=== PATIENT | female | born 1935 | race Caucasian/White ===

== ENCOUNTER 2016-10-05 02:36 | Inpatient (IN) | payer OTHER ==
--- NOTE | 2016-10-05 03:06 | ED EKG INTERP ---
EKG Interpretation - EKG Time of EKG reading by physician:: 02:51 EKG Read and Signed by:: Charli Bah EKG Interpretation (*Must complete 3 of following elements*): Abnormal (Low voltage QRS; Nonspecific ST and T wave abnormality) Rate: 100 Rhythm: A-fib with PVC or aberrantly conducted complexes Attestation - Scribe Verification/Attestation Scribe:: Emiliano Matthew Acting as Scribe for:: Charli Bah Scribe documention review:: This chart was documented by a scribe and accurately reflects the service the provider performed and the decisions made by the provider.
[2016-10-05] MEDS ORDERED: ASPIRIN PO STA (03:18)
[2016-10-05 03:25] LABS: MANUAL DIFF NEEDED? NO
[2016-10-05 03:32] LABS: BASO% 1.2 % (0.0-0.8); EOS# 0.34 X1000 (0.0-0.7); HEMOGLOBIN 14.7 g/dL (12.0-16.0); LYMPH# 1.18 X1000 (1.2-3.4); LYMPH% 27.7 % (20.5-51.1); MCHC 33.4 g/dL (33-37); MCV 98.7 FL (81-99); MONO# 0.64 X1000 (0.11-0.59); MPV 8.1 FL (7.4-10.4); NEUT% 48.1 % (42.2-75.2); PLT 158 X1000 (130-400); RBC 4.46 XMIL (4.2-5.4)
--- NOTE | 2016-10-05 03:35 | PROVIDER DOCUMENTATION ---
HPI-Chest Pain - General Source: patient - History of Present Illness-CP Location: reports: other (midsternal) Chest Pain Radiation: reports: no radiation Quality of Pain: reports: burning Severity in ED: moderate Onset/Duration: 4-6 hours ago Timing: still present Context/Activities at Onset: reports: light activity Associated Symptoms: reports: fatigue, shortness of breath. denies: abdominal pain, back pain, headache, nausea, rash, swelling/lump in chest, syncope, vomiting <Emiliano Matthew - Last Filed: 10/05/16 03:29> <Charli Bah - Last Filed: 10/05/16 05:50> <Yordan Dumont - Last Filed: 10/05/16 08:38> - General Chief Complaint: Chest Pain Stated Complaint: CP Time Seen by Provider: 10/05/16 03:11 Allergies/Adverse Reactions: Patient Allergies Allergy/AdvReac Type Severity Reaction Status Date / Time No Known Allergies Allergy Verified 10/05/16 02:59 Home Medications: Home Medication List Medication Instructions Recorded Confirmed Last Taken Type Albuterol Sulfate [Ventolin] 5 mg IH PRN PRN 06/09/12 10/05/16 06/09/12 03:00 History Alprazolam [Xanax] 0.05 mg PO BID 06/09/12 10/05/16 10/04/16 History Budesonide/Formoterol Inhaler 60 puff INH BID 06/09/12 10/05/16 10/04/16 History [Symbicort 160/4.5 Microgm Inhaler] Aliskiren [Tekturna] 150 mg PO DAILY #0 tablet 06/14/12 10/05/16 10/04/16 Rx Montelukast [Singulair] 10 mg PO DAILY #0 tablet 06/14/12 10/05/16 10/04/16 Rx 2 Unk "Heart Pills" 1 tab PO DAILY 10/05/16 10/04/16 History Furosemide [Lasix] 20 mg PO DAILY 10/05/16 10/05/16 10/04/16 History Guaifenesin E.r. [Mucinex] 600 mg PO BID 10/05/16 10/05/16 10/04/16 History Hydrochlorothiazide 25 mg PO DAILY 0210/05/16 10/04/16 History Ipratropium/Albuterol Sulfate 3 ml IH TID 10/05/16 10/05/16 10/04/16 History [Iprat-Albut 0.5-3(2.5) mg/3 ml] Potassium Chloride 20 meq PO DAILY 10/05/16 10/05/16 10/04/16 History - History of Present Illness-CP Nature of Presenting Problem: Pt is a 81 yof who presents to ER with CC of C/P that started at approximately 2300. Pt reports having a constant, midsternal, burning C/P and rates her pain 8 /10. Pt also complains of RUQ and RLQ tenderness, dyspnea on exertion. On exam, pt's O2 sat did not go above 90, and pt was on approximately 2L of O2. ( Emiliano Matthew) Review of Systems - Adult - REVIEW OF SYSTEMS - ADULT Constitutional: denies: chills, fever, fatique, night sweats Eyes: reports: no symptoms reported Ears, Nose, Mouth & Throat: reports: no symptoms reported Cardiovascular: reports: chest pain, irregular heart rate (hx of A-fib). denies : edema, heart murmur, orthopnea, palpitations, poor circulation, PND, syncope Respiratory: reports: chronic cough, cough, dyspnea on exertion, excessive sputum production, shortness of breath, wheezing. denies: hemoptysis, pleurisy Gastrointestinal: reports: abdominal pain (RUQ and RLQ tenderness). denies: hematemesis, constipation, diarrhea, difficulty swallowing, frequent heartburn, nausea, poor appetite, rectal bleeding, vomiting Genitourinary: reports: no symptoms reported Musculoskeletal: reports: no symptoms reported Integumentary: reports: no symptoms reported Neurological: reports: no symptoms reported Psychiatric: reports: no symptoms reported Endocrine: reports: no symptoms reported Hematologic/Lymphatic: reports: no symptoms reported Allergic/Immunologic: reports: no symptoms reported All Other Systems: Reviewed and Negative <Emiliano Matthew - Last Filed: 10/05/16 03:29> Past History - Adult - PAST MEDICAL HISTORY-ADULT Review of Records: reports: Nursing Assessment Review, Medications Reviewed Cardiovascular: reports: A-Fib, HTN Respiratory: reports: COPD - IMMUNIZATION STATUS Childhood Immunizations: See Nurse Assessment Flu Vaccine: See Nurse Assessment <Emiliano Matthew - Last Filed: 10/05/16 03:29> Physical Exam-General - PHYSICAL EXAM-ADULT Initial Vital Signs Reviewed: Yes - CONSTITUTIONAL General Appearance: appears well, alert, moderate distress - NECK Neck: non-tender, full range of motion, supple - RESPIRATORY Respiratory: chest non-tender, wheezing (moderate bilaterally). negative: respiratory distress, accessory muscle use - CARDIOVASCULAR Cardiovascular: tachycardia, irregularly irregular - CHEST (BREASTS) Chest/Breast: no masses/lumps, no tenderness. negative: tenderness, mass/lump noted - GASTROINTESTINAL (ABDOMEN) Abdominal Exam: normal bowel sounds, soft, tenderness (RU and RLQ). negative: distended, guarding, rigid, rebound, mass - NEUROLOGIC Neurologic: grossly normal, no motor/sensory deficits. negative: facial droop, focal weakness, motor weakness, sensory deficit - PSYCHIATRIC Psych/Mental Status: normal mood/affect, normal thought content, normal thought process, oriented x 3. negative: disoriented x 3, depressed affect, paranoid, tearful <Emiliano Matthew - Last Filed: 10/05/16 03:29> - CONSTITUTIONAL General Appearance: alert, mild distress (with gasping breaths, unable to speak full sentences) - RESPIRATORY Respiratory: respiratory distress (mild), decreased breath sounds, accessory muscle use, wheezing (faint end expiratory), increased rate. negative: rales, rhonchi - CARDIOVASCULAR Cardiovascular: regular rate, rhythm, no gallop, JVD. negative: gallop/S3 - GASTROINTESTINAL (ABDOMEN) Abdominal Exam: soft, tenderness (mild RUQ). negative: distended, guarding, rigid, mass, McBurney's point tenderness, Bee's sign - MUSCULOSKELETAL Extremity: no calf tenderness (neg Clifton's), pedal edema (2+ BLE's) - SKIN Integumentary: warm/dry, cyanosis (both hands). negative: diaphoresis - PSYCHIATRIC Psych/Mental Status: normal mood/affect <Yordan Dumont - Last Filed: 10/05/16 08:38> Progress <Emiliano Matthew - Last Filed: 10/05/16 03:29> - XRAY 1 XRAY Study: Chest Impression: Abnormal (severe COPD, small rt pleural effusion. No sig change from prior exms) - CHANGE OF SHIFT REPORT (ED Provider) Report Given and Care Transferred to:: Dr dumont Items Pending: Ultrasound Results <Charli Bah - Last Filed: 10/05/16 05:50> - CONSULTS/PCP/HOSPITALIST Notification #1 *Consult/PCP/Hospitalist*: Joan Time Discussed: 08:06 Consult Disposition: Will see in ED, Admit <Yordan Dumont - Last Filed: 10/05/16 08:38> - PLAN OF CARE/RESULTS Progress/Plan/Lab Results: Vital Signs Temp Pulse Resp BP Pulse Ox 10/05/16 07:54 96 H 20 80 L 10/05/16 07:38 109 H 29 H 153/86 90 L 10/05/16 06:53 87 15 124/88 96 10/05/16 04:41 89 14 144/79 95 10/05/16 04:19 98 H 17 10/05/16 03:58 90 16 156/81 85 L 10/05/16 02:38 97.9 F 62 22 139/75 No Known Allergies Allergy (Verified 10/05/16 02:59) Albuterol Sulfate [Ventolin] 5 mg IH PRN PRN 06/09/12 Alprazolam [Xanax] 0.05 mg PO BID 06/09/12 Budesonide/Formoterol Inhaler [Symbicort 160/4.5 Microgm Inhaler] 60 puff INH BID 06/09/12 Aliskiren [Tekturna] 150 mg PO DAILY #0 tablet 06/14/12 Montelukast [Singulair] 10 mg PO DAILY #0 tablet 06/14/12 2 Unk "Heart Pills" 1 tab PO DAILY 10/05/16 Furosemide [Lasix] 20 mg PO DAILY 10/05/16 Guaifenesin E.r. [Mucinex] 600 mg PO BID 10/05/16 Hydrochlorothiazide 25 mg PO DAILY 10/05/16 Ipratropium/Albuterol Sulfate [Iprat-Albut 0.5-3(2.5) mg/3 ml] 3 ml IH TID 10/05 Potassium Chloride 20 meq PO DAILY 10/05/16 Laboratory 10/05/16 10/05/16 10/05/16 07:46 03:15 03:15 WBC 4.26 L RBC 4.46 Hgb 14.7 Hct 44.0 MCV 98.7 MCH 33.0 H MCHC 33.4 RDW Std Deviation 14.6 H Plt Count 158 MPV 8.1 Immature Gran % (Auto) 0.0 Neut % (Auto) 48.1 Lymph % (Auto) 27.7 Tarrant % (Auto) 15.0 H Eos % (Auto) 8.0 Baso % (Auto) 1.2 H Immature Gran # (Auto) 0.00 Neut # (Auto) 2.05 Lymph # (Auto) 1.18 L T[place] # (Auto) 0.64 H Eos # (Auto) 0.34 Baso # (Auto) 0.05 PT 10.7 INR 1.01 PTT (Actin FS) 26.4 D-Dimer Specimen Type ARTERIAL Sample Site R RADIAL pH 7.43 pCO2 59 H* pO2 46 L* HCO3 33.8 H Base Excess 12.1 H Oxyhemoglobin 77.3 L* ABG O2 Sat (Calculated) 16.0 ABG O2 Saturation 80.7 L ABG Carboxyhemoglobin 2.80 H ABG Methemoglobin 1.3 Gareth Test YES A-a O2 Difference 137.0 Total Hemoglobin 14.8 Lactate 0.90 Liter Flow 4.0 Blood Gas Modality CANNULA FiO2 % 36.0 Sodium Potassium Chloride Carbon Dioxide Anion Gap BUN Creatinine Estimated GFR/1.73 m2 BUN/Creatinine Ratio Glucose Calculated Osmolality Calcium Magnesium Total Bilirubin AST ALT Alkaline Phosphatase Creatine Kinase Troponin T [id number]-Fmwuwwniwtu Pept Total Protein Albumin Globulin Albumin/Globulin Ratio 10/05/16 10/05/16 10/05/16 03:15 03:15 03:15 WBC RBC Hgb Hct MCV MCH MCHC RDW Std Deviation Plt Count MPV Immature Gran % (Auto) Neut % (Auto) Lymph % (Auto) Tarrant % (Auto) Eos % (Auto) Baso % (Auto) Immature Gran # (Auto) Neut # (Auto) Lymph # (Auto) Tarrant # (Auto) Eos # (Auto) Baso # (Auto) PT INR PTT (Actin FS) D-Dimer 0.53 H Specimen Type Sample Site pH pCO2 pO2 HCO3 Base Excess Oxyhemoglobin ABG O2 Sat (Calculated) ABG O2 Saturation ABG Carboxyhemoglobin ABG Methemoglobin Gareth Test A-a O2 Difference Total Hemoglobin Lactate Liter Flow Blood Gas Modality FiO2 % Sodium Potassium Chloride Carbon Dioxide Anion Gap BUN Creatinine Estimated GFR/1.73 m2 BUN/Creatinine Ratio Glucose Calculated Osmolality Calcium Magnesium Total Bilirubin AST ALT Alkaline Phosphatase Creatine Kinase Troponin T < 0.010 Oxh-A-Txuitxwlbfr Pept 2219 H Total Protein Albumin Globulin Albumin/Globulin Ratio 10/05/16 03:15 WBC RBC Hgb Hct MCV MCH MCHC RDW Std Deviation Plt Count MPV Immature Gran % (Auto) Neut % (Auto) Lymph % (Auto) Tarrant % (Auto) Eos % (Auto) Baso % (Auto) Immature Gran # (Auto) Neut # (Auto) Lymph # (Auto) Tarrant # (Auto) Eos # (Auto) Baso # (Auto) PT INR PTT (Actin FS) D-Dimer Specimen Type Sample Site pH pCO2 pO2 HCO3 Base Excess Oxyhemoglobin ABG O2 Sat (Calculated) ABG O2 Saturation ABG Carboxyhemoglobin ABG Methemoglobin Gareth Test A-a O2 Difference Total Hemoglobin Lactate Liter Flow Blood Gas Modality FiO2 % Sodium 136 Potassium 3.5 Chloride 87 L Carbon Dioxide 36 H Anion Gap 13 BUN 15 Creatinine 0.9 Estimated GFR/1.73 m2 60 BUN/Creatinine Ratio 17 Glucose 114 H Calculated Osmolality 274 Calcium 10.0 Magnesium 2.1 Total Bilirubin 0.57 AST 19 ALT 18 Alkaline Phosphatase 60 Creatine Kinase 46 Troponin T Uwg-E-Nvsthnebojw Pept Total Protein 7.2 Albumin 4.1 Globulin 3.1 Albumin/Globulin Ratio 1.3 (Yordan Dumont) Departure <Emiliano Matthew - Last Filed: 10/05/16 03:29> <Charli Bah - Last Filed: 10/05/16 05:50> - Departure Time of Disposition Order: 08:30 Certified Medical Emergency: Emergent - Critical Care Note Total Time (mins): 30 Critical Care Statement: This patient required my direct personal management to treat or rule out processes, the absence of which, could potentiallly result in sudden, clinically significant life or limb threatening deterioration. <Yordan Dumont - Last Filed: 10/05/16 08:38> - Departure DIAGNOSIS: Acute respiratory failure with hypoxemia RUQ abdominal tenderness Qualifiers: Presence of rebound: absent Qualified Code(s): R10.811 - Right upper quadrant abdominal tenderness Disposition: ADMITTED INPATIENT 09 Condition: Stable Referrals: Gareth Franco MD [Primary Care Provider] - Attestation - Scribe Verification/Attestation Scribe:: Emiliano Matthew Acting as Scribe for:: Charli Bah Scribe documention review:: This chart was documented by a scribe and accurately reflects the service the provider performed and the decisions made by the provider. <Emiliano Matthew - Last Filed: 10/05/16 03:29> Physician Attestation
[2016-10-05 03:39] LABS: INR 1.01; PROTIME 10.7 Seconds (9.2-11.7); PTT 26.4 Seconds (22.0-36.0)
[2016-10-05 03:55] LABS: ALBUMIN 4.1 g/dL (3.5-5.0); MAGNESIUM 2.1 mg/dL (1.5-2.7); POTASSIUM 3.5 mmol/L (3.5-5.1); TOTAL BILIRUBIN 0.57 mg/dL (0.20-1.00); TOTAL PROTEIN 7.2 g/dL (6.3-8.3)
[2016-10-05] MEDS ORDERED: DUONEB (A & A) INH ONE (04:05)
[2016-10-05] MEDS ORDERED: ALBUTEROL NEB INH ONE (07:39)
[2016-10-05] MEDS ORDERED: LASIX IV ONE (07:44)
[2016-10-05 07:55] LABS: ALLEN TEST YES; BE 12.1 mmoll (-3.0-3.0); BLOOD TYPE ARTERIAL; DRAW SITE R RADIAL; METHB 1.3 % (0.0-1.5); SAMPLE BLOOD; SAO2 80.7 % (95.0-100.0); THB 14.8 g/dL (11.5-17.4); pH(98.6) 7.43 (7.35-7.45)
[2016-10-05 07:57] LABS: MODALITY CANNULA; PCO2(98.6) 59 mmHg (35-45); PO2(98.6) 46 mmHg (60-100)
--- NOTE | 2016-10-05 09:32 | HISTORY AND PHYSICAL ---
HISTORY OF PRESENT ILLNESS: This is a 81-year-old who woke up about 12 o'clock last night with right subcostal pain and it was about 8/10 severity. Cannot think of any previous type of pain like this. No precipitating or alleviating factors. No fever or chills. Presented with the pain. She has severe COPD. She has a history of hypertension, hypercholesterolemia, polycythemia that has resolved probably secondary to chronic hypoxia. SOCIAL HISTORY: She quit tobacco in 2005. By report, drinks wine a couple of times a day. , 3 children. is . FAMILY HISTORY: Sister with pancreatic cancer. Father had congestive heart failure. REVIEW OF SYSTEMS: General: She has not noticed any weight gain or loss. Actually, her breathing seems to be getting a little better. I had seen her in the clinic for increased dyspnea on exertion. HEENT: Unremarkable. Cardiovascular: No chest pain or tachy palpation. GI and : No change in bowels. no gross hematuria or dysuria. Musculoskeletal/Neurologic: No focal complaints. PHYSICAL EXAMINATION: VITAL SIGNS: Temp 97.9, pulse 96, respirations 20, blood pressure 153/86. Weight 163 pounds, height 5 feet 9 inches. HEENT: Pupils are equal, round. LUNGS: Clear in all lung reyes. CARDIOVASCULAR: Regular rhythm and rate without murmur or S3. ABDOMEN: Soft. SKIN: Warm and dry. MUSCULOSKELETAL: She has no point tenderness but hurts underneath the right subcostal margin. LAB: White count 4260, hematocrit 44, platelet count 158,000. Sodium 136, potassium 3.5, chloride 87, bicarbonate 36, BUN 15, creatinine 0.9, blood sugar 114, calcium 10.0. Liver functions unremarkable. Albumin 4.1. PT was 10.7, PTT was 26. Blood gases on arrival: pH was 7.43, pCO2 was 59, pO2 was 46. O2 sat 77% on 4 L on 36%. IMAGING: Had an ultrasound done. Do not have the results back at this point. EKGS: Atrial fibrillation with PVCs, aberrant conduction complex. ECHOCARDIOGRAM: She had an echocardiogram done 06/11/2012, excellent hemodynamic left ventricular systolic function, no wall motion abnormality. Right ventricle is mildly to moderately enlarged. A mild degree of mitral and tricuspid regurgitation. A mild degree of pulmonary hypertension. No significant left ventricular diastolic dysfunction. Clinical correlation is recommended. ASSESSMENT AND PLAN: 1. Concerned about her degree of hypoxia and she may have to have some BiPAP, and we will see if we can tune up her breathing a little bit. She has a chest x-ray that is pending at this time, and it sounds like with have a little pleural effusion down in the right lower lobe and will give her some Lasix and plan on putting her in and working on her breathing. See if we can also explore her right upper quadrant pain. Probably need to repeat an echocardiogram. 2. Hypertension. Aware. 3. Hypercholesterolemia. 4. History of polycythemia in the past. Note her last x-ray to compare was in 08/02. Stable COPD, bibasilar fibrosis.
--- NOTE | 2016-10-05 09:48 | Diag Imaging Result Document ---
PROCEDURE NAME: US GB < RUQ (LIMITED) - 10/05/2016 RIGHT UPPER QUADRANT ABDOMINAL ULTRASOUND: COMPARISON: None available. FINDINGS: There is dense shadowing emanating from the fundus and neck of the gallbladder, consistent with large gallstones or multiple smaller compacted stones. No obvious gallbladder wall thickening is identified. There is no pericholecystic fluid identified. The common bile duct is normal in diameter. The sonographic Bee sign was reported to be positive by the technologist, however. The liver, visualized pancreas, aorta, IVC, and right kidney are grossly unremarkable. IMPRESSION: Cholelithiasis, with no obvious wall thickening. However, the technologist did report a positive sonographic Bee sign. Correlated clinically to exclude cholecystitis. MTDD
--- NOTE | 2016-10-05 11:39 | Diag Imaging Result Document ---
PROCEDURE NAME: CHEST-2 VIEWS - 10/05/2016 PA AND LATERAL RADIOGRAPH OF THE CHEST: COMPARISON: 07/31/2016. FINDINGS: There is suggestion of small bilateral pleural effusions, largest on the right. There is adjacent bibasilar atelectasis and/or infiltrate. There is also a background of chronic interstitial thickening. Cardiac silhouette is prominent, but stable. IMPRESSION: Suggestion of small bilateral effusions, largest on the right, with adjacent atelectasis and/or infiltrate.
[2016-10-05] MEDS: XANAX PO SCH ×2 (13:05→20:06)
[2016-10-05] MEDS: LEVAQUIN 750 MG/D5W 150 ML IV SCH (13:05)
[2016-10-05] MEDS ORDERED: TEKTURNA PO SCH (13:05)
[2016-10-05] MEDS ORDERED: DUONEB (A & A) INH SCH (13:05)
[2016-10-05] MEDS ORDERED: ALBUTEROL NEB INH PRN (13:05)
[2016-10-05] MEDS: SOLU-MEDROL IV SCH ×2 (14:13→20:06)
[2016-10-05] MEDS: MUCINEX PO SCH ×2 (14:14→20:06)
[2016-10-05] MEDS: LASIX IV SCH (14:14)
[2016-10-05] MEDS: HYDROCHLOROTHIAZIDE PO SCH (14:14)
[2016-10-05] MEDS: SINGULAIR PO SCH (14:14)
[2016-10-05] MEDS: DUONEB (A & A) INH SCH ×2 (15:21→20:40)
[2016-10-05] MEDS: SYMBICORT 160/4.5 MICROGM INHALER INH SCH ×2 (15:25→20:40)
[2016-10-05] MEDS: KLOR-CON POWDER PACKET PO SCH (16:17)
[2016-10-05 22:51] LABS: URINE CULTURE NEEDED? NO; URINE MICRO REVIEW NEEDED? NO; URINE SOURCE CLEAN CATCH
[2016-10-05 22:53] LABS: BILIRUBIN URINE NEGATIVE (NEGATIVE); BLOOD URINE NEGATIVE (NEGATIVE); COLOR STRAW; GLUCOSE URINE NEGATIVE (NEGATIVE); LEUKOCYTES URINE NEGATIVE (NEGATIVE); NITRITE URINE NEGATIVE (NEGATIVE); PROTEIN URINE NEGATIVE (NEGATIVE); SP GRAVITY URINE 1.006; TURBIDITY URINE CLEAR (CLEAR); UROBILINOGEN URINE NORMAL (NORMAL)
[2016-10-05 22:54] LABS: UR EPITHELIAL CELLS <10 /HPF (<10); URINE BACTERIA NEGATIVE /HPF; URINE RBC <10 /HPF (<10); URINE WBC <10 /HPF (<10)
[2016-10-06] MEDS: LASIX IV SCH ×2 (02:59→13:09)
[2016-10-06 05:38] LABS: HEMATOCRIT 45.3 % (37.0-47.0); HEMOGLOBIN 15.1 g/dL (12.0-16.0); LYMPH# 0.37 X1000 (1.2-3.4); MANUAL DIFF NEEDED? YES; MCH 32.4 PG (27-31); MCHC 33.3 g/dL (33-37); MCV 97.2 FL (81-99); MONO# 0.15 X1000 (0.11-0.59); MONO% 3.6 % (1.7-9.3); MPV 8.2 FL (7.4-10.4); NEUT% 87.4 % (42.2-75.2); PLT 148 X1000 (130-400); RBC 4.66 XMIL (4.2-5.4)
[2016-10-06] MEDS: SOLU-MEDROL IV SCH ×3 (05:45→20:20)
[2016-10-06 05:58] LABS: LYMPHS 14 % (21-51); MONO 2 % (1-9)
[2016-10-06 06:09] LABS: AGAP 13; ALBUMIN 3.8 g/dL (3.5-5.0); ALKALINE PHOSPHATASE 56 U/L (32-104); BUN 17 mg/dL (8-22); CHLORIDE 79 mmol/L (98-107); COSMO 273; GOT 14 U/L (10-30); GPT 15 U/L (10-36); MAGNESIUM 1.8 mg/dL (1.5-2.7); POTASSIUM 2.7 mmol/L (3.5-5.1); SODIUM 133 mmol/L (136-145); TCO2 41 mmol/L (25-35); TOTAL BILIRUBIN 0.92 mg/dL (0.20-1.00); TOTAL PROTEIN 7.1 g/dL (6.3-8.3)
[2016-10-06] MEDS ORDERED: POTASSIUM CHLORIDE 20% LIQUID PO ONE (07:21)
[2016-10-06] MEDS: DUONEB (A & A) INH SCH ×3 (08:05→19:39)
[2016-10-06] MEDS: SYMBICORT 160/4.5 MICROGM INHALER INH SCH ×2 (08:05→19:39)
--- NOTE | 2016-10-06 08:05 | PROGRESS NOTE ---
DATE: 10/06/2016 SUBJECTIVE: She is breathing much better. States her right upper quadrant subcostal pain is resolved. She can tell she has lost some fluid and breathing better. OBJECTIVE: Vital signs: Temp 97.7 degrees, pulse 80, respirations 20, blood pressure 104/46. HEENT: Pupils are equal and round. Neck: CVP less than 6 cm. Lungs: Clear anterolateral. Decreased breath sounds both bases. Cardiovascular: Regular rhythm and rate without murmur or S3. Abdomen: Soft. Weight 159 pounds. She came in at 163. Intake and output: Urine output was close to 1800 mL. LAB: From today, white count 4,110, hematocrit 45, platelet count 148,000. Chemistry: Sodium 133, potassium 2.7, chloride 79, BUN 17, creatinine 0.8. Blood sugars 164, 225, 182, 185. ASSESSMENT AND PLAN: 1. Right upper quadrant subcostal pain. She does have cholelithiasis but no obvious thickening of the gallbladder. Did show positive sonographic Bee's sign. I suspect most of her discomfort though was from hepatic congestion and that is better. 2. Chronic obstructive pulmonary disease exacerbation with right-sided dysfunction. She has fluid retention; responding to diuresis. 3. Hypokalemia secondary diuresis. Will supplement some additional potassium. 4. Blood sugars, watching. Diabetes. Continue to follow. Note that magnesium was 1.8.
[2016-10-06] MEDS: XANAX PO SCH ×2 (08:26→20:20)
[2016-10-06] MEDS: MUCINEX PO SCH ×2 (08:26→20:20)
[2016-10-06] MEDS: SINGULAIR PO SCH (08:26)
[2016-10-06] MEDS: HYDROCHLOROTHIAZIDE PO SCH (08:26)
[2016-10-06] MEDS: KLOR-CON POWDER PACKET PO SCH (08:26)
--- NOTE | 2016-10-06 11:29 | ECHO REPORT ---
ORDER DATE: 10/05/2016 ECHOCARDIOGRAPHIC MEASUREMENTS: 1. Interventricular septum 1, left ventricular posterior wall 1, diastolic diameter 3.5, left atrium 4.8, aorta 2.7. Normal left ventricular cavity size. Estimated ejection fraction of 70%. Hyperdynamic left ventricular systolic function. 2. There is mild left atrial enlargement. 3. Aortic valve leaflets are trileaflet. 4. Mitral valve was normal. 5. Tricuspid valve was normal. 6. Peak velocity across the aortic valve less than 2 m/sec. There is no aortic stenosis or regurgitation. There is mild mitral regurgitation. Mild tricuspid regurgitation. Peak velocity across the tricuspid valve was 3.1 m/sec. 7. There is no pericardial effusion or obvious intracardiac mass or thrombus seen. 8. There was mild left atrial enlargement.
[2016-10-06] MEDS: LEVAQUIN 750 MG/D5W 150 ML IV SCH (13:09)
[2016-10-06] MEDS ORDERED: POTASSIUM CHLORIDE 20% LIQUID PO SCH (14:00)
[2016-10-07] MEDS: LASIX IV SCH (03:09)
[2016-10-07] MEDS: SOLU-MEDROL IV SCH (05:02)
[2016-10-07 05:50] LABS: CALCIUM 8.7 mg/dL (8.8-10.2); MAGNESIUM 1.8 mg/dL (1.5-2.7); POTASSIUM 2.9 mmol/L (3.5-5.1)
--- NOTE | 2016-10-07 06:36 | EKG Report ---
Test Performed on : 10/05/2016 02:51:43 AM Test Reason : CP Blood Pressure : / mmHG Vent. Rate : 100 BPM Atrial Rate : 091 BPM P-R Int : 000 ms QRS Dur : 074 ms QT Int : 346 ms P-R-T Axes : 000 089 080 degrees QTc Int : 446 ms Atrial fibrillation. with premature ventricular or aberrantly conducted complexes. Low voltage QRS Nonspecific ST and T wave abnormality Abnormal ECG When compared with ECG of 09-JUN-2012 07:51, Atrial fibrillation. has replaced Sinus rhythm. ST now depressed in Anterior leads Nonspecific T wave abnormality now evident in Lateral leads Unconfirmed Result
[2016-10-07] MEDS ORDERED: POTASSIUM CHLORIDE 20% LIQUID PO ONE (07:49)
[2016-10-07 07:55] VITALS: BP 122/76
--- NOTE | 2016-10-07 08:11 | Diag Imaging Result Document ---
PROCEDURE NAME: CHEST-2 VIEWS - 10/07/2016 PA AND LATERAL RADIOGRAPH OF THE CHEST: COMPARISON: 10/05/2016. FINDINGS: There is again suggestion of small effusions, largest on the right that is essentially stable. There is better aeration of the left lung base indicating improved atelectasis. Atelectasis and/or infiltrate at the right lung base is unchanged. No new consolidations identified. Cardiac silhouette is stable. IMPRESSION: Better aeration of the left lung base. Essentially stable, otherwise.
[2016-10-07] MEDS: MUCINEX PO SCH (08:24)
[2016-10-07] MEDS: XANAX PO SCH (08:24)
[2016-10-07] MEDS: HYDROCHLOROTHIAZIDE PO SCH (08:25)
[2016-10-07] MEDS: SINGULAIR PO SCH (08:25)
[2016-10-07] MEDS: KLOR-CON POWDER PACKET PO SCH (08:25)
[2016-10-07] MEDS: DUONEB (A & A) INH SCH (09:38)
[2016-10-07] MEDS: SYMBICORT 160/4.5 MICROGM INHALER INH SCH (09:39)
--- NOTE | 2016-10-08 10:43 | DISCHARGE SUMMARY ---
ADMISSION DATE: 10/05/2016 DISCHARGE DATE: 10/07/2016 HOSPITAL COURSE: She presented to the emergency room with right upper quadrant pain. She was very short of breath with hypoxia and some CO2 retention, so had both CO2 retention and her usual hypoxia. She had evidence of pulmonary venous hypertension on her x-ray, and there is suggested bilateral effusions as well. So, we diuresed her and did an ultrasound of her abdomen with the right upper quadrant subcostal pain, and did see some cholelithiasis but no obvious wall thickening. Seemed to respond to diuretic. We did have her on a little bit of BiPAP for awhile and showed persistent clinical improvement. [place] she could go home on 10/07/2016. DISCHARGE MEDICATIONS: Her discharge medications will be as follows: 1. Albuterol ipratropium or DuoNeb as needed. 2. Symbicort 160/4.5 b.i.d. 3. Mucinex 600 mg b.i.d. 4. Hydrochlorothiazide 25 mg a day. 5. We had her on a little bit of Levaquin for potential bronchitis; we will stop that. 6. Had her on some Solu-Medrol and will put her on a Medrol Dosepak. 7. Singulair 10 mg a day. 8. Klor-Con 20 mEq daily; actually went up to 40 mEq daily on the Klor-Co. HOME MEDICINES: 1. She is not able to get the Tekturna, so we will we will stop that. 2. We will keep her on Lasix 40 mg q.a.m. Blood pressures have done fairly well. I am going to have her continue these medications and see her back in about a week and a half.
--- NOTE | 2016-10-24 17:56 | DISCHARGE SUMMARY ---
ADMISSION DATE: 10/05/2016 DISCHARGE DATE: 10/07/2016 DISCHARGE SUMMARY ADDENDUM: It was documented in the ED that she had acute hypoxic respiratory failure. ABGs revealed pH of 7.43, pCO2 of 59, pO2 of 46. Saturation was noted at 77% on 4 L. Subsequently required Venturi mask to maintain saturations in the 90s. She had hypoxic respiratory failure. She had COPD with exacerbation and congestive heart failure with pulmonary venous hypertension.
--- NOTE | 2016-10-24 17:57 | DISCHARGE SUMMARY ---
ADMISSION DATE: 10/05/2016 DISCHARGE DATE: 10/07/2016 DISCHARGE SUMMARY ADDENDUM: This patient was admitted with shortness of breath, chronic obstructive pulmonary disease, documented as stable. Then subsequent notes included chronic obstructive pulmonary disease with exacerbation. Patient received IV steroids, DuoNebs, and antibiotics. wanted to clarify patient was treated for. Patient was treated for chronic obstructive pulmonary disease exacerbation, but she also had congestive heart failure and pulmonary venous hypertension, so she really had two things going on. So, she had chronic obstructive pulmonary disease with exacerbation and she also had pulmonary venous hypertension or congestive heart failure, which was probably what exacerbated her chronic obstructive pulmonary disease.
== END 2016-10-07 10:30 | disposition home or self-care (01) | DRG 189 ==
LOC: ED 02:36 → EDIPHOLD 09:30 → 3S 13:09
PROVIDERS: ADMIT Emergency Medicine; ATTEND Emergency Medicine
DX: J96.01 Acute respiratory failure with hypoxia (principal); E87.2 Acidosis; I27.2 Other secondary pulmonary hypertension; D75.1 Secondary polycythemia; I11.0 Hypertensive heart disease with heart failure; I50.9 Heart failure, unspecified; J44.1 Chronic obstructive pulmonary disease with (acute) exacerbation; K76.1 Chronic passive congestion of liver; E87.6 Hypokalemia; E78.00 Pure hypercholesterolemia, unspecified; K80.20 Calculus of gallbladder without cholecystitis without obstruction; Z79.899 Other long term (current) drug therapy; Z87.891 Personal history of nicotine dependence; Z80.8 Family history of malignant neoplasm of other organs or systems; T50.2X5A Adverse effect of carbonic-anhydrase inhibitors, benzothiadiazides and other diuretics, initial encounter
CPT/HCPCS: 71020; 76705; 80048; 80053; 81001; 82550; 82805; 82948; 83735; 83880; 84484; 85025; 85379; 85610; 85730; 87070; 87205; 93005; 93306; 94640; 94761; 94799; 96374; J1940; J2920; J2930

== ENCOUNTER 2017-02-10 15:14 | Inpatient (IN) ==
[2017-02-10] MEDS ORDERED: DUONEB (A & A) INH SCH (17:32)
[2017-02-10] MEDS ORDERED: ALBUTEROL 0.5% INH CONC FOR HYPERKALEMIA INH PRN (17:32)
[2017-02-10] MEDS ORDERED: TYLENOL PO PRN ×2 (17:32)
[2017-02-10] MEDS ORDERED: VANCOMYCIN 1 GM/NS 1 GM/250 ML IVPB IV ONE (17:32)
[2017-02-10] MEDS ORDERED: VANCOMYCIN IV PER PHARMACY MISC SCH (18:30)
[2017-02-10 18:49] LABS: MANUAL DIFF NEEDED? NO
[2017-02-10 19:02] LABS: BASO% 0.5 % (0.0-0.8); EOS# 0.25 X1000 (0.0-0.7); EOS% 3.3 % (0.0-10.0); HEMATOCRIT 43.7 % (37.0-47.0); HEMOGLOBIN 14.4 g/dL (12.0-16.0); LYMPH# 1.39 X1000 (1.2-3.4); LYMPH% 18.5 % (20.5-51.1); MCH 31.9 PG (27-31); MCV 96.9 FL (81-99); MONO# 0.93 X1000 (0.11-0.59); MONO% 12.4 % (1.7-9.3); MPV 8.4 FL (7.4-10.4); NEUT% 65.3 % (42.2-75.2); PLT 214 X1000 (130-400); RBC 4.51 XMIL (4.2-5.4)
[2017-02-10] MEDS ORDERED: PATIENT'S OWN MED INH PRN (19:02)
[2017-02-10 19:12] LABS: ALBUMIN 4.4 g/dL (3.5-5.0); CALCIUM 9.6 mg/dL (8.8-10.2); MAGNESIUM 2.3 mg/dL (1.5-2.7); POTASSIUM 3.6 mmol/L (3.5-5.1); TOTAL BILIRUBIN 0.3 mg/dL (0.20-1.00); TOTAL PROTEIN 8.1 g/dL (6.3-8.3)
[2017-02-10 19:16] LABS: PROTIME 10.5 Seconds (9.2-11.7); PTT 31.9 Seconds (22.0-36.0)
[2017-02-10] MEDS ORDERED: VANCOMYCIN 1,400 MG in NS 250 ML IV ONE (21:00)
[2017-02-10] MEDS ORDERED: SYMBICORT 160/4.5 MICROGM INHALER INH SCH (21:00)
[2017-02-10] MEDS ORDERED: XANAX PO SCH (21:00)
[2017-02-10] MEDS: SYMBICORT 160/4.5 MICROGM INHALER INH SCH (21:31)
[2017-02-10] MEDS: DUONEB (A & A) INH SCH (21:32)
[2017-02-10] MEDS: NS 1,000 ML IV SCH (23:25)
[2017-02-10] MEDS: KLOR-CON POWDER PACKET PO SCH (23:25)
[2017-02-10] MEDS: MUCINEX PO SCH (23:25)
[2017-02-10] MEDS: XANAX PO SCH (23:26)
[2017-02-11 08:42] LABS: ALLEN TEST YES; BE 14.9 mmoll (-3.0-3.0); BLOOD TYPE ARTERIAL; DRAW SITE R RADIAL; METHB 1.1 % (0.0-1.5); O2(CT) 17.5 mL/dL (15.0-23.0); PO2(98.6) 57 mmHg (60-100); SAMPLE BLOOD; SAO2 91.6 % (95.0-100.0); pH(98.6) 7.42 (7.35-7.45)
[2017-02-11 08:48] LABS: MODALITY CANNULA; PCO2(98.6) 66 mmHg (35-45)
[2017-02-11] MEDS ORDERED: LASIX IV SCH (09:00)
[2017-02-11] MEDS: MUCINEX PO SCH ×2 (09:25→21:07)
[2017-02-11] MEDS: CARDIZEM CD PO SCH (09:25)
[2017-02-11] MEDS: XANAX PO SCH ×2 (09:30→21:07)
[2017-02-11] MEDS: SYMBICORT 160/4.5 MICROGM INHALER INH SCH ×2 (09:51→19:00)
[2017-02-11] MEDS: DUONEB (A & A) INH SCH ×2 (09:51→15:29)
[2017-02-11] MEDS: KLOR-CON POWDER PACKET PO SCH ×2 (10:41→21:07)
--- NOTE | 2017-02-11 13:14 | PROGRESS NOTE ---
DATE: 02/11/2017 SUBJECTIVE: Her leg does feel better. Still has marked erythema in the right anterior beasley, a large eschar scab on the upper right lateral. She is breathing comfortably. She can tell the swelling has diminished. OBJECTIVE: Vital signs: Temp 97.9 degrees, pulse 102, respirations 24, blood pressure 117/72. Neck: CVP less than 6 cm. Lungs: Clear in all lung reyes. She is on a nasal cannula. Cardiovascular: Regular rhythm and rate without murmur or S3. Abdomen: Soft. Skin: Warm and dry. Good urine output. LAB: White count 7,500, hematocrit 43, platelet count 214,000. Chemistry: Sodium 142, potassium 3.6, chloride 94, BUN 20, creatinine 0.9. ASSESSMENT AND PLAN: 1. Cellulitis of the right leg, better. Continue IV vancomycin. I think she would benefit from another 24 hours of treatment. Elevate the leg and apply some topical Bactroban on there as well three times a day. 2. Chronic obstructive pulmonary disease, O2 dependent. I have reviewed her blood gases. She has a pH 7.42, pCO2 66, PO2 57, O2 saturation was 89% and that was on 36% FiO2. 3. Previous echocardiogram showed mild mitral regurgitation and mild tricuspid regurgitation. No aortic stenosis. Normal left ventricular function. Does have diastolic dysfunction and chronic venous insufficiency. I will give her an additional dose of Lasix now and another 1 in the morning. Start her on some Bactroban. cc: Gareth Franco MD
[2017-02-11] MEDS: SINGULAIR PO SCH (15:49)
[2017-02-11] MEDS: BACTROBAN CREAM TOP SCH ×2 (15:50→21:08)
[2017-02-11] MEDS: LASIX IV SCH (15:51)
--- NOTE | 2017-02-11 16:04 | HISTORY AND PHYSICAL ---
HISTORY OF PRESENT ILLNESS: This is an 82-year-old, patient of mine, who presents to my office. She had bumped and has an abrasion on her right lower leg which had been healing well but in the last 2 days had become more red and inflamed, very tender from the upper beasley about 6 cm below-the- knee to the lower part of the tuberosity down almost to her foot and on top of her foot as well with some swelling. It appeared consistent with cellulitis, and I felt that she probably needed IV antibiotics because of the extent and the severity. PAST MEDICAL HISTORY: 1. Atrial fibrillation, paroxysmal. 2. Anticoagulation. 3. Coronary artery disease due to coronary lesions. 4. History of chest pain in the past. 5. Respiratory failure. Combination of congestive heart failure and COPD. 6. COPD and chronic CO2 followed by Dr. Hernandez. 7. Polycythemia due to cyanotic respiratory disease. 8. Hypertension. 9. Hyperlipidemia. 10. Ex-smoker. 11. Chronic venous insufficiency. 12. Hypokalemia. 13. Left ventricular systolic dysfunction. CURRENT MEDICATIONS: 1. Diltiazem ER 180 mg daily. 2. Lasix 40 mg a day. 3. Eliquis 5 mg tablet twice a day. 4. Mucinex 600 mg XR 1 tablet once a day. 5. Symbicort 160/4.5, 1 puff twice a day. 6. Ventolin HFA inhaler 2 puffs by mouth twice a day. 7. Ipratropium albuterol 0.5/2.5 nebulized treatment q 4 hours p.r.n. 8. Potassium chloride 20 mEq daily. 9. Montelukast which is Singulair 10 mg a day. 10. Alprazolam 0.5 mg a day. 11. She wears her O2. FAMILY HISTORY: Noncontributory. SOCIAL HISTORY: She has quit smoking. Occasional alcohol. REVIEW OF SYSTEMS: She has been breathing well. Her weight has remained steady. She is getting a little stronger. Denies any fever or chills. HEENT: Unremarkable. Respiratory: No increased work of breathing or dyspnea. She wears her home O2. She sees Dr. Hernandez. He wants her to get some blood gases to see if she is eligible for BiPAP. GI/: No complaints. Endocrinologic/Hematologic: No significant history. PHYSICAL EXAMINATION: VITAL SIGNS: Blood pressure 110/64, pulse 80, respirations 18, temperature 97.7 degrees. HEENT: Pupils are equal and round. LUNGS: Clear in all lung reyes. CARDIOVASCULAR: Regular rhythm and rate without murmur or S3. ABDOMEN: Soft. SKIN: Warm and dry. EXTREMITIES: Her left foot with trace edema. Right foot with 1+ pitting edema from the upper 2/3 of her beasley down to her midfoot with erythema, a large 5 x 6 cm area of abrasion on the right lateral leg that is closed and no weeping. ASSESSMENT AND PLAN: 1. Cellulitis. Admit for IV antibiotics. 2. Congestive heart failure, diastolic. 3. Chronic obstructive pulmonary disease; O2 dependent. 4. Paroxysmal atrial fibrillation; appears to be in sinus rhythm and controlled. 5. Polycythemia secondary to cyanotic respiratory disease. 6. Hypertension. cc: Gareth Franco MD
[2017-02-11] MEDS: NS 1,000 ML IV SCH (18:11)
[2017-02-12] MEDS: LASIX IV SCH (06:40)
[2017-02-12] MEDS: XANAX PO SCH (08:24)
[2017-02-12] MEDS: KLOR-CON POWDER PACKET PO SCH (08:24)
[2017-02-12] MEDS: SINGULAIR PO SCH (08:24)
[2017-02-12] MEDS: BACTROBAN CREAM TOP SCH (08:24)
[2017-02-12] MEDS: CARDIZEM CD PO SCH (08:24)
[2017-02-12] MEDS: MUCINEX PO SCH (08:24)
[2017-02-12] MEDS ORDERED: VANCOMYCIN 1,100 MG in NS 250 ML IV SCH (09:00)
[2017-02-12] MEDS: DUONEB (A & A) INH SCH (10:07)
[2017-02-12] MEDS: SYMBICORT 160/4.5 MICROGM INHALER INH SCH (10:07)
--- NOTE | 2017-02-12 10:14 | DISCHARGE SUMMARY ---
ADMISSION DATE: 02/10/2017 DISCHARGE DATE: 02/12/2017 HISTORY OF PRESENT ILLNESS: This is an 82-year-old patient of mine, well known. She had bumped and scraped her right upper leg, and developed cellulitis that extended through most of the anterior beasley and down into the dorsal foot. She has denied any fever or chills but a lot of pain and discomfort there. She has a 6 x 7 cm eschar on the right that does not appear to be draining or have any subcutaneous infection. PAST MEDICAL HISTORY: 1. Atrial fibrillation, paroxysmal. 2. Anticoagulation. 3. Coronary artery disease and coronary lesions. 4. History of chest pain. 5. Respiratory failure. 6. COPD, chronic CO2 retention, followed by Dr. Hernandez. 7. Polycythemia due to cyanotic respiratory disease. 8. Hypertension. 9. Hyperlipidemia. 10. Ex-smoker. 11. Chronic venous insufficiency. 12. Hypokalemia. 13. Left ventricular systolic dysfunction. CURRENT MEDICATIONS: 1. Diltiazem ER 180 mg a day. 2. Lasix 40 mg a day. 3. Eliquis 5 mg tablet twice a day. 4. Mucinex 600 mg XR once a day. 5. Symbicort 160/4.5 one puff twice a day. 6. Ventolin inhaler 2 puffs by mouth twice a day. 7. Ipratropium/albuterol 0.5/2.5 q.4 hours. 8. Potassium chloride 20 mEq a day. 9. Singulair 10 mg a day. 10. Alprazolam 0.5 mg a day. 11. O2. HOSPITAL COURSE: Patient received vancomycin. I diuresed her a little bit extra with some IV Lasix and she showed steady improvement. Breathing remained comfortable. Her lab on presentation, white count 7500, hematocrit 43, platelet count 214,000. Electrolytes on the unremarkable. ASSESSMENT AND PLAN: Cellulitis which is improved. I will let her go home. I will put her on Bactrim Double Strength 1 twice a day for another 7 days and some Bactroban ointment to put on it. Otherwise, continue her present medication including her O2. Follow up with me in a couple of weeks. We did do some blood gases just to see what her gas exchange was and whether she would be eligible for possible BiPAP at home as needed. PH was 7.42, pCO2 66, PO2 57, O2 saturation 89%, and that is on 36%. cc: MD Manolo Mac
[2017-02-12] MEDS ORDERED: LASIX PO ONE (14:25)
[2017-02-12 14:31] VITALS: BP 107/66
== END 2017-02-12 14:59 | disposition home health service (06) ==
LOC: DIRADM 15:14 → 4N 17:16
PROVIDERS: ADMIT Emergency Medicine; ATTEND Emergency Medicine

== ENCOUNTER 2018-12-06 05:07 | Inpatient (IN) ==
[2018-12-06] MEDS ORDERED: DUONEB (A & A) INH ONE (05:35)
[2018-12-06] MEDS ORDERED: SOLU-MEDROL IV ONE (05:35)
--- NOTE | 2018-12-06 05:43 | PROVIDER DOCUMENTATION ---
HPI-General Adult - General Chief Complaint: Shortness of Breath Stated Complaint: weakness Time Seen by Provider: 12/06/18 05:18 Source: patient Allergies/Adverse Reactions: Patient Allergies Allergy/AdvReac Type Severity Reaction Status Date / Time codeine AdvReac Unknown Verified 12/06/18 07:20 Home Medications: Home Medication List Medication Instructions Recorded Confirmed Last Taken Type Albuterol Sulfate [Ventolin] 5 mg IH PRN PRN 06/09/12 04/03/18 1 Day Ago History ~08/22/17 Alprazolam [Xanax] 0.25 mg PO BID 06/09/12 04/03/18 04/02/18 07:30 History Budesonide/Formoterol Inhaler 60 puff INH BID 06/09/12 04/03/18 04/02/18 23:00 History [Symbicort 160/4.5 Microgm Inhaler] Montelukast [Singulair] 10 mg PO DAILY #0 tablet 06/14/12 04/03/18 04/02/18 07:30 Rx Albuterol 2.5MG/Ipratrop 0.5MG 3 ml INH RTTID #0 neb 11/12/16 04/03/18 1 Day Ago Rx [Duoneb (A & A)] ~08/22/17 Diltiazem C.d. [Cardizem Cd] 180 mg PO DAILY #0 capsule 11/12/16 04/03/18 04/02/18 07:30 Rx Furosemide [Lasix] 40 mg PO BID@0800,1400 #0 tablet 11/12/16 04/03/18 04/03/18 08:00 Rx Guaifenesin E.r. [Mucinex] 600 mg PO BID #0 tablet 11/12/16 04/03/18 04/02/18 Rx Apixaban [Eliquis] 5 mg PO BID 08/23/17 04/03/18 04/02/18 17:00 History Potassium Chloride E.r. [Klor-Con] 40 meq PO BID #60 tab 08/28/17 Unknown Rx Potassium Chloride 40 meq PO BID 04/03/18 04/03/18 04/02/18 History Levofloxacin [Levaquin] 500 mg PO DAILY #5 tab 04/06/18 Unknown Rx - History of Present Illness -Gen Adult Nature of Presenting Problems: Pt presents with sob, x a couple of days, pt reports LE edema, called pcp and was told to increase lasix at home, pt is on home O2, worsening sob with exertion, pt denies f/c, victor, cp, ap, n/v/d. Pt reports cough, pt is lying in bed in no acute distress. Location of Pain/Injury: reports: none Pain Radiation: reports: no radiation Quality of Pain: reports: none Severity: reports: moderate Onset/Duration: reports: 2 days ago Timing: reports: still present Context/Activities at Onset: reports: light activity Modifying Factors: improves with: nothing Associated Symptoms: reports: shortness of breath Similar Symptoms Previously?: Yes Recently seen or treated by another doctor?: Yes Review of Systems - Adult - REVIEW OF SYSTEMS - ADULT Constitutional: reports: no symptoms reported Eyes: reports: no symptoms reported Ears, Nose, Mouth & Throat: reports: no symptoms reported Cardiovascular: reports: no symptoms reported Respiratory: reports: see HPI Gastrointestinal: reports: no symptoms reported Genitourinary: reports: no symptoms reported Musculoskeletal: reports: no symptoms reported Integumentary: reports: no symptoms reported Neurological: reports: no symptoms reported Psychiatric: reports: no symptoms reported Endocrine: reports: no symptoms reported Hematologic/Lymphatic: reports: no symptoms reported Allergic/Immunologic: reports: no symptoms reported All Other Systems: Reviewed and Negative Past History - Adult - PAST MEDICAL HISTORY-ADULT Review of Records: reports: Old Records Reviewed, Nursing Assessment Review, Medications Reviewed, Social history reviewed & non-contributory. Cardiovascular: reports: A-Fib, HTN Respiratory: reports: COPD - IMMUNIZATION STATUS Childhood Immunizations: See Nurse Assessment Flu Vaccine: See Nurse Assessment Physical Exam-General - PHYSICAL EXAM-ADULT Initial Vital Signs Reviewed: Yes - CONSTITUTIONAL General Appearance: appears well - EYES Eyes: PERRL/EOMI - HEAD, EARS, NOSE, MOUTH & THROAT HENMT: normal ENT inspection - NECK Neck: normal inspection - RESPIRATORY Respiratory: no respiratory distress, no accessory muscle use, wheezing - CARDIOVASCULAR Cardiovascular: regular rate, rhythm - GASTROINTESTINAL (ABDOMEN) Abdominal Exam: normal bowel sounds, non tender, soft - LYMPHATIC Lymphatic: no adenopathy - MUSCULOSKELETAL Back Exam: normal inspection Extremity: normal range of motion - SKIN Integumentary: normal color - NEUROLOGIC 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 - PSYCHIATRIC Psych/Mental Status: normal mood/affect Progress - PLAN OF CARE/RESULTS Progress/Plan/Lab Results: Orders Category Date Time Status cxr [CHEST-1 VIEW] [RAD] Stat Exams 12/06/18 05:34 Ordered CBC WITH ELECTRONIC DIFF [HEME] Stat Lab 12/06/18 05:34 Uncollected COMPREHENSIVE METABOLIC PANEL [CHEM] Stat Lab 12/06/18 05:34 Uncollected INFLUENZA SCREEN A/B Stat Lab 12/06/18 05:34 Uncollected PRO B-NATRIURETIC PEPTIDE Stat Lab 12/06/18 05:34 Uncollected TROPONIN T Stat Lab 12/06/18 05:34 Uncollected Albuterol 2.5MG/Ipratrop 0.5MG [Duoneb (A & A)] Med 12/06/18 05:35 Once 3 ml INH NOW ONE Methylprednisolone Sod Succ [Solu-Medrol] Med 12/06/18 05:35 Once 125 mg IV NOW ONE Aerosol Treatments Routine Oth 12/06/18 05:35 Ordered Aerosol Treatments Stat Oth 12/06/18 05:35 Ordered EKG [EKG] Stat Ther 12/06/18 05:08 Ordered Result Diagrams: 12/06/18 05:48 12/06/18 05:48 - REASSESSMENT Reassessment #1 Time Reassessed: 07:26 Status: unchanged - CONSULTS/PCP/HOSPITALIST Notification #1 *Consult/PCP/Hospitalist*: Dr. Dunn Time Discussed: 07:26 Consult Disposition: Will see in ED Departure - Departure Date of Disposition Decision: 12/06/18 Time of Disposition Decision: 07:28 DIAGNOSIS: COPD (chronic obstructive pulmonary disease), CHF exacerbation Disposition: ADMITTED INPATIENT 09 Certified Medical Emergency: Emergent Condition: Fair Referrals and Follow-Ups: Gareth Franco MD [Primary Care Provider] - - Critical Care Note This patient required my direct & personal management of CC.: No Attestation - Physician/ JEREMIAH Attestation Patient care was provided by Advanced Practice Provider:: No The physician spent face to face time with patient:: Yes Advanced Practice Provider documentation review:: Supervising physician onsite and consulted in the evaluation and care of this patient. The physician did have a face to face encounter with the patient.
[2018-12-06 06:12] LABS: BASO# 0.03 X1000 (0.0-0.2); BASO% 0.6 % (0.0-0.8); EOS# 0.32 X1000 (0.0-0.7); EOS% 6.4 % (0.0-10.0); HEMATOCRIT 41.4 % (37.0-47.0); HEMOGLOBIN 13.2 g/dL (12.0-16.0); LYMPH# 1.06 X1000 (1.2-3.4); LYMPH% 21.1 % (20.5-51.1); MCH 31.5 PG (27-31); MCHC 31.9 g/dL (33-37); MCV 98.8 FL (81-99); MONO% 13.9 % (1.7-9.3); MPV 8.8 FL (7.4-10.4); NEUT# 2.92 X1000 (1.4-6.5); PLT 163 X1000 (130-400); RBC 4.19 XMIL (4.2-5.4); RDW 14.3 % (11.5-14.5); WBC 5.03 X1000 (4.8-10.8)
[2018-12-06 06:38] LABS: AGAP 10; ALB/GLOB RATIO 1.7; ALBUMIN 4.3 g/dL (3.5-5.0); ALKALINE PHOSPHATASE 72 U/L (32-104); BUN 14 mg/dL (8-22); CALCIUM 8.9 mg/dL (8.8-10.2); CHLORIDE 92 mmol/L (98-107); COSMO 278; CREATININE 0.6 mg/dL (0.5-0.9); ESTIMATED GFR > 60; GLUCOSE 133 mg/dL (70-104); GOT 14 U/L (10-30); GPT 12 U/L (10-36); POTASSIUM 4.5 mmol/L (3.5-5.1); SODIUM 138 mmol/L (136-145); TCO2 36 mmol/L (25-35); TOTAL BILIRUBIN 0.32 mg/dL (0.20-1.00); TOTAL PROTEIN 6.8 g/dL (6.3-8.3)
--- NOTE | 2018-12-06 06:58 | Diag Imaging Result Doc PS360 ---
CHEST-1 VIEW - 12/06/2018 INDICATION: cough, sob COMPARISON: 04/04/2018 FINDINGS: There is significant cardiomegaly and pulmonary vascular congestion. Stable sized small right pleural effusion. Apparently this is chronic. There is some ill-defined interstitial pulmonary edema. IMPRESSION: Cardiomegaly, pulmonary edema, small right pleural effusion. Electronically signed by Keegan Elizabeth 12/06/2018 6:56 AM
[2018-12-06] MEDS ORDERED: MORPHINE IV PRN (07:53)
[2018-12-06] MEDS ORDERED: TYLENOL PO PRN (07:53)
[2018-12-06] MEDS ORDERED: ZOFRAN IV PRN (07:53)
[2018-12-06] MEDS ORDERED: LASIX IV ONE ×2 (08:01→21:32)
[2018-12-06] MEDS ORDERED: RESTORIL PO PRN (08:47)
[2018-12-06] MEDS: DUONEB (A & A) INH SCH ×3 (08:50→21:30)
--- NOTE | 2018-12-06 09:17 | HISTORY AND PHYSICAL ---
CHIEF COMPLAINT: Shortness of breath and weakness. HISTORY OF PRESENT ILLNESS: This is an 83-year-old white female with a known history of chronic atrial fibrillation, COPD which is oxygen dependent, and congestive heart failure, who presented to the emergency room in the early hours of Friday complaining of profound weakness with worsening shortness of breath and edema. She stated that the swelling in her legs had begun to increase during the weekend, and she had contacted Dr. Franco's office, who advised increasing the Lasix. Unfortunately, this had little or no effect, and she continued to have worsening shortness of breath. When she was brought to the emergency room, she was found to be in mild respiratory distress, and was admitted for exacerbation of COPD with congestive heart failure. She is followed on an outpatient basis by Dr. Hernandez, as well as Dr. Chuck Quevedo. The patient denies any fever, chills, cough, or worsening wheezing, although she has difficulty with air movement. She has had no chest pain or palpitations. No nausea or vomiting. No genitourinary complaints. PAST MEDICAL HISTORY: 1. Chronic atrial fibrillation. 2. Chronic use of anticoagulants. 3. Coronary artery disease without active ischemia. 4. Chronic respiratory failure with hypoxemia. 5. Right heart failure. 6. Hypertension. 7. COPD. 8. Secondary polycythemia. 9. Hyperlipidemia. 10. Former smoker. 11. Chronic venous insufficiency. 12. Chronic hypokalemia. 13. Left ventricular systolic dysfunction. FAMILY HISTORY: COPD. SOCIAL HISTORY: The patient quit smoking "a long time ago." She does drink occasional alcohol. I believe that her is . ALLERGIES: Codeine. REVIEW OF SYSTEMS: Please see history of present illness. The patient states that her baseline is no edema in the lower extremities, even though she has chronic venous insufficiency. Over the past few days, she has had notable increase in the size of her legs. This condition did not responded to p.o. Lasix on an outpatient basis, even at an accelerated rate as suggested by Dr. Franco. ENT: She does not report any sinus drainage of rhinitis. Cardiovascular: The patient knows that her heart rhythm is irregular, but has not noted any tachycardia or palpitations that are any worse than usual. She has had no problems with urination. She has no significant history of endocrine issues. PHYSICAL EXAMINATION: VITAL SIGNS: Temperature 98.1, pulse 107, respirations 24, blood pressure 140/78. GENERAL: She is a well-developed, well-nourished, white female, who is alert, oriented, conversive, and appropriate. She speaks in short sentences. HEENT: It is noted that the patient's lips are slightly blue, but she is in no distress. This appears to be chronic. Conjunctivae appear to be of normal coloration. Hydration status is adequate. NECK: There are no carotid bruits. No JVD noted in the semi-recumbent position. RESPIRATORY: The patient's lungs do not have any crackles or wheezes at the time of my examination. She does have poor air movement, especially during the expiratory phase of her cycle. CARDIOVASCULAR: Irregularly irregular at more than 100 beats per minute. ABDOMEN: Benign. Bowel sounds are present. EXTREMITIES: The patient's lower legs have discoloration consistent with chronic venous insufficiency. She has 1+ to 2+ edema in the lower extremities to the mid pretibial area. NEUROLOGIC: Cranial nerves are intact. The patient is able to move. There are no focal deficits. PSYCHOLOGIC: Mood and demeanor are stable. LABORATORY DATA: White cell count of 5.0, hematocrit 41.4, potassium is 4.5, CO2 of 36, BUN 14, creatinine 0.6, blood glucose 133. Troponin is negative. ProBNP is 1142. ASSESSMENT AND PLAN: The patient's respiratory and overall physical decline, I am sure is multifactorial given her history. Plan to admit her to CICU with frequent breathing treatments. We will add steroids as well as intravenous Lasix to get her back to her baseline as far as her swelling and shortness of breath. The patient has required large doses of potassium in the past, which we will continue. We will monitor potassium and magnesium levels, as well as BUN and creatinine as we diurese. We will also provide 4 times a day breathing treatments, and monitor heart rate in association with the stimulant affects of beta-[address] Franco will assume care tomorrow. I will leave it to him if he wants to consult Dr. Quevedo and Dr. Hrenandez. cc: MD Gareth Ortiz MD
[2018-12-06] MEDS: XANAX PO SCH ×2 (09:28→21:37)
[2018-12-06] MEDS: LASIX IV SCH (09:28)
[2018-12-06] MEDS: CARDIZEM CD PO SCH (09:28)
[2018-12-06] MEDS: ELIQUIS PO SCH ×2 (09:28→21:37)
[2018-12-06] MEDS: KLOR-CON PO SCH ×2 (09:28→21:37)
[2018-12-06] MEDS: SINGULAIR PO SCH (09:29)
[2018-12-06] MEDS: MUCINEX PO SCH ×2 (09:29→21:37)
[2018-12-06] MEDS: SOLU-MEDROL IV SCH ×2 (09:32→17:00)
[2018-12-06 10:48] LABS: BASO# 0.01 X1000 (0.0-0.2); BASO% 0.2 % (0.0-0.8); EOS# 0.02 X1000 (0.0-0.7); EOS% 0.4 % (0.0-10.0); HEMATOCRIT 44.8 % (37.0-47.0); HEMOGLOBIN 14.2 g/dL (12.0-16.0); LYMPH# 0.68 X1000 (1.2-3.4); LYMPH% 13.7 % (20.5-51.1); MCH 30.9 PG (27-31); MCHC 31.7 g/dL (33-37); MCV 97.4 FL (81-99); MONO# 0.09 X1000 (0.11-0.59); MONO% 1.8 % (1.7-9.3); MPV 8.2 FL (7.4-10.4); NEUT# 4.15 X1000 (1.4-6.5); NEUT% 83.9 % (42.2-75.2); PLT 158 X1000 (130-400); RDW 14.3 % (11.5-14.5); WBC 4.95 X1000 (4.8-10.8)
[2018-12-06 10:57] LABS: URINE SOURCE CLEAN CATCH
[2018-12-06 11:04] LABS: BILIRUBIN URINE NEGATIVE (NEGATIVE); BLOOD URINE NEGATIVE (NEGATIVE); COLOR STRAW; GLUCOSE URINE NEGATIVE (NEGATIVE); KETONE URINE NEGATIVE (NEGATIVE); LEUKOCYTES URINE NEGATIVE (NEGATIVE); NITRITE URINE NEGATIVE (NEGATIVE); PROTEIN URINE NEGATIVE (NEGATIVE); TURBIDITY URINE CLEAR (CLEAR); UROBILINOGEN URINE NORMAL (NORMAL)
[2018-12-06 11:05] LABS: UR EPITHELIAL CELLS <10 /HPF (<10); URINE BACTERIA NEGATIVE /HPF; URINE RBC <10 /HPF (<10); URINE WBC <10 /HPF (<10)
[2018-12-06 11:31] LABS: AGAP 13; BUN 12 mg/dL (8-22); CALCIUM 9.3 mg/dL (8.8-10.2); CHLORIDE 94 mmol/L (98-107); COSMO 285; CREATININE 0.6 mg/dL (0.5-0.9); ESTIMATED GFR > 60; GLUCOSE 170 mg/dL (70-104); MAGNESIUM 2.1 mg/dL (1.5-2.7); SODIUM 141 mmol/L (136-145); TCO2 34 mmol/L (25-35)
[2018-12-06] MEDS: PULMICORT INH SCH (21:30)
[2018-12-07] MEDS: SOLU-MEDROL IV SCH ×3 (03:07→17:01)
[2018-12-07] MEDS: DUONEB (A & A) INH SCH ×4 (03:19→20:25)
[2018-12-07] MEDS: PULMICORT INH SCH ×2 (07:30→20:25)
--- NOTE | 2018-12-07 08:13 | EKG Report ---
Test Performed on : 12/06/2018 05:10:48 AM Test Reason : weakness Blood Pressure : / mmHG Vent. Rate : 099 BPM Atrial Rate : 111 BPM P-R Int : 000 ms QRS Dur : 090 ms QT Int : 294 ms P-R-T Axes : 000 080 049 degrees QTc Int : 377 ms Atrial fibrillation. Abnormal ECG When compared with ECG of 03-APR-2018 08:05, No significant change was found Unconfirmed Result
[2018-12-07] MEDS: SINGULAIR PO SCH (08:54)
[2018-12-07] MEDS: CARDIZEM CD PO SCH (08:54)
[2018-12-07] MEDS: MUCINEX PO SCH ×2 (08:54→21:16)
[2018-12-07] MEDS: ELIQUIS PO SCH ×2 (08:54→21:16)
[2018-12-07] MEDS: XANAX PO SCH ×2 (08:54→21:16)
[2018-12-07] MEDS: KLOR-CON PO SCH ×2 (08:55→21:16)
[2018-12-07] MEDS: LASIX IV SCH ×2 (08:55→21:16)
--- NOTE | 2018-12-07 10:28 | PROGRESS NOTE ---
DATE: 12/07/2018 SUBJECTIVE: Ms. Gómez is breathing better this morning. She presented yesterday early in the morning. Shortness of breath had been progressing for the last couple of days. An 83-year-old patient of mine, chronic atrial fibrillation, COPD, oxygen dependent, and I believe mainly diastolic congestive heart failure who presented to the emergency room early [place] complaining of profound weakness, worsening shortness of breath and edema. She has had more swelling in her legs. She had called last week and we had increased her Lasix, but no real effect. In the emergency room she was found to have mild respiratory distress. Admitted for exacerbation of COPD, congestive heart failure per Dr. Dunn. PAST MEDICAL HISTORY: 1. Chronic atrial fibrillation. 2. Chronic use of anticoagulants. 3. Coronary artery disease without active ischemia. 4. Chronic respiratory failure with hypoxemia. 5. Right heart failure. 6. Hypertension. 7. COPD. 8. Secondary polycythemia. 9. Hyperlipidemia. 10. Former smoker. 11. Chronic venous insufficiency. 12. Chronic hypokalemia, probably secondary to diuretics. 13. Left ventricular systolic dysfunction. OBJECTIVE: Vital Signs: Today, temperature 98.1 degrees, pulse 89, respirations 25, blood pressure 114/58. Eyes: Pupils are equal and round. Lungs: Clear in all lung reyes. Cardiovascular: Regular rhythm and rate without murmur or S3. Abdomen: Soft. Skin: Warm and dry. URINE OUTPUT: 3000 mL. IMAGING: Her x-ray on presentation, cardiomegaly, pulmonary edema, small right- sided pleural effusion. ASSESSMENT AND PLAN: 1. Respiratory, COPD exacerbation. She has chronic hypoxemia, severe COPD and appears pulmonary venous hypertension. So she is responding to diuresis. Seems to be breathing better, and her pedal edema has diminished, so we will continue to diurese her. She is followed by Dr. Hernandez. We will ask Dr. Hernandez to follow along. She did mention she was recently changed over to I do not think the had any impact on her pulmonary venous hypertension. I think it is mainly an increase in her pulmonary venous pressure and pleural effusion, so continue to diurese. 2. Review of her orders, she is on Eliquis 5 mg b.i.d., Xanax 0.5 mg b.i.d., Cardizem CD 180 mg daily, Lasix 40 mg IV had been given twice yesterday. I think I will give her 40 mg IV of Lasix twice a day. We will follow her potassium and magnesium. 3. Chronic atrial fibrillation. Rate appears controlled. 4. Blood pressure looks good. She is on methylprednisone, albuterol, ipratropium, breathing treatments and we have her on the Pulmicort 0.5 mg q.12h. cc: Gareth Franco MD MTDD
[2018-12-07 11:16] LABS: BE 16.2 mmoll (-3.0-3.0); BLOOD TYPE ARTERIAL; HCO3-(ACT) 37.3 mmoll (20.0-26.0); METHB 0.8 % (0.0-1.5); O2(CT) 18.2 mL/dL (15.0-23.0); PO2(98.6) 60 mmHg (60-100); SAMPLE BLOOD; SAO2 92.3 % (95.0-100.0); THB 14.4 g/dL (11.5-17.4); pH(98.6) 7.46 (7.35-7.45)
[2018-12-07 11:21] LABS: MODALITY CANNULA; PCO2(98.6) 61 mmHg (35-45)
[2018-12-07 11:22] LABS: ALLEN TEST NO
--- NOTE | 2018-12-07 20:41 | PULMONOLOGY CONSULTATION ---
DATE: 12/07/2018 REQUESTING PHYSICIAN: Dr. Franco. HISTORY OF PRESENT ILLNESS: Ms. óGmez is an 83-year-old white female with severe COPD, chronic hypoxemic and chronic hypercapnic respiratory failure, with prior episodes of cor pulmonale, who presented to the emergency room with increased shortness of breath, increased cough with increased lower extremity edema. She denies significant cough or significant sputum production. She has received Lasix and greater than 2 L negative during this hospitalization. She has significantly improved. PAST MEDICAL HISTORY - PROBLEM LIST: 1. Severe COPD with hypoxemic and hypercapnic respiratory failure. 2. History of polycythemia. 3. History of anxiety disorder. 4. Atrial fibrillation. 5. Status post cataract surgery. 6. Dyslipidemia. 7. History of cor pulmonale. The patient was evaluated and managed with a Trilogy device. She subsequently decided not to wear this device and had it removed from her home. SOCIAL HISTORY: Occasional alcohol use. She has not smoked for several years. Her several years ago. She recently had a dog which was 17 years old that she had to have put to sleep. This was very stressful on Ms. Gómez. REVIEW OF SYSTEMS: As noted in the HPI. PHYSICAL EXAMINATION: General: Reveals a chronically ill-appearing white female who has shortness of breath with any exertion or movement. Blood pressure 129/61, heart rate 102, respiratory rate 20, oxygen saturation 94% on 4 L per nasal cannula. HEENT: Pupils are equal and reactive. Oropharynx is clear. Neck: Supple. Chest: Reveals prolonged expiratory phase with crackles in both lung bases. Cardiac: S1, S2. Abdomen: Soft. Extremities: Reveal bruising in the lower extremities with trace edema. LABORATORIES: Chest x-ray reveals cardiomegaly with pulmonary vascular congestion and small right- sided pleural effusion. White blood count 4.95, hemoglobin 14.2, platelet count 158,000. Arterial blood gas: pH 7.46, pCO2 of 61, PO2 of 60 on 4 L per nasal cannula. IMPRESSION: An 83-year-old with end-stage COPD, chronic hypoxemic and hypercapnic respiratory failure, who presented with acute cor pulmonale, pulmonary edema, and right-sided pleural effusion. She has improved with diuresis. RECOMMENDATIONS: 1. Additional diuresis as tolerated. 2. Continue oxygen for hypoxemic respiratory failure. 3. Followup chest x-ray tomorrow. cc: MD Graeth Junior MD
[2018-12-08] MEDS: DUONEB (A & A) INH SCH ×4 (03:22→15:15)
[2018-12-08] MEDS: SOLU-MEDROL IV SCH ×3 (03:28→16:14)
[2018-12-08 06:36] LABS: HEMATOCRIT 41.8 % (37.0-47.0); HEMOGLOBIN 12.9 g/dL (12.0-16.0); LYMPH# 0.45 X1000 (1.2-3.4); LYMPH% 6.1 % (20.5-51.1); MCH 30.5 PG (27-31); MCHC 30.9 g/dL (33-37); MCV 98.8 FL (81-99); MONO# 0.47 X1000 (0.11-0.59); MONO% 6.4 % (1.7-9.3); MPV 8.6 FL (7.4-10.4); NEUT# 6.44 X1000 (1.4-6.5); NEUT% 87.5 % (42.2-75.2); PLT 186 X1000 (130-400); RBC 4.23 XMIL (4.2-5.4); RDW 14.7 % (11.5-14.5); WBC 7.36 X1000 (4.8-10.8)
[2018-12-08 07:21] LABS: AGAP 3; BUN 26 mg/dL (8-22); CHLORIDE 94 mmol/L (98-107); COSMO 291; CREATININE 0.7 mg/dL (0.5-0.9); ESTIMATED GFR > 60; GLUCOSE 187 mg/dL (70-104); POTASSIUM 4.4 mmol/L (3.5-5.1); SODIUM 141 mmol/L (136-145); TCO2 44 mmol/L (25-35)
[2018-12-08] MEDS: PULMICORT INH SCH (07:25)
--- NOTE | 2018-12-08 08:09 | Diag Imaging Result Doc PS360 ---
EXAM: CHEST-2 VIEWS 12/08/2018 HISTORY: abnormal exam TECHNIQUE: PA and lateral chest COMMENT: There is a right pleural effusion which appears slightly larger than on 12/06/2018. There is generalized interstitial opacity particularly in the lower lung reyes and COPD. Compared to the previous study of the lungs are slightly better expanded and the opacity over the left base has improved. IMPRESSION: Slightly improved pulmonary edema. Worsened right pleural effusion. Electronically signed by Aquilino Flores 12/08/2018 8:07 AM
--- NOTE | 2018-12-08 08:53 | PROGRESS NOTE ---
DATE: 12/08/2018 SUBJECTIVE: Ms. Gómez had a pretty good night other than was woken up several times, but breathing much better. She feels much better. Requesting to go home this afternoon. OBJECTIVE: Vitals: Temperature 97.8 degrees, pulse 88, respirations 18, blood pressure 115/65. Eyes: Pupils are equal, round. Lungs: Clear in all lung reyes, anterior, lateral, and posterior. Decreased breath sounds both bases. O2 in nasal cannula. Abdomen: Soft. Extremities: No pedal edema. She feels like her feet have gone down in swelling. LABORATORY/IMAGING: Reviewed laboratory from yesterday. White count 7360, hematocrit 41, platelet count 186,000. Electrolytes look good. Sodium 141, potassium 4.4, chloride 94, BUN 26, creatinine 0.7, blood gas from yesterday, pH 7.46, pCO2 61, PO2 60, O2 saturation was 90%. Chest x-ray from this morning, significantly improved pulmonary edema. Worsened right pleural effusion. ASSESSMENT AND PLAN: End-stage chronic obstructive pulmonary disease. Chronic hypoxemic hypercapnic respiratory failure. Presented with acute cor pulmonale, pulmonary edema, right-sided pleural effusion and has improved with diuresis. She is requesting to go home. We will probably let her go home this afternoon. Continue additional diuresis today. Oxygen supplementation. We will discuss with Dr. Hernandez if he is okay with letting her go home today, and she has underlying atrial fibrillation. Rate is controlled. History of systolic congestive heart failure. She is on albuterol/ipratropium treatments 3 mL 4 times a day, Xanax 0.5 mg b.i.d., Eliquis 5 mg b.i.d., Pulmicort 0.5 mg q.12 hours, Cardizem CD 180 mg a day, Lasix 40 mg IV twice a day, guaifenesin ER 600 mg b.i.d., methylprednisone 40 mg IV q.8 hours, Singulair 10 mg a day, potassium chloride 40 mEq b.i.d., Restoril 7.5 mg at bedtime. cc: Gareth Franco MD
[2018-12-08] MEDS: MUCINEX PO SCH (08:54)
[2018-12-08] MEDS: CARDIZEM CD PO SCH (08:54)
[2018-12-08] MEDS: XANAX PO SCH (08:54)
[2018-12-08] MEDS: LASIX IV SCH (08:55)
[2018-12-08] MEDS: ELIQUIS PO SCH (08:55)
[2018-12-08] MEDS: KLOR-CON PO SCH (08:55)
[2018-12-08] MEDS: SINGULAIR PO SCH (08:55)
[2018-12-08 16:25] VITALS: BP 114/75
[2018-12-08] MEDS ORDERED: LASIX IV SCH (17:00)
--- NOTE | 2018-12-08 17:12 | DISCHARGE SUMMARY ---
ADMISSION DATE: 12/06/2018 DISCHARGE DATE: 12/08/2018 PRIMARY CARE PHYSICIAN: Dr. Martin Franco. HISTORY AND HOSPITAL COURSE: This is an 83-year-old female with known history of end-stage COPD, history of chronic atrial fibrillation. She is oxygen dependent. She has a history of congestive heart failure, both systolic and diastolic. Presented to the emergency room Friday complaining of profound weakness, worsening shortness of breath, and edema. Had swelling in her legs and began to increase during the weekend and contacted my office. I went up on her Lasix. Unfortunately, she continued to get a little more short of breath, so came to the emergency room. In the emergency room it appeared she had increased pulmonary venous hypertension and increased acute cor pulmonale. She was diuresed. Had a little pleural effusion. Clinically she improved. Her x-ray improved as well. Chest x-ray from 12/08, slight improvement in pulmonary edema, but breathing much better. She has home O2 already. No sign of new active cardiac ischemia. She is eating well and able to ambulate, so felt she could go home. DISCHARGE MEDICATIONS: She will go back on her DuoNeb which she takes 3 times a day, 3 mL, Ventolin inhaler 5 mg inhalation as needed, Xanax 0.5 mg b.i.d., Eliquis 5 mg b.i.d., Symbicort 160/4.5, I think it is 1 puff b.i.d., Cardizem CD 180 mg a day, Lasix, I am going to put her on I think 80 mg p.o. b.i.d. and keep her there, Mucinex 600 mg b.i.d., Singulair 10 mg a day. We will continue the 40 mEq of potassium twice a day. Did not see any sign of infection. Does not need any antibiotic. Follow up with me in a couple weeks. Continue to follow with Dr. Hernandez. cc: Gareth Franco MD
== END 2018-12-08 17:25 | disposition home or self-care (01) | DRG 292 ==
LOC: SUPCPDRO → ED 05:07 → 3S 08:18
PROVIDERS: ADMIT Emergency Medicine; ATTEND Emergency Medicine
CPT/HCPCS: 71010; 71020; 71045; 71046; 80048; 80053; 81001; 82805; 83735; 83880; 84484; 85025; 87275; 87276; 87804; 93005; 94640; 94761; 96374; 99285; A9270; J1940; J2920; J2930

== ENCOUNTER 2019-01-30 11:56 | Inpatient (IN) ==
[2019-01-30 13:16] LABS: BASO# 0.04 X1000 (0.0-0.2); BASO% 0.5 % (0.0-0.8); EOS# 0.06 X1000 (0.0-0.7); EOS% 0.7 % (0.0-10.0); HEMATOCRIT 37.4 % (37.0-47.0); HEMOGLOBIN 12.1 g/dL (12.0-16.0); LYMPH# 0.84 X1000 (1.2-3.4); LYMPH% 10.5 % (20.5-51.1); MCH 31.3 PG (27-31); MCHC 32.4 g/dL (33-37); MCV 96.9 FL (81-99); MONO# 1.25 X1000 (0.11-0.59); MONO% 15.6 % (1.7-9.3); MPV 8.5 FL (7.4-10.4); NEUT# 5.84 X1000 (1.4-6.5); NEUT% 72.7 % (42.2-75.2); PLT 206 X1000 (130-400); RBC 3.86 XMIL (4.2-5.4); RDW 13.8 % (11.5-14.5); WBC 8.03 X1000 (4.8-10.8)
--- NOTE | 2019-01-30 13:22 | Diag Imaging Result Doc PS360 ---
EXAM: CHEST-2 VIEWS HISTORY: SOB TECHNIQUE: Chest two views COMPARISON: 12/08/2018 FINDINGS: The lungs are hyperexpanded. Increased AP diameter to the chest. There is a small right pleural effusion. There is atelectasis in the right lung base. Decreased infiltrates. No cardiomegaly. Minimal vascular distention. This has improved as well. IMPRESSION: Interval improvement. Electronically signed by Guillermo Perez 01/30/2019 1:20 PM
[2019-01-30 13:49] LABS: AGAP 13; ALB/GLOB RATIO 1.4; ALBUMIN 4.1 g/dL (3.5-5.0); ALKALINE PHOSPHATASE 76 U/L (32-104); BUN 16 mg/dL (8-22); CHLORIDE 91 mmol/L (98-107); COSMO 281; CREATININE 0.6 mg/dL (0.5-0.9); ESTIMATED GFR > 60; GLUCOSE 133 mg/dL (70-104); GOT 12 U/L (10-30); GPT 11 U/L (10-36); POTASSIUM 3.9 mmol/L (3.5-5.1); SODIUM 139 mmol/L (136-145); TCO2 35 mmol/L (25-35); TOTAL BILIRUBIN 0.85 mg/dL (0.20-1.00); TOTAL PROTEIN 7.1 g/dL (6.3-8.3)
--- NOTE | 2019-01-30 16:15 | Diag Imaging Result Doc PS360 ---
EXAM: LOWER LEG-LEFT HISTORY: left lower extremity injury TECHNIQUE: Left tibia and fibula two views COMPARISON: None. FINDINGS: No fracture. No dislocation. IMPRESSION: No acute bony injury. Electronically signed by Guillermo Perez 01/30/2019 4:13 PM
[2019-01-30] MEDS ORDERED: ZOFRAN IV PRN (16:32)
[2019-01-30] MEDS ORDERED: ALBUTEROL 0.5% INH CONC FOR HYPERKALEMIA INH PRN (16:32)
[2019-01-30] MEDS: CARDIZEM CD PO SCH ×3 (16:53→19:12)
[2019-01-30 17:28] LABS: URINE SOURCE CLEAN CATCH
[2019-01-30 17:31] LABS: BILIRUBIN URINE NEGATIVE (NEGATIVE); BLOOD URINE NEGATIVE (NEGATIVE); COLOR YELLOW; GLUCOSE URINE NEGATIVE (NEGATIVE); KETONE URINE 20 mg/dL (NEGATIVE); LEUKOCYTES URINE NEGATIVE (NEGATIVE); NITRITE URINE NEGATIVE (NEGATIVE); PH URINE 6.5; PROTEIN URINE TRACE mg/dL (NEGATIVE); SP GRAVITY URINE 1.013; TURBIDITY URINE CLEAR (CLEAR); UROBILINOGEN URINE 2 mg/dL (NORMAL)
[2019-01-30 17:33] LABS: UR EPITHELIAL CELLS <10 /HPF (<10); URINE BACTERIA NEGATIVE /HPF; URINE RBC <10 /HPF (<10); URINE WBC <10 /HPF (<10)
--- NOTE | 2019-01-30 17:50 | HISTORY AND PHYSICAL ---
PRIMARY CARE PHYSICIAN: Dr. Gareth Franco. CHIEF COMPLAINT: Intractable left lower extremity pain. HISTORY OF PRESENT ILLNESS: An 84-year-old white female with a complicated past medical history presents for evaluation of above-mentioned symptoms. Current history of present illness began 1 week ago. At that time, patient states she was entering her bathtub and struck her left lower extremity. The patient immediately developed pain as well as bruising with associated bleeding. The patient called for assistance and achieved hemostasis. The patient states she slept well on Friday. On Friday she noted some pain, but overall states she felt well. Since that time, unfortunately, her condition has slowly progressed. Yesterday, however, she noted a significant decline in her overall condition. The patient noted increasing lower extremity edema. She notes discoloration from the knee down. She has an associated hemorrhagic bulla present to the upper aspect of her lower leg. This morning, patient contacted me secondary to intractable pain. Patient was instructed to come to the emergency department for further evaluation and management. Upon arrival, full evaluation was pursued. Patient was noted to be hypoxic despite oxygen supplementation. Heart rate was noted to be elevated with a rhythm of atrial fibrillation. Ultrasound Doppler was performed revealing no evidence of DVT. No evidence of significant intramuscular fluid collections were identified. The patient denies current fevers, chills, nausea, vomiting, shortness of breath above baseline, chest pains, or palpitations. Patient will be admitted to the hospital for full evaluation and management of these conditions. PAST MEDICAL HISTORY: 1. Chronic atrial fibrillation. 2. Chronic anticoagulation secondary to atrial fibrillation. 3. Chronic obstructive pulmonary disease with chronic respiratory failure and associated hypoxemia. 4. Right heart failure. 5. Secondary polycythemia. 6. History of prolonged tobacco use 7. Chronic venous insufficiency of bilateral lower extremities. 8. Congestive heart failure secondary to left ventricular systolic dysfunction. CURRENT MEDICATIONS: 1. DuoNeb 3 times daily. 2. Albuterol inhaler as needed. 3. Xanax 0.5 mg twice daily. 4. Eliquis 5 mg twice daily. 5. Symbicort 160/4.5 twice daily. 6. Diltiazem CD 180 mg daily. 7. Lasix 80 mg twice daily at 8 in the morning and 2 in the afternoon. 8. Singulair 10 mg daily. 9. Potassium chloride 40 mEq twice daily. ALLERGIES: Patient states she is allergic to codeine which causes alteration of mental status and headaches. 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 She smoked approximately 2 packs per day for 40 years. She stopped greater than 10 years ago. She has approximately 1 to 2 glasses of wine per day. She denies illicit drug use. FAMILY HISTORY: Patient's father passed at age 73 secondary to complications associated with congestive heart failure. Patient's mother passed at age 79 secondary to an accidental house fire. REVIEW OF SYSTEMS: A 12 point review of systems was performed. Pertinent positives and negatives noted in history present illness. PHYSICAL EXAMINATION: VITAL SIGNS: Temperature 98.9 degrees, heart rate 128, respirations 24, blood pressure is 131/64, oxygen saturation upon arrival was 73% on 5 L and has improved to a saturation in the 90s with treatment. GENERAL: Chronically ill appearing, no acute distress. HEENT: Normocephalic, atraumatic. Pupils equal, round, react to light. Extraocular muscles intact. Sclerae anicteric. Caro conjunctivae. Oral and nasopharynx clear without exudate. NECK: Supple. No lymphadenopathy. No thyromegaly. No bruits auscultated. CARDIOVASCULAR: Irregularly irregular. Slightly tachycardic. No significant murmurs, rubs, or gallops. PULMONARY: Distant breath sounds bilaterally. Compromised air movement, but no adventitious sounds present. ABDOMEN: Soft nontender, nondistended. Positive bowel sounds. EXTREMITIES: Left lower extremity with 2+ edema. Changes associated with ecchymoses present from the knee down. Large superficial purple bulla is present in the left anterior beasley. Right lower extremity demonstrates only venous stasis changes. The patient has good pulses bilaterally. No evidence of compartment syndrome as the patient's neurological examination is intact. No clubbing or cyanosis is identified. NEUROLOGIC: Cranial nerves 2-12 grossly intact. Motor and sensory grossly intact. Psychologic examination is appropriate. LABORATORY DATA: White blood cell count 8.03, hemoglobin 12.1, hematocrit 37.4, platelet count 206,000. Sodium 139, potassium 3.9, chloride 91, bicarb 35, BUN 16, creatinine 0.6, glucose 133, calcium 9.0, total bilirubin 0.85, total protein 7.1, albumin 4.1, alkaline phosphatase 76, AST 12, ALT 11. Chest x-ray revealed hyperexpanded lungs, small right pleural effusion, atelectasis in the right lung base. ASSESSMENT AND PLAN: An 84-year-old white female with a complicated past medical history presents for evaluation of significant lower extremity edema with a large superficial hemorrhagic bulla and intractable pain. Additionally, patient was found to have atrial fibrillation with rapid ventricular response. Patient will be admitted to the hospital for full evaluation and management of this condition. 1. Admit to CICU. 2. Left lower extremity hematoma-as above, patient's examination is quite impressive. The patient does have evidence of subcutaneous hemorrhage with color changes associated with a large ecchymosis and 2+ lower extremity edema on the left. A large bulla which is oozing blood is present in the anterior aspect. At this point, I do not appreciate a true infection, however we will cover patient with doxycycline. We will hold patient's Eliquis tonight as the benefits of holding this outweighs the potential risk. We will consult Surgery as patient may require a wound closure as I am concerned the skin superficial to the bulla may not be viable. The patient also may require evacuation of this bulla. We will treat patient's pain with as-needed Eden. 3. Intractable pain-this is secondary to her previous injury and changes as described above. We will start patient on as-needed Eden. We will follow her clinical course closely. 4. Atrial fibrillation with rapid ventricular response-the patient will be continued on diltiazem ER. We will give an extra dose this afternoon. We will follow patient on telemetry. We will determine if further intervention is warranted. 5. Chronic obstructive pulmonary disease-patient has end-stage disease. We will continue patient's home dose of DuoNeb. We will start patient on oxygen per protocol. We will encourage incentive spirometry and aspiration precautions. 6. Anticoagulation-as above, the risk of continuing Eliquis outweighs the benefits at this point, especially if a surgical evacuation is necessary. We will hold Eliquis tonight. We will determine if resuming this in the morning is appropriate. 7. Left periscapular superficial ulceration-if the patient requires a surgical intervention to the left lower extremity, I would recommend that we also remove this as this likely represents a basal cell carcinoma. We will follow this as well. 8. Systolic congestive heart failure-this is per report. She has no evidence of volume excess at this time. We will continue patient on her current dose of Lasix therapy. 9. Fluid, electrolytes, nutrition. We will monitor electrolytes. Saline lock IV. Cardiac prudent diet. 10. Prophylaxis. We will hold patient's Eliquis as described above. She is not a candidate for lower extremity sequential compression devices. We will consider resuming Eliquis in the near future. cc: Tate Dobbs MD
[2019-01-30] MEDS: NORCO-5 PO PRN ×2 (18:08→23:16)
[2019-01-30] MEDS: DOXYCYCLINE 100 MG in NS 250 ML IV SCH (20:56)
[2019-01-30] MEDS: XANAX PO SCH (20:57)
[2019-01-30] MEDS: KLOR-CON PO SCH (20:57)
[2019-01-30] MEDS: DUONEB (A & A) INH SCH (21:04)
[2019-01-30] MEDS: SYMBICORT 160/4.5 MICROGM INHALER INH SCH (21:05)
[2019-01-30] MEDS: LASIX PO SCH ×2 (21:11→21:13)
[2019-01-31] MEDS: TYLENOL PO PRN (05:31)
[2019-01-31 05:47] LABS: BASO# 0.02 X1000 (0.0-0.2); BASO% 0.3 % (0.0-0.8); EOS# 0.13 X1000 (0.0-0.7); EOS% 2.2 % (0.0-10.0); HEMATOCRIT 35.3 % (37.0-47.0); LYMPH# 1.21 X1000 (1.2-3.4); LYMPH% 20.4 % (20.5-51.1); MCH 30.8 PG (27-31); MCHC 31.2 g/dL (33-37); MCV 98.9 FL (81-99); MONO# 0.91 X1000 (0.11-0.59); MONO% 15.4 % (1.7-9.3); MPV 8.6 FL (7.4-10.4); NEUT# 3.65 X1000 (1.4-6.5); NEUT% 61.7 % (42.2-75.2); PLT 206 X1000 (130-400); RBC 3.57 XMIL (4.2-5.4); RDW 14.2 % (11.5-14.5); WBC 5.92 X1000 (4.8-10.8)
[2019-01-31 06:17] LABS: AGAP 10; ALB/GLOB RATIO 1.4; ALBUMIN 3.5 g/dL (3.5-5.0); ALKALINE PHOSPHATASE 84 U/L (32-104); BUN 17 mg/dL (8-22); CALCIUM 8.3 mg/dL (8.8-10.2); CHLORIDE 96 mmol/L (98-107); COSMO 286; CREATININE 0.6 mg/dL (0.5-0.9); ESTIMATED GFR > 60; GLUCOSE 118 mg/dL (70-104); GOT 25 U/L (10-30); GPT 16 U/L (10-36); POTASSIUM 3.6 mmol/L (3.5-5.1); SODIUM 142 mmol/L (136-145); TCO2 36 mmol/L (25-35); TOTAL BILIRUBIN 0.74 mg/dL (0.20-1.00)
[2019-01-31] MEDS: DUONEB (A & A) INH SCH ×4 (07:12→21:20)
[2019-01-31] MEDS: SYMBICORT 160/4.5 MICROGM INHALER INH SCH ×2 (07:12→19:20)
--- NOTE | 2019-01-31 07:28 | GENERAL SURGERY CONSULTATION ---
DATE: 01/31/2019 REQUESTING PHYSICIAN: Dr. Dobbs. REASON FOR CONSULTATION: Left lower extremity pain. HISTORY OF PRESENT ILLNESS: An 84-year-old female with complicated past medical history, who presented with injury to her left leg. She apparently hit it in the bathtub. She was on Eliquis, and had a significant hematoma develop, and is still having persistent pain. She has had imaging done that did not show a fracture or DVT. She also has what looks like a basal cell cancer to her left scapular area. She is currently complaining of some pain, but no other issues at this point. PAST MEDICAL HISTORY: Includes: 1. Chronic atrial fibrillation. 2. Chronic anticoagulation. 3. COPD. 4. Right heart failure. 5. Polycythemia. 6. Prolonged tobacco use. 7. Chronic venous insufficiency. 8. Congestive heart failure. CURRENT MEDICATIONS: Reviewed. Of note, she was on Eliquis. ALLERGIES: Codeine. SOCIAL HISTORY: Retired. FAMILY HISTORY: Positive for congestive heart failure. REVIEW OF SYSTEMS: A full 10-point review of systems was obtained and negative, except as specified in the HPI. PHYSICAL EXAMINATION: Vital Signs: The patient is currently afebrile. Her vital signs are stable. General: No acute distress. Resting comfortably. female. Looks stated age. HEENT: Normocephalic, atraumatic. Pupils equal, round, reactive to light. Mucous membranes moist. Oropharynx benign. Neck: Supple. Trachea midline. Cardiovascular: Irregularly irregular. Lungs: Grossly clear. Abdomen: Soft, nontender, nondistended. Extremities: Left leg with chronic changes noted. There is ecchymosis noted, with a large bulla noted on the anterior pretibial area on the left. No signs of infection. She has perfusion noted to bilateral lower extremities. Neurologic: Grossly intact. Skin: Wound as noted above. Also about a 1 cm lesion to her left scapular area. LABORATORY DATA: This morning, white blood cell count is 5, hematocrit 35. Remainder of labs were reviewed. ASSESSMENT AND PLAN: An 84-year-old female with trauma to the left leg. 1. Trauma to the left leg. At this time, she does have a hematoma. I would like to try to manage with wound care. Right now, will try to keep the blister in place and let it kind of drain on its own. I am okay with placing warm compresses to the area. I do not think we need to do anything surgically at this point. Will keep her leg elevated. 2. Skin lesion to the back. At this time, will plan on potentially removing this in the office as an outpatient. cc: MD Tate Campos MD
[2019-01-31] MEDS: KLOR-CON PO SCH ×2 (09:00→20:31)
[2019-01-31] MEDS: CARDIZEM CD PO SCH (09:02)
[2019-01-31] MEDS: LASIX PO SCH ×2 (09:03→14:42)
[2019-01-31] MEDS: PREDNISONE PO SCH (09:03)
[2019-01-31] MEDS: SINGULAIR PO SCH (09:04)
[2019-01-31] MEDS: DOXYCYCLINE 100 MG in NS 250 ML IV SCH ×2 (09:04→20:32)
[2019-01-31] MEDS: XANAX PO SCH ×2 (09:04→20:32)
--- NOTE | 2019-01-31 11:56 | Extremity Venous Study ---
PROCEDURE NAME: Venous U/S Left Leg - 01/30/2019 REQUESTING PHYSICIAN: Dr. Briggs. WASHERETTE MACHINE OPERATOR: Vipul. INDICATIONS: Hematoma and soft tissue trauma to the left leg. EQUIPMENT: [employer] Vivid E9 ultrasound system with a 9 L-D transducer. FINDINGS: Images of the left lower extremity venous system with a comparison shot to the right common femoral vein were obtained in both sagittal and transverse planes. Doppler was used to evaluate veins for spontaneity, phasicity, respiratory excursion, and digital augmentation. RESULTS: Normal venous compression. Normal venous flow. No obvious superficial or deep venous thrombosis noted. cc: MD Socrates Campos MD Scott A. Matthews, MD
--- NOTE | 2019-01-31 13:26 | PROGRESS NOTE ---
DATE: 01/31/2019 She presented yesterday. She had a large hematoma on her left leg from bumping her leg pretty hard. The x-ray of the leg showed no acute morning bony injury or abnormality. Dr. Tate Dobbs put her in. She had extremity venous study done and there was normal venous compression, normal venous flow. No obvious superficial or deep venous thrombosis. Dr. Sorensen from surgery had looked at her and he did not see anything to do surgical at this point. She is on Eliquis. ASSESSMENT AND PLAN: 1. A significant hematoma developed and with pain. It seems to be the bullae and the hematoma seemed to be softening. We will continue to elevate the leg and we will try to manage it with just topical wound care and elevation. Try to keep the blister in place and let it try to drain on its own. We will use warm compresses. 2. Severe chronic obstructive pulmonary disease, chronic hypoxemia, chronic CO2 retention. She is on oxygen at home. Her breathing is doing well. No change there. 3. Her nutrition looks good. 4. Chronic atrial fibrillation for which she is on anticoagulation. REVIEW OF ORDERS: At this time, looking at her orders, she is on Xanax 0.5 mg b.i.d., budesonide formoterol 2 puffs b.i.d., Cardizem CD 180 mg daily. She is on doxycycline 100 mg q.12, Lasix 80 mg p.o. b.i.d., Singulair 10 mg a day, potassium 40 mEq b.i.d., prednisone 5 mg days. We are holding the Eliquis. cc: MD Tate Mac MD [facility]
[2019-01-31] MEDS: NORCO-5 PO PRN (20:40)
[2019-02-01] MEDS: TYLENOL PO PRN (03:23)
--- NOTE | 2019-02-01 07:33 | GENERAL SURGERY PROGRESS NOTE ---
DATE: 02/01/2019 SUBJECTIVE: The patient seems to be doing okay. She does have some leg pain, but it seems to be overall better. OBJECTIVE: Vital Signs: The patient is currently afebrile. Her vital signs are stable. General: No acute distress. HEENT: Normocephalic, atraumatic. Pupils equal, round, reactive to light. Mucous membranes moist. Oropharynx benign. Neck: Supple. Trachea midline. Cardiovascular: Regular rate and rhythm. Lungs: Grossly clear. Abdomen: Soft, nontender, nondistended. Extremities: Left leg essentially looks the same. No worse. Vascular: All extremities are perfused. Neurologic: Grossly intact. Skin: Has wound as noted above, left shoulder wound/growth. ASSESSMENT AND PLAN: An 84-year-old female with trauma to the left leg. Trauma to the left leg. At this time, will continue current treatment. Keep the leg elevated. Will monitor it. No new recommendations. cc: MD Tate Campos MD
[2019-02-01] MEDS: SINGULAIR PO SCH (08:31)
[2019-02-01] MEDS: CARDIZEM CD PO SCH (08:31)
[2019-02-01] MEDS: KLOR-CON PO SCH ×2 (08:31→20:25)
[2019-02-01] MEDS: XANAX PO SCH ×2 (08:31→20:25)
[2019-02-01] MEDS: LASIX PO SCH ×3 (08:31→14:46)
[2019-02-01] MEDS: DOXYCYCLINE 100 MG in NS 250 ML IV SCH (08:31)
[2019-02-01] MEDS: SYMBICORT 160/4.5 MICROGM INHALER INH SCH ×2 (09:05→21:12)
[2019-02-01] MEDS: DUONEB (A & A) INH SCH ×3 (09:05→21:13)
--- NOTE | 2019-02-01 09:42 | PROGRESS NOTE ---
DATE: 02/01/2019 SUBJECTIVE: Ms. Gómez is sitting up in a chair. She feels a little better still. The left lower leg hematoma seems to be softening. It has not drained. She is off the Eliquis but she feels better. She said the pain medicine done last very long. OBJECTIVE: She remains afebrile, temperature 98.1 degrees, pulse 87, respirations 20, blood pressure 119/72. Pupils are equal and round. Lungs are clear in all lung reyes. Cardiovascular regular rate without murmur or S3. Abdomen is soft. Skin is warm and dry. Urine output is 1500 mL. ASSESSMENT AND PLAN: 1. Trauma to the left leg, left leg hematoma. Continue elevate. Wound care. I talked to Mamie and she seems to be progressing well. 2. Severe chronic obstructive pulmonary disease with chronic hypoxemia. Continue her oxygen. 3. Nutrition good. 4. Claims her bowels have been moving. 5. Chronic atrial fibrillation, rate is controlled where she is off of her Eliquis. cc: MD Tate Mac MD
[2019-02-01] MEDS: NORCO-5 PO PRN ×2 (12:20→20:25)
[2019-02-02] MEDS: XANAX PO SCH ×2 (09:57→20:55)
[2019-02-02] MEDS: PREDNISONE PO SCH (09:57)
[2019-02-02] MEDS: SINGULAIR PO SCH (09:57)
[2019-02-02] MEDS: KLOR-CON PO SCH ×2 (09:57→20:55)
[2019-02-02] MEDS: CARDIZEM CD PO SCH (09:57)
[2019-02-02] MEDS: LASIX PO SCH ×2 (10:00→15:14)
[2019-02-02] MEDS: DUONEB (A & A) INH SCH ×3 (10:21→21:14)
[2019-02-02] MEDS: SYMBICORT 160/4.5 MICROGM INHALER INH SCH ×2 (10:21→21:14)
--- NOTE | 2019-02-02 11:05 | PROGRESS NOTE ---
DATE: 02/02/2019 SUBJECTIVE: She is feeling a little better. Whenever she stands, her left leg feels like little pin pricks and pain, but overall she is feeling better. Her breathing is comfortable. OBJECTIVE: Temperature 98.7; pulse 99; respirations 15; blood pressure 115/65. Pupils are equal and round. Lungs are clear in all lung reyes. Cardiovascular regular rhythm and rate without murmur or S3. Abdomen is soft. Skin is warm and dry. ASSESSMENT AND PLAN: 1. Trauma to the left leg with hematoma. It looks like it is dry and it has large bullae filled with blood. She would like to go home tomorrow, and I think we can probably arrange that. We are going to leave it alone and not do any break in the skin. It may rupture spontaneously and expect it will. Appreciate Dr. Sorensen's help and Mamie's help. 2. Severe COPD with hypoxemia. She is stable, good air and gas exchange with her oxygen. 3. Nutrition is good. 4. Her bowels have been moving. 5. Chronic atrial fibrillation. She is off Eliquis at this time and probably will hold Eliquis for several weeks until this bullae resolves. cc: MD Tate Mac MD
[2019-02-02] MEDS: TYLENOL PO PRN ×2 (11:53→22:37)
[2019-02-03] MEDS: TYLENOL PO PRN (04:32)
[2019-02-03 07:42] VITALS: BP 105/56
[2019-02-03] MEDS: SYMBICORT 160/4.5 MICROGM INHALER INH SCH (07:54)
[2019-02-03] MEDS: DUONEB (A & A) INH SCH ×2 (07:54→08:26)
[2019-02-03] MEDS: LASIX PO SCH (08:41)
[2019-02-03] MEDS: SINGULAIR PO SCH (08:42)
[2019-02-03] MEDS: CARDIZEM CD PO SCH (08:42)
[2019-02-03] MEDS: XANAX PO SCH (08:42)
[2019-02-03] MEDS: KLOR-CON PO SCH (08:42)
--- NOTE | 2019-02-04 15:44 | PROVIDER DOCUMENTATION ---
This chart was entered by Maryan Olvera Scribe, acting as scribe for Socrates Briggs MD. HPI-General Adult - General Chief Complaint: SEPSIS ALERT - D Stated Complaint: HEMATOMA ON LEG Time Seen by Provider: 01/30/19 12:13 Source: patient Allergies/Adverse Reactions: Patient Allergies Allergy/AdvReac Type Severity Reaction Status Date / Time codeine AdvReac Unknown Verified 12/06/18 07:20 Home Medications: Home Medication List Medication Instructions Recorded Confirmed Last Taken Type Albuterol Sulfate [Ventolin] 5 mg IH PRN PRN 06/09/12 01/30/19 1 Day Ago History ~12/05/18 Alprazolam [Xanax] 0.5 mg PO BID 06/09/12 01/30/19 1 Day Ago History ~12/05/18 Budesonide/Formoterol Inhaler 60 puff INH BID 06/09/12 01/30/19 1 Day Ago History [Symbicort 160/4.5 Microgm Inhaler] ~12/05/18 Montelukast [Singulair] 10 mg PO DAILY #0 tablet 06/14/12 01/30/19 1 Day Ago Rx ~12/05/18 Albuterol 2.5MG/Ipratrop 0.5MG 3 ml INH RTTID #0 neb 11/12/16 01/30/19 1 Day Ago Rx [Duoneb (A & A)] ~12/05/18 Diltiazem C.d. [Cardizem Cd] 180 mg PO DAILY #0 capsule 11/12/16 01/30/19 1 Day Ago Rx ~12/05/18 Potassium Chloride 40 meq PO BID 04/03/18 01/30/19 1 Day Ago History ~12/05/18 Furosemide [Lasix] 80 mg PO BID@0800,1400 30 Days #60 12/08/18 01/30/19 Unknown Rx tab Prednisone 5 mg PO EVERY OTHER DAY 01/30/19 01/30/19 01/29/19 History Hydrocodone/APAP 5 mg/325 mg 0.5 - 1 ea PO Q4-6H PRN PRN 20 02/03/19 Unknown Rx [[place]-5] Days #40 tab - History of Present Illness -Gen Adult Nature of Presenting Problems: 84yof presents to ED cc pain, swelling, large hematoma on left lower leg after hitting it on tub a week ago. Pt reports it was getting better but has now gotten worse due to walking on it and she is on Eliquis. Pt has hx of Afib, COPD and HTN. PT is non-toxic in appearance. Location of Pain/Injury: reports: lower extremity (left lower leg) Pain Radiation: reports: no radiation Quality of Pain: reports: sharp, throbbing, tightness Onset/Duration: reports: 1 week ago Timing: reports: still present, constant, getting worse Context/Activities at Onset: reports: recent trauma history (hit left leg on side of tub 1 week ago) Modifying Factors: worse with: movement Associated Symptoms: reports: trouble walking Similar Symptoms Previously?: No Recently seen or treated by another doctor?: No Review of Systems - Adult - REVIEW OF SYSTEMS - ADULT Constitutional: reports: see HPI. denies: chills, fever, fatique Eyes: reports: no symptoms reported Ears, Nose, Mouth & Throat: reports: no symptoms reported Cardiovascular: reports: no symptoms reported Respiratory: reports: no symptoms reported Gastrointestinal: reports: no symptoms reported Genitourinary: reports: no symptoms reported Musculoskeletal: reports: no symptoms reported Integumentary: reports: see HPI, other (large hematoma left lower leg) Neurological: reports: no symptoms reported Psychiatric: reports: no symptoms reported Endocrine: reports: no symptoms reported Hematologic/Lymphatic: reports: no symptoms reported Allergic/Immunologic: reports: no symptoms reported All Other Systems: Reviewed and Negative Past History - Adult - PAST MEDICAL HISTORY-ADULT Review of Records: reports: Nursing Assessment Review, Medications Reviewed, Social history reviewed & non-contributory. Major Childhood Illnesses: reports: denies history Cardiovascular: reports: A-Fib, HTN Respiratory: reports: COPD Gastrointestinal: reports: denies history Obstetrical/Gynecological: reports: denies history Genitourinary: reports: denies history Musculoskeletal: reports: denies history Neurological: reports: denies history Endocrine/Immune: reports: denies history Other Conditions: reports: denies history - IMMUNIZATION STATUS Childhood Immunizations: See Nurse Assessment Flu Vaccine: See Nurse Assessment - FAMILY HISTORY Family History: reviewed, not pertinent - SOCIAL HISTORY Smoking: denies Physical Exam-General - PHYSICAL EXAM-ADULT Initial Vital Signs Reviewed: Yes - CONSTITUTIONAL General Appearance: appears well, alert, moderate distress. negative: anxious, combative - EYES Eyes: PERRL/EOMI, pink conjunctivae. negative: meningismus, photophobia - HEAD, EARS, NOSE, MOUTH & THROAT HENMT: moist mucous membranes, normal ENT inspection, TMs normal, pharynx normal . negative: angioedema, hearing deficit - NECK Neck: non-tender, full range of motion, supple, normal inspection. negative: Brudzinski's sign, carotid bruit, C-spine tenderness - RESPIRATORY Respiratory: chest non-tender, lungs clear, normal breath sounds, no pleuratic chest pain, no respiratory distress. negative: crackles, rales, rhonchi, wheezing - CARDIOVASCULAR Cardiovascular: normal peripheral pulses, no edema, no gallop, no JVD, no murmur , tachycardia. negative: regular rate, rhythm, bradycardia - GASTROINTESTINAL (ABDOMEN) Abdominal Exam: normal bowel sounds, non tender, soft. negative: rigid, rebound - LYMPHATIC Lymphatic: no adenopathy. negative: enlargement, striations - MUSCULOSKELETAL Back Exam: normal inspection. negative: swelling Extremity: no pedal edema, swelling, tenderness, other (large hematoma on left lower leg). negative: normal inspection - SKIN Integumentary: other (1cm skin tear posterior lower left leg). 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 negative: facial droop, focal weakness - PSYCHIATRIC Psych/Mental Status: normal mood/affect, normal thought content, normal thought process, oriented x 3. negative: disoriented x 3, anxious, disheveled, depressed affect Progress - PLAN OF CARE/RESULTS Progress/Plan/Lab Results: Vital Signs - 8 hr 01/30/19 11:59 Temperature 98.9 F Pulse Rate 128 H Respiratory Rate 24 Blood Pressure 131/64 O2 Sat by Pulse Oximetry 73 L Orders Category Date Time Status CHEST-2 VIEWS [RAD] Stat Exams 01/30/19 12:08 Ordered EKG [EKG] Stat Ther 01/30/19 12:08 Ordered Result Diagrams: 01/31/19 05:15 01/31/19 05:15 - XRAY 1 XRAY: Bilateral XRAY Study: Chest Impression: See EMR Report (IMPRESSION: Interval improvement. Electronically signed by Guillermo Perez 01/30/2019 1:20 PM) - CONSULTS/PCP/HOSPITALIST Notification #1 *Consult/PCP/Hospitalist*: Dr. Dobbs Time Discussed: 14:13 Consult Disposition: Will see in ED Departure - Departure Date of Disposition Decision: 01/30/19 Time of Disposition Decision: 15:00 DIAGNOSIS: Contusion of leg, left, Coagulopathy, Hematoma Disposition: ADMITTED INPATIENT 09 Certified Medical Emergency: Emergent Condition: Stable - Critical Care Note This patient required my direct & personal management of CC.: No Attestation - Physician/ JEREMIAH Attestation Patient care was provided by Advanced Practice Provider:: No The physician spent face to face time with patient:: Yes Advanced Practice Provider documentation review:: Supervising physician onsite and consulted in the evaluation and care of this patient. The physician did have a face to face encounter with the patient. This chart was documented by the indicated scribe, (Maryan Olvera Scribe) and accurately reflects the services I performed and decisions made by me, Socrates Briggs MD, as attested by the provider's signature.
--- NOTE | 2019-02-04 15:47 | GENERAL SURGERY PROGRESS NOTE ---
DATE: 02/02/2019 SUBJECTIVE: Patient seems to be doing OK. OBJECTIVE: Vital signs: Patient is currently afebrile. Her vital signs are stable. General: No acute distress. Cardiovascular: Regular rate and rhythm. Lungs: Clear. Abdomen: Soft, nontender, nondistended. Extremities: Wounds in the left leg looks about the same. ASSESSMENT/PLAN: 84 -year-old female with trauma to the left leg. 1. Trauma to the left leg. At this time continue current treatment. 2. Disposition per her primary physician. 3. No new recommendations. cc: MD Tate Campos MD
--- NOTE | 2019-02-05 13:09 | GENERAL SURGERY PROGRESS NOTE ---
DATE: 02/03/2019 SUBJECTIVE: The patient seems to be doing okay. No major issues. OBJECTIVE: Vital signs: The patient is currently afebrile. Her vital signs are stable. General exam: No acute distress. HEENT: Normocephalic, atraumatic. Pupils equal, round, reactive to light. Mucous membranes moist. Oropharynx benign. Neck supple. Trachea is midline. Cardiovascular: Regular rate and rhythm. Lungs were grossly clear. Abdomen soft, nontender, nondistended. Extremities: Wound to left leg stable. Vascular: All extremities perfused. Neurologic: Grossly intact. Skin: Wound as noted above. ASSESSMENT AND PLAN: An 84-year-old female with leg wound. Leg wound. At this time continue current treatment. Nothing new to add. I think from a surgical point of view she could be discharged. cc: MD Tate Campos MD
--- NOTE | 2019-02-05 15:23 | DISCHARGE SUMMARY ---
ADMISSION DATE: 01/30/2019 DISCHARGE DATE: 02/03/2019 The patient had bumped her left lower leg and had a large bullous hematoma and she was on Eliquis blood thinner for her atrial fibrillation. She is an 84-year-old white female, complicated past medical history. She was entering the bathtub and struck her left lower extremity. Patient immediately developed pain as well as bruising associated with bleeding. The patient called for assistance to achieve hemostasis. The patient states that she slept well on Friday. I think this happened on Friday. On Friday, she noticed some pain but overall status, she felt well. Since that time, unfortunately, her condition has progressed. A larger hematoma is noted. Significant decline overall condition, noted increasing lower extremity pain, noted discoloration from the knee down and presented to the hospital. PAST MEDICAL HISTORY: 1. Chronic atrial fibrillation. 2. Chronic anticoagulation secondary to atrial fibrillation. 3. Chronic obstructive pulmonary disease with chronic respiratory failure, hypoxemia, and hypercapnia. She is on home O2 at 3 L. 4. Right heart failure. 5. Secondary polycythemia. 6. History of prolonged tobacco use. 7. Chronic venous insufficiency, bilateral lower extremities. 8. Congestive heart failure secondary to left ventricular systolic dysfunction. CURRENT MEDICATIONS: She was on: 1. DuoNeb. 2. Albuterol. 3. Xanax 0.5 mg twice a day. 4. Eliquis 5 mg twice a day. 5. Symbicort 160-4.5 twice a day inhalation treatment, I think, take 2 puffs twice a day. 6. Diltiazem CD 180 mg a day. 7. Lasix 80 mg twice a day. 8. Singulair 10 mg a day. 9. Potassium chloride 40 mEq twice a day. ADMISSION DIAGNOSIS: 1. Left lower extremity hematoma. Surgery looked at it and felt we would not break the bullae but treat it topically, treating topical Betadine and it did dry a little bit and reduced to about half the size. We put her on doxycycline for a couple days, although really showed very little sign of cellulitis or peripheral irritation. 2. Pain, I think, from the hematoma, just irritating the skin and sharp pinprick type pain which improved. 3. Atrial fibrillation with rapid ventricular rate. Her rate stayed controlled. We held the Eliquis, probably will hold the Eliquis for a couple more weeks. 4. COPD, end-stage. She is on DuoNeb. She is on home oxygen at 3 L. 5. Anticoagulation as above for atrial fibrillation. We will hold the Eliquis and continue to hold for a couple weeks. 6. Left periscapular superficial ulceration which will require surgical resection as an outpatient. It appears to be a skin lesion. 7. Congestive heart failure appears to be well compensated. 8. Polycythemia secondary to COPD, aware and mild. 9. Her strength is good. She wanted to go home on 02/03/2019. Mamie was managing her wound care and we will set her up to go home with some continued warm compresses. Continue to elevate the leg. I will see her back in my office in about 4 weeks and we will hold the Eliquis until then. DISCHARGE MEDICATIONS: She will be on her Xanax 0.5 mg b.i.d., Symbicort 160/4.5 two puffs twice a day, Cardizem CD 180 mg a day, Lasix 80 mg twice a day p.o. She has [place] 5 q. 4 hours p.r.n. pain, Singulair 10 mg daily, K[place]-Con 40 mEq twice a day and she takes her prednisone 5 mg every 48 hours. We will have home health come and check on her and the wound. cc: MD Tate Mac MD
== END 2019-02-03 11:23 | disposition home health service (06) | DRG 605 ==
LOC: ED 11:56 → 3S 15:34
PROVIDERS: ADMIT Internal Medicine; ATTEND Emergency Medicine
CPT/HCPCS: 71020; 71046; 73590; 80053; 81001; 85025; 93005; 93971; 94640; 94761; 94799; 99285; A9270; J7050; J7506; J7512

== ENCOUNTER 2019-02-22 12:41 | Inpatient (IN) ==
--- NOTE | 2019-02-22 12:12 | PROVIDER DOCUMENTATION ---
HPI-Respiratory General - General Stated Complaint: SOB Time Seen by Provider: 02/22/19 11:59 Source: patient, EMS Allergies/Adverse Reactions: Patient Allergies Allergy/AdvReac Type Severity Reaction Status Date / Time codeine AdvReac Unknown Verified 12/06/18 07:20 Home Medications: Home Medication List Medication Instructions Recorded Confirmed Last Taken Type Albuterol Sulfate [Ventolin] 5 mg IH PRN PRN 06/09/12 01/30/19 1 Day Ago History ~12/05/18 Alprazolam [Xanax] 0.5 mg PO BID 06/09/12 01/30/19 1 Day Ago History ~12/05/18 Budesonide/Formoterol Inhaler 60 puff INH BID 06/09/12 01/30/19 1 Day Ago History [Symbicort 160/4.5 Microgm Inhaler] ~12/05/18 Montelukast [Singulair] 10 mg PO DAILY #0 tablet 06/14/12 01/30/19 1 Day Ago Rx ~12/05/18 Albuterol 2.5MG/Ipratrop 0.5MG 3 ml INH RTTID #0 neb 11/12/16 01/30/19 1 Day Ago Rx [Duoneb (A & A)] ~12/05/18 Diltiazem C.d. [Cardizem Cd] 180 mg PO DAILY #0 capsule 11/12/16 01/30/19 1 Day Ago Rx ~12/05/18 Potassium Chloride 40 meq PO BID 04/03/18 01/30/19 1 Day Ago History ~12/05/18 Furosemide [Lasix] 80 mg PO BID@0800,1400 30 Days #60 12/08/18 01/30/19 Unknown Rx tab Prednisone 5 mg PO EVERY OTHER DAY 01/30/19 01/30/19 01/29/19 History Hydrocodone/APAP 5 mg/325 mg 0.5 - 1 ea PO Q4-6H PRN PRN 02/03/19 Unknown Rx [[place]-5] Days #40 tab - History of Present Illness-Resp Nature of Presenting Problem: Patient notes increased shortness of breath and low sats at home gradual onset since waking this morning. On 5L by PA at home, recently admitted for cellulitis of legs and shoulder, notes dry cough this am. EMS administered O2 and albuterol en route. Denies fever, chills, or pain. 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 worse with: exertion Associated Symptoms: reports: heart racing, shortness of breath Similar Symptoms Previously?: Yes Recently seen or treated by another doctor?: Yes (figh and PCP) Review of Systems - Adult - REVIEW OF SYSTEMS - ADULT Constitutional: reports: no symptoms reported Eyes: reports: no symptoms reported Ears, Nose, Mouth & Throat: reports: no symptoms reported Cardiovascular: reports: no symptoms reported Respiratory: reports: see HPI, chronic cough, cough, dyspnea on exertion, shortness of breath, wheezing. denies: excessive sputum production, hemoptysis, pleurisy Gastrointestinal: reports: no symptoms reported Genitourinary: reports: no symptoms reported Musculoskeletal: reports: no symptoms reported Integumentary: reports: see HPI, skin sores/ulcer, skin thickening Neurological: reports: no symptoms reported Psychiatric: reports: no symptoms reported Endocrine: reports: no symptoms reported Hematologic/Lymphatic: reports: no symptoms reported Allergic/Immunologic: reports: no symptoms reported All Other Systems: Reviewed and Negative Past History - Adult - PAST MEDICAL HISTORY-ADULT Review of Records: reports: Old Records Reviewed, Nursing Assessment Review, Medications Reviewed, Social history reviewed & non-contributory. Major Childhood Illnesses: reports: denies history Cardiovascular: reports: A-Fib, CAD, CHF, HTN Respiratory: reports: COPD Gastrointestinal: reports: denies history Obstetrical/Gynecological: reports: denies history Genitourinary: reports: denies history Musculoskeletal: reports: denies history Neurological: reports: denies history Endocrine/Immune: reports: denies history Other Conditions: reports: denies history - PRIOR SURGERIES/PROCEDURES Surgical/Procedure History: reports: reviewed, not pertinent - IMMUNIZATION STATUS Childhood Immunizations: See Nurse Assessment Flu Vaccine: See Nurse Assessment - FAMILY HISTORY Family History: reviewed, not pertinent - SOCIAL HISTORY Smoking: quit greater than 1 year, cigarettes Substance Use: none/never Alcohol Use Frequency: rarely Living Situation: alone Physical Exam-General - PHYSICAL EXAM-ADULT Initial Vital Signs Reviewed: Yes (Tachycardic, tachypneic, mild respiratory distress) - CONSTITUTIONAL General Appearance: appears well, alert, mild distress, thin - EYES Eyes: PERRL/EOMI, pink conjunctivae - HEAD, EARS, NOSE, MOUTH & THROAT HENMT: normocephalic/atraumatic, moist mucous membranes, normal ENT inspection, pharynx normal - NECK Neck: non-tender, full range of motion, supple, normal inspection - RESPIRATORY Respiratory: chest non-tender, no pleuratic chest pain, respiratory distress (mild), decreased breath sounds, accessory muscle use, rhonchi, wheezing, prolonged expiration, increased rate - CARDIOVASCULAR Cardiovascular: normal peripheral pulses, no edema, no JVD, no murmur, tachycardia, gallop/S3, irregularly irregular. negative: regular rate, rhythm - GASTROINTESTINAL (ABDOMEN) Abdominal Exam: normal bowel sounds, non tender, soft, no organomegaly, no pulsatile mass - LYMPHATIC Lymphatic: no adenopathy, axilla node tender - MUSCULOSKELETAL Back Exam: normal inspection, no CVA tenderness, no vertebral tenderness Extremity: normal range of motion, normal gait, no pedal edema, no calf tenderness, normal capillary refill, erythema, inflammation, other (active bleeding left anterior beasley, there is also a silver dollar size lesion on left shoulder that appears to be a pyogenic granuloma with mild active bleeding and discharged) - SKIN Integumentary: normal color, normal turgor, warm/dry - 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, grossly normal, no motor/sensory deficits - PSYCHIATRIC Psych/Mental Status: normal mood/affect, normal thought content, normal thought process, oriented x 3 - HEART Score HEART Score: History: Slightly Suspicious HEART Score: ECG: Non-Specific Repolarization Disturbance/LBBB/PM HEART Score: Age: > or = 65 Years HEART Score: Risk Factors for Atherosclerotic Disease: > or = 3 Risk Factors or History of Atherosclerotic Disease Progress - PLAN OF CARE/RESULTS Progress/Plan/Lab Results: Vital Signs - 8 hr 02/22/19 12:35 02/22/19 12:36 Temperature 99.1 F Pulse Rate 136 H 133 H Respiratory Rate 33 H 16 Blood Pressure 131/82 O2 Sat by Pulse Oximetry 92 L 91 L Laboratory Results - last 24 hr 02/22/19 12:26 Specimen Type ARTERIAL Sample Site R BRACHIAL pH 7.53 H pCO2 53 H* pO2 45 L* HCO3 39.1 H Base Excess 18.8 H Oxyhemoglobin 78.2 L* ABG O2 Sat (Calculated) 14.1 L ABG O2 Saturation 81.4 L ABG Carboxyhemoglobin 2.60 H ABG Methemoglobin 1.3 Gareth Test NO A-a O2 Difference 245.0 Total Hemoglobin 12.8 Lactate 1.40 Blood Gas Modality CANNULA FiO2 % 50.0 Orders Category Date Time Status Nursing- Obtain EKG once Care 02/22/19 12:01 Active Saline Loc NOW Care 02/22/19 12:01 Active CHEST-PORTABLE [RAD] Stat Exams 02/22/19 12:02 Completed ABG [RESP] Routine Lab 02/22/19 12:26 Completed BLOOD CULTURE [BLDCUL] Stat Lab 02/22/19 12:02 Uncollected CBC WITH ELECTRONIC DIFF [HEME] Stat Lab 02/22/19 12:02 Uncollected CK PROFILE [SP CHEM] Stat Lab 02/22/19 12:02 Uncollected COMPREHENSIVE METABOLIC PANEL [CHEM] Stat Lab 02/22/19 12:02 Uncollected CORTISOL Stat Lab 02/22/19 12:04 Uncollected LACTATE, PLASMA [CHEM] Stat Lab 02/22/19 12:02 Uncollected MAGNESIUM [CHEM] Stat Lab 02/22/19 12:02 Uncollected PRO B-NATRIURETIC PEPTIDE Stat Lab 02/22/19 12:02 Uncollected PROTIME WITH INR [COAG] Stat Lab 02/22/19 12:02 Uncollected PTT [COAG] Stat Lab 02/22/19 12:02 Uncollected SPUTUM CULTURE WITH GRAM STAIN [RM] Stat Lab 02/22/19 12:02 Uncollected TROPONIN T Stat Lab 02/22/19 12:02 Uncollected URINALYSIS W/POSS RFLX CULT [URINALYSIS] Stat Lab 02/22/19 12:02 Uncollected 0.9% Sodium Chloride Inj [Ns] 1,000 ml Med 02/22/19 12:04 Discontinued IV 999 mls/hr Albuterol 2.5MG/Ipratrop 0.5MG [Duoneb (A & A)] Med 02/22/19 12:05 Discontinued 9 ml INH NOW ONE Diltiazem [Cardizem] Med 02/22/19 12:05 Discontinued 25 mg IV NOW ONE Hydrocortisone Sod Succinate [Solu-Cortef] Med 02/22/19 12:05 Discontinued 100 mg IV NOW ONE Methylprednisolone Sod Succ [Solu-Medrol] Med 02/22/19 12:05 Discontinued 125 mg IV NOW ONE Piperacillin/Tazobactam [Zosyn] 3.375 gm Med 02/22/19 12:05 Discontinued 0.9% Sodium Chloride Inj [Ns] 50 ml IV NOW Vancomycin 1 gm/Ns Med 02/22/19 12:05 Discontinued 1 gm in 250 ml IV NOW Aerosol Treatments Routine Oth 02/22/19 12:06 Completed Aerosol Treatments Stat Oth 02/22/19 12:06 Completed EKG [EKG] Stat Ther 02/22/19 12:01 Ordered - REASSESSMENT Reassessment #1 Time Reassessed: 13:14 Status: improving (Patient meets criteria for sepsis, givenIVF bolus, iv solumedrol and hydrocortisone, IV Vanc/zosyn. ALso givne 3 duonebs. Given also cardizem for afib with rvr) Reassessment Comment: labs pending at this time. - XRAY 1 XRAY Study: Chest Impression: Abnormal, See EMR Report ( EXAM: CHEST-PORTABLE HISTORY: dyspnea TECHNIQUE: Chest single view COMPARISON: 01/30/2019 FINDINGS: The lungs are hyperexpanded except for atelectasis in the right base. Small to moderate- sized right-sided pleural effusion. This is slightly larger than on the prior study. Mild vascular distention. IMPRESSION: Emphysema with mild pulmonary edema and a right-sided pleural effusion. Electronically signed by Guillermo Perez 02/22/2019 12:43 PM 02/22/19 1243 Interpreting Physician: Guillermo Perez MD Dictated Date/Time: 02/22/19 1242 cc: Arnol Baltazar MD;) - CONSULTS/PCP/HOSPITALIST Notification #1 *Consult/PCP/Hospitalist*: Franco Time Discussed: 12:30 Consult Disposition: Will see in ED Departure - Departure Date of Disposition Decision: 02/22/19 Time of Disposition Decision: 13:15 DIAGNOSIS: COPD with exacerbation, Acute respiratory failure with hypoxemia, Atrial fibrillation with RVR Sepsis Qualifiers: Sepsis type: sepsis due to unspecified organism Qualified Code(s): A41.9 - Sepsis, unspecified organism Disposition: ADMITTED INPATIENT 09 Certified Medical Emergency: Emergent Condition: Fair - Critical Care Note This patient required my direct & personal management of CC.: Yes Total Time (mins): 40 ([facility] and [facility] in [place] without emergent interventions) Critical Care Statement: This patient required my direct personal management to treat or rule out processes, the absence of which, could potentiallly result in sudden, clinically significant life or limb threatening deterioration. Attestation - Physician/ JEREMIAH Attestation Patient care was provided by Advanced Practice Provider:: No The physician spent face to face time with patient:: Yes Advanced Practice Provider documentation review:: Supervising physician onsite and consulted in the evaluation and care of this patient. The physician did have a face to face encounter with the patient.
[2019-02-22 12:36] LABS: ALLEN TEST NO; BE 18.8 mmoll (-3.0-3.0); BLOOD TYPE ARTERIAL; HCO3-(ACT) 39.1 mmoll (20.0-26.0); METHB 1.3 % (0.0-1.5); O2(CT) 14.1 mL/dL (15.0-23.0); SAMPLE BLOOD; SAO2 81.4 % (95.0-100.0); THB 12.8 g/dL (11.5-17.4); pH(98.6) 7.53 (7.35-7.45)
[2019-02-22 12:37] LABS: PCO2(98.6) 53 mmHg (35-45); PO2(98.6) 45 mmHg (60-100)
[2019-02-22 12:38] LABS: MODALITY CANNULA; O2HB 78.2 % (95.0-99.0)
[~2019-02-22 12:41] MED LIST: CARDIZEM IV ONE; DUONEB (A & A) INH ONE; NS 1,000 ML IV ONE; SOLU-CORTEF IV ONE; SOLU-MEDROL IV ONE; VANCOMYCIN 1 GM/NS 1 GM/250 ML IVPB IV ONE; ZOSYN 3.375 GM in NS 50 ML IV ONE
--- NOTE | 2019-02-22 12:45 | Diag Imaging Result Doc PS360 ---
EXAM: CHEST-PORTABLE HISTORY: dyspnea TECHNIQUE: Chest single view COMPARISON: 01/30/2019 FINDINGS: The lungs are hyperexpanded except for atelectasis in the right base. Small to moderate-sized right-sided pleural effusion. This is slightly larger than on the prior study. Mild vascular distention. IMPRESSION: Emphysema with mild pulmonary edema and a right-sided pleural effusion. Electronically signed by Guillermo Perez 02/22/2019 12:43 PM
[2019-02-22] MEDS ORDERED: TYLENOL PO PRN (13:19)
[2019-02-22] MEDS ORDERED: SOLU-MEDROL IV SCH (13:30)
[2019-02-22] MEDS ORDERED: NS 1,000 ML IV SCH (13:30)
[2019-02-22] MEDS ORDERED: ROCEPHIN 1 GM in NS 50 ML IV SCH (13:30)
--- NOTE | 2019-02-22 13:54 | HISTORY AND PHYSICAL ---
HISTORY: She was last here on 01/30/2019. She had a large bullae and hematoma from traumatic bullae on her leg. This time she presents with shortness of breath. She has underlying severe COPD, oxygen dependent. This is an 84-year-old with severe COPD oxygen dependent. She was relatively stable until a couple of days ago and started noticing more trouble with shortness of breath and wheezing. Denied any swelling in her feet. No chest pain. No tachy palpitations, just more short of breath and noted her O2 saturations were following down in the mid 80s. Denies fever or chills. No increased cough or sputum production. No pleuritic pain. PAST MEDICAL HISTORY: 1. Chronic atrial fibrillation. 2. Chronic anticoagulation secondary to atrial fibrillation. 3. COPD disease with chronic respiratory failure, hypoxemia and hypercapnia. She is on O2 at home I believe 3 L. 4. Right heart elevated hypertension. 5. Secondary polycythemia. 6. History of prolonged tobacco use. 7. Chronic venous insufficiency, bilateral lower extremities. 8. Congestive heart failure secondary to left ventricular systolic dysfunction and underlying atrial fibrillation. CURRENT MEDICATIONS: Reviewed. ALLERGIES: She is allergic to codeine which causes alteration of mental status and headache. 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 She smoked approximately 2 packs per day for 40 years having stopped greater than 10 years ago. She has 1 to 2 glasses of wine every night. No illicit drugs. FAMILY HISTORY: The patient's father passed at 73 secondary to complications associated with congestive heart failure. The patient's mother passed at 79 secondary to incidental house fire. REVIEW OF SYSTEMS: General: No weight gain or loss. No fever or chills. HEENT: Unremarkable. No change in visual or hearing acuity. No neck pain. No adenopathy appreciated. No upper respiratory congestion, drainage or lesions in her oral nasal mucosa. Respiratory: Long history of COPD on chronic O2 at home. She complained of shortness of breath, and increased dyspnea at rest. She does not complain of paroxysmal nocturnal dyspnea or orthopnea. No pedal edema. GI: No change in bowels or bowel habits. Genitourinary: No gross hematuria dysuria. Neurologic: No focal complaints. PHYSICAL EXAMINATION: VITAL SIGNS: In the emergency room, temperature 99.1 degrees, pulse 133,respirations 16, and blood pressure 131/82. HEENT: Pupils are equal and round. LUNGS: Diminished breath sounds in both bases, and she has diffuse expiratory end expiratory wheezing throughout. CVP less than 6 cm. No cervical or supraclavicular adenopathy. NECK: Supple. No thyromegaly. CARDIOVASCULAR: Irregular rhythm, irregular rate. PMI nondisplaced. Carotid, radial, and femoral pulses 2+ and symmetrical. ABDOMEN: Soft, nondistended. EXTREMITIES: Without edema. Left leg wrapped. Her left beasley looks like the hemorrhagic bullae has almost completely dried up. SKIN: Dry but no pedal edema. No sign of rashes. LABORATORY: Pending at this time. Blood gases show pH of 7.53, pCO2 53, and PO2 is 45. Chest x- ray shows emphysema with mild pulmonary edema and right-sided pleural effusion. ASSESSMENT AND PLAN: 1. Severe COPD with chronic hypoxemia and mild CO2 retention. She intravascularly does not appear to be overloaded. She still has a little pleural effusion. I do not see any sign of infection. I will treat her for bronchial organisms and acute bronchitis. We will give her a little Solu-Medrol for wheezing, and keep her on a steroid inhaler and bronchodilators to see if we can improve her breathing. Make sure she is on guaifenesin, which I think she takes at home but high dose 1200 mg twice a day. 2. Chronic atrial fibrillation, rate is controlled. 3. History of hypertension, aware. 4. Chronic atrial fibrillation, chronically anticoagulated. Rate is controlled. 5. Atraumatic leg injury with hemorrhagic bullae, which appears to be resolving well. We will ask Mamie to look at it, and Dr. Sorensen has been following as an outpatient. cc: Gareth Franco MD
--- NOTE | 2019-02-22 14:06 | ED EKG INTERP ---
EKG Interpretation - EKG Time of EKG reading by physician:: 14:05 EKG Read and Signed by:: Arnol Baltazar EKG Interpretation (*Must complete 3 of following elements*): Abnormal Rate: 129 Rhythm: afib with RVR [place]: normal QRS: other ST Wave: non-specific ST changes Prior EKG Comparison: unchanged from prior Attestation - Physician/ JEREMIAH Attestation Patient care was provided by Advanced Practice Provider:: No The physician spent face to face time with patient:: Yes Advanced Practice Provider documentation review:: Supervising physician onsite and consulted in the evaluation and care of this patient. The physician did have a face to face encounter with the patient.
--- NOTE | 2019-02-22 14:14 | EKG Report ---
Test Performed on : 02/22/2019 2:02:17 PM Test Reason : sob Blood Pressure : / mmHG Vent. Rate : 129 BPM Atrial Rate : 056 BPM P-R Int : 000 ms QRS Dur : 080 ms QT Int : 282 ms P-R-T Axes : 000 066 061 degrees QTc Int : 413 ms Atrial fibrillation. with rapid ventricular response. Nonspecific ST and T wave abnormality Abnormal ECG When compared with ECG of 06-DEC-2018 05:10, No significant change was found Unconfirmed Result
[2019-02-22 14:25] LABS: BASO# 0.01 X1000 (0.0-0.2); BASO% 0.1 % (0.0-0.8); EOS# 0.03 X1000 (0.0-0.7); EOS% 0.4 % (0.0-10.0); HEMATOCRIT 38.3 % (37.0-47.0); HEMOGLOBIN 11.8 g/dL (12.0-16.0); IMM GRAN# 0.02 X1000 (0.0-0.04); IMM GRAN% 0.3 % (0.0-0.5); LYMPH# 0.96 X1000 (1.2-3.4); LYMPH% 12.8 % (20.5-51.1); MCH 29.9 PG (27-31); MCHC 30.8 g/dL (33-37); MCV 97.2 FL (81-99); MONO# 1.11 X1000 (0.11-0.59); MONO% 14.8 % (1.7-9.3); MPV 8.4 FL (7.4-10.4); NEUT# 5.39 X1000 (1.4-6.5); NEUT% 71.6 % (42.2-75.2); PLT 199 X1000 (130-400); RBC 3.94 XMIL (4.2-5.4); WBC 7.52 X1000 (4.8-10.8)
[2019-02-22 14:31] LABS: INR 1.23; PROTIME 16.4 Seconds (11.0-16.0)
[2019-02-22 14:32] LABS: PTT 35.6 Seconds (22.3-41.8)
[2019-02-22 14:50] LABS: AGAP 13; ALB/GLOB RATIO 1.1; ALBUMIN 3.9 g/dL (3.5-5.0); ALKALINE PHOSPHATASE 74 U/L (32-104); BUN 16 mg/dL (8-22); CALCIUM 8.9 mg/dL (8.8-10.2); CHLORIDE 90 mmol/L (98-107); CK PROFILE 19 U/L (24-173); COSMO 284; CREATININE 0.7 mg/dL (0.5-0.9); ESTIMATED GFR > 60; GLUCOSE 130 mg/dL (70-104); GOT 11 U/L (10-30); GPT 9 U/L (10-36); POTASSIUM 3.7 mmol/L (3.5-5.1); SODIUM 141 mmol/L (136-145); TCO2 38 mmol/L (25-35); TOTAL BILIRUBIN 0.55 mg/dL (0.20-1.00); TOTAL PROTEIN 7.3 g/dL (6.3-8.3)
[2019-02-22] MEDS: DUONEB (A & A) INH SCH ×2 (15:51→21:40)
[2019-02-22 16:58] LABS: BASO# 0.03 X1000 (0.0-0.2); BASO% 0.4 % (0.0-0.8); HEMATOCRIT 39.6 % (37.0-47.0); HEMOGLOBIN 12.2 g/dL (12.0-16.0); LYMPH# 1.11 X1000 (1.2-3.4); LYMPH% 14.1 % (20.5-51.1); MCHC 30.8 g/dL (33-37); MCV 97.3 FL (81-99); MONO% 12.7 % (1.7-9.3); MPV 8.5 FL (7.4-10.4); NEUT# 5.71 X1000 (1.4-6.5); NEUT% 72.8 % (42.2-75.2); PLT 219 X1000 (130-400); RBC 4.07 XMIL (4.2-5.4); RDW 14.1 % (11.5-14.5); WBC 7.85 X1000 (4.8-10.8)
[2019-02-22 17:15] LABS: AGAP 11; ALB/GLOB RATIO 1.1; ALBUMIN 3.8 g/dL (3.5-5.0); ALKALINE PHOSPHATASE 74 U/L (32-104); BUN 14 mg/dL (8-22); CALCIUM 8.9 mg/dL (8.8-10.2); CHLORIDE 91 mmol/L (98-107); COSMO 281; CREATININE 0.7 mg/dL (0.5-0.9); ESTIMATED GFR > 60; GLUCOSE 161 mg/dL (70-104); GOT 11 U/L (10-30); GPT 8 U/L (10-36); POTASSIUM 4.1 mmol/L (3.5-5.1); SODIUM 139 mmol/L (136-145); TCO2 37 mmol/L (25-35); TOTAL BILIRUBIN 0.48 mg/dL (0.20-1.00); TOTAL PROTEIN 7.3 g/dL (6.3-8.3)
[2019-02-22] MEDS ORDERED: SOLU-MEDROL ONE (17:19)
[2019-02-22] MEDS ORDERED: SOLU-CORTEF ONE (17:19)
[2019-02-22] MEDS ORDERED: VANCOMYCIN 1 GM/NS 1 GM/250 ML IVPB ONE (17:19)
[2019-02-22] MEDS ORDERED: NS 1,000 ML ONE (17:19)
[2019-02-22 17:20] LABS: URINE SOURCE CATH
[2019-02-22] MEDS ORDERED: CARDIZEM ONE (17:20)
[2019-02-22 17:31] LABS: BILIRUBIN URINE NEGATIVE (NEGATIVE); BLOOD URINE NEGATIVE (NEGATIVE); COLOR YELLOW; GLUCOSE URINE NEGATIVE (NEGATIVE); KETONE URINE 10 mg/dL (NEGATIVE); LEUKOCYTES URINE NEGATIVE (NEGATIVE); NITRITE URINE NEGATIVE (NEGATIVE); PH URINE 7.5; PROTEIN URINE NEGATIVE (NEGATIVE); SP GRAVITY URINE 1.013; TURBIDITY URINE CLEAR (CLEAR); UROBILINOGEN URINE 2 mg/dL (NORMAL)
[2019-02-22 17:33] LABS: UR EPITHELIAL CELLS <10 /HPF (<10); URINE BACTERIA NEGATIVE /HPF; URINE RBC <10 /HPF (<10); URINE WBC <10 /HPF (<10)
[2019-02-22] MEDS: XANAX PO SCH (21:46)
[2019-02-22] MEDS ORDERED: ZOSYN 3.375 GM in NS 50 ML IV ONE ×2 (22:00→23:00)
[2019-02-22] MEDS: SYMBICORT 160/4.5 MICROGM INHALER INH SCH (22:29)
[2019-02-23] MEDS ORDERED: NS 1,000 ML IV SCH (05:15)
[2019-02-23] MEDS ORDERED: VANCOMYCIN IV PER PHARMACY MISC SCH (05:15)
[2019-02-23] MEDS: PROTONIX PO SCH (06:01)
--- NOTE | 2019-02-23 06:52 | Diag Imaging Result Doc PS360 ---
EXAM: CHEST-PORTABLE 02/23/2019 HISTORY: short of breath TECHNIQUE: AP portable at 0603 COMMENT: There is a right pleural effusion. There is volume loss and shift of the mediastinum to the right which has worsened considerably since 02/22/2019. There continues to be interstitial pulmonary edema. IMPRESSION: Worsened right middle and lower lobe atelectasis. Pulmonary edema. Right pleural effusion. Electronically signed by Aquilino Flores 02/23/2019 6:50 AM
[2019-02-23] MEDS ORDERED: PROTONIX PO SCH (07:00)
[2019-02-23] MEDS ORDERED: VANCOMYCIN 650 MG in NS 250 ML IV ONE (08:00)
[2019-02-23] MEDS ORDERED: SOLU-MEDROL IV SCH (08:00)
[2019-02-23] MEDS: SYMBICORT 160/4.5 MICROGM INHALER INH SCH ×2 (08:04→21:04)
[2019-02-23] MEDS: DUONEB (A & A) INH SCH ×3 (08:04→21:03)
[2019-02-23] MEDS: CARDIZEM CD PO SCH (08:13)
[2019-02-23] MEDS: SINGULAIR PO SCH (08:13)
[2019-02-23] MEDS: XANAX PO SCH ×2 (08:13→21:18)
--- NOTE | 2019-02-23 09:17 | PROGRESS NOTE ---
DATE: 02/23/2019 SUBJECTIVE: Ms. Gómez is breathing a little better. She does feel better. Wheezing is diminished. She does not know how she does when she stirs around but she did have a fairly good night. OBJECTIVE: Remains afebrile, temperature 97.8 degrees, pulse 88, respirations 16. Pupils are equal. Lungs are clear anterolaterally. She is on high-flow nasal cannula right now. Abdomen is soft. Skin is warm and dry. Urine output was about 700 mL. Chest x-ray, worsened right middle and lower lobe atelectasis, some pulmonary edema, right pleural effusion. Her EKG on arrival showed atrial fibrillation with rapid ventricular response, nonspecific ST and T-wave abnormalities but no suspicious ischemic changes. Ventricular rate was around 130. ASSESSMENT AND PLAN: 1. Chronic obstructive pulmonary disease with chronic hypoxemia. She had bronchospasm and wheezing, a little bit of atelectasis and pleural effusion. I put her on some Solu-Medrol. She is on guaifenesin. She has underlying atrial fibrillation. Looking back at her left ventricular pressures and her last echocardiogram, echocardiogram done in September of 2016, there was mild left atrial enlargement. No significant valvular dysfunction. There was no aortic stenosis or regurgitation. Left ventricular estimated ejection fraction of 70%. I do not see an estimation of right-sided pressures. Myocardial perfusion scan done back in October of this year did not show any sign of ischemia but I suspect she has elevated right-sided pressures and I suspect she got a little bit dry so giving her back a little bit of fluid. I will cut down on her Solu-Medrol. 2. Atrial fibrillation. She is on Eliquis. Will make sure she is back on her Eliquis. 3. She had a traumatic left lower leg bulla that seems to be healing. Wound care will follow. Mamie will follow that but it looks like that is healing well. 4. History of hypertension. REVIEW OF ORDERS: Right now, she is on DuoNebs t.i.d., Xanax 0.5 mg b.i.d., budesonide formoterol 1 puff b.i.d. and I think I will go to 2 puffs b.i.d., Cardizem CD 180 mg daily, methylprednisone 60 mg q.8 which I will cut that down to 40 q.8, Protonix 40 mg p.o. daily, normal saline at 65 mL an hour. We are giving her ceftriaxone just for bronchitic organisms at 1 g IV q.12. She got vancomycin at 1 g q.24 hours and I will stop that. cc: Gareth Franco MD
[2019-02-23] MEDS: SOLU-MEDROL IV SCH ×2 (10:05→17:30)
[2019-02-23] MEDS: MUCINEX PO SCH ×2 (10:18→21:18)
[2019-02-23] MEDS: ELIQUIS PO SCH ×2 (10:18→21:18)
[2019-02-23] MEDS: ROCEPHIN 1 GM in NS 50 ML IV SCH (14:30)
[2019-02-23] MEDS: NS 1,000 ML IV SCH (21:24)
[2019-02-24] MEDS: SOLU-MEDROL IV SCH ×3 (02:20→17:50)
[2019-02-24] MEDS: TYLENOL PO PRN (04:52)
[2019-02-24] MEDS: PROTONIX PO SCH (06:15)
[2019-02-24] MEDS: SYMBICORT 160/4.5 MICROGM INHALER INH SCH ×2 (07:59→21:45)
[2019-02-24] MEDS ORDERED: VANCOMYCIN 1 GM/NS 1 GM/250 ML IVPB IV SCH (08:00)
[2019-02-24] MEDS: DUONEB (A & A) INH SCH ×3 (08:01→21:45)
--- NOTE | 2019-02-24 09:30 | PROGRESS NOTE ---
DATE: 02/24/2019 SUBJECTIVE: She had a terrible night, a lot of muscle cramping. She says her breathing was better when she came in, but not where she feels like it needs to be. On her left leg, hemorrhagic bullae is drying up and is healing. OBJECTIVE: Vital Signs: She remains afebrile, temperature 97.5 degrees, pulse 77, respirations 17, blood pressure 122/74. HEENT: Pupils are equal and round. Lungs: Clear in all lung reyes. Cardiovascular: Regular rhythm and rate without murmur or S3. Abdomen: Soft. Skin: Warm and dry. IMAGING AND LABORATORY DATA: Reviewed lab from yesterday: Sodium 139, potassium 4.1, chloride 91, BUN 14, creatinine 0.7. Hematocrit 39, hemoglobin 12. Chest x-ray from yesterday: Worsened right middle and lower lobe atelectasis, pulmonary edema, right pleural effusion. ASSESSMENT AND PLAN: 1. Chronic obstructive pulmonary disease with chronic hypoxemia. Suspect some cor pulmonale involved with decompensation. I gave her back a little fluid. It seemed to help as far as her dyspnea. She did have significant wheezing when she came in and some bronchospasm, and that has improved. I am concerned that we are progressing as far as her severe chronic obstructive pulmonary disease. She is requiring high-flow nasal oxygen, which is uncomfortable to her. She requests that we get Dr. Hernandez involved, and I agree. I will consult Dr. Hernandez to help. 2. Atrial fibrillation. Rate appears controlled. She is back on her Eliquis. 3. Traumatic left lower leg injury with hemorrhagic bullae, which is drying up and seems to be doing better. Will continue to change the dressing and apply Betadine. 4. Hypertension. cc: Gareth Franco MD
[2019-02-24] MEDS: ELIQUIS PO SCH ×2 (09:36→20:50)
[2019-02-24] MEDS: SINGULAIR PO SCH (09:36)
[2019-02-24] MEDS: CARDIZEM CD PO SCH (09:36)
[2019-02-24] MEDS: XANAX PO SCH ×2 (09:36→20:50)
[2019-02-24] MEDS: MUCINEX PO SCH ×2 (09:48→20:50)
--- NOTE | 2019-02-24 09:59 | Diag Imaging Result Doc PS360 ---
EXAM: CHEST-PORTABLE HISTORY: copd TECHNIQUE: Chest single view COMPARISON: 02/23/2019 FINDINGS: Small to moderate-sized right-sided pleural effusion with tiny left pleural effusion remain. There is pulmonary edema and cardiomegaly. Atelectasis is present in the right lung base. IMPRESSION: No interval improvement. Electronically signed by Guillermo Perez 02/24/2019 9:57 AM
[2019-02-24 10:07] LABS: ALLEN TEST YES; BE 10.8 mmoll (-3.0-3.0); BLOOD TYPE ARTERIAL; HCO3-(ACT) 33.2 mmoll (20.0-26.0); METHB 1.2 % (0.0-1.5); O2(CT) 16.1 mL/dL (15.0-23.0); O2HB 92.6 % (95.0-99.0); PO2(98.6) 70 mmHg (60-100); SAMPLE BLOOD; SAO2 95.4 % (95.0-100.0); THB 12.3 g/dL (11.5-17.4)
[2019-02-24 10:08] LABS: MODALITY HIGH FLOW NASAL CAN; PCO2(98.6) 61 mmHg (35-45)
[2019-02-24] MEDS ORDERED: LASIX IV ONE (10:26)
[2019-02-24] MEDS: ROCEPHIN 1 GM in NS 50 ML IV SCH (14:09)
[2019-02-24] MEDS: NS 1,000 ML IV SCH (20:49)
[2019-02-25] MEDS: TYLENOL PO PRN ×2 (00:58→22:33)
[2019-02-25] MEDS: SOLU-MEDROL IV SCH ×4 (00:58→16:24)
[2019-02-25 05:56] LABS: AGAP 7; BUN 27 mg/dL (8-22); CALCIUM 8.8 mg/dL (8.8-10.2); CHLORIDE 97 mmol/L (98-107); COSMO 295; CREATININE 0.7 mg/dL (0.5-0.9); ESTIMATED GFR > 60; GLUCOSE 223 mg/dL (70-104); POTASSIUM 2.9 mmol/L (3.5-5.1); SODIUM 142 mmol/L (136-145); TCO2 38 mmol/L (25-35)
[2019-02-25] MEDS ORDERED: LASIX IV ONE (06:00)
[2019-02-25] MEDS: PROTONIX PO SCH (06:02)
--- NOTE | 2019-02-25 08:16 | PULMONOLOGY CONSULTATION ---
DATE: 02/24/2019 REQUESTING PHYSICIAN: Dr. Gareth Franco. REASON FOR CONSULTATION: Evaluation and treatment. HISTORY OF PRESENT ILLNESS: Ms. Gómez is an 84-year-old white female with end-stage COPD, chronic hypoxemic and hypercapnic respiratory failure with prior episodes of cor pulmonale, who was admitted to the hospital from 01/30/2019 until 02/03/2019 after she developed a large bullous hematoma on her left leg, which developed while on Eliquis for atrial fibrillation. She was evaluated by Surgery, and observation was recommended. She presented to the emergency room on 02/22/2019, feeling weak, fatigued, and increased short of breath with lower oxygen saturations. She denied fevers or chills. She had no significant leukocytosis. Chest x-ray revealed a small right-sided pleural effusion that was slightly larger than on 01/30/2019. She continues to remain short of breath, and has been managed on high-flow nasal cannula, which she does not like. PAST MEDICAL HISTORY/PROBLEM LIST: 1. Severe COPD with hypoxemic and hypercapnic respiratory failure. 2. Prior admission to the hospital with cor pulmonale. The patient was discharged on a Trilogy device, which she refused to wear, and eventually had it removed from her home. 3. Polycythemia. 4. Chronic atrial fibrillation. 5. Anxiety disorder. 6. Status post cataract surgery. 7. Dyslipidemia. 8. Giant bullous hematoma on the left lower extremity. SOCIAL HISTORY: The patient has not smoked for several years. Her several years ago. She has occasional alcohol use. She remains socially active. REVIEW OF SYSTEMS: As noted in the HPI. PHYSICAL EXAMINATION: General: A chronically ill-appearing white female who reports being unhappy about several different things in this hospital stay, including the food and the high-flow oxygen device. Vital Signs: BP 116/65, heart rate 81, respiratory rate 23, oxygen saturation 94% on high-flow nasal cannula. HEENT: Pupils are equal and reactive. Oropharynx appears clear. Neck: Supple. Chest: Decreased breath sounds throughout all lung reyes. Cardiac: S1, S2. Abdomen: Soft and without hepatosplenomegaly. Extremities: Mild peripheral cyanosis. She has a bandage on the left lower extremity. IMAGING AND LABORATORY DATA: Chest x-ray reveals cardiomegaly with pleural effusion. Sodium 139, potassium 4.1, chloride 91, bicarbonate 37, BUN 14, creatinine 0.7. Arterial blood gas this morning shows pH 7.40, pCO2 of 61, PO2 of 70. Microbiology reveals two blood cultures which are growing gram-positive cocci. IMPRESSION: 1. Chronic obstructive pulmonary disease with chronic hypoxemic and chronic hypercapnic respiratory failure. 2. Gram-positive bacteremia. The patient may be bacteremic from her leg if these clipper and turner to be similar pathogens. 3. Pleural effusion with chronic changes at the right base. RECOMMENDATIONS: 1. Continue bronchodilators. 2. Attempt to keep the patient slightly dry as long as her BUN and creatinine do not begin to climb. 3. Await blood culture report. cc: MD Gareth Junior MD
[2019-02-25] MEDS: CARDIZEM CD PO SCH (08:29)
[2019-02-25] MEDS: MUCINEX PO SCH ×2 (08:29→20:50)
[2019-02-25] MEDS: ELIQUIS PO SCH ×2 (08:29→20:50)
[2019-02-25] MEDS: SINGULAIR PO SCH (08:29)
[2019-02-25] MEDS: XANAX PO SCH ×2 (08:29→20:50)
[2019-02-25] MEDS: DUONEB (A & A) INH SCH ×4 (09:30→21:09)
[2019-02-25] MEDS: SYMBICORT 160/4.5 MICROGM INHALER INH SCH ×2 (09:33→19:52)
--- NOTE | 2019-02-25 10:01 | PROGRESS NOTE ---
DATE: 02/25/2019 SUBJECTIVE: Ms. Gómez feels like she is breathing better than yesterday. They were able to turn down her nasal flow a little bit, and that is encouraging for her. She has not had any fever, remains afebrile. OBJECTIVE: Vital Signs: Temperature 97.6 degrees, pulse 87, respirations 22, blood pressure 138/66. HEENT: Pupils are equal and round. Lungs: Clear in all lung reyes. Cardiovascular: Regular rhythm and rate without murmur or S3. Abdomen: Soft. Skin: Warm and dry. Urine output is 4300 mL. ASSESSMENT AND PLAN: 1. Severe chronic obstructive pulmonary disease with chronic hypoxemic and hypercapnic respiratory failure, and is more short of breath. She has had prior admissions with cor pulmonale, was discharged on Trilogy device, which she has refused to wear at home. She is on high-flow nasal flow at this time, and seems to be doing a little better. We are going to try and keep her a little on the dry side because she does have some pleural effusions. 2. Secondary polycythemia. Aware. Mild. 3. Chronic atrial fibrillation. 4. Anxiety disorder. 5. Status post a giant bullous hematoma on the left extremity, which is drying up. Note, she did have positive blood culture, I think both of them positive, and it looks like it is Staphylococcus, and it is resistant to oxacillin, so I guess it is Staphylococcus pseudintermedius. It looks like she had some bacteremia, and this may be from her bullae on her left leg. Continue present orders. She is on guaifenesin ER 1200 mg twice a day. She is on DuoNebs, I think 3 times a day, Xanax 0.5 mg b.i.d., Eliquis 5 mg b.i.d., budesonide formoterol 2 puffs b.i.d., diltiazem CD 180 mg daily, methylprednisone 40 mg IV every 8 hours, Singulair 10 mg daily. Her IV is at keep vein open. Ceftriaxone 1 gram IV every 24 hours. I am going to go ahead and treat her with some Zyvox, and I will stop the ceftriaxone. Will give her Zyvox 600 mg IV every 12 hours. cc: Gareth Franco MD
[2019-02-25] MEDS: ZYVOX 600 MG/D5W 600 MG/300 ML IVPB IV SCH ×2 (10:27→20:50)
[2019-02-25] MEDS ORDERED: KLOR-CON PO ONE (14:06)
[2019-02-25] MEDS: NS 1,000 ML IV SCH (20:51)
[2019-02-26] MEDS: SOLU-MEDROL IV SCH ×2 (00:59→08:28)
[2019-02-26 06:07] LABS: HEMOGLOBIN 11.7 g/dL (12.0-16.0); LYMPH# 0.32 X1000 (1.2-3.4); LYMPH% 6.1 % (20.5-51.1); MCH 30.5 PG (27-31); MCHC 30.8 g/dL (33-37); MCV 99.2 FL (81-99); MONO# 0.35 X1000 (0.11-0.59); MONO% 6.6 % (1.7-9.3); MPV 8.4 FL (7.4-10.4); NEUT# 4.61 X1000 (1.4-6.5); NEUT% 87.3 % (42.2-75.2); PLT 220 X1000 (130-400); RBC 3.83 XMIL (4.2-5.4); RDW 13.5 % (11.5-14.5); WBC 5.28 X1000 (4.8-10.8)
[2019-02-26] MEDS: PROTONIX PO SCH (06:13)
[2019-02-26 06:38] LABS: AGAP 8; ALB/GLOB RATIO 1.3; ALBUMIN 3.6 g/dL (3.5-5.0); ALKALINE PHOSPHATASE 57 U/L (32-104); BUN 24 mg/dL (8-22); CALCIUM 8.9 mg/dL (8.8-10.2); CHLORIDE 94 mmol/L (98-107); COSMO 298; CREATININE 0.7 mg/dL (0.5-0.9); ESTIMATED GFR > 60; GLUCOSE 288 mg/dL (70-104); GOT 25 U/L (10-30); GPT 51 U/L (10-36); MAGNESIUM 2.4 mg/dL (1.5-2.7); PHOSPHORUS 3.6 mg/dL (2.7-4.5); POTASSIUM 3.6 mmol/L (3.5-5.1); SODIUM 142 mmol/L (136-145); TCO2 40 mmol/L (25-35); TOTAL BILIRUBIN 0.17 mg/dL (0.20-1.00); TOTAL PROTEIN 6.3 g/dL (6.3-8.3)
--- NOTE | 2019-02-26 07:13 | Diag Imaging Result Doc PS360 ---
EXAM: CHEST-PORTABLE 02/26/2019 HISTORY: abnormal exam TECHNIQUE: AP portable at 0611 COMMENT: Compared to the previous study of 02/24/2019, the volume of pleural fluid on the left has diminished and there has been some improvement in the pulmonary edema. There continues to be volume loss in the right lower chest and a large right pleural effusion. IMPRESSION: Slightly improved pulmonary edema and left pleural effusion. Electronically signed by Aquilino Flores 02/26/2019 7:11 AM
--- NOTE | 2019-02-26 07:38 | PULMONOLOGY PROGRESS NOTE ---
DATE: 02/25/2019 SUBJECTIVE: The patient is awake, alert, and conversant. She had excellent urine output earlier today. OBJECTIVE: Vital Signs: The patient has been afebrile for the last 24 hours. Blood pressure 131/70. Oxygen saturation 95% on 5 L per nasal cannula. HEENT: Pupils are equal and reactive. Oropharynx is clear. Neck: Supple. Chest: Diminished breath sounds, right greater than left base, with prolonged expiratory phase. Cardiac exam: S1-S2. Abdomen: Soft. Extremities: Exam reveals dressings on the left leg. LABORATORY DATA: Two blood cultures grew Staph pseudo intermedius. This is an oxacillin- resistant organism. Sodium 142. Potassium 2.9. Chloride 97. Bicarbonate 38. BUN 27. Creatinine 0.7. IMPRESSION: This is an 84 year old with: 1. Gram-positive bacteremia, likely from her leg wound. This pathogen is common in dogs. Although she had a dog for many years, it several months ago. 2. Chronic obstructive pulmonary disease with chronic hypoxemic and chronic hypercapnic respiratory failure. 3. Hyperkalemia. RECOMMENDATIONS: 1. Continue oxygen and cycle high-flow O2 as needed. 2. Attempt to balance intake and output. 3. Replace potassium chloride. 4. Continue antibiotics for bacteremia, would repeat blood cultures. If repeat blood cultures are positive, she will require an echocardiogram. cc: MD Gareth Junior MD [facility]
[2019-02-26] MEDS ORDERED: KLOR-CON PO ONE (08:07)
[2019-02-26] MEDS ORDERED: LASIX IV ONE (08:08)
[2019-02-26] MEDS: DUONEB (A & A) INH SCH ×4 (08:09→23:56)
[2019-02-26] MEDS: SYMBICORT 160/4.5 MICROGM INHALER INH SCH ×2 (08:10→19:22)
[2019-02-26] MEDS: CARDIZEM CD PO SCH (08:26)
[2019-02-26] MEDS: MUCINEX PO SCH ×2 (08:30→20:41)
[2019-02-26] MEDS: ELIQUIS PO SCH ×2 (08:30→20:40)
[2019-02-26] MEDS: SINGULAIR PO SCH (08:30)
[2019-02-26] MEDS: XANAX PO SCH ×2 (08:30→20:40)
[2019-02-26] MEDS: ZYVOX 600 MG/D5W 600 MG/300 ML IVPB IV SCH ×3 (08:36→20:41)
--- NOTE | 2019-02-26 09:01 | PROGRESS NOTE ---
DATE: 02/26/2019 SUBJECTIVE: Ms. Gómez is breathing. Saturations are better. She is back on nasal cannula 5 L. Her saturations were above 90. Her x-ray is improved. Chest x-ray from this morning, slightly improved pulmonary edema, left pleural effusion. PHYSICAL EXAMINATION: General: Well-developed, well-nourished. She is sitting on side of the bed, breathing comfortably with nasal cannula. Lungs: Clear anterior and posterior. Diminished breath sounds in both bases. No wheezing. She has slightly prolonged expiratory phase. Abdomen: Soft, nondistended. Cardiovascular: Regular rhythm and rate without murmur or S3. No pedal edema. Extremities: Left leg wrapped. Hematoma on the left leg is resolving. Urine output 2500 mL. She has had good urine output. She received Lasix 80 mg yesterday. ASSESSMENT AND PLAN: 1. Severe chronic obstructive pulmonary disease with chronic hypoxemia, presented with some hypercapnic respiratory failure and bronchospasm. Wheezing is improved. She was on the Trilogy device high-flow nasal oxygen and did not really like that much. She is back on nasal cannula. Air exchange seems to have improved and she is asking when she can go home. 2. Bacteremia. She grew out in one of her blood cultures Staphylococcus pseudintermedius and it was resistant to oxacillin. I put her on Zyvox I will talk to Dr. Hernandez and see how long she will need antibiotic. If there is an alternative, put her on p.o. 3. Chronic atrial fibrillation, rate is controlled. 4. Anxiety. 5. She had a large bullous hematoma in the left extremity from trauma and this is resolving. She is on Eliquis chronically for atrial fibrillation. I am going to give her another dose of Lasix IV 80 mg and supplement her potassium. Discussed with Dr. Hernandez when appropriate for her to be discharged and what antibiotics we think we ought to use. cc: Gareth Franco MD [facility]
[2019-02-26] MEDS: PREDNISONE PO SCH (16:54)
[2019-02-26] MEDS: NS 1,000 ML IV SCH (20:41)
[2019-02-27] MEDS: ZYVOX 600 MG/D5W 600 MG/300 ML IVPB IV SCH ×3 (02:26→20:07)
[2019-02-27] MEDS: PROTONIX PO SCH ×2 (05:10→06:00)
[2019-02-27] MEDS: SYMBICORT 160/4.5 MICROGM INHALER INH SCH ×2 (09:00→19:23)
[2019-02-27] MEDS: DUONEB (A & A) INH SCH ×4 (09:00→22:57)
[2019-02-27] MEDS ORDERED: MILK OF MAGNESIA PO PRN (09:40)
[2019-02-27] MEDS ORDERED: POTASSIUM CHLORIDE 20% LIQUID PO ONE (09:43)
[2019-02-27] MEDS ORDERED: LASIX IV ONE (09:43)
[2019-02-27] MEDS: PREDNISONE PO SCH (09:54)
[2019-02-27] MEDS: ELIQUIS PO SCH ×2 (09:54→20:07)
[2019-02-27] MEDS: MUCINEX PO SCH ×2 (09:54→20:06)
[2019-02-27] MEDS: XANAX PO SCH ×2 (09:55→20:07)
[2019-02-27] MEDS: CARDIZEM CD PO SCH (09:55)
[2019-02-27] MEDS: SINGULAIR PO SCH (09:55)
--- NOTE | 2019-02-27 09:56 | PULMONOLOGY PROGRESS NOTE ---
DATE: 02/26/2019 SUBJECTIVE: The patient is awake, alert, and conversant. She is doing well on nasal cannula. She reports she is approaching her baseline. OBJECTIVE: Vital Signs: Blood pressure 130/64, heart rate 97, respiratory rate 17, oxygen saturation 94% on nasal cannula. HEENT: Pupils are equal and reactive. Oropharynx appears clear. Neck: Supple. Chest: Reveals diminished breath sounds right base. Cardiac: S1, S2. Abdomen: Soft without hepatosplenomegaly. Extremities: Reveal a bandage on the left leg which has not been evaluated by this practitioner. LABORATORIES: Repeat blood cultures are negative today. White blood count 5.28, hemoglobin 11.7, platelet count 220,000. Chest x-ray reveals decreased pulmonary edema and effusion on the left with continued large effusions/consolidation at the right base. White blood count 5.28, hemoglobin 11.7, platelet count 220,000. Sodium 142, potassium 3.6, chloride 94, bicarbonate 40, BUN 24 creatinine 0.7. IMPRESSION: 1. An 84-year-old with 2 positive blood cultures for Staph pseudointermedius with a wound on her left leg. 2. Chronic obstructive pulmonary disease with chronic hypoxemic and hypercapnic respiratory failure. 3. Pleural effusion/volume loss on the right. DISCUSSION: An 84-year-old with problems outlined above. Two blood cultures for Staphylococcus pseudointermedius should be considered a bacteremia. I reviewed articles on this pathogen and it is not clear whether she needs a longer or shorter course of treatment. I would recommend that she stay in the hospital through the weekend, which she has agreed. I will ask Dr. Botello to evaluate her on Friday morning to see if she needs a longer course of IV antibiotics or whether she can be transitioned to an oral agent. PLAN: 1. CT scan of the thorax tomorrow to re-evaluate the pleural effusion and the right base. 2. Attempt to balance intake and output. 3. Continue Zyvox. 4. Continue to follow blood cultures. cc: MD Gareth Junior MD [facility]TD[facility]
--- NOTE | 2019-02-27 10:04 | PROGRESS NOTE ---
DATE: 02/27/2019 SUBJECTIVE: She is feeling better. Breathing is better. She is encouraged that her saturations actually got above the mid 90s. She has no fever. She may need something to help her bowel, so I will give her some milk of magnesia as needed. She would like to go home, but she understands we are still kind of waiting on the plan for antibiotics. OBJECTIVE: Vital Signs: Temperature 98.4 degrees, pulse 84, respirations 16, blood pressure 122/65. Eyes: Pupils are equal and round. Lungs: Diminished breath sounds at both bases. End expiratory wheezing and prolonged expiratory phase. Abdomen: Soft. Cardiovascular: Regular rhythm and rate without murmur or S3. No pedal edema. LABORATORY DATA: Did not get lab today. Labs from yesterday were reviewed again. White count 5280, hematocrit 38, platelet count 220,000. Sodium 142, potassium 3.6, chloride 94, BUN 24, creatinine 0.7. IMAGING: Chest x-ray: Slight improvement in the pulmonary edema and left pleural effusion. ASSESSMENT AND PLAN: 1. Severe chronic obstructive pulmonary disease, with chronic hypoxemia and hypercapnia. Presented with worsening hypercapnia and bronchospasm. Wheezing is improved. There is a pleural effusion and some pulmonary venous hypertension appreciated on x-ray. It seems to be improving. Originally, I was concerned she might be dry, gave her a little bit of fluid back. It seemed to help. At this point, we are back to diuresing her. 2. Bacteremia. Grew out a staphylococcus organism that is methicillin-resistant. I have her presently on Zyvox. She will probably need 2 weeks of antibiotic. I am hoping we can come up with an oral antibiotic that she can take home. Her last blood cultures yesterday were no growth in 48 hours. She had 2 blood cultures positive from 02/22/2019. Both of them appeared to be gram-positive cocci. One of them identified as Staphylococcus pseudintermedius. 3. She has chronic atrial fibrillation and she is on Eliquis. 4. She had a traumatic hemorrhagic bulla on the left leg that is healing and drying up and doing well, and I suspect this is where she got her bacteremia. 5. Anxiety. 6. On review of her orders, I do not see any change: 7. She is on guaifenesin 1200 mg twice a day. 8. She needs to take Xanax 0.5 mg b.i.d. 9. Eliquis 5 mg b.i.d. 10. Budesonide formoterol 2 puffs twice a day. 11. Cardizem CD 180 mg daily. 12. Singulair 10 mg a day. 13. Protonix 40 mg a day. 14. Prednisone 10 mg a day. 15. Linezolid 600 mg IV q.12. 16. Lasix, we have been giving 80 q.a.m. I am going to give another dose of Lasix and some more potassium. 17. I will check her electrolytes tomorrow and another chest x-ray in the morning. 18. I am going to ask Dr. Botello to evaluate and see what kind of antibiotics he wants to use. cc: Gareth Franco MD
--- NOTE | 2019-02-27 12:03 | Diag Imaging Result Doc PS360 ---
EXAM: CT THORAX W/O CONTRAST INDICATION: persistent effusion TECHNIQUE: This exam was performed using automated exposure control, adjustment of mA or kV according to patient size, and/or use of iterative reconstruction technique. COMPARISON: CTA chest dated 11/06/2016 FINDINGS: There is stable advanced pulmonary emphysema. There is a moderate-sized right pleural effusion with adjacent basilar atelectasis. This effusion is also seen on the previous study. It is somewhat larger on the current study. There is only trace pleural fluid at the left lung base. It is significantly smaller than previous study. No new lung nodules are appreciated. There is stable cardiomegaly. There are coronary artery calcifications. There is no evidence of significant mediastinal lymphadenopathy. No endobronchial lesions are appreciated. Limited views of the upper abdomen are essentially unremarkable. IMPRESSION: 1.Advanced pulmonary emphysema. 2.Moderate-sized right pleural effusion with adjacent atelectasis that is larger than the previous study. 3.Trace left effusion that is smaller than the previous study. 4.Stable cardiomegaly. Electronically signed by Jass Rashid 02/27/2019 12:01 PM
[2019-02-27] MEDS: NS 1,000 ML IV SCH (20:07)
[2019-02-28] MEDS: ZYVOX 600 MG/D5W 600 MG/300 ML IVPB IV SCH ×2 (00:13→09:25)
[2019-02-28] MEDS: PROTONIX PO SCH ×2 (04:57→06:01)
[2019-02-28 05:42] LABS: EOS# 0.12 X1000 (0.0-0.7); HEMATOCRIT 38.7 % (37.0-47.0); HEMOGLOBIN 11.4 g/dL (12.0-16.0); LYMPH# 0.73 X1000 (1.2-3.4); LYMPH% 12.1 % (20.5-51.1); MCH 29.8 PG (27-31); MCHC 29.5 g/dL (33-37); MCV 101.3 FL (81-99); MPV 8.4 FL (7.4-10.4); NEUT# 4.27 X1000 (1.4-6.5); NEUT% 70.9 % (42.2-75.2); PLT 225 X1000 (130-400); RBC 3.82 XMIL (4.2-5.4); RDW 13.6 % (11.5-14.5); WBC 6.02 X1000 (4.8-10.8)
[2019-02-28 05:56] LABS: ESTIMATED GFR > 60
[2019-02-28 05:59] LABS: AGAP 4; BUN 23 mg/dL (8-22); CALCIUM 8.5 mg/dL (8.8-10.2); CHLORIDE 93 mmol/L (98-107); COSMO 297; CREATININE 0.8 mg/dL (0.5-0.9); GLUCOSE 152 mg/dL (70-104); POTASSIUM 3.7 mmol/L (3.5-5.1); SODIUM 146 mmol/L (136-145); TCO2 49 mmol/L (25-35)
[2019-02-28 07:56] VITALS: BP 121/64
[2019-02-28] MEDS ORDERED: LEVAQUIN PO ONE (08:23)
[2019-02-28] MEDS ORDERED: KLOR-CON PO ONE (08:23)
[2019-02-28] MEDS: MUCINEX PO SCH (08:39)
[2019-02-28] MEDS: SINGULAIR PO SCH (08:39)
[2019-02-28] MEDS: PREDNISONE PO SCH (08:39)
[2019-02-28] MEDS: CARDIZEM CD PO SCH (08:39)
[2019-02-28] MEDS: ELIQUIS PO SCH (08:40)
[2019-02-28] MEDS: XANAX PO SCH (08:40)
[2019-02-28] MEDS: SYMBICORT 160/4.5 MICROGM INHALER INH SCH (08:44)
[2019-02-28] MEDS: DUONEB (A & A) INH SCH (08:44)
--- NOTE | 2019-02-28 10:12 | PULMONOLOGY PROGRESS NOTE ---
DATE: 02/27/2019 SUBJECTIVE: The patient is awake, alert, and conversant. She is without specific complaints. She is anxious to go home by Friday. OBJECTIVE: Vital Signs: The patient has been afebrile for the last 24 hours. Blood pressure 128/78, heart rate 102, respiratory rate 18, oxygen saturation 97% on nasal cannula. HEENT: Pupils are equal and reactive. Oropharynx is clear. Neck: Supple. Chest: Prolonged expiratory phase. Cardiac: S1, S2. Abdomen: Soft. Extremities: Without edema. There is a dressing on the left leg. LABORATORY DATA: CT scan of the thorax reveals advanced COPD. There is moderate right-sided pleural effusion, without definite mass. Left-sided effusion is smaller than prior effusion. MICROBIOLOGY: Repeat blood cultures are negative. Initial blood cultures were both positive for Staphylococcus pseudintermedius. IMPRESSION: An 84-year-old with: 1. Two positive blood cultures for staphylococcus pseudintermedius, likely related from a wound on her leg. 2. Chronic hypoxemic respiratory failure with chronic hypercapnic respiratory failure. 3. Chronic obstructive pulmonary disease. 4. Chronic right-sided pleural effusion. PLAN: 1. Continue Zyvox. 2. Balance intake and output. 3. Anticipate discharge soon. 4. Will asked Infectious Disease for input on how long she should be treated for a staphylococcus pseudintermedius bacteremia. cc: MD Gareth Junior MD
--- NOTE | 2019-02-28 10:25 | DISCHARGE SUMMARY ---
ADMISSION DATE: 02/22/2019 DISCHARGE DATE: ADDENDUM TO DISCHARGE SUMMARY: I am going to put her on Levaquin 500 mg instead of 750 mg once a day for 14 days. We will give her first dose here in the hospital before she leaves. I am also going to give her 60 mEq of potassium. Potassium looks good today but would like to give her a little extra. It was at 3.7. We will follow back in my office in a couple of weeks. cc: Gareth Franco MD
--- NOTE | 2019-02-28 11:02 | DISCHARGE SUMMARY ---
ADMISSION DATE: 02/22/2019 DISCHARGE DATE: HISTORY OF PRESENT ILLNESS: This is an 84-year-old white female patient well known to me. She was last here on 01/30/2019, had a large bulla, hematoma on the left leg from traumatic injury. This has slowly resolved. Been cleaning it with Betadine, but she presented with shortness of breath and just could not get her to catch her breath. Underlying severe COPD with chronic hypoxemia, hypercapnia, and she is oxygen dependent on 5 L. She was relatively stable until 2 days ago, was noticing more dyspnea at rest and more wheezing and bronchospasm. She denied any chest pain or tachy palpitations. No fever. No hemoptysis or hematemesis. No abdominal pain. No dysuria, gross hematuria. PAST MEDICAL HISTORY: 1. Chronic atrial fibrillation. 2. Chronic anticoagulation secondary to atrial fibrillation on Eliquis. 3. Chronic obstructive pulmonary disease with chronic respiratory failure, hypoxemia, hypercapnia. She is on O2 at home and she is at 5 L I believe. 4. Right heart elevated hypertension. 5. 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 6. Prolonged tobacco use. 7. Chronic venous insufficiency, bilateral lower extremities. 8. Congestive heart failure, diastolic in the face of chronic atrial fibrillation. ALLERGIES: Allergic to codeine, causes alteration of mental status and headache. HOSPITAL COURSE: She was admitted with diagnosis of severe COPD, bronchospasm, chronic hypoxemia, and CO2 retention. I was concerned maybe she was a little bit dry in the face of elevated right heart pressures, cor pulmonale so I gave her a little bit of fluid initially and she seemed to improve. Her chest x-ray though did show small pleural effusions. Chest x-ray on 02/22/2019 revealed emphysema with mild pulmonary edema and right sided pleural effusion. Her breathing status seemed to improve. She did not appear septic, but 2 of 2 blood cultures were positive from 02/22/2019 with Staphylococcus pseudintermedius and this was sensitive to Levaquin. I had treated her initially with Rocephin, and then switched her to Zyvox IV. Because she did have bacteremia, we are going to give her 2 weeks of Levaquin, this organism was sensitive to Levaquin, and I will give her 750 mg a day for 2 weeks. She will go back on her home medications including her Lasix. She has DuoNebs at home which she takes as needed. She is on Ventolin 5 mg inhalation p.r.n. and I will have her take that every day, Xanax 0.5 mg b.i.d., Eliquis 5 mg b.i.d., Symbicort 160/4.5 inhaler 2 puffs b.i.d., Cardizem CD 180 mg p.o. daily, Lasix she will take 80 mg p.o. b.i.d. guaifenesin ER 1200 mg p.o. b.i.d., Singulair 10 mg daily, potassium chloride 40 mEq p.o. b.i.d., prednisone which she takes 5 mg every other day, and then her Levaquin 750 mg daily for over 2 weeks. Follow up with me in my office in a couple weeks. Continue to dress her left leg, washing with Betadine. It is dried up and healing well. cc: Gareth Franco MD
--- NOTE | 2019-02-28 15:16 | INFECTIOUS DISEASE CONSULT REP ---
DATE: 02/28/2019 PRESENT ILLNESS: The patient has two blood cultures which are growing Staph pseudo intermedius. Since both blood cultures are positive, I think this represents a true bacteremia. I think most likely the origin of the bacteremia was the patient's left leg. RECOMMENDATIONS: I would suggest changing the patient to Levaquin 500 mg p.o. daily and treat her for two weeks. DISCUSSION: The patient was admitted the hospital because of increasing dyspnea of one week's duration. She says that she is feeling much better. She chronically coughs and then was not coughing anymore. She was not complaining of any chest pain. The patient's CBC shows a white count of 6020, hemoglobin 11.4 and platelet count 225,000. Creatinine is 0.8. GFR is greater than 60. Both of the patient's blood cultures are growing Staph pseudo intermedius. Repeat blood cultures obtained on on February 25 are showing no growth after [address] scan of the chest shows emphysema and a right pleural effusion with atelectasis. The CT scan of the chest shows emphysematous changes with a right pleural effusion. PAST MEDICAL HISTORY/REVIEW OF SYSTEMS: Eyes and Ears: The patient tells me she can hear and see okay. Neck: No stiffness. Lungs: See present illness. Cardiovascular: No chest pain or palpitations. Gastrointestinal: No nausea, vomiting or diarrhea. Genitourinary: No dysuria or flank pain. Neurologic: No seizures. No loss of motor or sensory function. Endocrine: Patient does not have diabetes or thyroid disease. Bones/Joints/Muscles: No swollen joints. No muscle aches. Extremities: Patient had trauma to her left leg approximately 5 weeks ago and it has a large wound with large black eschar. ASSISTANT CREDIT MANAGER HISTORY: She is a 3, para 3, AB 0. PREVIOUS HOSPITALIZATIONS AND OPERATIONS: She has had labor and deliveries and multiple admissions for chronic obstructive pulmonary disease. MEDICAL DISEASES: Positive for chronic obstructive pulmonary disease. Negative for diabetes mellitus and heart attack. INFECTIOUS DISEASE HISTORY: Positive for pneumonia. Negative for UTI. FAMILY HISTORY: Positive for diabetes mellitus, hypertension, myocardial infarction and cancer. SOCIAL HISTORY: [place] She is a . She lives alone. She does not have any pets at home. She stopped smoking cigarettes 15 years ago. She occasionally has wine. She does not use illicit drugs. ALLERGIES: The patient has an allergy to codeine. HOME MEDICATIONS: Include the following: Albuterol inhaler, Xanax, Eliquis, Symbicort, diltiazem, furosemide, Levaquin, Singulair, potassium chloride and prednisone. PHYSICAL EXAMINATION: Vital Signs: Temperature is 98.5, pulse 103, respirations 20, blood pressure 121/64. The patient is 5 feet 6 inches tall, weighs 147 pounds. General: This is an ill-appearing elderly female. She is in no acute distress. Head, Eyes, Ears, Nose and Throat: She can hear my spoken words and see near objects. She does not have any white patches in her mouth. Neck: No meningismus. Lungs: Clear to auscultation. Cardiovascular: Heart rate is regular. Abdomen: Soft and nontender. Extremities: The patient has a large left leg wound. The wound is erythematous. There is a large black eschar covering a good deal of the wound. Neurologic: The patient is awake. She can move her extremities. There is no tremor. Her sensation is intact to touch. Her memory as regarding her medical history seemed to be intact. Thank you for the consult. cc: MD Gareth Zavaleta MD
== END 2019-02-28 11:14 | disposition home or self-care (01) | DRG 190 ==
LOC: ED 12:41 → SUATTDRO 14:48 → EDIPHOLD 14:48 → 3S 20:06
PROVIDERS: ADMIT Emergency Medicine; ATTEND Emergency Medicine
CPT/HCPCS: 71010; 71045; 71250; 80048; 80053; 81001; 82533; 82550; 82805; 83605; 83735; 83880; 84100; 84484; 85025; 85610; 85730; 87040; 87070; 87077; 87186; 87205; 93005; 94640; 94761; 94799; 96365; 96366; 96368; 96375; 99285; 99291; A9270; J0696; J1720; J1940; J2020; J2930; J3370; J7030; J7050; J7506; J7512

== ENCOUNTER 2019-04-22 16:29 | Inpatient (IN) ==
[2019-04-22] MEDS ORDERED: NS 1,000 ML IV ONE (17:02)
[2019-04-22] MEDS ORDERED: SOLU-MEDROL IV ONE (17:02)
[2019-04-22] MEDS ORDERED: DUONEB (A & A) INH ONE (17:02)
[2019-04-22] MEDS ORDERED: NS 500 ML IV ONE (17:02)
--- NOTE | 2019-04-22 18:03 | Diag Imaging Result Doc PS360 ---
EXAM: CHEST-PORTABLE - 04/22/2019 HISTORY: sob TECHNIQUE: Portable chest COMPARISON: 02/26/2019 FINDINGS: Heart size appears mildly enlarged. There are COPD changes. There is apparent basilar interstitial edema. There is a small to medium right pleural effusion. There is no dense consolidation or pneumothorax identified. IMPRESSION: COPD. Possible mild congestive heart failure with basilar interstitial edema and small to medium right pleural effusion. Electronically signed by Michael Ruby 04/22/2019 6:00 PM
[2019-04-22 18:09] LABS: ALLEN TEST YES; BE 13.6 mmoll (-3.0-3.0); BLOOD TYPE ARTERIAL; HCO3-(ACT) 35.5 mmoll (20.0-26.0); METHB 0.9 % (0.0-1.5); O2(CT) 16.7 mL/dL (15.0-23.0); O2HB 96.2 % (95.0-99.0); PO2(98.6) 124 mmHg (60-100); SAMPLE BLOOD; SAO2 99.7 % (95.0-100.0); THB 12.2 g/dL (11.5-17.4); pH(98.6) 7.35 (7.35-7.45)
[2019-04-22] MEDS ORDERED: ZOFRAN IV PRN (18:15)
[2019-04-22] MEDS ORDERED: ROCEPHIN 1 GM in NS 50 ML IV SCH (18:15)
[2019-04-22] MEDS ORDERED: TYLENOL PO PRN (18:15)
[2019-04-22 18:16] LABS: MODALITY NRB; PCO2(98.6) 77 mmHg (35-45)
[2019-04-22 18:17] LABS: BASO# 0.02 X1000 (0.0-0.2); BASO% 0.2 % (0.0-0.8); EOS# 0.01 X1000 (0.0-0.7); EOS% 0.1 % (0.0-10.0); HEMATOCRIT 38.3 % (37.0-47.0); HEMOGLOBIN 11.9 g/dL (12.0-16.0); IMM GRAN# 0.02 X1000 (0.0-0.04); IMM GRAN% 0.2 % (0.0-0.5); LYMPH# 1.03 X1000 (1.2-3.4); LYMPH% 12.1 % (20.5-51.1); MCH 28.8 PG (27-31); MCHC 31.1 g/dL (33-37); MCV 92.7 FL (81-99); MONO# 1.15 X1000 (0.11-0.59); MONO% 13.6 % (1.7-9.3); MPV 9.1 FL (7.4-10.4); NEUT# 6.25 X1000 (1.4-6.5); NEUT% 73.8 % (42.2-75.2); PLT 193 X1000 (130-400); RBC 4.13 XMIL (4.2-5.4); RDW 14.5 % (11.5-14.5); WBC 8.48 X1000 (4.8-10.8)
--- NOTE | 2019-04-22 18:28 | PROVIDER DOCUMENTATION ---
This chart was entered by Nadine Aldana Scribe, acting as scribe for Arnol Baltazar MD. HPI-Respiratory General - General Stated Complaint: SOB Time Seen by Provider: 04/22/19 16:44 Source: patient Allergies/Adverse Reactions: Patient Allergies Allergy/AdvReac Type Severity Reaction Status Date / Time codeine AdvReac Unknown Verified 04/20/19 10:53 Home Medications: Home Medication List Medication Instructions Recorded Confirmed Last Taken Type Albuterol Sulfate [Ventolin] 5 mg IH PRN PRN 06/09/12 04/20/19 04/20/19 09:30 History Alprazolam [Xanax] 0.5 mg PO BID 06/09/12 04/20/19 04/20/19 06:30 History Budesonide/Formoterol Inhaler 60 puff INH BID 06/09/12 04/20/19 04/20/19 06:00 History [Symbicort 160/4.5 Microgm Inhaler] Montelukast [Singulair] 10 mg PO DAILY #0 tablet 06/14/12 04/20/19 04/20/19 06:30 Rx Albuterol 2.5MG/Ipratrop 0.5MG 3 ml INH RTTID #0 neb 11/12/16 04/20/19 04/20/19 06:30 Rx [Duoneb (A & A)] Diltiazem C.d. [Cardizem Cd] 180 mg PO DAILY #0 capsule 11/12/16 04/20/19 04/20/19 06:30 Rx Potassium Chloride 40 meq PO BID 04/03/18 04/20/19 04/20/19 06:30 History Furosemide [Lasix] 80 mg PO BID@0800,1400 30 Days #60 12/08/18 04/20/19 04/19/19 Rx tab Prednisone 5 mg PO EVERY OTHER DAY 01/30/19 04/20/19 04/19/19 History Apixaban [Eliquis] 5 mg PO BID 02/23/19 04/20/19 04/13/19 History Acetaminophen [Tylenol] 650 mg PO Q4H PRN PRN tab 02/28/19 04/20/19 Unknown Rx Tramadol [Ultram] 50 mg PO Q6H PRN PRN #30 tab 04/20/19 Unknown Rx - History of Present Illness-Resp Nature of Presenting Problem: Patient is a 84 year old female who presents to the ED via EMS with shortness of breath. Patient states shortness of breath started this morning. Report she is on 5 L of O2. EMS reports patient's O2 sat was around 70% on their arrival. EMS placed patient on a non rebreather mask at 12 L and O2 sat increased to around 90%. Denies cough, fever and sore throat. Quality of Pain: reports: tightness Severity in ED: reports: mild Onset/Duration: reports: this morning Timing: reports: still present, getting worse Cough Quality/Degree: reports: no cough Associated Symptoms: reports: shortness of breath Similar Symptoms Previously?: Yes Recently seen or treated by another doctor?: Yes Review of Systems - Adult - REVIEW OF SYSTEMS - ADULT ROS:: limited per condition Constitutional: reports: no symptoms reported. denies: chills, fever, fatique Eyes: reports: no symptoms reported Ears, Nose, Mouth & Throat: reports: no symptoms reported. denies: ear pain, nose pain, throat pain Cardiovascular: reports: no symptoms reported Respiratory: reports: see HPI, shortness of breath. denies: cough, wheezing Gastrointestinal: reports: no symptoms reported Genitourinary: reports: no symptoms reported Musculoskeletal: reports: no symptoms reported Integumentary: reports: no symptoms reported Neurological: reports: no symptoms reported Psychiatric: reports: no symptoms reported Endocrine: reports: no symptoms reported Hematologic/Lymphatic: reports: no symptoms reported Allergic/Immunologic: reports: no symptoms reported All Other Systems: Reviewed and Negative Past History - Adult - PAST MEDICAL HISTORY-ADULT Review of Records: reports: Old Records Reviewed, Social history reviewed & non- contributory. Major Childhood Illnesses: reports: denies history Cardiovascular: reports: A-Fib, HTN Respiratory: reports: COPD Gastrointestinal: reports: denies history Obstetrical/Gynecological: reports: denies history Genitourinary: reports: denies history Musculoskeletal: reports: denies history Neurological: reports: denies history Psychiatric: reports: anxiety Endocrine/Immune: reports: denies history Other Conditions: reports: denies history - PRIOR SURGERIES/PROCEDURES Surgical/Procedure History: reports: reviewed, not pertinent - IMMUNIZATION STATUS Childhood Immunizations: See Nurse Assessment Flu Vaccine: See Nurse Assessment - FAMILY HISTORY Family History: reviewed, not pertinent - SOCIAL HISTORY Smoking: cigarettes (former) Physical Exam-General - PHYSICAL EXAM-ADULT Initial Vital Signs Reviewed: Yes - CONSTITUTIONAL General Appearance: alert, mild distress. negative: lethargic - RESPIRATORY Respiratory: chest non-tender, respiratory distress, accessory muscle use, increased rate, other (tight breath sounds bilaterally. patient is only able to speak 6 to 8 words.). negative: crackles - CARDIOVASCULAR Cardiovascular: normal peripheral pulses, regular rate, rhythm. negative: tachycardia - GASTROINTESTINAL (ABDOMEN) Abdominal Exam: normal bowel sounds, non tender, soft. negative: guarding, rebound - MUSCULOSKELETAL Extremity: non-tender, other (spooning to call nail beds.). negative: deformity, erythema - SKIN Integumentary: normal turgor, warm/dry, cyanosis. negative: ecchymosis, jaundice, rash - NEUROLOGIC Neurologic: grossly normal. negative: aphasia, facial droop - PSYCHIATRIC Psych/Mental Status: normal mood/affect, oriented x 3. negative: anxious - HEART Score HEART Score: History: Slightly Suspicious HEART Score: ECG: Non-Specific Repolarization Disturbance/LBBB/PM HEART Score: Age: > or = 65 Years HEART Score: Risk Factors for Atherosclerotic Disease: > or = 3 Risk Factors or History of Atherosclerotic Disease HEART Score: Troponin: < or = Normal Limit Total HEART Score:: 5 Progress - PLAN OF CARE/RESULTS Progress/Plan/Lab Results: Vital Signs - 8 hr 04/22/19 17:34 04/22/19 18:17 Temperature 98.9 F Pulse Rate 113 H 104 H Respiratory Rate 17 17 Blood Pressure 125/72 O2 Sat by Pulse Oximetry 97 100 Laboratory Results - last 24 hr 04/22/19 04/22/19 17:54 17:59 WBC 8.48 RBC 4.13 L Hgb 11.9 L Hct 38.3 MCV 92.7 MCH 28.8 MCHC 31.1 L RDW Std Deviation 14.5 Plt Count 193 MPV 9.1 Immature Gran % (Auto) 0.2 Neut % (Auto) 73.8 Lymph % (Auto) 12.1 L [place] % (Auto) 13.6 H Eos % (Auto) 0.1 Baso % (Auto) 0.2 Immature Gran # (Auto) 0.02 Neut # (Auto) 6.25 Lymph # (Auto) 1.03 L [place] # (Auto) 1.15 H Eos # (Auto) 0.01 Baso # (Auto) 0.02 Specimen Type ARTERIAL Sample Site R RADIAL pH 7.35 pCO2 77 H* pO2 124 H HCO3 35.5 H Base Excess 13.6 H Oxyhemoglobin 96.2 ABG O2 Sat (Calculated) 16.7 ABG O2 Saturation 99.7 ABG Carboxyhemoglobin 2.50 ABG Methemoglobin 0.9 Gareth Test YES A-a O2 Difference 493.0 Total Hemoglobin 12.2 Lactate 0.80 Liter Flow 10.0 Blood Gas Modality NRB FiO2 % 100.0 Orders Category Date Time Status Admit - [facility] Routine AdmDCTranf 04/22/19 18:15 Active Activity - Up with Assistance ORDERED Care 04/22/19 18:15 Active Apply Mechanical Device [QM] ORDERED Care 04/22/19 18:15 Active DVT/PE Risk Assess/Protocol [QM] ORDERED Care 04/22/19 18:15 Active Intake and Output-Strict ORDERED Care 04/22/19 18:15 Active Nursing- Assist w/ IS as order ORDERED Care 04/22/19 18:15 Active Nursing- Obtain EKG ONCE Care 04/22/19 16:59 Active Nursing- Obtain EKG once Care 04/22/19 17:01 Active Resuscitation Status Routine Care 04/22/19 18:15 Ordered Saline Loc DIRECTED Care 04/22/19 18:15 Active Saline Loc NOW Care 04/22/19 17:01 Active Turn, Cough and Deep Breathe Q4HR.AWAKE Care 04/22/19 18:15 Active Vital Signs Order Q 4-HR ASSESS Care 04/22/19 18:15 Active Z-Document. for Tele Applied ORDERED Care 04/22/19 18:16 Active Regular Diet Diet 04/22/19 18:17 Active CHEST-PORTABLE [RAD] Stat Exams 04/22/19 17:02 Completed ABG [RESP] Routine Lab 04/22/19 17:59 Completed BLOOD CULTURE [BLDCUL] Stat Lab 04/22/19 17:24 Received C REACTIVE PROT QUANT [CHEM] Stat Lab 04/22/19 17:54 Received CBC WITH DIFF [HEME] Routine Lab 04/23/19 06:00 Uncollected CBC WITH ELECTRONIC DIFF [HEME] Stat Lab 04/22/19 17:54 Completed CK PROFILE [SP CHEM] Stat Lab 04/22/19 17:54 Received COMPREHENSIVE METABOLIC PANEL [CHEM] Routine Lab 04/23/19 06:00 Uncollected COMPREHENSIVE METABOLIC PANEL [CHEM] Stat Lab 04/22/19 17:54 Received LACTATE, PLASMA [CHEM] Stat Lab 04/22/19 17:54 Received MAGNESIUM [CHEM] Stat Lab 04/22/19 17:54 Received PRO B-NATRIURETIC PEPTIDE Stat Lab 04/22/19 17:54 Received PROTIME WITH INR [COAG] Stat Lab 04/22/19 17:54 Received PTT [COAG] Stat Lab 04/22/19 17:54 Received SPUTUM CULTURE WITH GRAM STAIN [RM] Routine Lab 04/22/19 18:17 Uncollected TROPONIN T Stat Lab 04/22/19 17:54 Received URINALYSIS W/POSS RFLX CULT [URINALYSIS] Stat Lab 04/22/19 17:02 Uncollected 0.9% Sodium Chloride Inj [Ns] 1,000 ml Med 04/22/19 17:02 Active IV 75 mls/hr 0.9% Sodium Chloride Inj [Ns] 500 ml Med 04/22/19 17:02 Discontinued IV 999 mls/hr Acetaminophen [Tylenol] Med 04/22/19 18:15 Ordered 650 mg PO Q4-6H PRN PRN Albuterol 2.5MG/Ipratrop 0.5MG [Duoneb (A & A)] Med 04/22/19 17:02 Discontinu ed 3 ml INH NOW ONE CefTRIAXONE [Rocephin] 1 gm Med 04/22/19 18:15 Ordered 0.9% Sodium Chloride Inj [Ns] 50 ml IV Q24H Methylprednisolone Sod Succ [Solu-Medrol] Med 04/22/19 17:02 Discontinued 125 mg IV NOW ONE Methylprednisolone Sod Succ [Solu-Medrol] Med 04/22/19 18:15 Ordered 60 mg IV Q8H Ondansetron [Zofran] Med 04/22/19 18:15 Ordered 4 mg IV Q4H PRN PRN Aerosol Treatments Routine Oth 04/22/19 17:03 Active Aerosol Treatments Stat Oth 04/22/19 17:03 Active Incentive Spirometer Q4HR.AWAKE Oth 04/22/19 21:00 Ordered Incentive Spirometer Q4HR.AWAKE Oth 04/23/19 01:00 Ordered Incentive Spirometer Q4HR.AWAKE Oth 04/23/19 05:00 Ordered Incentive Spirometer Q4HR.AWAKE Oth 04/23/19 09:00 Ordered Incentive Spirometer Q4HR.AWAKE Oth 04/23/19 13:00 Ordered Incentive Spirometer Q4HR.AWAKE Ot 04/23/19 17:00 Ordered Oxygen Device Routine Ot 04/22/19 18:15 Active Peak Flow BID Oth 04/22/19 21:00 Ordered Peak Flow BID Oth 04/23/19 09:00 Ordered Telemetry [OM.EQ] Routine Oth 04/22/19 18:15 Active EKG [EKG] Stat Ther 04/22/19 17:01 Ordered Transfer/Admit Order [TRANSFER] Routine Transfer 04/22/19 18:11 Ordered Result Diagrams: 04/22/19 17:54 - REASSESSMENT Reassessment #1 Time Reassessed: 18:10 Status: improving (with duonebs, IVF, and solumedrol. Labs are currently pending. Dr. Franco was rounding on patients in the ER and wanted to admit patient before labs/EKG resulted.) Reassessment #2 Time Reassessed: 18:27 Status: improving (Due to hypercarbia on ABG, 100% NRB switched to 40% by ventimask) - EKG 1 Time of EKG reading by physician:: 18:25 EKG Read and Signed by:: Arnol Baltazar EKG Interpretation (*Must complete 3 of following elements*): Abnormal Rate: 98 Rhythm: afib, controlled ventricular response [place]: normal QRS: Q Waves present (anterior), poor R wave progression ST Wave: non-specific ST changes Prior EKG Comparison: unchanged from prior Comments: artifact present - XRAY 1 XRAY Study: Chest Impression: Abnormal, See EMR Report ( EXAM: CHEST-PORTABLE - 04/22/2019 HISTORY: sob TECHNIQUE: Portable chest COMPARISON: 02/26/2019 FINDINGS: Heart size appears mildly enlarged. There are COPD changes. There is apparent basilar interstitial edema. There is a small to medium right pleural effusion. There is no dense consolidation or pneumothorax identified. IMPRESSION: COPD. Possible mild congestive heart failure with basilar interstitial edema and small to medium right pleural effusion. Electronically signed by Michael Ruby 04/22/2019 6:00 PM 04/22/19 1800 Interpreting Physician: Michael Ruby MD Dictated Date/Time: 04/22/19 1759 cc: Arnol Baltazar MD; Gareth Franco MD) - CONSULTS/PCP/HOSPITALIST Notification #1 *Consult/PCP/Hospitalist*: Joan Time Discussed: 18:10 Consult Disposition: Will see in ED, Admit Departure - Departure Date of Disposition Decision: 04/22/19 Time of Disposition Decision: 18:27 DIAGNOSIS: Decompensated COPD with exacerbation (chronic obstructive pulmonary disease) Respiratory failure with hypoxia and hypercapnia Qualifiers: Chronicity: acute on chronic Qualified Code(s): J96.21 - Acute and chronic respiratory failure with hypoxia; J96.22 - Acute and chronic respiratory failure with hypercapnia Disposition: ADMITTED INPATIENT 09 Certified Medical Emergency: Emergent Condition: Serious Referrals and Follow-Ups: Gareth Franco MD [Primary Care Provider] - - Critical Care Note This patient required my direct & personal management of CC.: No Attestation - Physician/ JEREMIAH Attestation Patient care was provided by Advanced Practice Provider:: No The physician spent face to face time with patient:: Yes Advanced Practice Provider documentation review:: Supervising physician onsite and consulted in the evaluation and care of this patient. The physician did have a face to face encounter with the patient. This chart was documented by the indicated scribe, (Nadine Aldana Scribe) and accurately reflects the services I performed and decisions made by me, Arnol Baltazar MD, as attested by the provider's signature.
[2019-04-22 18:49] LABS: INR 1.44; PROTIME 17.8 Seconds (11.0-16.0)
[2019-04-22 18:50] LABS: PTT 34.9 Seconds (22.3-41.8)
[2019-04-22 19:21] LABS: AGAP 9; ALB/GLOB RATIO 1.1; ALBUMIN 3.6 g/dL (3.5-5.0); ALKALINE PHOSPHATASE 76 U/L (32-104); BUN 18 mg/dL (8-22); C REACTIVE PROT QUANT 216.12 mg/L (0.00-5.00); CALCIUM 8.4 mg/dL (8.8-10.2); CHLORIDE 92 mmol/L (98-107); CK PROFILE 15 U/L (24-173); COSMO 275; CREATININE 0.6 mg/dL (0.5-0.9); ESTIMATED GFR > 60; GLUCOSE 123 mg/dL (70-104); GOT 12 U/L (10-30); GPT 11 U/L (10-36); MAGNESIUM 2.2 mg/dL (1.5-2.7); SODIUM 136 mmol/L (136-145); TCO2 35 mmol/L (25-35); TOTAL BILIRUBIN 0.44 mg/dL (0.20-1.00)
--- NOTE | 2019-04-22 19:30 | EKG Report ---
Test Performed on : 04/22/2019 6:24:44 PM Test Reason : SOB Blood Pressure : / mmHG Vent. Rate : 098 BPM Atrial Rate : 125 BPM P-R Int : 000 ms QRS Dur : 074 ms QT Int : 318 ms P-R-T Axes : 000 079 058 degrees QTc Int : 405 ms Atrial fibrillation. Abnormal ECG When compared with ECG of 22-FEB-2019 14:02, (Unconfirmed) No significant change was found Unconfirmed Result
[2019-04-22 21:35] LABS: URINE SOURCE CATH
[2019-04-22 21:38] LABS: BILIRUBIN URINE NEGATIVE (NEGATIVE); BLOOD URINE NEGATIVE (NEGATIVE); COLOR YELLOW; GLUCOSE URINE NEGATIVE (NEGATIVE); KETONE URINE 20 mg/dL (NEGATIVE); LEUKOCYTES URINE NEGATIVE (NEGATIVE); NITRITE URINE NEGATIVE (NEGATIVE); PH URINE 6.5; PROTEIN URINE TRACE mg/dL (NEGATIVE); SP GRAVITY URINE 1.013; TURBIDITY URINE CLEAR (CLEAR); UR EPITHELIAL CELLS <10 /HPF (<10); URINE BACTERIA NEGATIVE /HPF; URINE RBC <10 /HPF (<10); URINE WBC <10 /HPF (<10); UROBILINOGEN URINE NORMAL (NORMAL)
[2019-04-22] MEDS ORDERED: ALBUTEROL 0.5% INH CONC FOR HYPERKALEMIA INH PRN (22:14)
[2019-04-22] MEDS ORDERED: SOLU-MEDROL IV SCH (23:00)
[2019-04-22] MEDS: KLOR-CON PO SCH (23:04)
[2019-04-22] MEDS: XANAX PO SCH (23:05)
[2019-04-22] MEDS: ELIQUIS PO SCH (23:05)
[2019-04-22] MEDS: SYMBICORT 160/4.5 MICROGM INHALER INH SCH (23:19)
[2019-04-22] MEDS: DUONEB (A & A) INH SCH (23:19)
--- NOTE | 2019-04-23 04:07 | HISTORY AND PHYSICAL ---
HISTORY OF PRESENT ILLNESS: This is an 84-year-old patient of mine, who became short of breath. Apparently a couple days ago, she had a skin lesion removed her left shoulder and since that time, she has felt like she has been more short of breath. She has a high nasal flow Venturi at the house. She did not have any increased swelling. Her weight did not go up. She has severe COPD with cor pulmonale. She called Dr. Hernandez's office. Her O2 saturations were in the low 80s and he had her come up here. She denies fever chills. Denies pleuritic pain or squeezing chest pain. This is an 84-year-old white female with end-stage COPD, chronic hypoxemia, chronic hypercapnic respiratory failure and episodes of cor pulmonale admitted in the hospital back on 01/30/2019 and 02/03/2019, developed a large bullous hematoma left leg from a fall. She was on Eliquis at that time. This is slowly resolved and is healing up from a skin tear. She has underlying chronic atrial fibrillation. She was last in the hospital on 02/22/2019 and admitted once again for shortness of breath. PAST MEDICAL HISTORY: 1. Severe COPD, hypoxemic, hypercapnic respiratory failure. 2. Several admissions for respiratory distress, hypoxemia and CO2 retention. 3. Polycythemia secondary to COPD and years of smoking. 4. Chronic atrial fibrillation. 5. Anxiety disorder. 6. Status post cataract surgery. 7. Dyslipidemia. 8. She had a hematoma in her left leg, hemorrhagic, and this has slowly resolved. She has been cleaning it with Betadine. SOCIAL HISTORY: The patient has not smoked for several years. Her several years ago from COPD as well. FAMILY HISTORY: No history of coronary artery disease or kidney disease. REVIEW OF SYSTEMS: General: She denies weight gain or loss. No fever or chills. HEENT: No change in visual or hearing or acuity. Respiratory: Increased work of breathing or dyspnea in the last 2 or 3 days, which seemed to crescendo. Abdomen: Soft. Cardiovascular: Regular rhythm and rate without murmur or S3. Gastrointestinal and Genitourinary: No complaints of change in bowels or urination. Musculoskeletal/Neurologic: No focal complaints. She has a hemorrhagic hematoma which is healing on the left leg. PHYSICAL EXAM: LUNGS: Clear, but decreased breath sounds both bases. CVP is less than 8 cm water pressure from right atrium. No cervical or supraclavicular or axillary adenopathy. CARDIOVASCULAR EXAM: Irregular rhythm, irregular rate, but rate is in the in the 70s. ABDOMEN: Soft. No hepatojugular reflux. No hepatosplenomegaly. No pedal edema. She has chronic venous stasis discoloration with dark pigmentation on both lower extremities from chronic venous insufficiency and cor pulmonale, ASSESSMENT AND PLAN: 1. Hypoxemic, hypercapnic, respiratory failure, underlying end-stage chronic obstructive pulmonary disease. May need to put her on some BiPAP. Her volume status looks good. We will probably put her on some Solu-Medrol. I will look at the chest x-ray to evaluate her thyroid, B12 and folate and her electrolytes. 2. Chronic atrial fibrillation, rate appears controlled. 3. She has a history of osteoarthritis. 4. Polycythemia secondary to chronic obstructive pulmonary disease. 5. Anxiety disorder. 6. Her nutrition seems to be good. 7. Chronic venous insufficiency. We will ask Dr. Hernandez to help. She is an established patient within this group. cc: Gareth Franco MD
[2019-04-23] MEDS ORDERED: SYMBICORT 160/4.5 MICROGM INHALER INH SCH (07:30)
[2019-04-23 08:02] LABS: HEMATOCRIT 39.9 % (37.0-47.0); HEMOGLOBIN 12.1 g/dL (12.0-16.0); LYMPH# 0.28 X1000 (1.2-3.4); LYMPH% 6.7 % (20.5-51.1); MCH 28.8 PG (27-31); MCHC 30.3 g/dL (33-37); MONO# 0.13 X1000 (0.11-0.59); MONO% 3.1 % (1.7-9.3); NEUT# 3.76 X1000 (1.4-6.5); NEUT% 90.2 % (42.2-75.2); PLT 171 X1000 (130-400); RDW 14.5 % (11.5-14.5); WBC 4.17 X1000 (4.8-10.8)
[2019-04-23] MEDS: SYMBICORT 160/4.5 MICROGM INHALER INH SCH ×2 (08:11→19:19)
[2019-04-23] MEDS: DUONEB (A & A) INH SCH ×3 (08:11→19:20)
[2019-04-23 08:21] LABS: LYMPHS 14 % (21-51); MONO 10 % (1-9); SEGS 76 % (42-75)
[2019-04-23 08:22] LABS: AGAP 8; ALB/GLOB RATIO 0.9; ALBUMIN 3.4 g/dL (3.5-5.0); ALKALINE PHOSPHATASE 74 U/L (32-104); BUN 17 mg/dL (8-22); CHLORIDE 96 mmol/L (98-107); COSMO 281; CREATININE 0.6 mg/dL (0.5-0.9); ESTIMATED GFR > 60; GLUCOSE 170 mg/dL (70-104); GOT 17 U/L (10-30); GPT 15 U/L (10-36); POTASSIUM 5.9 mmol/L (3.5-5.1); SODIUM 138 mmol/L (136-145); TCO2 34 mmol/L (25-35); TOTAL BILIRUBIN 0.22 mg/dL (0.20-1.00)
[2019-04-23] MEDS: CARDIZEM CD PO SCH (08:46)
[2019-04-23] MEDS: XANAX PO SCH ×2 (08:47→21:30)
[2019-04-23] MEDS: LASIX PO SCH ×2 (08:47→16:14)
[2019-04-23] MEDS: SINGULAIR PO SCH (08:47)
[2019-04-23] MEDS: ELIQUIS PO SCH ×2 (08:47→21:30)
[2019-04-23] MEDS: KLOR-CON PO SCH ×2 (08:51→21:30)
--- NOTE | 2019-04-23 10:25 | PROGRESS NOTE ---
DATE: 04/23/2019 Ms. Gómez is breathing a little better, but still stills feels like it is not right. She is on a rebreather O2. When they took her off nasal cannula for breakfast she did drop her sats back down from 96 down to mid 80s. OBJECTIVE: Vital Signs: Temp 97.6 degrees, pulse 90, respirations 20, blood pressure 103/65. HEENT: Pupils are equal and round. Neck: No distended neck veins. Lungs: Are clear in all lung reyes. Cardiovascular: Regular rhythm and rate without murmur or S3. Abdomen: Is soft. Skin: Is warm and dry. Urine output is 800 mL. Chest x-ray possible mild congestive heart failure, basilar interstitial edema, small medium right pleural effusion. I am going to get another chest x- ray this morning. ASSESSMENT AND PLAN: 1. Hypoxemic hypercapnic respiratory failure, underlying severe end-stage COPD with some pulmonary venous hypertension and pleural effusion. So continue to give her extra supplement O2 and have her empirically on some antibiotics. She is on guaifenesin and some Solu-Medrol. 2. Chronic atrial fibrillation. Rate is controlled. 3. History of osteoarthritis. 4. Polycythemia secondary to COPD. 5. Anxiety disorder. 6. Chronic venous insufficiency. Note her legs are dry and the skin has healed well on the left leg where she had a hemorrhagic hematoma. LABORATORY DATA: This morning, white count 4170, hematocrit 39, platelet count 171,000. Sodium 138, potassium , chloride 96, BUN 17, creatinine 0.6. Her proBNP was 1894. C- reactive protein, when she was seen, was 216 and troponin less than 0.01. She is getting Lasix 80 mg p.o. b.i.d. We will give her an extra 40 mg of Lasix IV this morning. Check another chest x-ray this morning. We are going to hold her potassium as it was above 5. Note that her magnesium was good. See what Dr. Hernandez would like to do. cc: Gareth Franco MD MTDD
--- NOTE | 2019-04-23 10:50 | Diag Imaging Result Doc PS360 ---
EXAM: CHEST-PORTABLE INDICATION: copd , pleural effusion TECHNIQUE: One view COMPARISON: 04/22/2019 FINDINGS: Bilateral interstitial edema is essentially stable. There has been an increase in the moderate-sized right pleural effusion during the interval. No new consolidation is appreciated. Cardiac silhouette is stable. IMPRESSION: Increase in moderate-sized right pleural effusion. Stable chest, otherwise. Electronically signed by Jass Rashid 04/23/2019 10:48 AM
[2019-04-23] MEDS: LASIX IV SCH (16:14)
[2019-04-23 21:09] LABS: AGAP 10; BUN 21 mg/dL (8-22); CALCIUM 8.4 mg/dL (8.8-10.2); CHLORIDE 87 mmol/L (98-107); COSMO 287; CREATININE 0.8 mg/dL (0.5-0.9); ESTIMATED GFR > 60; GLUCOSE 240 mg/dL (70-104); POTASSIUM 3.5 mmol/L (3.5-5.1); SODIUM 138 mmol/L (136-145); TCO2 41 mmol/L (25-35)
[2019-04-24] MEDS: LASIX IV SCH ×2 (03:29→15:02)
--- NOTE | 2019-04-24 06:42 | PULMONOLOGY CONSULTATION ---
DATE: 04/23/2019 REQUESTING PHYSICIAN: Dr. Gareth Franco. REASON FOR CONSULTATION: Evaluate and treat. HISTORY OF PRESENT ILLNESS: Ms. Gómez is an 84-year-old white female with end-stage COPD, chronic hypoxemic and chronic hypercapnic respiratory failure, chronic right-sided pleural effusion, who underwent a surgical resection of a skin lesion approximately 2 days ago. The patient did not require general anesthesia, but she did have a panic attack before the procedure. She reports she did well the day following the procedure, except for fatigue, but she continued to decline and feel more and more short of breath. On the day of admission, her saturations would not go higher than 82% on supplemental oxygen. She has been admitted to the hospital with improved oxygenation on 50% face mask. PAST MEDICAL HISTORY: 1. Severe COPD with chronic hypoxemic and chronic hypercapnic respiratory failure. 2. Chronic cor pulmonale. The patient has been previously evaluated and approved for Trelegy, but when she got home she refused to wear this device. 3. Polycythemia related to chronic hypoxemia. 4. Chronic atrial fibrillation. 5. Anxiety disorder. 6. Recent skin surgery, left shoulder for a skin cancer. 7. Status post cataract surgery. 8. Dyslipidemia. 9. Status post treatment of a giant bullous hematoma on the left lower extremity. SOCIAL HISTORY: She is . Her previously was the [employer] of this hospital. She has not smoked for several years. She continues to occasionally have alcoholic beverage. PHYSICAL EXAMINATION: General: Reveals a chronically ill-appearing white female who is in no distress. Vital Signs: BP 107/70, heart rate 94, respiratory rate 22, oxygen saturation 92% on 50% face mask. HEENT: Pupils are equal and reactive. Oropharynx appears clear. Neck: Supple. Chest: Reveals decreased breath sounds right base, prolonged expiratory phase, with faint crackles on the left. White blood count 4.2, hemoglobin 12.1, platelet count 171,000. Sodium 138, potassium 5.9, chloride 96, bicarbonate 34, BUN 17, creatinine 0.6. Chest x-ray reveals right-sided pleural effusion with mild pulmonary edema and a generous cardiac silhouette. IMPRESSION: An 84-year-old with end-stage COPD with 1. Acute hypoxemic respiratory failure. 2. Chronic hypercapnic respiratory failure. 3. Chronic pleural effusion. 4. Mild pulmonary edema. DISCUSSION: An 84-year-old with problems outlined above. I suspect the stress of her recent surgery both physically and psychologically led to her acute decompensation. RECOMMENDATION: 1. Agree with diuresis as tolerated. 2. Continue oxygen as needed to maintain saturations greater than 89%. 3. Continue bronchodilators. 4. Overall long-term prognosis is poor. cc: MD Gareth Junior MD
[2019-04-24] MEDS: DUONEB (A & A) INH SCH ×3 (08:06→19:47)
[2019-04-24] MEDS: SYMBICORT 160/4.5 MICROGM INHALER INH SCH ×2 (08:06→19:47)
[2019-04-24 08:52] LABS: ESTIMATED GFR > 60
[2019-04-24 08:57] LABS: AGAP 10; BUN 22 mg/dL (8-22); CALCIUM 8.7 mg/dL (8.8-10.2); CHLORIDE 89 mmol/L (98-107); COSMO 292; CREATININE 0.6 mg/dL (0.5-0.9); GLUCOSE 225 mg/dL (70-104); POTASSIUM 3.8 mmol/L (3.5-5.1); SODIUM 141 mmol/L (136-145); TCO2 42 mmol/L (25-35)
[2019-04-24] MEDS: LASIX PO SCH ×2 (09:08→15:02)
[2019-04-24] MEDS: CARDIZEM CD PO SCH (09:08)
[2019-04-24] MEDS: SINGULAIR PO SCH (09:09)
[2019-04-24] MEDS: ELIQUIS PO SCH ×2 (09:09→20:25)
[2019-04-24] MEDS: KLOR-CON PO SCH ×2 (09:09→20:25)
[2019-04-24] MEDS: XANAX PO SCH ×2 (09:09→20:25)
--- NOTE | 2019-04-24 19:03 | PROGRESS NOTE ---
DATE: 04/24/2019 Mrs. Gómez was admitted to [facility] with acute hypoxic respiratory failure superimposed on chronic hypercapnic respiratory failure secondary to end-stage COPD. She presented to the ER with complaint of increasing shortness of breath and increasing work of breathing. O2 saturations were 82% on supplemental O2. She was admitted to the hospital and was aggressively diuresed with Lasix. Her most recent chest x-ray showed a moderate right-sided pleural effusion. O2 saturations are ranging from 89 to 91 percent on 6 L of O2. OBJECTIVE: Temperature 98.1 degrees, pulse 109, respirations 20, BP 122/82. This is a chronically ill-appearing 84-year-old lady in mild distress secondary to shortness of breath. CV: Tachycardic. Regular S1, S2. Lungs: Distant breath sounds with diminished breath sounds in the right base. Abdomen: Soft, nontender, with active bowel sounds. Extremities: Trace ankle edema. ASSESSMENT AND PLAN: Acute hypoxic respiratory failure superimposed on chronic hypercapnic respiratory failure secondary to end-stage chronic obstructive pulmonary disease on chronic O2. We will continue Symbicort 160/4.5 one puff b.i.d., DuoNeb nebulizer treatments, and will diurese her with Lasix. She is getting a total of 240 mg of Lasix per day. Since admission she has had nearly 4000 mL of urine output. Unfortunately O2 saturations are still marginal. I have suggested to Mrs. Gómez that we potentially could give her additional Lasix or even try Zaroxolyn prior to her morning dose of Lasix. She was very reticent to take additional Lasix today as she has been urinating frequently. I will certainly respect her wishes and will closely monitor her urine output. If her chest x-rays do not improve then certainly we could try low-dose Zaroxolyn. cc: MD Gareth Adam MD
[2019-04-24] MEDS: TYLENOL PO PRN (20:25)
[2019-04-24] MEDS: MUCINEX PO SCH (20:25)
--- NOTE | 2019-04-24 21:26 | PULMONOLOGY PROGRESS NOTE ---
DATE: 04/24/2019 SUBJECTIVE: The patient is awake and alert. She reports she has been sleepy all day long. She is without new complaints. OBJECTIVE: Output appears to be higher than intake. Blood pressure 108/65, heart rate 113, respiratory rate 20, oxygen saturation 92% on Venturi mask. HEENT: Pupils are equal and reactive. Oropharynx appears clear. Neck is supple. Chest reveals decreased breath sounds at the right base, with prolonged expiratory phase. Cardiac exam: S1, S2. Abdomen is soft. Extremities reveal trace edema. LABORATORY DATA: Sodium 141, potassium 3.8, chloride 89, bicarbonate 42, BUN 22, creatinine 0.6. IMPRESSION: An 84-year-old with: 1. Acute hypoxemic respiratory failure. 2. Pulmonary edema. 3. Chronic hypercapnic respiratory failure. 4. Chronic pleural effusion. PLAN: 1. Continue current diuresis. 2. Continue oxygen to maintain saturations greater than 89%. 3. Continue bronchodilators. 4. Follow up chest x-ray tomorrow. cc: MD Gareth Junior MD
[2019-04-25] MEDS: LASIX IV SCH ×2 (03:25→15:56)
[2019-04-25] MEDS: DUONEB (A & A) INH SCH ×4 (03:56→19:03)
[2019-04-25 06:35] LABS: AGAP 11; BUN 21 mg/dL (8-22); CALCIUM 9.1 mg/dL (8.8-10.2); CHLORIDE 89 mmol/L (98-107); COSMO 296; CREATININE 0.5 mg/dL (0.5-0.9); ESTIMATED GFR > 60; GLUCOSE 134 mg/dL (70-104); POTASSIUM 2.9 mmol/L (3.5-5.1); SODIUM 146 mmol/L (136-145); TCO2 46 mmol/L (25-35)
--- NOTE | 2019-04-25 07:38 | Diag Imaging Result Doc PS360 ---
CHEST-PORTABLE - 04/25/2019 INDICATION: abnormal exam COMPARISON: 04/23/2019 FINDINGS: There is worsening, now severe collapse of the right lung base with severe mediastinal and tracheal shift towards the right. There is overall improvement in the hazy interstitial pulmonary edema. No large pleural effusion. Severe COPD. IMPRESSION: Continued worsening, now severe collapse of the right lung base. Highly suggestive of airway mucous plugging. Electronically signed by Keegan Elizabeth 04/25/2019 7:36 AM
[2019-04-25] MEDS: SYMBICORT 160/4.5 MICROGM INHALER INH SCH (09:30)
[2019-04-25] MEDS: CARDIZEM CD PO SCH (10:05)
[2019-04-25] MEDS: ELIQUIS PO SCH ×2 (10:05→20:45)
[2019-04-25] MEDS: KLOR-CON PO SCH ×2 (10:05→20:45)
[2019-04-25] MEDS: MUCINEX PO SCH ×2 (10:05→20:45)
[2019-04-25] MEDS: LASIX PO SCH ×2 (10:05→15:56)
[2019-04-25] MEDS: XANAX PO SCH ×2 (10:05→20:45)
[2019-04-25] MEDS: SINGULAIR PO SCH (10:05)
[2019-04-25] MEDS ORDERED: POTASSIUM CHLORIDE 40 MEQ/SWI 40 MEQ/100 ML IVPB IV ONE (10:38)
[2019-04-25] MEDS ORDERED: ATIVAN IV PRN (10:39)
--- NOTE | 2019-04-25 12:02 | Diag Imaging Result Doc PS360 ---
CT THORAX W/O CONTRAST - 04/25/2019 INDICATION: abnormal CXR COMPARISON: Chest x-ray 04/25/2019. Chest CT 02/27/2019. FINDINGS: There has been significant improvement in the dense right lower lobe collapse. The airways are now grossly patent. There is a small to moderate right and trace left pleural effusion. There is severe COPD. There is some patchy infiltrate in both upper lobes and the right middle lobe. There is mild cardiomegaly. No mass or adenopathy. Upper abdominal images are grossly normal. Bones are intact. IMPRESSION: 1. Resolution of the severe collapse of the right lung base. No airway abnormality. 2. Small to moderate right and trace left pleural effusions. 3. Scattered bilateral infiltrates. 4. Severe COPD. 5. Cardiomegaly. This exam was performed using automated exposure control, adjustment of mA or kV according to patient size, and/or use of iterative reconstruction technique Electronically signed by Keegan Elizabeth 04/25/2019 11:59 AM
[2019-04-25] MEDS: POTASSIUM CHLORIDE 20 MEQ/SWI 20 MEQ/100 ML IVPB IV SCH ×2 (12:12→16:00)
[2019-04-25] MEDS ORDERED: STERILE WATER INJ. INJ PRN (14:45)
[2019-04-25] MEDS ORDERED: STERILE WATER INJ. ONE (15:56)
[2019-04-25] MEDS: DIAMOX IV SCH ×2 (15:56→20:46)
--- NOTE | 2019-04-25 15:59 | PROGRESS NOTE ---
DATE: 04/25/2019 Mrs. Gómez was admitted to [facility] with acute respiratory failure with hypoxia superimposed on chronic respiratory failure with hypercapnia secondary to end-stage COPD. Chest x- ray this morning showed potential collapse of the right lower lung reyes. A follow up CT scan of the chest demonstrated bilateral infiltrates, interstitial edema and resolution of collapse of the right lower lobe. We suspected that she had a mucous plug. She is requiring increasing amounts of oxygen. She is on a Ventimask. O2 saturations are ranging from 91 to 95 percent. She is afebrile, pulse 101, respirations 24, BP 114/74.CV: Regular rate and rhythm. Lungs: Faint crackles in the bases bilaterally. Abdomen: Soft, nontender with active bowel sounds. Extremities: Trace ankle edema. ASSESSMENT AND PLAN: 1. Acute respiratory failure with hypoxia superimposed on chronic hypercapnic respiratory failure secondary to chronic obstructive pulmonary disease. We will continue supplemental O2 to maintain O2 saturations greater than 89%, DuoNeb nebulizer treatments and aggressive diuresis with Lasix. 2. Hypokalemia. Her serum potassium was 2.9. I will give her KCl 40 mEq IV over 4 hours and recheck a potassium in the morning. cc: MD Gareth Adam MD
--- NOTE | 2019-04-25 16:19 | PULMONOLOGY PROGRESS NOTE ---
DATE: 04/25/2019 SUBJECTIVE: The patient is awake and alert. She reports she is a little bit anxious after being told that her x-ray this morning shows "collapse." OBJECTIVE: Vital signs: The patient has been afebrile for the last 24 hours. Blood pressure 145/93, heart rate 106, respiratory rate 22, oxygen saturation 90% on Venturi mask. HEENT: Pupils are equal and reactive. Oropharynx is clear. Neck: Supple. Chest: Reveals diminished breath sounds right base. Cardiac exam: S1, S2. Abdomen: Soft. Extremities: Without edema. LABORATORIES: Chest x-ray reveals pleural effusion at the right base. It is difficult to evaluate whether she has actual atelectasis or this represents effusion. Sodium 146, potassium 2.9, chloride 89, bicarbonate 46, BUN 21, creatinine 0.5. White blood count not obtained today. IMPRESSIONS: An 84-year-old with: 1. Acute on chronic hypoxemic respiratory failure. 2. Pleural effusion. 3. Pulmonary edema. 4. Chronic hypercapnic respiratory failure. 5. Abnormal chest x-ray. PLAN: 1. Continue diuresis. She is having a volume contraction with increasing serum bicarbonate. I will give her 2 doses of acetazolamide today. 2. Continue oxygen. 3. Continue bronchodilators. 4. We will obtain a noncontrast CT scan of the thorax to evaluate the right base given radiographic findings per Radiology today. cc: MD Gareth Junior MD
[2019-04-26] MEDS: DIAMOX IV SCH (00:42)
[2019-04-26] MEDS: DUONEB (A & A) INH SCH ×4 (01:03→20:18)
[2019-04-26] MEDS: SYMBICORT 160/4.5 MICROGM INHALER INH SCH ×3 (01:03→20:19)
[2019-04-26] MEDS: LASIX IV SCH ×2 (05:21→16:57)
[2019-04-26] MEDS: ELIQUIS PO SCH ×2 (08:34→21:33)
[2019-04-26] MEDS: KLOR-CON PO SCH ×2 (08:34→21:33)
[2019-04-26] MEDS: LASIX PO SCH ×2 (08:34→14:49)
[2019-04-26] MEDS: XANAX PO SCH ×2 (08:34→21:33)
[2019-04-26] MEDS: CARDIZEM CD PO SCH (08:35)
[2019-04-26] MEDS: SINGULAIR PO SCH (08:35)
[2019-04-26] MEDS: MUCINEX PO SCH ×2 (08:43→21:33)
--- NOTE | 2019-04-26 09:44 | PROGRESS NOTE ---
DATE: 04/26/2019 SUBJECTIVE: Ms. Gómez is breathing better. She does feel better. She said she had a terrible day yesterday. OBJECTIVE: Remains afebrile, temperature 97.8 degrees, pulse 100 respirations 14, blood pressure 108/71. Pupils are equal round. Lungs are clear in all lung reyes. Cardiovascular regular rate without murmur or S3. Abdomen is soft. Skin is warm and dry. Urine output is 5800 mL which is good urine output. ASSESSMENT AND PLAN: 1. Acute respiratory failure, hypoxemia super imposed on chronic hypercapnic respiratory failure, chronic obstructive pulmonary disease. She is improving. Continue supplemental O2. She is mobilizing some fluid and I think pulmonary venous hypertension is diminished. 2. Hypokalemia has been supplemented. 3. Nutrition is good. Dr. Mauro had given her 2 doses of acetazolamide yesterday. It appears she is headed in the right direction. We will keep her Merino catheter in today. I will try and stop it tomorrow. We want to increase her activity with physical therapy. Her lab from yesterday, potassium is low, so we will check some more lab tomorrow morning. I think I ought to check some this morning too. We will give her supplemental potassium. cc: Gareth Franco MD
[2019-04-26 10:24] LABS: AGAP 7; BUN 19 mg/dL (8-22); CALCIUM 9.3 mg/dL (8.8-10.2); CHLORIDE 92 mmol/L (98-107); COSMO 287; CREATININE 0.6 mg/dL (0.5-0.9); ESTIMATED GFR > 60; GLUCOSE 133 mg/dL (70-104); POTASSIUM 3.4 mmol/L (3.5-5.1); SODIUM 142 mmol/L (136-145); TCO2 43 mmol/L (25-35)
[2019-04-27] MEDS: LASIX IV SCH ×2 (04:24→16:46)
[2019-04-27 06:07] LABS: AGAP 13; BUN 25 mg/dL (8-22); CALCIUM 9.5 mg/dL (8.8-10.2); CHLORIDE 92 mmol/L (98-107); COSMO 288; CREATININE 0.6 mg/dL (0.5-0.9); ESTIMATED GFR > 60; GLUCOSE 137 mg/dL (70-104); MAGNESIUM 2.2 mg/dL (1.5-2.7); POTASSIUM 3.2 mmol/L (3.5-5.1); SODIUM 141 mmol/L (136-145); TCO2 36 mmol/L (25-35)
--- NOTE | 2019-04-27 07:31 | Diag Imaging Result Doc PS360 ---
EXAM: CHEST-PORTABLE INDICATION: copd, pleural effusion TECHNIQUE: One view COMPARISON: 04/25/2019 FINDINGS: The patient is rotated toward the right similar to the previous study. Volume loss in the right is essentially stable. Right pleural effusion with adjacent atelectasis and/or infiltrate is unchanged. No new consolidation is identified. Cardiac silhouette is stable. IMPRESSION: Essentially stable chest. Electronically signed by Jass Rashid 04/27/2019 7:29 AM
--- NOTE | 2019-04-27 09:00 | PULMONOLOGY PROGRESS NOTE ---
DATE: 04/27/2019 SUBJECTIVE: The patient reports she feels a little better today. Her dyspnea has diminished. OBJECTIVE: Vital Signs: The patient has been afebrile for the last 24 hours. She has had good urinary output. Vital Signs: Blood pressure 115/78, heart rate 104, respiratory rate 19, oxygen saturation 92% on 6 L per nasal cannula. HEENT: Pupils are equal and reactive. Oropharynx appears clear. Neck: Supple. Chest: Reveals prolonged expiratory phase with decreased breath sounds at the right base. Cardiac Exam: S1-S2. Abdomen: Soft. Extremities: Reveal trace edema. LABORATORY DATA: Sodium 142, potassium 3.4, chloride 92, bicarbonate 43, BUN 19, creatinine 0.6, glucose 133. IMPRESSION: An 84-year-old with: 1. End-stage chronic obstructive pulmonary disease. 2. Acute on chronic hypoxemic respiratory failure. 3. Pleural effusion. 4. Pulmonary edema. PLAN: 1. Continue diuresis. She continues to slowly improve with oxygen and diuretics. 2. Continue bronchodilators. 3. Follow up chest x-ray tomorrow. cc: MD Gareth Junior MD
[2019-04-27] MEDS: KLOR-CON PO SCH ×2 (09:20→21:18)
[2019-04-27] MEDS: SINGULAIR PO SCH (09:20)
[2019-04-27] MEDS: XANAX PO SCH ×2 (09:20→21:18)
[2019-04-27] MEDS: CARDIZEM CD PO SCH (09:20)
[2019-04-27] MEDS: TYLENOL PO PRN ×2 (09:20→16:55)
[2019-04-27] MEDS: MUCINEX PO SCH ×2 (09:20→21:18)
[2019-04-27] MEDS: LASIX PO SCH ×2 (09:20→14:10)
[2019-04-27] MEDS: ELIQUIS PO SCH ×2 (09:20→21:18)
[2019-04-27] MEDS: DUONEB (A & A) INH SCH ×3 (09:38→21:04)
[2019-04-27] MEDS: SYMBICORT 160/4.5 MICROGM INHALER INH SCH ×2 (09:38→21:00)
[2019-04-27] MEDS: ULTRAM PO PRN (11:03)
[2019-04-27] MEDS ORDERED: FIORICET PO PRN (18:20)
--- NOTE | 2019-04-27 19:17 | PROGRESS NOTE ---
DATE: 04/27/2019 SUBJECTIVE: Ms. Zhang has had a rough day, mainly because of a headache in the posterior head. She is tender in the posterior strap muscles. Her breathing she feels like is improved. OBJECTIVE: Vital Signs: She has remained afebrile, temperature 98.0 degrees, pulse 99 respirations 20, blood pressure 138/86. Eyes: Pupils are equal and round. Lungs: Clear in all lung reyes anteriorly and laterally. Cardiac: Regular rhythm and rate without murmur or S3. Abdomen: Soft. Skin: Warm and dry. Urine output is 2700 mL from yesterday. Chest x-ray from this morning is essentially stable chest. Patient rotated toward the right, similar to previous study. Volume loss in the right essentially stable. Right pleural effusion, adjacent atelectasis or infiltrate no change. ASSESSMENT AND PLAN: 1. End-stage chronic obstructive pulmonary disease, acute on chronic hypoxemic respiratory failure, pleural effusion, pulmonary edema. Continue to diurese. Continue bronchodilators. 2. Headache, which seems to be more muscle contraction headache and irritation in the posterior neck. Suspect some cervical arthritis, so we will try her on some Fioricet and see if that will help. 3. History of atrial fibrillation. The rate is controlled. REVIEW OF LAB: Hematocrit stable at 39, hemoglobin is 12, platelet count 171,000. Chemistries today: Sodium 141, potassium 3.2, chloride 92, BUN of 25, creatinine is 0.6, magnesium 2.2. cc: Gareth Franco MD
--- NOTE | 2019-04-27 22:53 | PULMONOLOGY PROGRESS NOTE ---
DATE: 04/27/2019 SUBJECTIVE: The patient is awake, alert, and conversant. She denies shortness of breath. She reports her breathing continues to improve. Her primary concern today is she does have a headache which has been persistent. OBJECTIVE: Vital Signs: The patient has been afebrile for the last 24 hours. Blood pressure 138/86, heart rate 99, respiratory rate 16, oxygen saturation 90% on 6 L per nasal cannula. HEENT: Pupils are equal and reactive. Oropharynx appears clear. Neck: Supple. Chest: Reveals diminished breath sounds right base with prolonged expiratory phase. Cardiac exam: S1, S2. Abdomen: Soft. Extremities: Without edema. LABORATORY DATA: Chest x-ray reveals chronic right-sided pleural effusion, which is unchanged. Sodium 141, potassium 3.2, chloride 36, BUN 25, creatinine 0.6. IMPRESSION: An 84-year-old with: 1. End-stage chronic obstructive pulmonary disease. 2. Chronic pleural effusion. 3. Acute on chronic hypoxemic respiratory failure. 4. Fluid overload with 9 L diuresis this hospitalization. 5. Headache as described by Dr. Franco. PLAN: 1. Continue diuresis but anticipate reducing diuretic dose if her BUN climbs again tomorrow. 2. Continue bronchodilators. 3. Headache management per Dr. Franco. cc: MD Gareth Junior MD
[2019-04-28] MEDS: ULTRAM PO PRN (04:55)
[2019-04-28] MEDS: LASIX IV SCH ×2 (04:55→16:20)
[2019-04-28 05:49] LABS: BASO# 0.02 X1000 (0.0-0.2); BASO% 0.3 % (0.0-0.8); EOS# 0.12 X1000 (0.0-0.7); EOS% 1.6 % (0.0-10.0); IMM GRAN# 0.02 X1000 (0.0-0.04); IMM GRAN% 0.3 % (0.0-0.5); LYMPH% 14.4 % (20.5-51.1); MCH 28.3 PG (27-31); MCHC 31.1 g/dL (33-37); MCV 90.9 FL (81-99); MONO# 1.09 X1000 (0.11-0.59); MONO% 14.2 % (1.7-9.3); MPV 8.7 FL (7.4-10.4); NEUT# 5.31 X1000 (1.4-6.5); NEUT% 69.2 % (42.2-75.2); PLT 253 X1000 (130-400); RBC 4.95 XMIL (4.2-5.4); RDW 14.5 % (11.5-14.5); WBC 7.66 X1000 (4.8-10.8)
[2019-04-28 06:18] LABS: AGAP 12; ALB/GLOB RATIO 1.3; ALBUMIN 3.7 g/dL (3.5-5.0); ALKALINE PHOSPHATASE 70 U/L (32-104); BUN 23 mg/dL (8-22); CALCIUM 8.7 mg/dL (8.8-10.2); CHLORIDE 86 mmol/L (98-107); COSMO 273; CREATININE 0.6 mg/dL (0.5-0.9); ESTIMATED GFR > 60; GLUCOSE 124 mg/dL (70-104); GOT 19 U/L (10-30); GPT 26 U/L (10-36); MAGNESIUM 2.4 mg/dL (1.5-2.7); PHOSPHORUS 3.5 mg/dL (2.7-4.5); POTASSIUM 4.1 mmol/L (3.5-5.1); SODIUM 134 mmol/L (136-145); TCO2 36 mmol/L (25-35); TOTAL BILIRUBIN 0.67 mg/dL (0.20-1.00); TOTAL PROTEIN 6.6 g/dL (6.3-8.3)
[2019-04-28] MEDS: SYMBICORT 160/4.5 MICROGM INHALER INH SCH ×2 (07:51→21:19)
[2019-04-28] MEDS: DUONEB (A & A) INH SCH ×3 (07:52→21:19)
[2019-04-28] MEDS: MUCINEX PO SCH ×2 (08:45→20:24)
[2019-04-28] MEDS: XANAX PO SCH ×2 (08:45→20:24)
[2019-04-28] MEDS: SINGULAIR PO SCH (08:45)
[2019-04-28] MEDS: ELIQUIS PO SCH ×2 (08:46→20:24)
[2019-04-28] MEDS: CARDIZEM CD PO SCH (08:46)
[2019-04-28] MEDS: KLOR-CON PO SCH ×2 (08:46→20:24)
[2019-04-28] MEDS: LASIX PO SCH ×2 (08:46→14:30)
--- NOTE | 2019-04-28 09:03 | EKG Report ---
Test Performed on : 04/28/2019 08:59:30 AM Test Reason : Afib RVR Blood Pressure : / mmHG Vent. Rate : 127 BPM Atrial Rate : 127 BPM P-R Int : 000 ms QRS Dur : 080 ms QT Int : 256 ms P-R-T Axes : 000 088 067 degrees QTc Int : 372 ms Atrial fibrillation. with rapid ventricular response. Abnormal ECG When compared with ECG of 22-APR-2019 18:24, (Unconfirmed) No significant change was found Confirmed by Beverly ULRICH, Fabrice Anthony ([id number]) on 04/29/2019 8:17:36 AM
--- NOTE | 2019-04-28 13:47 | PROGRESS NOTE ---
DATE: 04/28/2019 SUBJECTIVE: She is feeling better, sitting up in a chair. Headache has resolved. She would like to get her Merino catheter out. She feels like her breathing is better. OBJECTIVE: Vital signs: Remains afebrile, temperature 97.6, pulse 119, respirations 20, blood pressure 133/85. HEENT: Pupils are equal and round. Lungs: Clear in all lung reyes. Cardiovascular exam: Regular rhythm and rate without murmur or S3. Abdomen: Soft. Skin: Warm and dry. Urine output 1700 mL. ASSESSMENT AND PLAN: 1. End-stage chronic obstructive pulmonary disease. 2. Chronic pleural effusions. 3. [id number] hypoxemic respiratory failure. 4. Fluid volume overload. She has had at least 9 L of diuresis since hospitalization. 5. Headache seems to be better. I think it was muscle contraction or muscle tension headache and is improved with Fioricet. LABORATORY: Today, white count 7660, hematocrit is 45, platelet count is 253,000. Sodium 134, potassium 4.1, chloride 86, BUN is 23, creatinine is 0.6. I do not see any change in the orders except we will discontinue her Merino catheter. Note that her volume status is improved and breathing is improved. We will increase her activity. cc: Gareth Franco MD
[2019-04-28 15:14] LABS: ALLEN TEST YES; BE 15.3 mmoll (-3.0-3.0); BLOOD TYPE ARTERIAL; HCO3-(ACT) 36.8 mmoll (20.0-26.0); METHB 0.9 % (0.0-1.5); O2(CT) 18.8 mL/dL (15.0-23.0); O2HB 93.8 % (95.0-99.0); PO2(98.6) 78 mmHg (60-100); SAMPLE BLOOD; SAO2 96.9 % (95.0-100.0); THB 14.2 g/dL (11.5-17.4); pH(98.6) 7.39 (7.35-7.45)
[2019-04-28 15:19] LABS: MODALITY VENTIMASK; PCO2(98.6) 73 mmHg (35-45)
[2019-04-28] MEDS: TYLENOL PO PRN (20:27)
[2019-04-29] MEDS: LASIX IV SCH ×2 (04:07→15:18)
[2019-04-29] MEDS: DUONEB (A & A) INH SCH ×3 (07:44→21:17)
[2019-04-29] MEDS: SYMBICORT 160/4.5 MICROGM INHALER INH SCH ×2 (07:44→19:37)
[2019-04-29] MEDS: XANAX PO SCH (09:34)
[2019-04-29] MEDS: KLOR-CON PO SCH ×2 (09:42→20:18)
[2019-04-29] MEDS: CARDIZEM CD PO SCH (09:43)
[2019-04-29] MEDS: ELIQUIS PO SCH ×2 (09:43→20:18)
[2019-04-29] MEDS: LASIX PO SCH ×2 (09:43→15:17)
[2019-04-29] MEDS: SINGULAIR PO SCH (09:43)
[2019-04-29] MEDS: MUCINEX PO SCH ×2 (09:43→20:18)
--- NOTE | 2019-04-29 13:40 | PROGRESS NOTE ---
DATE: 04/29/2019 SUBJECTIVE: Ms. Gómez is feeling better and her breathing is better. She did have distended bladder so we put a straight catheter in. I think she had over 800 mL. Feels like her breathing is better. She feels pretty weak. OBJECTIVE: Vital signs: Remains afebrile, temperature 97.6, pulse 75, respirations 20, blood pressure 135/80. HEENT: Pupils are equal and round. Lungs: Clear in all lung reyes. Cardiovascular exam: Regular rhythm and rate without murmur or S3. Abdomen: Soft. Skin: Warm and dry. ASSESSMENT AND PLAN: 1. End-stage chronic obstructive pulmonary disease, presented with exacerbation, doing better. 2. Chronic pleural effusions. She does have cor pulmonale, elevated pulmonary pressures from chronic obstructive pulmonary disease 3. [id number] hypoxemic respiratory failure, which is improved. 4. Fluid volume overload with pulmonary venous hypertension and pleural effusions. She has diuresed well. 5. Headache, which is improved. Fioricet seemed to help. 6. She had a recent resection of the left shoulder. I think I will take the stitches out tomorrow. 7. Distended bladder. Will just try straight catheters for now. Continue physical therapy. REVIEW OF HER ORDERS: She is on Xanax 0.25 mg b.i.d., Eliquis 5 mg b.i.d., budesonide/formoterol 1 puff b.i.d., Cardizem CD 180 mg daily, Lasix 80 mg p.o. b.i.d. in addition to Lasix 40 mg IV q.12, guaifenesin ER 600 mg b.i.d., Ativan 0.5 mg q.4 hours p.r.n., Singulair 10 mg a day, potassium chloride 40 mEq p.o. b.i.d., and Ultram 50 mg q.6 hours. Her CBC was checked yesterday, white count 7660, hematocrit 45, platelet count 253,000. Chemistries: Sodium 135, potassium 4.1, chloride 86, bicarb was 36, BUN is 23, creatinine 0.6. cc: Gareth Franco MD
[2019-04-29] MEDS: XANAX PO PRN (20:56)
[2019-04-30] MEDS: LASIX IV SCH ×2 (04:30→17:09)
--- NOTE | 2019-04-30 07:05 | Diag Imaging Result Doc PS360 ---
EXAM: CHEST-1 VIEW 04/30/2019 HISTORY: SOB TECHNIQUE: AP portable at 0538 COMMENT: There is a right pleural effusion which was also present on 04/27/2019, although this may be slightly improved. There is mild interstitial pulmonary edema which is slightly improved since the previous study. There continues to be volume loss with shift of the mediastinum to the right presumably due to atelectasis in the right lower lobe and middle lobe. The possibility of pneumonia cannot be excluded. IMPRESSION: Continued volume loss in the right lower chest. Improved pulmonary edema and right pleural effusion. Electronically signed by Aquilino Flores 04/30/2019 7:03 AM
[2019-04-30] MEDS: DUONEB (A & A) INH SCH ×3 (08:03→20:25)
[2019-04-30] MEDS: SYMBICORT 160/4.5 MICROGM INHALER INH SCH ×2 (08:04→20:25)
[2019-04-30] MEDS: LASIX PO SCH ×2 (08:44→15:08)
[2019-04-30] MEDS: SINGULAIR PO SCH (08:44)
[2019-04-30] MEDS: MUCINEX PO SCH ×2 (08:44→20:14)
[2019-04-30] MEDS: ELIQUIS PO SCH ×2 (08:44→20:14)
[2019-04-30] MEDS: CARDIZEM CD PO SCH (08:44)
[2019-04-30] MEDS: KLOR-CON PO SCH ×2 (08:44→20:14)
[2019-04-30] MEDS: XANAX PO PRN (09:00)
--- NOTE | 2019-04-30 14:16 | PROGRESS NOTE ---
DATE: 04/30/2019 SUBJECTIVE: Ms. Gómez is resting. She is sleeping at the present time. Appears comfortable, breathing comfortably. OBJECTIVE: Vital Signs: Temperature 98.1 degrees, pulse 110, respirations 18, blood pressure 141/89. HEENT: Pupils are equal and round. Lungs: Decreased breath sounds both bases. Cardiovascular: Regular rhythm and rate without murmur or S3. Abdomen: Soft. Skin: Warm and dry. LABORATORY DATA: We did get some blood gases on 04/28/2019, pH is 7.39, pCO2 73, PO2 was 78, O2 saturations were 96% that is on 50%. IMAGING STUDIES: X-ray from 04/30. Continued volume loss in the right lower chest improved pulmonary edema and a right pleural effusion. ASSESSMENT AND PLAN: 1. End-stage chronic obstructive pulmonary disease. Presented with exacerbation, doing better. 2. Chronic pleural effusion. She does have elevated right-sided pressures. She appears to be responding to diuresis. 3. Acute on chronic hypoxemic respiratory failure which is improved. 4. Fluid volume overload with pleural effusions and pulmonary venous hypertension, responding, to diuresis. 5. Headache, which is improved. Norris this was probably muscle contraction headaches. We gave her some Fioricet. 6. Recent resection of a skin lesion resected on the left shoulder. May be able to take stitches out while she is here. 7. Distended bladder. She had a straight catheterization and that seemed to improve. Good urine output. Will come back and visit her when she is awake. Noticed that Dr. Yousif decreased her Xanax from a 0.5 to 2.25 twice a day. Otherwise orders unchanged and her lab looks good. Potassium supplemented at 4.1. cc: Gareth Franco MD
--- NOTE | 2019-04-30 18:10 | PROGRESS NOTE ---
DATE: 04/30/2019 SUBJECTIVE: Ms. Gómez is feeling better and breathing better. She is a little upset that the Xanax was changed, so I did agree to put her back just on a 0.5 of Xanax in the morning and stop her 0.25 twice a day. She is breathing better. She does not like the food, but she does feel a little stronger and has a little more endurance. OBJECTIVE: Temperature 98.5 degrees, pulse 100, respirations 15, blood pressure 110/81. Pupils are equal and round. Lungs: Clear in all lung reyes. Cardiovascular: Regular rhythm and rate without murmur or S3. Abdomen: Soft. Skin: Warm and dry. DATA: Urine output is 4000 mL. ASSESSMENT AND PLAN: 1. End-stage chronic obstructive pulmonary disease with exacerbation, pulmonary hypertension, and chronic pleural effusions. Seems to be improving some with diuresis, though this is slow. 2. Hypoxemic respiratory failure, which has improved. 3. Fluid volume overload with pleural effusions. Continue to diurese. 4. Headache, resolved. 5. Recent resection of skin lesion on left shoulder. The wound looks good. 6. Bladder distention, and that is improved with just in-and-out catheter. 7. Review of her orders. Continue current orders. I will stop her Xanax 0.25 twice a day and just put her on the 0.5 once a day. cc: Gareth Franco MD
[2019-05-01] MEDS: LASIX IV SCH ×3 (04:17→23:51)
[2019-05-01] MEDS: DUONEB (A & A) INH SCH ×3 (08:28→21:32)
[2019-05-01] MEDS: SYMBICORT 160/4.5 MICROGM INHALER INH SCH ×2 (08:29→21:33)
[2019-05-01] MEDS: ELIQUIS PO SCH ×2 (08:42→20:36)
[2019-05-01] MEDS: SINGULAIR PO SCH (08:42)
[2019-05-01] MEDS: KLOR-CON PO SCH ×2 (08:42→20:37)
[2019-05-01] MEDS: CARDIZEM CD PO SCH (08:42)
[2019-05-01] MEDS: MUCINEX PO SCH ×2 (08:42→20:36)
[2019-05-01] MEDS: LASIX PO SCH ×2 (08:42→14:13)
[2019-05-01] MEDS: XANAX PO SCH (08:42)
--- NOTE | 2019-05-01 10:15 | PROGRESS NOTE ---
DATE: 05/01/2019 SUBJECTIVE: Ms. Gómez had a pretty good night. She is breathing better. She would like to get her stitches out in her left upper shoulder. OBJECTIVE: Vital signs: Temperature 98.1 degrees, pulse 117, respirations 20, blood pressure has been between 93 and 124 over 57 to 82. HEENT: Pupils are equal and round. Lungs: Clear in all lung reyes. Cardiovascular: Regular rhythm and rate without murmur or S3. Urine output: 1900 mL. DIAGNOSTIC DATA: Chest x-ray from 04/30/2019 with continued volume loss in the right lower chest, improved pulmonary edema and right pleural effusion. ASSESSMENT AND PLAN: 1. End-stage chronic obstructive pulmonary disease with exacerbation, pulmonary hypertension, chronic pleural effusions and pulmonary venous hypertension, which seem to be improving with diuresis, every day a little better. 2. Hypoxemic respiratory failure, improved. 3. Fluid volume overload, pleural effusion. Continue diuresis. 4. Headache, resolved. 5. History of resection of skin lesion, left shoulder. We will take stitches out, they are ready. 6. Bladder distention, which is improved with just in-and-out catheter. 7. General anxiety. She does take Xanax. We will just do a single dose of 0.5 mg Xanax once a day at her request. cc: Gareth Franco MD
[2019-05-01] MEDS: TYLENOL PO PRN (14:13)
[2019-05-02] MEDS: LASIX IV SCH ×2 (03:55→16:33)
[2019-05-02 06:23] LABS: BASO# 0.06 X1000 (0.0-0.2); BASO% 1.2 % (0.0-0.8); EOS# 0.12 X1000 (0.0-0.7); EOS% 2.3 % (0.0-10.0); HEMATOCRIT 41.3 % (37.0-47.0); HEMOGLOBIN 12.8 g/dL (12.0-16.0); IMM GRAN# 0.02 X1000 (0.0-0.04); IMM GRAN% 0.4 % (0.0-0.5); LYMPH# 1.17 X1000 (1.2-3.4); LYMPH% 22.8 % (20.5-51.1); MCH 28.3 PG (27-31); MCV 91.2 FL (81-99); MONO# 0.97 X1000 (0.11-0.59); MONO% 18.9 % (1.7-9.3); MPV 8.9 FL (7.4-10.4); NEUT# 2.79 X1000 (1.4-6.5); NEUT% 54.4 % (42.2-75.2); PLT 290 X1000 (130-400); RBC 4.53 XMIL (4.2-5.4); RDW 14.6 % (11.5-14.5); WBC 5.13 X1000 (4.8-10.8)
[2019-05-02 07:04] LABS: AGAP 9; BUN 18 mg/dL (8-22); CALCIUM 8.5 mg/dL (8.8-10.2); CHLORIDE 94 mmol/L (98-107); COSMO 287; CREATININE 0.7 mg/dL (0.5-0.9); ESTIMATED GFR > 60; GLUCOSE 129 mg/dL (70-104); POTASSIUM 4.3 mmol/L (3.5-5.1); SODIUM 142 mmol/L (136-145); TCO2 39 mmol/L (25-35)
[2019-05-02] MEDS: KLOR-CON PO SCH ×2 (08:25→20:11)
[2019-05-02] MEDS: XANAX PO SCH (08:26)
[2019-05-02] MEDS: SINGULAIR PO SCH (08:26)
[2019-05-02] MEDS: LASIX PO SCH ×2 (08:26→13:39)
[2019-05-02] MEDS: ELIQUIS PO SCH ×2 (08:26→20:12)
[2019-05-02] MEDS: MUCINEX PO SCH ×2 (08:26→20:12)
[2019-05-02] MEDS: CARDIZEM CD PO SCH (08:26)
[2019-05-02] MEDS: SYMBICORT 160/4.5 MICROGM INHALER INH SCH ×2 (09:08→20:30)
[2019-05-02] MEDS: DUONEB (A & A) INH SCH ×3 (09:09→20:30)
[2019-05-02] MEDS: TYLENOL PO PRN (20:11)
[2019-05-03] MEDS: LASIX IV SCH (03:22)
[2019-05-03] MEDS: SYMBICORT 160/4.5 MICROGM INHALER INH SCH (08:14)
[2019-05-03] MEDS: DUONEB (A & A) INH SCH (08:15)
[2019-05-03 08:57] VITALS: BP 124/75
--- NOTE | 2019-05-03 09:13 | Diag Imaging Result Doc PS360 ---
EXAM: CHEST-1 VIEW 05/03/2019 HISTORY: SOB TECHNIQUE: AP portable at 0852 COMMENT: There is blunting of the right costophrenic angle presumably due to pleural fluid. The inspiration is slightly less optimal than on 04/30/2019. There is slightly better expansion of the right middle and lower lobes. IMPRESSION: Improved atelectasis in the right base. Right pleural effusion. Electronically signed by Aquilino Flores 05/03/2019 9:11 AM
[2019-05-03] MEDS: SINGULAIR PO SCH (09:18)
[2019-05-03] MEDS: CARDIZEM CD PO SCH (09:18)
[2019-05-03] MEDS: XANAX PO SCH (09:18)
[2019-05-03] MEDS: MUCINEX PO SCH (09:18)
[2019-05-03] MEDS: LASIX PO SCH (09:18)
[2019-05-03] MEDS: ELIQUIS PO SCH (09:18)
[2019-05-03] MEDS: KLOR-CON PO SCH (09:18)
--- NOTE | 2019-05-03 11:07 | DISCHARGE SUMMARY ---
ADMISSION DATE: 04/22/2019 DISCHARGE DATE: 05/03/2019 HISTORY OF PRESENT ILLNESS: This is an 84-year-old patient of mine, who became short of breath apparently for a couple of days. She recently had a skin lesion removed last week on the left shoulder, suspected skin cancer. She usually has high nasal flow Venturi at home, but she noticed increased swelling, and she had held her Lasix for a couple of days. She was at Dr. Hernandez's office, and her O2 saturations were in the 80s, and so he sent her here to the hospital. PAST MEDICAL HISTORY: 1. Severe COPD, hypoxemic hypercapnic respiratory failure. 2. Several admissions for respiratory distress, hypoxemia, and CO2 retention. 3. Polycythemia secondary to COPD and years of smoking. 4. Chronic atrial fibrillation. 5. Anxiety disorder. 6. Status post cataract surgery. 7. Dyslipidemia. 8. Had a hematoma in her left leg from trauma, and this is resolved and actually healing very well. ADMISSION DIAGNOSES: 1. Hypoxemic hypercapnic respiratory failure, underlying end-stage chronic obstructive pulmonary disease. We tried to diurese her, and so added some additional diuresis. She has chronic pleural effusions in the face of diastolic dysfunction, elevated right-sided heart pressures, and severe chronic obstructive pulmonary disease. 2. Chronic atrial fibrillation. Rate was controlled. 3. History of osteoarthritis. 4. Polycythemia secondary to chronic obstructive pulmonary disease. 5. Anxiety disorder. 6. Her nutrition was good. Good oral intake. She showed steady improvement. Her x-rays showed improvement. Dr. Hernandez is her assistant product manager, and we did a CT of the chest. It showed resolution of severe collapse of the right lung base, [id number] right and trace left pleural effusion, scattered bilateral infiltrates, severe chronic obstructive pulmonary disease, and some cardiomegaly. We saw steady improvement. Last x- ray was done this morning. Improved atelectasis in the right base, right pleural effusion. DISCHARGE ORDERS: She will go back on her oxygen with Venturi nasal cannula. She will take Eliquis 5 mg twice a day, Xanax 0.5 mg every a.m. She DuoNebs at home. Will go up on the Cardizem to 240 mg p.o. daily. She will take the Lasix 80 mg in the morning and 40 in the evening, Mucinex 600 mg b.i.d., and Klor-Con 40 mEq twice a day. She has Ultram 50 mg every 6 hours p.r.n. cc: Gareth Franco MD
== END 2019-05-03 11:50 | disposition home or self-care (01) | DRG 189 ==
LOC: SUPCPDRO → ED 16:29 → 2N 21:19
PROVIDERS: ADMIT Emergency Medicine; ATTEND Emergency Medicine

== ENCOUNTER 2019-07-10 08:42 | Inpatient (IN) ==
[2019-07-10] MEDS ORDERED: DUONEB (A & A) INH ONE (09:20)
[2019-07-10] MEDS ORDERED: SOLU-MEDROL IV ONE (09:41)
--- NOTE | 2019-07-10 09:42 | PROVIDER DOCUMENTATION ---
HPI-Respiratory General - General Chief Complaint: SEPSIS ALERT - D Stated Complaint: SOB Time Seen by Provider: 07/10/19 09:30 Source: patient Allergies/Adverse Reactions: Patient Allergies Allergy/AdvReac Type Severity Reaction Status Date / Time codeine AdvReac Unknown Verified 07/10/19 10:18 Home Medications: Home Medication List Medication Instructions Recorded Confirmed Last Taken Type Albuterol Sulfate [Ventolin] 5 mg IH PRN PRN 06/09/12 07/10/19 07/10/19 History Alprazolam [Xanax] 0.5 mg PO BID 06/09/12 07/10/19 07/09/19 History Budesonide/Formoterol Inhaler 2 puff INH DAILY 06/09/12 07/10/19 07/09/19 History [Symbicort 160/4.5 Microgm Inhaler] Montelukast [Singulair] 10 mg PO DAILY #0 tablet 06/14/12 07/10/19 07/09/19 Rx Albuterol 2.5MG/Ipratrop 0.5MG 3 ml INH RTTID #0 neb 11/12/16 07/10/19 04/20/19 06:30 Rx [Duoneb (A & A)] Potassium Chloride 40 meq PO BID 04/03/18 07/10/19 07/09/19 History Apixaban [Eliquis] 5 mg PO BID 02/23/19 07/10/19 07/09/19 History Acetaminophen [Tylenol] 650 mg PO Q4H PRN PRN tab 02/28/19 07/10/19 Unknown Rx Tramadol [Ultram] 50 mg PO Q6H PRN PRN #30 tab 04/20/19 07/10/19 Unknown Rx Furosemide [Lasix] 40 mg PO BID@0800,1400 04/22/19 07/10/19 07/09/19 History Diltiazem C.d. [Cardizem Cd] 240 mg PO DAILY 30 Days #30 cap 05/03/19 07/10/19 07/09/19 Rx Guaifenesin E.r. [Mucinex] 1 tab PO BID 07/10/19 07/10/19 07/09/19 History - History of Present Illness-Resp Nature of Presenting Problem: Patient is an 84 yowf who complains of SOB since walking to the bathroom this morning. Hx of COPD, on home O2 at 5L/min. Denies chest pain, cough, fever, or any other complaints. Review of Systems - Adult - REVIEW OF SYSTEMS - ADULT Constitutional: reports: no symptoms reported. denies: chills, fever Eyes: reports: no symptoms reported Ears, Nose, Mouth & Throat: reports: no symptoms reported Cardiovascular: reports: no symptoms reported Respiratory: reports: see HPI Gastrointestinal: reports: no symptoms reported Genitourinary: reports: no symptoms reported Musculoskeletal: reports: no symptoms reported Integumentary: reports: no symptoms reported Neurological: reports: no symptoms reported Psychiatric: reports: no symptoms reported Endocrine: reports: no symptoms reported Hematologic/Lymphatic: reports: no symptoms reported Allergic/Immunologic: reports: no symptoms reported All Other Systems: Reviewed and Negative Past History - Adult - PAST MEDICAL HISTORY-ADULT Review of Records: reports: Old Records Reviewed, Nursing Assessment Review, Medications Reviewed, Social history reviewed & non-contributory. Major Childhood Illnesses: reports: denies history Cardiovascular: reports: A-Fib, HTN Respiratory: reports: COPD Gastrointestinal: reports: denies history Obstetrical/Gynecological: reports: denies history Genitourinary: reports: denies history Musculoskeletal: reports: denies history Neurological: reports: denies history Endocrine/Immune: reports: denies history Other Conditions: reports: denies history - PRIOR SURGERIES/PROCEDURES Surgical/Procedure History: reports: reviewed, not pertinent - IMMUNIZATION STATUS Childhood Immunizations: See Nurse Assessment Flu Vaccine: See Nurse Assessment - FAMILY HISTORY Family History: reviewed, not pertinent - SOCIAL HISTORY Smoking: non-smoker, quit greater than 1 year Physical Exam-General - PHYSICAL EXAM-ADULT Initial Vital Signs Reviewed: Yes - CONSTITUTIONAL General Appearance: alert, moderate distress. negative: lethargic, slow to respond - EYES Eyes: PERRL/EOMI, pink conjunctivae - HEAD, EARS, NOSE, MOUTH & THROAT HENMT: normocephalic/atraumatic, moist mucous membranes - NECK Neck: full range of motion, supple, normal inspection - RESPIRATORY Respiratory: chest non-tender, no pleuratic chest pain, respiratory distress (mild-moderate), accessory muscle use, crackles (at bases), wheezing (RUL- expiratory), other (breath sounds diminished bilaterally) - CARDIOVASCULAR Cardiovascular: normal peripheral pulses, regular rate, rhythm, no edema, no gallop, no murmur, tachycardia - GASTROINTESTINAL (ABDOMEN) Abdominal Exam: normal bowel sounds, non tender, soft - MUSCULOSKELETAL Back Exam: normal inspection Extremity: normal range of motion, non-tender, normal inspection - SKIN Integumentary: normal color, warm/dry. negative: cyanosis, diaphoresis, jaundice, mottled, pallor - NEUROLOGIC Neurologic: grossly normal, no motor/sensory deficits - PSYCHIATRIC Psych/Mental Status: normal mood/affect, normal thought content, normal thought process, oriented x 3 - HEART Score HEART Score: History: Slightly Suspicious HEART Score: ECG: Non-Specific Repolarization Disturbance/LBBB/PM HEART Score: Age: > or = 65 Years HEART Score: Risk Factors for Atherosclerotic Disease: > or = 3 Risk Factors or History of Atherosclerotic Disease HEART Score: Troponin: < or = Normal Limit Total HEART Score:: 5 Progress - PLAN OF CARE/RESULTS Progress/Plan/Lab Results: Vital Signs - 8 hr 07/10/19 08:49 07/10/19 08:51 07/10/19 09:00 Temperature 98.2 F Pulse Rate 113 H 114 H Respiratory Rate 26 H 32 H Blood Pressure 151/71 O2 Sat by Pulse Oximetry 85 L 84 L 87 L 07/10/19 09:15 07/10/19 09:30 07/10/19 09:43 Temperature Pulse Rate 110 H 110 H 109 H Respiratory Rate 24 26 H 21 Blood Pressure 146/64 O2 Sat by Pulse Oximetry 88 L 89 L 91 L 07/10/19 09:45 07/10/19 10:00 07/10/19 10:15 Temperature Pulse Rate 111 H 112 H 109 H Respiratory Rate 20 26 H 18 Blood Pressure 147/97 O2 Sat by Pulse Oximetry 92 L 89 L 90 L 07/10/19 10:30 Temperature Pulse Rate 109 H Respiratory Rate 14 Blood Pressure 139/77 O2 Sat by Pulse Oximetry 90 L Laboratory Results - last 24 hr 07/10/19 07/10/19 07/10/19 09:10 09:10 09:10 PT 14.1 INR 1.07 PTT (Actin FS) 29.3 Specimen Type Sample Site pH pCO2 pO2 HCO3 Base Excess Oxyhemoglobin ABG O2 Sat (Calculated) ABG O2 Saturation ABG Carboxyhemoglobin ABG Methemoglobin Gareth Test A-a O2 Difference Total Hemoglobin Lactate Liter Flow Blood Gas Modality FiO2 % Sodium 139 Potassium 4.2 Chloride 93 L Carbon Dioxide 41 H Anion Gap 5 BUN 12 Creatinine 0.6 Estimated GFR/1.73 m2 > 60 BUN/Creatinine Ratio 20 Glucose 125 H Calculated Osmolality 279 Calcium 9.0 Total Bilirubin 0.29 AST 14 ALT 11 Alkaline Phosphatase 78 Creatine Kinase 24 Troponin T < 0.010 Oxx-C-Ugvaieumcho Pept Total Protein 6.8 Albumin 4.3 Globulin 2.5 Albumin/Globulin Ratio 1.7 Plasma Lactate Urine Source Urine Color Urine Turbidity Urine pH Ur Specific [place] Urine Protein Ur Glucose (Stick) Ur Ketones (Stick) Urine Blood Urine Nitrite Urine Bilirubin Urobilinogen Dipstick Urine Leukocytes Urine WBC (Auto) Urine RBC (Auto) U Epithel Cells (Auto) Urine Bacteria (Auto) 07/10/19 07/10/19 07/10/19 09:10 09:20 09:58 PT INR PTT (Actin FS) Specimen Type Sample Site pH pCO2 pO2 HCO3 Base Excess Oxyhemoglobin ABG O2 Sat (Calculated) ABG O2 Saturation ABG Carboxyhemoglobin ABG Methemoglobin Gareth Test A-a O2 Difference Total Hemoglobin Lactate Liter Flow Blood Gas Modality FiO2 % Sodium Potassium Chloride Carbon Dioxide Anion Gap BUN Creatinine Estimated GFR/1.73 m2 BUN/Creatinine Ratio Glucose Calculated Osmolality Calcium Total Bilirubin AST ALT Alkaline Phosphatase Creatine Kinase Troponin T Sou-C-Urutuumpdvl Pept 1128 H Total Protein Albumin Globulin Albumin/Globulin Ratio Plasma Lactate 1.1 Urine Source CATH Urine Color YELLOW Urine Turbidity CLEAR Urine pH 6.0 Ur Specific [place] 1.024 Urine Protein 30 A Ur Glucose (Stick) NEGATIVE Ur Ketones (Stick) NEGATIVE Urine Blood NEGATIVE Urine Nitrite NEGATIVE Urine Bilirubin NEGATIVE Urobilinogen Dipstick NORMAL Urine Leukocytes NEGATIVE Urine WBC (Auto) <10 Urine RBC (Auto) 10-20 A U Epithel Cells (Auto) <10 Urine Bacteria (Auto) NEGATIVE 07/10/19 10:09 PT INR PTT (Actin FS) Specimen Type ARTERIAL Sample Site R RADIAL pH 7.37 pCO2 80 H* pO2 54 L HCO3 38.0 H Base Excess 17.1 H Oxyhemoglobin 87.6 L* ABG O2 Sat (Calculated) 15.3 ABG O2 Saturation 90.5 L ABG Carboxyhemoglobin 2.20 ABG Methemoglobin 1.1 Gareth Test YES A-a O2 Difference 131.0 Total Hemoglobin 12.4 Lactate 0.90 Liter Flow 5.0 Blood Gas Modality CANNULA FiO2 % 40.0 Sodium Potassium Chloride Carbon Dioxide Anion Gap BUN Creatinine Estimated GFR/1.73 m2 BUN/Creatinine Ratio Glucose Calculated Osmolality Calcium Total Bilirubin AST ALT Alkaline Phosphatase Creatine Kinase Troponin T Exw-G-Pqpcmucniyo Pept Total Protein Albumin Globulin Albumin/Globulin Ratio Plasma Lactate Urine Source Urine Color Urine Turbidity Urine pH Ur Specific [place] Urine Protein Ur Glucose (Stick) Ur Ketones (Stick) Urine Blood Urine Nitrite Urine Bilirubin Urobilinogen Dipstick Urine Leukocytes Urine WBC (Auto) Urine RBC (Auto) U Epithel Cells (Auto) Urine Bacteria (Auto) Orders Category Date Time Status Cardiac Monitoring DIRECTED Care 07/10/19 09:12 Active IV Insertion ORDERED Care 07/10/19 09:12 Completed Notify MD of + Sepsis Screen NOW Care 07/10/19 09:12 Active Notify Physician As Ordered Care 07/10/19 09:12 Active CHEST-1 VIEW [RAD] Stat Exams 07/10/19 09:12 Completed ABG [RESP] Routine Lab 07/10/19 10:09 Completed BLOOD CULTURE [BLDCUL] Stat Lab 07/10/19 09:16 Received BNP [PRO B-NATRIURETIC PEPTIDE] Stat Lab 07/10/19 09:10 Completed CBC WITH DIFF [HEME] Stat Lab 07/10/19 09:10 Results CK PROFILE [SP CHEM] Stat Lab 07/10/19 09:10 Completed COMPREHENSIVE METABOLIC PANEL [CHEM] Stat Lab 07/10/19 09:10 Completed LACTATE, PLASMA [CHEM] Lab 07/10/19 12:15 Uncollected LACTATE, PLASMA [CHEM] Lab 07/10/19 15:15 Uncollected LACTATE, PLASMA [CHEM] Q3H Lab 07/10/19 09:20 Completed PROTIME WITH INR [COAG] Stat Lab 07/10/19 09:10 Completed PTT [COAG] Stat Lab 07/10/19 09:10 Completed TROPONIN T Stat Lab 07/10/19 09:10 Completed URINALYSIS W/POSS RFLX CULT [URINALYSIS] Stat Lab 07/10/19 09:58 Completed Albuterol 2.5MG/Ipratrop 0.5MG [Duoneb (A & A)] Med 07/10/19 09:20 Discon tinued 3 ml INH NOW ONE CefTRIAXONE [Rocephin] 1 gm Med 07/10/19 10:12 Discontinued 0.9% Sodium Chloride Inj [Ns] 50 ml IV NOW Methylprednisolone Sod Succ [Solu-Medrol] Med 07/10/19 09:41 Discontinued 125 mg IV NOW ONE Aerosol Treatments Routine Oth 07/10/19 09:23 Completed Aerosol Treatments Stat Ot 07/10/19 09:23 Completed BIPAP Stat Ot 07/10/19 10:26 Active Oxygen Device Stat Ot 07/10/19 09:12 Completed Result Diagrams: 07/10/19 09:10 07/10/19 09:10 - EKG 1 Time of EKG reading by physician:: 08:56 EKG Read and Signed by:: Socrates Briggs EKG Interpretation (*Must complete 3 of following elements*): Abnormal Rate: 111 Rhythm: sinus tachycardia with occ. PVCs, nonspecific ST abnormality - XRAY 1 XRAY Study: Chest ([facility] - [address] [facility], [address] [address] [place] [id number] [facility] - [address] [place] [address] Department of Imaging Patient: ANN LAMB Date: 07/10/19#: [id number] : 7ADM Status[id number] Age/Sex: 84/FRoom/Bed: Loc: ED Ordering Physician: Socrates Briggs MD Family Physician: Gareth Franco MD Reason for Procedure: shortness of breath Signed EXAM: CHEST-1 VIEW INDICATION: shortness of breath TECHNIQUE: One view COMPARISON: 05/03/2019 FINDINGS: There is stable advanced COPD. There is a stable small effusion at the right lung base with adjacent right basilar ate lectasis and/or infiltrate. There are several scattered calcified granulomata. There is mild diffuse interstitial thickening similar to previous studies and likely chronic. However, there could be a component of interstitial edema. No pneumothorax is identified. Cardiac silhouette is unremarkable. IMPRESSION: 1.Stable small right pleural effusion with adjacent right basilar atelectasis and/or infiltrate. 2.Mild interstitial thickening diffusely similar to previous studies. Electronically signed by Jass Rashid 07/10/2019 10:08 AM 07/10/19 1008 Interpreting Physician: Jass Rashid MD Dictated Date/Time: 07/10/19 1005 cc: Socrates Briggs MD; Gareth Franco MD) - CONSULTS/PCP/HOSPITALIST Notification #1 *Consult/PCP/Hospitalist*: Dr. Franco Time Discussed: 11:03 Reason/Comments: admission- COPD exacerbation, CAP Consult Disposition: Will see in ED, Admit Departure - Departure Date of Disposition Decision: 07/10/19 Time of Disposition Decision: 11:04 DIAGNOSIS: COPD exacerbation COPD (chronic obstructive pulmonary disease) Qualifiers: COPD type: unspecified COPD Qualified Code(s): J44.9 - Chronic obstructive pulmonary disease, unspecified Pneumonia Qualifiers: Pneumonia type: due to unspecified organism Laterality: right Lung location: lower lobe of lung Qualified Code(s): J18.1 - Lobar pneumonia, unspecified organism Disposition: ADMITTED INPATIENT 09 Certified Medical Emergency: Emergent Condition: Serious Referrals and Follow-Ups: Gareth Franco MD [Primary Care Provider] - - Critical Care Note This patient required my direct & personal management of CC.: No Attestation - Physician/ JEREMIAH Attestation Patient care was provided by Advanced Practice Provider:: Yes Advanced Practice Provider:: Rosy Sanz Advanced Practice Provider documentation review:: The Mid-level provider documentation, treatment plan and medical decision making was reviewed by the physician who agrees with all treatment and medical decision making by the MLP. The physician spent face to face time with patient:: No Advanced Practice Provider documentation review:: Supervising physician onsite and consulted in the evaluation and care of this patient. The physician did not have a face to face encounter with the patient.
[2019-07-10 09:47] LABS: INR 1.07; PROTIME 14.1 Seconds (11.0-16.0)
[2019-07-10 09:48] LABS: PTT 29.3 Seconds (22.3-41.8)
[2019-07-10 09:56] LABS: ESTIMATED GFR > 60
[2019-07-10 10:09] LABS: AGAP 5; ALB/GLOB RATIO 1.7; ALBUMIN 4.3 g/dL (3.5-5.0); ALKALINE PHOSPHATASE 78 U/L (32-104); BUN 12 mg/dL (8-22); CHLORIDE 93 mmol/L (98-107); CK PROFILE 24 U/L (24-173); COSMO 279; CREATININE 0.6 mg/dL (0.5-0.9); GLUCOSE 125 mg/dL (70-104); GOT 14 U/L (10-30); GPT 11 U/L (10-36); POTASSIUM 4.2 mmol/L (3.5-5.1); SODIUM 139 mmol/L (136-145); TCO2 41 mmol/L (25-35); TOTAL BILIRUBIN 0.29 mg/dL (0.20-1.00); TOTAL PROTEIN 6.8 g/dL (6.3-8.3)
--- NOTE | 2019-07-10 10:11 | Diag Imaging Result Doc PS360 ---
EXAM: CHEST-1 VIEW INDICATION: shortness of breath TECHNIQUE: One view COMPARISON: 05/03/2019 FINDINGS: There is stable advanced COPD. There is a stable small effusion at the right lung base with adjacent right basilar atelectasis and/or infiltrate. There are several scattered calcified granulomata. There is mild diffuse interstitial thickening similar to previous studies and likely chronic. However, there could be a component of interstitial edema. No pneumothorax is identified. Cardiac silhouette is unremarkable. IMPRESSION: 1.Stable small right pleural effusion with adjacent right basilar atelectasis and/or infiltrate. 2.Mild interstitial thickening diffusely similar to previous studies. Electronically signed by Jass Rashid 07/10/2019 10:08 AM
[2019-07-10] MEDS ORDERED: ROCEPHIN 1 GM in NS 50 ML IV ONE (10:12)
[2019-07-10 10:13] LABS: URINE SOURCE CATH
[2019-07-10 10:19] LABS: ALLEN TEST YES; BE 17.1 mmoll (-3.0-3.0); BLOOD TYPE ARTERIAL; METHB 1.1 % (0.0-1.5); O2(CT) 15.3 mL/dL (15.0-23.0); PO2(98.6) 54 mmHg (60-100); SAMPLE BLOOD; SAO2 90.5 % (95.0-100.0); THB 12.4 g/dL (11.5-17.4); pH(98.6) 7.37 (7.35-7.45)
[2019-07-10 10:20] LABS: BILIRUBIN URINE NEGATIVE (NEGATIVE); BLOOD URINE NEGATIVE (NEGATIVE); COLOR YELLOW; GLUCOSE URINE NEGATIVE (NEGATIVE); KETONE URINE NEGATIVE (NEGATIVE); LEUKOCYTES URINE NEGATIVE (NEGATIVE); NITRITE URINE NEGATIVE (NEGATIVE); PROTEIN URINE 30 mg/dL (NEGATIVE); SP GRAVITY URINE 1.024; TURBIDITY URINE CLEAR (CLEAR); UROBILINOGEN URINE NORMAL (NORMAL)
[2019-07-10 10:21] LABS: UR EPITHELIAL CELLS <10 /HPF (<10); URINE BACTERIA NEGATIVE /HPF; URINE WBC <10 /HPF (<10)
[2019-07-10 10:22] LABS: MODALITY CANNULA; O2HB 87.6 % (95.0-99.0); PCO2(98.6) 80 mmHg (35-45)
[2019-07-10] MEDS ORDERED: ATIVAN IV ONE (11:22)
[2019-07-10] MEDS ORDERED: ZOFRAN IV PRN (11:36)
[2019-07-10] MEDS ORDERED: TYLENOL PO PRN ×2 (11:36→14:19)
[2019-07-10 11:43] LABS: BASO# 0.02 X1000 (0.0-0.2); BASO% 0.3 % (0.0-0.8); EOS# 0.13 X1000 (0.0-0.7); EOS% 1.7 % (0.0-10.0); HEMATOCRIT 41.2 % (37.0-47.0); HEMOGLOBIN 12.4 g/dL (12.0-16.0); LYMPH# 1.15 X1000 (1.2-3.4); LYMPH% 14.7 % (20.5-51.1); MCH 28.7 PG (27-31); MCHC 30.1 g/dL (33-37); MCV 95.4 FL (81-99); MONO# 1.03 X1000 (0.11-0.59); MONO% 13.2 % (1.7-9.3); MPV 9.2 FL (7.4-10.4); NEUT# 5.47 X1000 (1.4-6.5); NEUT% 70.1 % (42.2-75.2); PLT 194 X1000 (130-400); RBC 4.32 XMIL (4.2-5.4); RDW 15.6 % (11.5-14.5)
[2019-07-10] MEDS ORDERED: ROCEPHIN 1 GM in NS 50 ML IV SCH (11:45)
[2019-07-10] MEDS ORDERED: SOLU-MEDROL IV SCH (11:45)
--- NOTE | 2019-07-10 12:24 | HISTORY AND PHYSICAL ---
HISTORY OF PRESENT ILLNESS: This is an 84-year-old patient of mine who, for the last couple days, has become more short of breath. This morning she was going to the bathroom, she felt she just was not moving air, could not breathe and called 911 and came to the emergency room. She is followed by Dr. Hernandez. She has end-stage COPD, chronic hypoxemia, chronic hypercapnic and she presents with a COPD exacerbation, increased CO2 retention. She has chronic pulmonary effusions and pulmonary edema and pulmonary hypertension and I suspect this is worsening cor pulmonale. She has been coughing so we will treat her for bronchitis as well and some bronchospasm. PAST MEDICAL HISTORY: 1. Severe COPD, hypoxemic, hypercapnic respiratory failure on O2 at home at 5 L. 2. Several admissions for COPD exacerbation, respiratory distress, hypoxemia, and hypercapnic respiratory failure. 3. Polycythemia secondary to COPD and years of smoking. 4. Chronic atrial fibrillation. 5. Anxiety disorder. 6. Status post cataract surgery. 7. Dyslipidemia. 8. 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 SOCIAL HISTORY: She smoked for several years. Her as well from COPD. FAMILY HISTORY: History of coronary artery disease and kidney disease. REVIEW OF SYSTEMS: General: She does not note any weight gain or loss. She has been eating fairly well until yesterday. HEENT: No change in her visual or hearing acuity. No adenopathy reported. No neck pain. Respiratory: As above, increased dyspnea, increased dyspnea with exertion, severe end-stage COPD. Cardiovascular: No chest pain or tachy palpitations. She is in chronic atrial fibrillation. Gastrointestinal and genitourinary: No gross hematuria dysuria. Musculoskeletal/Neurologic: No significant changes. Endocrinologic/hemologic: No significant history. PHYSICAL EXAMINATION: VITAL SIGNS: In the emergency room, temperature 98.2 degrees, pulse 109, respirations 14, blood pressure 139/77. Weight 142 pounds. HEENT: Pupils are equal and round. LUNGS: Prolonged expiratory phase, 1.5 to 1, almost 2 to 1 to inspiratory. She is on the BiPAP. She does not like the BiPAP, it causes her a lot of anxiety. O2 saturations were in the low 80s when she arrived to the emergency room. She has diminished breath sounds in both bases. CARDIOVASCULAR: Irregular rhythm, irregular rate consistent with chronic atrial fibrillation. ABDOMEN: Soft, nondistended, nontender. No organomegaly. NECK: She does have hepatojugular reflux. Neck veins about at 10 cm water pressure from her right atrium. SKIN: Warm and dry. LABORATORY DATA: Her sodium is 139, potassium 4.2, chloride 93, BUN 12, creatinine 0.6. Troponin is 1128. Alkaline phosphatase is 24. Protime is 14, PTT is 29. Urinalysis unremarkable. Blood gases, pH is 7.37, pCO2 is 80, PO2 is 54, and O2 saturation was 87% on 40% FiO2. IMAGING: Chest x-ray. Stable small right pleural effusion, adjacent right basilar atelectasis or questionable infiltrate, mild interstitial thickening, diffuse, similar to previous studies. ASSESSMENT AND PLAN: 1. Severe end-stage chronic obstructive pulmonary disease, chronic hypoxemia, chronic hypercapnia with I think decompensated a little further her right-sided cor pulmonale. She has some atelectasis on the film. I do not see any evidence of true infection. I will cover with Rocephin for bronchitic and respiratory a bacteria 1 g daily. We will give her some guaifenesin, put her on some Xopenex breathing treatments as well her steroid inhaler. I think she would benefit from some Solu-Medrol as well. She is already on Symbicort 160/4.5 two puffs and will do that 2 puffs twice a day. I am going to continue her Lasix IV, will give her 40 mg IV instead of p.o. q.12 . She will continue her Singulair. 2. Chronic atrial fibrillation. Rate appears controlled. Put her on monitor. 3. Anxiety. Let her have a little bit of Ativan to see if it can help her tolerate the BiPAP. 4. She takes Xanax 0.5 mg b.i.d., she is on Eliquis for her chronic atrial fibrillation and she is on Cardizem 240 mg a day. cc: Gareth Franco MD [facility]
[2019-07-10] MEDS ORDERED: ULTRAM PO PRN (14:19)
[2019-07-10] MEDS ORDERED: ALBUTEROL 0.5% INH CONC FOR HYPERKALEMIA INH PRN (14:19)
[2019-07-10] MEDS ORDERED: NS NEB INH SCH (14:45)
[2019-07-10] MEDS ORDERED: DUONEB (A & A) INH SCH (15:00)
[2019-07-10] MEDS: XOPENEX NEB INH SCH ×3 (16:08→22:37)
[2019-07-10] MEDS: LASIX IV SCH (20:01)
[2019-07-10] MEDS: KLOR-CON PO SCH (20:01)
[2019-07-10] MEDS: XANAX PO SCH (20:01)
[2019-07-10] MEDS: MUCINEX PO SCH (20:01)
[2019-07-10] MEDS: ELIQUIS PO SCH (20:01)
[2019-07-10] MEDS: SOLU-MEDROL IV SCH (21:55)
--- NOTE | 2019-07-11 01:40 | PULMONOLOGY CONSULTATION ---
DATE: 07/10/2019 REQUESTING CLINICIAN: Dr. Gareth Franco. REASON FOR CONSULTATION: COPD exacerbation. HISTORY OF PRESENT ILLNESS: Ms. Gómez is an 84-year-old white female who had been followed in my clinic for several years. The patient has end-stage COPD with chronic cor pulmonale and chronic right-sided pleural effusion. She has been qualified for a Trilogy in the past, but did not tolerate it fdc. The patient reports over the last 2 to 3 days she has had increasing upper respiratory congestion and has been unable to breathe. She is brought to the emergency room for additional evaluation and treatment. She denies cough. She denies sputum production. She denies chest pain. PAST MEDICAL HISTORY: 1. Severe COPD with chronic hypoxemic and chronic hypercapnic respiratory failure. 2. Chronic cor pulmonale. 3. Polycythemia. 4. Atrial fibrillation. 5. Anxiety disorder. 6. Status post removal of a skin cancer from the left shoulder in April. 7. Recent treatment for a giant bullous hematoma on the left lower extremity. 8. Dyslipidemia. 9. Cataract surgery. SOCIAL HISTORY: The patient is a . 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 She has not smoked for several years. REVIEW OF SYSTEMS: As noted in the HPI, but is otherwise negative. PHYSICAL EXAMINATION: General: Reveals a chronically ill-appearing female with mild work of breathing. Vital Signs: Blood pressure 132/77, heart rate 109, respiratory rate 24, oxygen saturation 96% on 50% face mask. HEENT: Pupils are equal and reactive. Oropharynx is clear. Neck: Supple. Chest: Reveals diminished breath sounds right base. She has prolonged expiratory phase bilaterally. Cardiac: Distant heart sounds. Irregular irregular rhythm. Abdomen: Soft. Extremities: Reveal mild cyanosis. LABORATORIES: Chest x-ray reveals advanced COPD with stable effusion at the right base. She may have a component of edema. White blood count 7.8, hemoglobin 12.4, platelet count 194,000. Arterial blood gas reveals a pH of 7.37, pCO2 of 80, pO2 of 54 on 5 L per nasal cannula. IMPRESSION: An 84-year-old with: 1. Acute hypoxemic respiratory failure. 2. Chronic hypoxemic respiratory failure. 3. Chronic hypercapnic respiratory failure. 4. Acute cor pulmonale. 5. Chronic right-sided pleural effusion. 6. Atrial fibrillation. PLAN: 1. Increase oxygen as needed to maintain saturation greater than 90%. 2. Agree with current steroid, antibiotic and nebulizer regimen. 3. Agree with a trial of diuretics. Historically, she does not appear to be fluid overloaded, but in similar situation she has diuresed significant amounts in the past. cc: MD Gareth Junior MD
[2019-07-11 06:10] LABS: EOS# 0.01 X1000 (0.0-0.7); EOS% 0.4 % (0.0-10.0); HEMATOCRIT 40.1 % (37.0-47.0); HEMOGLOBIN 11.8 g/dL (12.0-16.0); LYMPH# 0.32 X1000 (1.2-3.4); LYMPH% 12.6 % (20.5-51.1); MCH 27.6 PG (27-31); MCHC 29.4 g/dL (33-37); MCV 93.7 FL (81-99); MONO% 7.9 % (1.7-9.3); MPV 8.9 FL (7.4-10.4); NEUT# 2.01 X1000 (1.4-6.5); NEUT% 79.1 % (42.2-75.2); PLT 192 X1000 (130-400); RBC 4.28 XMIL (4.2-5.4); RDW 15.1 % (11.5-14.5); WBC 2.54 X1000 (4.8-10.8)
[2019-07-11 06:43] LABS: AGAP 8; ALB/GLOB RATIO 1.1; ALBUMIN 3.4 g/dL (3.5-5.0); ALKALINE PHOSPHATASE 73 U/L (32-104); BUN 15 mg/dL (8-22); CALCIUM 9.2 mg/dL (8.8-10.2); CHLORIDE 94 mmol/L (98-107); COSMO 285; CREATININE 0.5 mg/dL (0.5-0.9); ESTIMATED GFR > 60; GLUCOSE 157 mg/dL (70-104); GOT 10 U/L (10-30); GPT 10 U/L (10-36); MAGNESIUM 2.4 mg/dL (1.5-2.7); POTASSIUM 4.3 mmol/L (3.5-5.1); SODIUM 141 mmol/L (136-145); TCO2 39 mmol/L (25-35); TOTAL BILIRUBIN 0.23 mg/dL (0.20-1.00); TOTAL PROTEIN 6.5 g/dL (6.3-8.3)
[2019-07-11] MEDS ORDERED: PRILOSEC PO SCH (07:00)
--- NOTE | 2019-07-11 08:02 | Diag Imaging Result Doc PS360 ---
EXAM: CHEST-PORTABLE INDICATION: COPD exacerbation TECHNIQUE: One view COMPARISON: 07/10/2019 FINDINGS: The effusion at the right lung base with adjacent atelectasis and/or infiltrate is approximately stable. No new consolidation is identified. Cardiac silhouette is stable. IMPRESSION: Grossly stable chest. Electronically signed by Jass Rashid 07/11/2019 7:59 AM
[2019-07-11] MEDS: LASIX IV SCH ×2 (08:17→20:20)
[2019-07-11] MEDS: KLOR-CON PO SCH ×2 (08:17→20:20)
[2019-07-11] MEDS: CARDIZEM CD PO SCH (08:17)
[2019-07-11] MEDS: SOLU-MEDROL IV SCH ×3 (08:17→22:05)
[2019-07-11] MEDS: ROCEPHIN 1 GM in NS 50 ML IV SCH ×2 (08:17→09:14)
[2019-07-11] MEDS: XANAX PO SCH ×2 (08:17→20:20)
[2019-07-11] MEDS: MUCINEX PO SCH ×2 (08:17→20:20)
[2019-07-11] MEDS: ELIQUIS PO SCH ×2 (08:17→20:20)
[2019-07-11] MEDS: SINGULAIR PO SCH (08:17)
[2019-07-11] MEDS: XOPENEX NEB INH SCH ×5 (08:52→22:31)
[2019-07-11] MEDS: SYMBICORT 160/4.5 MICROGM INHALER INH SCH ×2 (08:52→19:27)
--- NOTE | 2019-07-11 13:55 | PROGRESS NOTE ---
DATE: 07/11/2019 She is breathing better, feels a little better. She does not like the face mask and does not like the BiPAP. Dr. Hernandez has seen her. She remains afebrile. Temperature 96.9 degrees, pulse 99, respirations 18, blood pressure 120/63. Pupils are equal and round. Lungs are clear in all lung reyes. Cardiovascular Examination: Regular rhythm and rate without murmur or S3. Urine output was a little over 3 L. Chest x-ray from this morning, effusion in the right lung base, adjacent atelectasis, questionable infiltrate. No new consolidation seen from yesterday. ASSESSMENT AND PLAN: 1. Acute hypoxemic respiratory failure, chronic hypoxemic respiratory failure, chronic hypercapnic respiratory failure, acute cor pulmonale, chronic right-sided pleural effusion with underlying atrial fibrillation. Rate is controlled. Continue to try to maintain her saturations greater than 90%. She is on steroid, antibiotic, and nebulized treatment. We will try a trial of diuretic. She does not appear to be fluid overload. We have her on guaifenesin to thin out secretions. Her atrial fibrillation is chronic and the rate is controlled. PHYSICAL EXAMINATION: Today, temperature 96.9 degrees, pulse 99, respirations 18, blood pressure 120/60. Pupils are equal and round. CVP is about 10 cm water pressure from the right atrium. Lungs are clear with decreased breath sounds at both bases, anterolateral. Cardiovascular Examination: Regular rhythm and rate without murmur or S3. Abdomen is soft. Skin is warm and dry. There is no pedal edema. She has chronic venous pigmented dermatosis. Her urine output from last night was close to 1400 mL. REVIEW OF HER ORDERS AND LAB: I do not see any change. Appreciate Dr. Hernandez's help. cc: Gareth Franco MD
--- NOTE | 2019-07-11 14:43 | EKG Report ---
Test Performed on : 07/11/2019 06:22:48 AM Test Reason : chest pain Blood Pressure : / mmHG Vent. Rate : 096 BPM Atrial Rate : 087 BPM P-R Int : 000 ms QRS Dur : 074 ms QT Int : 336 ms P-R-T Axes : 000 076 065 degrees QTc Int : 424 ms Atrial fibrillation. Septal infarct , age undetermined Abnormal ECG When compared with ECG of 10-JUL-2019 08:54, (Unconfirmed) Atrial fibrillation. has replaced Sinus rhythm. T wave amplitude has decreased in Lateral leads Confirmed by Jackson ULRICH, P.J.M ([id number]) on 07/12/2019 6:31:27 PM
--- NOTE | 2019-07-12 01:53 | PULMONOLOGY PROGRESS NOTE ---
DATE: 07/11/2019 SUBJECTIVE: The patient is awake, alert, and conversant. She reports her breathing has improved. She has transitioned back over to the nasal cannula. She reports her breathing has improved. OBJECTIVE: Vital Signs: The patient has been afebrile for the last 24 hours. Blood pressure 120/63, heart rate 99, respiratory rate 18, oxygen saturation 95% on 5 L. HEENT: Pupils are equal and reactive. Oropharynx appears Neck: Supple. Chest: Reveals decreased breath sounds right base. Cardiac: S1-S2. Abdomen: Soft. Extremities: Unchanged. LABORATORIES: Chest x-ray reveals continued effusions/volume loss in the right hemithorax. Blood cultures reveal no new data. IMPRESSION: An 84-year-old with: 1. Acute hypoxemic respiratory failure. 2. 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 3. Acute on chronic cor pulmonale. 4. Chronic right-sided pleural effusion. 5. Atrial fibrillation. DISCUSSION: An 84-year-old with problems outlined above. Clinically, she is marginally improved over the last 24 hours. PLAN: 1. Continue current steroid, antibiotic and nebulizer regimen. 2. Continue oxygen. 3. Diuretics as tolerated. cc: MD Gareth Junior MD
[2019-07-12] MEDS: XOPENEX NEB INH SCH ×5 (07:41→22:49)
[2019-07-12] MEDS: SYMBICORT 160/4.5 MICROGM INHALER INH SCH ×2 (07:43→19:22)
[2019-07-12] MEDS: KLOR-CON PO SCH ×2 (08:29→20:21)
[2019-07-12] MEDS: ELIQUIS PO SCH ×2 (08:29→20:21)
[2019-07-12] MEDS: CARDIZEM CD PO SCH (08:29)
[2019-07-12] MEDS: SINGULAIR PO SCH (08:29)
[2019-07-12] MEDS: XANAX PO SCH ×2 (08:29→20:21)
[2019-07-12] MEDS: ROCEPHIN 1 GM in NS 50 ML IV SCH ×2 (08:30→09:13)
[2019-07-12] MEDS: LASIX IV SCH ×2 (08:30→20:20)
[2019-07-12] MEDS: MUCINEX PO SCH ×2 (08:30→20:20)
[2019-07-12] MEDS: SOLU-MEDROL IV SCH ×3 (08:30→21:50)
--- NOTE | 2019-07-12 09:20 | EKG Report ---
Test Performed on : 07/10/2019 08:54:08 AM Test Reason : SOB Blood Pressure : / mmHG Vent. Rate : 111 BPM Atrial Rate : 111 BPM P-R Int : 126 ms QRS Dur : 076 ms QT Int : 298 ms P-R-T Axes : 038 091 056 degrees QTc Int : 405 ms Sinus tachycardia. with premature supraventricular complexes. and with occasional premature ventricul ar complexes. and fusion complexes Rightward axis Nonspecific ST abnormality Abnormal ECG When compared with ECG of 28-APR-2019 08:59, Sinus rhythm. has replaced Atrial fibrillation. T wave amplitude has increased in Lateral leads Unconfirmed Result
--- NOTE | 2019-07-12 15:59 | PROGRESS NOTE ---
DATE: 07/12/2019 SUBJECTIVE: Ms. Gómez is breathing better. She feels better. OBJECTIVE: Vital Signs: Remains afebrile, temperature 98.2 degrees, pulse 93, respirations 24 and blood pressure 110/63. Eyes: Pupils are equal. Neck: No distended neck veins. Lungs: Clear in all lung reyes. Cardiovascular exam: Regular rhythm and rate without murmur or S3. : Urine output is 2200 mL. ASSESSMENT AND PLAN: 1. Acute hypoxemic respiratory failure, chronic hypoxemic. Chronic hypercapnic respiratory failure, acute on chronic cor pulmonale, chronic right-sided pleural effusion with underlying chronic atrial fibrillation. She seems to be more comfortable. Oxygenation is improved, and her lab from yesterday reviewed. We will check electrolytes again in the morning and repeat another chest x-ray. Her plan is to continue current steroid antibiotic, nebulize regimen. Continue oxygen and diuresis. She is on ceftriaxone 1 g q. 24 hours, diltiazem CD 240 mg daily, Lasix 40 mg IV q. 12 hours, guaifenesin ER 600 mg b.i.d., methylprednisone 40 mg IV q. 12 hours, Singulair 10 mg daily, potassium chloride 40 mEq b.i.d. She has tramadol for pain and she is on her Xanax 0.5 mg b.i.d., Eliquis 5 mg b.i.d., budesonide formoterol 2 puffs inhalation b.i.d. cc: Gareth Franco MD
--- NOTE | 2019-07-12 16:17 | Diag Imaging Result Doc PS360 ---
CHEST-2 VIEWS - 07/12/2019 INDICATION: copd, pleural effusion COMPARISON: 07/11/2019 FINDINGS: There has been decrease in the right basilar pleural effusion. There are significant bilateral infiltrates in the lung bases. There is advanced COPD. There is cardiomegaly and pulmonary vascular congestion. IMPRESSION: Improvement in the right basilar pleural effusion. Bibasilar infiltrate/pneumonia. Electronically signed by Keegan Elizabeth 07/12/2019 4:15 PM
[2019-07-13 06:56] LABS: ESTIMATED GFR > 60
[2019-07-13 07:07] LABS: AGAP 8; BUN 25 mg/dL (8-22); CALCIUM 9.1 mg/dL (8.8-10.2); CHLORIDE 94 mmol/L (98-107); COSMO 295; CREATININE 0.6 mg/dL (0.5-0.9); GLUCOSE 205 mg/dL (70-104); MAGNESIUM 2.5 mg/dL (1.5-2.7); POTASSIUM 4.7 mmol/L (3.5-5.1); SODIUM 143 mmol/L (136-145); TCO2 41 mmol/L (25-35)
[2019-07-13] MEDS: SYMBICORT 160/4.5 MICROGM INHALER INH SCH (07:54)
[2019-07-13] MEDS: XOPENEX NEB INH SCH ×2 (07:55→11:21)
[2019-07-13] MEDS: XANAX PO SCH (08:05)
[2019-07-13] MEDS: ELIQUIS PO SCH (08:06)
[2019-07-13] MEDS: SINGULAIR PO SCH (08:06)
[2019-07-13] MEDS: MUCINEX PO SCH (08:06)
[2019-07-13] MEDS: LASIX IV SCH (08:06)
[2019-07-13] MEDS: CARDIZEM CD PO SCH (08:06)
[2019-07-13] MEDS: KLOR-CON PO SCH (08:06)
--- NOTE | 2019-07-13 08:56 | PULMONOLOGY PROGRESS NOTE ---
DATE: 07/12/2019 SUBJECTIVE: The patient is awake, alert, and conversant. She is currently looking out the window. She reports her breathing has significantly improved. OBJECTIVE: Vital Signs: The patient has been afebrile for the last 24 hours. Blood pressure 119/86, heart rate 102, respiratory rate 24, oxygen saturation 99% on 5 L per nasal cannula. HEENT: Pupils are equal and reactive. Oropharynx appears clear. Neck is supple. Chest reveals better air flow at the right base. Cardiac Examination: S1-S2. Abdomen is soft. Extremities are without edema. Laboratories: Chest x-ray reveals decrease in right basilar effusion. IMPRESSION: An 84-year-old with: 1. Acute hypoxemic respiratory failure. 2. Chronic hypoxemic respiratory failure. 3. Chronic hypercapnic respiratory failure. 4. Acute on chronic cor pulmonale. 5. Chronic right-sided pleural effusion. 6. Atrial fibrillation. DISCUSSION: An 84-year-old with problems outlined above. She continues to improve and now is pushing to go home. PLAN: 1. Continue diuretics as tolerated. 2. Continue antibiotics, steroids, and nebulizer therapy. 3. Continue oxygen. 4. Hopefully discharge home in the next few days. cc: MD Gareth Junior MD
[2019-07-13] MEDS: SOLU-MEDROL IV SCH (09:27)
[2019-07-13] MEDS: ROCEPHIN 1 GM in NS 50 ML IV SCH (09:27)
[2019-07-13 11:55] VITALS: BP 118/79
--- NOTE | 2019-07-13 13:14 | DISCHARGE SUMMARY ---
ADMISSION DATE: 07/10/2019 DISCHARGE DATE: HISTORY OF PRESENT ILLNESS: Ms. Gómez, an 84-year-old, patient of mine for a long time, was admitted on 07/10/2019. For the last couple of days has become more short of breath, was going to the bathroom, and she felt she just could not move air, called 911, came to the emergency room. She has end-stage COPD with chronic hypoxemia, chronic hypercapnia, and felt this was COPD exacerbation, increased mucus drainage, and possibly some mucus plugging. She has pulmonary hypertension secondary to her COPD, and suspect this was decompensated cor pulmonale. PAST MEDICAL HISTORY: 1. Severe COPD, hypoxemic hypercapnic respiratory failure, on home O2 at 5 L per nasal cannula. 2. Several admissions for COPD exacerbation, respiratory distress, hypoxemia, hypercapnic respiratory failure. 3. Polycythemia secondary to COPD and years of smoking. 4. Chronic atrial fibrillation. 5. Anxiety disorder. 6. Status post cataract surgery. 7. Dyslipidemia. 8. Hematoma of the left leg that has healed up. 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 SOCIAL HISTORY: Smoked for several years. also from COPD. FAMILY HISTORY: History of coronary artery disease and kidney disease. REVIEW OF SYSTEMS: In general, was mainly to do with respiratory. No fever or chills. ADMISSION DIAGNOSES: 1. Severe end-stage chronic obstructive pulmonary disease, chronic hypoxemia, chronic hypercapnia, decompensated right-sided cor pulmonale, and she has chronic pleural effusions. Was admitted, started on Xopenex breathing treatments and some bilevel positive airway pressure and supplementary oxygen, and we did diurese her with some intravenous Lasix, 40 mg intravenously every 12 hours. 2. She has chronic atrial fibrillation. Rate was controlled. 3. History of anxiety. She would continue her Xanax, and she takes 0.5 mg twice daily. HOSPITAL COURSE: She is on Eliquis for atrial fibrillation. She showed steady improvement. Dr. Hernandez is her spike machine feeder, and we just increased her oxygen needed to maintain saturation greater than 90%, and started her on a little bit of Solu-Medrol nebulized regimen, as well as her steroid inhaler, and she showed steady improvement in air and gas exchange. Chest x-ray on 07/11/2019 was stable, right lung base with adjacent atelectasis, infiltrate is approximately stable, and her oxygen saturations actually got up in the high 90s, and she felt much better, was eating, bowels moving, wanted to go home on 07/13/2019. We will discharge her home and continue her home medications. DISCHARGE MEDICATIONS: She takes Tylenol 650 mg every 4 hours p.r.n., she is on DuoNeb inhalers at home, and Ventolin inhaler as needed, Xanax 0.5 mg b.i.d., Eliquis 5 mg b.i.d., Symbicort 160/4.5 two puffs daily, Cardizem CD 240 mg daily, she takes Lasix 40 mg p.o. b.i.d., guaifenesin she takes 1 tablet b.i.d., and Singulair 10 mg a day, potassium chloride 40 mEq twice a day, and tramadol 50 mg every 6 hours p.r.n. She will stay on her 5 L nasal cannula. FOLLOWUP: Follow up back in my office in a couple of weeks. cc: Gareth Franco MD
== END 2019-07-13 13:49 | disposition home health service (06) | DRG 190 ==
LOC: SUPCPDRO → ED 08:42 → 2N 13:11
PROVIDERS: ADMIT Emergency Medicine; ATTEND Emergency Medicine

== ENCOUNTER 2019-08-05 11:00 | Inpatient (IN) ==
[2019-08-05] MEDS ORDERED: PULMICORT INH ONE (11:50)
[2019-08-05] MEDS ORDERED: SOLU-MEDROL IV ONE (11:50)
[2019-08-05] MEDS ORDERED: ALBUTEROL NEB INH ONE (11:50)
[2019-08-05] MEDS ORDERED: DUONEB (A & A) INH ONE (11:50)
--- NOTE | 2019-08-05 12:25 | Diag Imaging Result Doc PS360 ---
CHEST-1 VIEW - 08/05/2019 INDICATION: SOB COMPARISON: 07/12/2019 FINDINGS: Lung volumes are much lower. Otherwise grossly stable cardiomegaly and pulmonary vascular congestion. Stable small to moderate right and trace left pleural effusions. There is probably worsening interstitial pulmonary edema. Stable COPD. IMPRESSION: Worsening interstitial pulmonary edema. Electronically signed by Keegan Elizabeth 08/05/2019 12:23 PM
[2019-08-05 12:48] LABS: BASO# 0.01 X1000 (0.0-0.2); BASO% 0.2 % (0.0-0.8); EOS# 0.06 X1000 (0.0-0.7); EOS% 1.2 % (0.0-10.0); HEMATOCRIT 39.3 % (37.0-47.0); HEMOGLOBIN 11.7 g/dL (12.0-16.0); LYMPH# 0.76 X1000 (1.2-3.4); LYMPH% 15.2 % (20.5-51.1); MCH 28.2 PG (27-31); MCHC 29.8 g/dL (33-37); MCV 94.7 FL (81-99); MONO# 0.77 X1000 (0.11-0.59); MONO% 15.4 % (1.7-9.3); MPV 8.7 FL (7.4-10.4); NEUT# 3.41 X1000 (1.4-6.5); PLT 213 X1000 (130-400); RBC 4.15 XMIL (4.2-5.4); WBC 5.01 X1000 (4.8-10.8)
[2019-08-05] MEDS: NITROGLYCERIN TOP ONE ×2 (12:49→13:32)
[2019-08-05] MEDS: LASIX IV ONE ×2 (12:51→13:30)
[2019-08-05 14:00] LABS: AGAP 10; ALB/GLOB RATIO 1.3; ALBUMIN 3.6 g/dL (3.5-5.0); ALKALINE PHOSPHATASE 70 U/L (32-104); BUN 13 mg/dL (8-22); CALCIUM 8.7 mg/dL (8.8-10.2); CHLORIDE 91 mmol/L (98-107); COSMO 275; CREATININE 0.5 mg/dL (0.5-0.9); ESTIMATED GFR > 60; GLUCOSE 112 mg/dL (70-104); GOT 10 U/L (10-30); GPT 8 U/L (10-36); POTASSIUM 3.7 mmol/L (3.5-5.1); SODIUM 137 mmol/L (136-145); TCO2 36 mmol/L (25-35); TOTAL BILIRUBIN 0.39 mg/dL (0.20-1.00); TOTAL PROTEIN 6.4 g/dL (6.3-8.3)
[2019-08-05] MEDS ORDERED: ROCEPHIN 1 GM in NS 50 ML IV SCH (16:00)
[2019-08-05] MEDS ORDERED: TYLENOL PO PRN (16:00)
[2019-08-05] MEDS ORDERED: ULTRAM PO PRN (16:23)
[2019-08-05] MEDS ORDERED: ALBUTEROL NEB INH PRN (16:23)
--- NOTE | 2019-08-05 16:34 | HISTORY AND PHYSICAL ---
HISTORY OF PRESENT ILLNESS: Ms. Gómez was last here on July 10. She has underlying end- stage COPD. She has some pulmonary hypertension with chronic pulmonary effusion and pulmonary venous hypertension. She has underlying chronic atrial fibrillation and chronic hypercapnia, and chronic hypoxemia. She is on 5 L of O2 at home. She stated that a couple days ago she could tell she was getting more dyspnea even at rest. She came to the emergency room. She denies fever or chills. No pleuritic pain. No productive cough, but she does report postnasal drainage and a little mucosa drainage from her sinuses and nose. PAST MEDICAL HISTORY: 1. Severe COPD, hypoxemia, hypercapnia on O2 at 5 L per nasal cannula. 2. Several admissions for COPD exacerbation, respiratory distress, hypoxemia, hypercapnic respiratory failure. 3. Polycythemia secondary to COPD and years of smoking. 4. Chronic atrial fibrillation. 5. Anxiety disorder. 6. Status post cataract surgery. 7. Dyslipidemia. 8. She had a hematoma over the left leg that has healed well. 9. She has chronic venous insufficiency with chronic venous dermatosis and hyperpigmentation. SOCIAL HISTORY: Smoked for several years. from COPD as well several years ago. FAMILY HISTORY: History of coronary artery disease and kidney disease. REVIEW OF SYSTEMS: General: She denies any fever or chills. No weight gain or loss. HEENT: No change in vision or hearing acuity. No trauma to her head or recent fall. Respiratory: As above. Cardiovascular: No chest pain or tachy palpitation. Gastrointestinal: No change in her bowels. No constipation, although she does have a history of some constipation. No diarrhea. No gross hematuria or dysuria. Musculoskeletal/Neurologic: No change. No new pain or arthritic pain or focal neurologic changes Endocrinologic/hemologic: No significant history. PHYSICAL EXAMINATION: VITAL SIGNS: In the emergency room, she is afebrile. She is awake and alert, oriented x3, pleasant. Temperature 98.1 degrees, pulse 88, respirations 17, blood pressure 124/63. HEENT: Pupils are equal and round. LUNGS: Clear anterior lateral. Decreased breath sounds in both bases. Prolonged expiratory phase 1.5 to 1 inspiratory phase. CARDIOVASCULAR: Regular rhythm and rate. It appears to be irregular, consistent with her atrial fibrillation. PMI nondisplaced. Carotid, radial, femoral pulses 2+ and symmetrical. ABDOMEN: Soft, nondistended, nontender. No sign of pedal edema. Chronic venous stasis dermatosis appreciated. SKIN: No new skin rash. Hematoma on her left leg. Lower leg has healed well. No oral or nasal mucosa lesions. NECK: Supple without adenopathy. No thyromegaly. LABORATORY DATA: White count 5010, hematocrit is 39, platelet count 213,000. Sodium 137, potassium 3.7, chloride 91, BUN 13, creatinine 0.5, blood sugar 275, calcium is 8.7, magnesium is 2.0. AST 10, ALT is 8, alkaline phosphatase is 70, albumin 3.6. DIAGNOSTIC DATA: Chest x-ray, worsening interstitial pulmonary edema. Lung volumes are much lower. There is grossly stable cardiomegaly, pulmonary vasculature congestion appears to be worsening of interstitial edema. She had a myocardial perfusion scan in October 2016 and at that time her ejection fraction was 89% and normal wall motion abnormalities. It may be worth getting an echocardiogram and looking at her left ventricular function again. She had a pulmonary arteriogram in October 2016, bilateral moderate-size pleural effusion and adjacent atelectasis, severe emphysema, mild to moderate cardiomyopathy. There is no evidence of pulmonary embolism at that time, ASSESSMENT/PLAN: I am going to diurese her some with some Lasix and watch her afterload. We are going maybe try some nitroglycerin paste tonight. We will continue guaifenesin. Give her nebulized breathing treatments and beta agonists and also steroid inhaler. I will put her on some Solu-Medrol. We will ask Dr. Hernandez to follow along as well. He is her retaining room cutter. Continue Eliquis for atrial fibrillation. Rate appears controlled. Continue Cardizem CD 240 mg a day. cc: Gareth Franco MD
--- NOTE | 2019-08-05 16:42 | EKG Report ---
Test Performed on : 08/05/2019 4:21:27 PM Test Reason : CP Blood Pressure : / mmHG Vent. Rate : 089 BPM Atrial Rate : 096 BPM P-R Int : 000 ms QRS Dur : 078 ms QT Int : 366 ms P-R-T Axes : 000 063 001 degrees QTc Int : 445 ms Atrial fibrillation. with premature ventricular or aberrantly conducted complexes. Nonspecific ST abnormality Abnormal ECG When compared with ECG of 11-JUL-2019 06:22, Non-specific change in ST segment in Inferior leads Unconfirmed Result
[2019-08-05] MEDS: DUONEB (A & A) INH SCH (20:12)
[2019-08-05] MEDS: KLOR-CON PO SCH (20:47)
[2019-08-05] MEDS: ELIQUIS PO SCH (20:47)
[2019-08-05] MEDS: XANAX PO SCH (20:47)
[2019-08-05] MEDS: MUCINEX PO SCH (20:47)
[2019-08-05] MEDS ORDERED: SOLU-MEDROL IV SCH (21:00)
[2019-08-05] MEDS: SYMBICORT 160/4.5 MICROGM INHALER INH SCH (22:19)
[2019-08-06] MEDS ORDERED: LASIX IV SCH (01:00)
[2019-08-06 06:09] LABS: HEMATOCRIT 39.4 % (37.0-47.0); HEMOGLOBIN 11.9 g/dL (12.0-16.0); LYMPH# 0.35 X1000 (1.2-3.4); LYMPH% 20.5 % (20.5-51.1); MCH 28.2 PG (27-31); MCHC 30.2 g/dL (33-37); MCV 93.4 FL (81-99); MONO# 0.13 X1000 (0.11-0.59); MONO% 7.6 % (1.7-9.3); MPV 8.6 FL (7.4-10.4); NEUT# 1.23 X1000 (1.4-6.5); NEUT% 71.9 % (42.2-75.2); PLT 212 X1000 (130-400); RBC 4.22 XMIL (4.2-5.4); RDW 15.4 % (11.5-14.5); WBC 1.71 X1000 (4.8-10.8)
[2019-08-06 06:21] LABS: AGAP 12; ALB/GLOB RATIO 1.1; ALBUMIN 3.5 g/dL (3.5-5.0); ALKALINE PHOSPHATASE 69 U/L (32-104); BUN 14 mg/dL (8-22); CHLORIDE 91 mmol/L (98-107); COSMO 284; CREATININE 0.6 mg/dL (0.5-0.9); ESTIMATED GFR > 60; GLUCOSE 167 mg/dL (70-104); GOT 10 U/L (10-30); GPT 7 U/L (10-36); POTASSIUM 4.1 mmol/L (3.5-5.1); SODIUM 140 mmol/L (136-145); TCO2 37 mmol/L (25-35); TOTAL BILIRUBIN 0.29 mg/dL (0.20-1.00); TOTAL PROTEIN 6.8 g/dL (6.3-8.3)
--- NOTE | 2019-08-06 07:12 | Diag Imaging Result Doc PS360 ---
EXAM: CHEST-PORTABLE 08/06/2019 HISTORY: short of breath TECHNIQUE: AP portable at 0558 COMMENT: Compared to 08/05/2019 there is increasing right pleural fluid and volume loss. There is interstitial opacity in both lungs particularly in the left lower lobe. This may be slightly improved since the previous study. IMPRESSION: Pulmonary edema which may be slightly improved. Worsened atelectasis and pleural effusion on the right. Electronically signed by Auqilino Flores 08/06/2019 7:10 AM
[2019-08-06] MEDS ORDERED: SYMBICORT 160/4.5 MICROGM INHALER INH SCH (07:30)
[2019-08-06] MEDS: SYMBICORT 160/4.5 MICROGM INHALER INH SCH ×2 (08:32→21:40)
[2019-08-06] MEDS: DUONEB (A & A) INH SCH ×3 (08:32→21:40)
[2019-08-06] MEDS: CARDIZEM CD PO SCH (08:44)
[2019-08-06] MEDS: MUCINEX PO SCH ×2 (08:44→20:02)
[2019-08-06] MEDS: XANAX PO SCH ×2 (08:44→20:02)
[2019-08-06] MEDS: KLOR-CON PO SCH ×2 (08:44→20:02)
[2019-08-06] MEDS: SINGULAIR PO SCH (08:44)
[2019-08-06] MEDS: ELIQUIS PO SCH ×2 (08:44→20:02)
[2019-08-06] MEDS: LASIX IV SCH (14:19)
--- NOTE | 2019-08-06 14:35 | PROGRESS NOTE ---
DATE: 08/06/2019 SUBJECTIVE: Ms. Gómez says she is breathing a little better at rest, but with any exertion she is very short of breath still. Had a pretty uneventful night. OBJECTIVE: Vital Signs: Temperature 97.3 degrees, pulse 84, respirations 22, blood pressure 117/63. Eyes: Pupils are equal and round. Lungs: Lungs are clear in all lung reyes. Cardiovascular exam: Regular rhythm and rate without murmur or S3. Abdomen: Abdomen is soft. Skin: Skin is warm and dry. : Urine output is 880 mL. REVIEW OF LAB: Hematocrit is 39, hemoglobin 11.9. Electrolytes look good. ASSESSMENT AND PLAN: 1. Severe chronic obstructive pulmonary disease chronic hypoxemia, chronic hypercarbia, and has pulmonary venous hypertension with pleural effusions. I do not see any evidence of infection. We will continue guaifenesin to thin the mucus secretions. Continue bronchodilators. I am going to try and diurese her with some intravenous Lasix 40 mg intravenous every 12 hours. I have her on a little bit of Solu-Medrol. 2. Chronic atrial fibrillation. She is on Cardizem CD 240 mg a day. Rate is controlled. 3. Blood pressures look good. REVIEW OF HER ORDERS: She takes Xanax 0.5 mg b.i.d. She takes Eliquis 5 mg b.i.d., budesonide formoterol 2 puffs b.i.d., Cardizem CD 240 mg a day, guaifenesin ER 600 mg b.i.d., Singulair 10 mg a day, potassium chloride 40 mEq p.o. twice a day. Takes tramadol 50 mg q. 6 hours p.r.n., Pulmicort 0.5 mg which I am going to have her take twice a day. cc: Gareth Franco MD
[2019-08-06] MEDS ORDERED: PULMICORT INH SCH (19:30)
[2019-08-07] MEDS: LASIX IV SCH ×2 (05:45→17:15)
[2019-08-07] MEDS: DUONEB (A & A) INH SCH ×3 (08:18→21:13)
[2019-08-07] MEDS: SYMBICORT 160/4.5 MICROGM INHALER INH SCH ×2 (08:18→21:13)
[2019-08-07] MEDS: SINGULAIR PO SCH (08:54)
[2019-08-07] MEDS: MUCINEX PO SCH ×2 (08:54→20:39)
[2019-08-07] MEDS: ELIQUIS PO SCH ×2 (08:54→20:39)
[2019-08-07] MEDS: XANAX PO SCH ×2 (08:54→20:39)
[2019-08-07] MEDS: KLOR-CON PO SCH ×2 (08:54→20:39)
[2019-08-07] MEDS: CARDIZEM CD PO SCH (08:54)
--- NOTE | 2019-08-07 12:17 | PROGRESS NOTE ---
DATE: 08/07/2019 SUBJECTIVE: Ms. Gómez is doing a little better. Breathing a little better, especially at rest. OBJECTIVE: Vital Signs: Temperature 99.2 degrees, pulse 75, respirations 17, blood pressure 106/69. Eyes: Pupils are equal and round. Lungs: Clear in all lung reyes. Cardiovascular exam: Regular rhythm and rate without murmur or S3. Abdomen: Abdomen is soft. Skin: Skin is warm and dry. : Urine output was 2000 mL. X-RAYS: Chest x-ray from yesterday: Pulmonary edema which may be slightly improved, worsened atelectasis and pleural effusion on the right. ASSESSMENT AND PLAN: 1. Severe chronic obstructive pulmonary disease, chronic hypoxemia, chronic hypercapnia. She has pulmonary venous hypertension and pleural effusions. Continue to diurese. Seems to be clinically doing better. Continue guaifenesin for secretions. Her afterload looks well controlled. I have her on Solu-Medrol. 2. Atrial fibrillation. Rate is controlled. She is on Cardizem CD 240 mg a day. 3. Blood pressures look optimal. REVIEW OF HER ORDERS: She gets Xanax 0.5 mg p.o. b.i.d. for anxiety, Eliquis 5 mg b.i.d., Cardizem CD 240 mg a day, Lasix 40 mg IV q. 12 hours, guaifenesin ER 600 mg p.o. b.i.d., Singulair 10 mg a day, Ultram 50 mg p.o. q. 6 hours, potassium chloride 40 mEq p.o. b.i.d., albuterol treatments. REVIEW OF LAB: We will check another CBC and electrolytes again in the morning, and another chest x-ray in the morning. cc: Gareth Franco MD
[2019-08-08] MEDS: LASIX IV SCH ×2 (05:58→17:00)
[2019-08-08 06:23] LABS: BASO# 0.02 X1000 (0.0-0.2); BASO% 0.5 % (0.0-0.8); EOS% 2.3 % (0.0-10.0); HEMATOCRIT 39.3 % (37.0-47.0); HEMOGLOBIN 11.5 g/dL (12.0-16.0); LYMPH# 0.82 X1000 (1.2-3.4); MCH 28.1 PG (27-31); MCHC 29.3 g/dL (33-37); MCV 96.1 FL (81-99); MONO# 0.73 X1000 (0.11-0.59); MONO% 16.9 % (1.7-9.3); MPV 8.6 FL (7.4-10.4); NEUT# 2.64 X1000 (1.4-6.5); NEUT% 61.3 % (42.2-75.2); PLT 227 X1000 (130-400); RBC 4.09 XMIL (4.2-5.4); RDW 15.7 % (11.5-14.5); WBC 4.31 X1000 (4.8-10.8)
[2019-08-08 07:02] LABS: AGAP 8; BUN 19 mg/dL (8-22); CALCIUM 8.9 mg/dL (8.8-10.2); CHLORIDE 94 mmol/L (98-107); COSMO 285; CREATININE 0.6 mg/dL (0.5-0.9); ESTIMATED GFR > 60; GLUCOSE 97 mg/dL (70-104); MAGNESIUM 2.3 mg/dL (1.5-2.7); POTASSIUM 4.1 mmol/L (3.5-5.1); SODIUM 142 mmol/L (136-145); TCO2 40 mmol/L (25-35)
[2019-08-08] MEDS: SYMBICORT 160/4.5 MICROGM INHALER INH SCH ×2 (07:27→22:59)
[2019-08-08] MEDS: DUONEB (A & A) INH SCH ×4 (07:28→22:58)
[2019-08-08] MEDS: MUCINEX PO SCH ×2 (08:25→20:01)
[2019-08-08] MEDS: ELIQUIS PO SCH ×2 (08:25→20:02)
[2019-08-08] MEDS: XANAX PO SCH ×2 (08:25→20:01)
[2019-08-08] MEDS: SINGULAIR PO SCH (08:25)
[2019-08-08] MEDS: CARDIZEM CD PO SCH (08:25)
[2019-08-08] MEDS: KLOR-CON PO SCH ×2 (08:25→20:01)
--- NOTE | 2019-08-08 09:39 | Diag Imaging Result Doc PS360 ---
EXAM: CHEST-PORTABLE INDICATION: copd TECHNIQUE: One view COMPARISON: 08/06/2019 FINDINGS: Right pleural fluid collection and volume loss in the right is approximately stable. Interstitial infiltrates with a basilar predominance are grossly unchanged. No new consolidation is identified. Cardiac silhouette is stable. IMPRESSION: Stable chest. Electronically signed by Jass Rashid 08/08/2019 9:37 AM
--- NOTE | 2019-08-08 16:34 | PROGRESS NOTE ---
DATE: 08/08/2019 Ms. Gómez she says she does not feel much better than yesterday still marked dyspnea with any exertion. She feels like the weather has something to do with that. She remains afebrile, temperature 98.5 degrees, pulse 80, respirations 16, blood pressure 124/69. Pupils are equal. No distended neck veins. Lungs are clear. Decreased breath sounds both bases, no wheezing. Her expiratory phase is slightly prolonged compared inspiratory phase and does exhales with pursed lips. Urine output is 2200 mL. Chest x-ray stable chest, right pleural fluid collection, volume loss in the right is approximately stable, interstitial infiltrate, some bibasilar predominance are grossly unchanged, no new consolidation. Cardiac silhouette is stable. ASSESSMENT AND PLAN: 1. Severe chronic obstructive pulmonary disease, chronic hypoxemia, chronic hypercapnia, she has pulmonary venous hypertension, some pleural effusion, some atelectasis. Hopefully this will continue to improve. Continue to diurese her with IV Lasix. Blood pressure looks good. 2. Atrial fibrillation rate is controlled. In fact she is in sinus rhythm at this time. 3. Blood pressures appear optimal. I do not see any change in her orders. She is on guaifenesin. We are giving her duo nebs and steroid inhaler. Her lab from this morning white count 4310, hematocrit is 39, platelet count 227,000. Sodium 142, potassium 4.1, chloride 94, BUN 19, creatinine 0.6. Will get Dr. Hernandez to see her in the morning. cc: Gareth Franco MD
[2019-08-08] MEDS: TYLENOL PO PRN (22:05)
[2019-08-09] MEDS: LASIX IV SCH ×4 (03:48→17:45)
[2019-08-09] MEDS: XANAX PO SCH ×3 (07:47→20:40)
[2019-08-09] MEDS: ELIQUIS PO SCH ×3 (07:47→20:40)
[2019-08-09] MEDS: SINGULAIR PO SCH ×2 (07:47→09:41)
[2019-08-09] MEDS: CARDIZEM CD PO SCH ×2 (07:47→09:40)
[2019-08-09] MEDS: KLOR-CON PO SCH ×3 (07:48→20:40)
[2019-08-09] MEDS: MUCINEX PO SCH ×3 (07:48→20:40)
[2019-08-09] MEDS: TYLENOL PO PRN (07:54)
[2019-08-09] MEDS: SYMBICORT 160/4.5 MICROGM INHALER INH SCH ×2 (08:01→21:05)
[2019-08-09] MEDS: DUONEB (A & A) INH SCH ×4 (08:02→23:05)
[2019-08-09] MEDS ORDERED: ROCEPHIN 1 GM in NS 50 ML IV SCH (09:00)
--- NOTE | 2019-08-09 09:42 | Diag Imaging Result Doc PS360 ---
CHEST-PORTABLE - 08/09/2019 INDICATION: PNA COMPARISON: 08/08/2019 FINDINGS: Stable hyperexpanded lungs. Stable small to moderate right basilar pleural effusion. Stable interstitial infiltrates bilaterally, nonspecific but suggesting pulmonary edema. Heart size remains top normal. IMPRESSION: No change from prior. Electronically signed by Keegan Elizabeth 08/09/2019 9:40 AM
[2019-08-09 09:57] LABS: AGAP 6; ALB/GLOB RATIO 1.1; ALKALINE PHOSPHATASE 77 U/L (32-104); BUN 16 mg/dL (8-22); CALCIUM 8.9 mg/dL (8.8-10.2); CHLORIDE 86 mmol/L (98-107); COSMO 275; CREATININE 0.8 mg/dL (0.5-0.9); ESTIMATED GFR > 60; GLUCOSE 170 mg/dL (70-104); GOT 27 U/L (10-30); GPT 25 U/L (10-36); POTASSIUM 4.3 mmol/L (3.5-5.1); SODIUM 135 mmol/L (136-145); TCO2 43 mmol/L (25-35); TOTAL BILIRUBIN 0.65 mg/dL (0.20-1.00); TOTAL PROTEIN 7.8 g/dL (6.3-8.3)
[2019-08-09 09:58] LABS: BASO# 0.02 X1000 (0.0-0.2); BASO% 0.2 % (0.0-0.8); EOS# 0.03 X1000 (0.0-0.7); EOS% 0.4 % (0.0-10.0); HEMATOCRIT 45.4 % (37.0-47.0); HEMOGLOBIN 13.3 g/dL (12.0-16.0); LYMPH# 0.66 X1000 (1.2-3.4); LYMPH% 7.8 % (20.5-51.1); MCH 27.8 PG (27-31); MCHC 29.3 g/dL (33-37); MONO# 1.01 X1000 (0.11-0.59); MONO% 11.9 % (1.7-9.3); MPV 8.4 FL (7.4-10.4); NEUT# 6.76 X1000 (1.4-6.5); NEUT% 79.7 % (42.2-75.2); PLT 222 X1000 (130-400); RBC 4.78 XMIL (4.2-5.4); RDW 15.5 % (11.5-14.5); WBC 8.48 X1000 (4.8-10.8)
[2019-08-09] MEDS: SOLU-MEDROL IV SCH ×2 (10:05→16:36)
--- NOTE | 2019-08-09 17:25 | PROGRESS NOTE ---
DATE: 08/09/2019 SUBJECTIVE: She had a rough night and is not breathing as well. I had gone up on her Lasix yesterday. OBJECTIVE: General: She is awake, alert, oriented x3. Breathing comfortably at rest. Vital signs: Temperature 98.3 degrees, pulse 110, blood pressure 104/69. HEENT: Pupils are equal and round. Lungs: Clear in all lung reyes. Cardiovascular: Regular rhythm and rate without murmur or S3. Urine output is 3000 mL. IMAGING: Chest x-ray from today, no change from prior. Stable hyperexpanded lungs. Stable small to moderate right basilar pleural effusion. Stable interstitial infiltrates bilaterally suggesting pulmonary edema. ASSESSMENT AND PLAN: 1. Severe chronic obstructive pulmonary disease, chronic hypoxemic, chronic hypercapnia, pulmonary venous hypertension, some pleural effusions, atelectasis. Continue to try and diurese. Continue supplemental oxygen. Currently have her on albuterol treatments and she is on budesonide steroid inhaler 2 puffs twice a day. She is also on methylprednisone 40 mg IV q.8 and ceftriaxone 1 g q.24 hours. 2. She had a low-grade temperature. I do not see any new infiltrate, but I went and started her on ceftriaxone. 3. Nutrition is good. 4. History of atrial fibrillation. Appears to be in sinus rhythm. She is on Eliquis 5 mg p.o. b.i.d. Really no pedal edema. Neck veins are not distended. Dr. Hernandez is her video conference specialist. See if he has anything to add. She is on guaifenesin to thin the mucus out. cc: Gareth Franco MD
[2019-08-09] MEDS: MAXIPIME 1 GM in NS 50 ML IV SCH (20:48)
[2019-08-10] MEDS: SOLU-MEDROL IV SCH ×3 (00:07→17:48)
[2019-08-10] MEDS: DUONEB (A & A) INH SCH ×6 (03:20→23:09)
[2019-08-10] MEDS: LASIX IV SCH ×2 (05:30→17:48)
[2019-08-10] MEDS: TYLENOL PO PRN (05:35)
--- NOTE | 2019-08-10 07:05 | PULMONOLOGY CONSULTATION ---
DATE: 08/09/2019 REQUESTING PHYSICIAN: Dr. Franco. REASON FOR CONSULTATION: End-stage COPD, evaluate and help manage. HISTORY OF PRESENT ILLNESS: Ms. Gómez is an 84-year-old white female with end-stage COPD who was recently discharged from the hospital with an episode of cor pulmonale and fluid overload. The patient was readmitted to the hospital 08/05/2019 with increasing shortness of breath, cardiomegaly, and increasing pulmonary edema. She has been initiated on diuretics, and now appears to be diuresing. She also reports cough and yellow sputum production. She denies fevers or chills. PAST MEDICAL HISTORY: 1. Severe COPD with chronic hypoxemic and chronic hypercapnic respiratory failure. She was previously approved for a trilogy device, but refused to wear this device. 2. Chronic cor pulmonale. 3. Polycythemia. 4. Atrial fibrillation. 5. Anxiety disorder. 6. Episode of respiratory failure following removal of a skin cancer in April of this year. 7. History of giant hematoma on the left lower extremity. 8. Dyslipidemia. 9. Cataract surgery. SOCIAL HISTORY: The patient has an extensive history of tobacco. Her previously was the [facility] of this hospital. She has occasional alcohol. REVIEW OF SYSTEMS: As noted in the HPI. PHYSICAL EXAMINATION: General: Reveals a chronically ill-appearing white female who appears her stated age. Vital Signs: BP 104/69, heart rate 110, respiratory rate 22, and oxygen saturation 92% on Venturi mask. HEENT: Pupils are equal and reactive. Oropharynx appears clear. Neck: Supple. Chest: Reveals diminished breath sounds right base with prolonged expiratory phase and scattered rhonchi. Cardiac: S1-S2. Abdomen: Soft. Extremities: Reveal 1+ peripheral edema. LABORATORIES: White blood count 8.48, hemoglobin 13.3, and platelet count 222,000. Sodium 135, potassium 4.3, chloride 86, bicarbonate 43, BUN 16, and creatinine 0.8. IMPRESSION: An 84-year-old with: 1. Acute cor pulmonale. 2. Chronic pleural effusion. 3. Acute bronchitis. 4. 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 RECOMMENDATIONS: 1. Increase bronchodilators to q.4 hours. 2. Agree with antibiotics. With her long history of COPD, I would like to expand pseudomonal coverage. 3. Continue mucolytics. 4. Continue anticoagulation. 5. Encourage patient to remain in the hospital until she has reached a maximum hospital benefit. The patient continues to push for discharge with any improvement, and before she is actually ready for discharge. cc: MD Gareth Junior MD
[2019-08-10] MEDS: SYMBICORT 160/4.5 MICROGM INHALER INH SCH ×2 (07:35→19:31)
[2019-08-10] MEDS: MUCINEX PO SCH ×2 (08:31→20:38)
[2019-08-10] MEDS: XANAX PO SCH ×2 (08:31→20:38)
[2019-08-10] MEDS: KLOR-CON PO SCH ×2 (08:31→20:38)
[2019-08-10] MEDS: CARDIZEM CD PO SCH (08:32)
[2019-08-10] MEDS: SINGULAIR PO SCH (08:32)
[2019-08-10] MEDS: ELIQUIS PO SCH ×2 (08:32→20:38)
[2019-08-10] MEDS: MAXIPIME 1 GM in NS 50 ML IV SCH ×2 (08:32→20:37)
--- NOTE | 2019-08-10 09:57 | PROGRESS NOTE ---
DATE: 08/10/2019 SUBJECTIVE: Ms. Gómez I think is doing a little better. Had a better night. Breathing better at rest. OBJECTIVE: Vital signs: Temp 97.5 degrees, pulse 112, respirations 18, blood pressure 100/57. HEENT: Pupils are equal and round. CVP appears to be about 8 cm water pressure from angle of Den. Lungs: Diminished breath sounds both bases. Prolonged expiratory phase. Cardiovascular: Regular rhythm and rate without murmur or S3. Extremities: No pedal edema. She has chronic venous stasis dermatosis and dark pigmentation on lower extremities. ASSESSMENT/PLAN: 1. Acute cor pulmonale, chronic pleural effusion, acute bronchitis, chronic hypoxemic and chronic hypercapnic respiratory failure. Dr. Hernandez has increased bronchodilators q.4 hours. Continue antibiotics. 2. Long history of COPD, and so he has expanded to pseudomonal coverage or suggested we do that. 3. Continue mucolytics and then continue anticoagulation. 4. Atrial fib. Appears to be in sinus rhythm. 5. She has cefepime and was on ceftriaxone, change to cefepime. cc: Gareth Franco MD
--- NOTE | 2019-08-10 10:52 | Diag Imaging Result Doc PS360 ---
CHEST-PORTABLE - 08/10/2019 INDICATION: copd COMPARISON: 08/09/2019 FINDINGS: Stable small to moderate right basilar pleural effusion. Stable hazy interstitial infiltrates bilaterally. Stable cardiomegaly. No new infiltrates. IMPRESSION: No change from prior. Electronically signed by Keegan Elizabeth 08/10/2019 10:49 AM
--- NOTE | 2019-08-10 17:59 | PULMONOLOGY PROGRESS NOTE ---
DATE: 08/10/2019 SUBJECTIVE: The patient is awake and alert. She has a cough but her sputum production has decreased. She continues to have good urine output. Her p.o. intake is improving. OBJECTIVE: Vital Signs: The patient has been afebrile for the last 24 hours. Blood pressure 101/70, heart rate 111, respiratory rate 19, oxygen saturation 93% on Venturi mask. HEENT: Pupils are equal and reactive. Oropharynx appears clear. Neck: Supple. Chest: Reveals diminished breath sounds right base with prolonged expiratory phase. Cardiac exam: S1, S2. Abdomen: Soft. Extremities: Without edema. LABORATORIES: Chest x-ray reveals decreasing effusion on the right when compared to 08/05/2019. IMPRESSIONS: An 84-year-old with: 1. Acute bronchitis. 2. Acute cor pulmonale. 3. Chronic pleural effusion. 4. Chronic hypoxemic and hypercapnic respiratory failure. DISCUSSION: An 84-year-old with problems outlined above. Clinically, she appears to be improving on current regimen. She has had good urine output. RECOMMENDATIONS: 1. Continue current antibiotic regimen. 2. Consider decreasing Lasix dose if her blood pressure declines. 3. Continue bronchial hygiene. 4. Overall prognosis is guarded. End of life discussions have been held. cc: MD Gareth Junior MD
[2019-08-11] MEDS: SOLU-MEDROL IV SCH ×3 (00:12→17:27)
[2019-08-11] MEDS: DUONEB (A & A) INH SCH ×6 (03:17→22:47)
[2019-08-11] MEDS: LASIX IV SCH ×2 (06:05→17:27)
[2019-08-11] MEDS: SYMBICORT 160/4.5 MICROGM INHALER INH SCH ×2 (08:03→19:40)
--- NOTE | 2019-08-11 09:33 | PROGRESS NOTE ---
DATE: 08/11/2019 SUBJECTIVE: Ms. Gómez just doesn't feel good, and she is coughing, more bronchial irritation, and more thick drainage. OBJECTIVE: Temperature 98.1 degrees, pulse 98, respirations 18, and blood pressure 113/78. Pupils are equal and round. Lungs are clear in all lung reyes. Cardiovascular exam regular rhythm and rate without murmur or S3. Abdomen is soft. Skin is warm and dry. Urine output is 2200 mL. ASSESSMENT AND PLAN: 1. Acute cor pulmonale with chronic pleural effusion, acute bronchitis, chronic hypoxemia, chronic hypercapnic respiratory failure, and treating for expanded antibiotics to cover gram- negative and Pseudomonas bronchitis. She seems to be coughing up more sputum, and hopefully headed in the right direction, but she does not feel good. 2. Long history of COPD. She is on 5 L nasal cannula at home. 3. Continue mucolytics. Continue anticoagulation. 4. History of atrial fibrillation. She is in sinus rhythm. She has paroxysmal atrial fibrillation, and she is on a anticoagulant. 5. Acute bronchitis. Continue methylprednisone 40 mg IV q.8, Eliquis 5 mg b.i.d., Cardizem CD 240 mg daily. She is getting Lasix 60 mg IV q.12. 6. I am going to recheck her CBC and electrolytes in the morning. Her chest x-ray from yesterday really no change. cc: Gareth Franco MD
[2019-08-11] MEDS: MAXIPIME 1 GM in NS 50 ML IV SCH ×2 (09:36→20:20)
[2019-08-11] MEDS: XANAX PO SCH ×2 (09:36→20:20)
[2019-08-11] MEDS: KLOR-CON PO SCH ×2 (09:36→20:20)
[2019-08-11] MEDS: SINGULAIR PO SCH (09:36)
[2019-08-11] MEDS: ELIQUIS PO SCH ×2 (09:36→20:20)
[2019-08-11] MEDS: CARDIZEM CD PO SCH (09:36)
[2019-08-11] MEDS: MUCINEX PO SCH ×2 (09:40→20:20)
--- NOTE | 2019-08-11 20:42 | PULMONOLOGY PROGRESS NOTE ---
DATE: 08/11/2019 SUBJECTIVE: The patient is awake and alert. She reports her secretions are more difficult to clear today. She had a restless night. OBJECTIVE: Vital Signs: The patient has been afebrile for the last 24 hours. Blood pressure 140/88, heart rate 94, respiratory rate 20, oxygen saturation 90% on 50% Venturi mask. HEENT: Pupils are equal and reactive. Oropharynx appears clear. Neck: Is supple. Chest: Reveals scattered rhonchi bilaterally. Cardiac exam: Regular rate. Normal S1 normal S2. Abdomen: Is soft. Extremities: Reveal no significant edema. LABORATORIES: Microbiology: Sputum revealed only normal franchesca. IMPRESSION: An 84-year-old with 1. 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 2. Acute bronchitis. 3. Acute cor pulmonale. 4. Chronic pleural effusion, which fluctuates in size associated with volume status. PLAN: 1. Continue current diuretic dosing. Her output appears to be decreasing. We will check labs tomorrow. If she has not had significant increase in her BUN or creatinine, then a large dose of Lasix may be considered. If she is more pre-renal in numbers, then would continue current dosing. 2. Continue bronchial hygiene. 3. Continue oxygen. 4. The patient would benefit from BiPAP, but she refuses this device, which is her prerogative. cc: MD Gareth Junior MD
[2019-08-12] MEDS: SOLU-MEDROL IV SCH ×3 (01:28→17:40)
[2019-08-12] MEDS: DUONEB (A & A) INH SCH ×6 (04:49→22:46)
[2019-08-12] MEDS: LASIX IV SCH ×2 (05:17→17:40)
--- NOTE | 2019-08-12 06:48 | Diag Imaging Result Doc PS360 ---
CHEST-PORTABLE - 08/12/2019 INDICATION: copd COMPARISON: 08/10/2019 FINDINGS: Stable small volume of the right lung consistent with high degree of collapse. Stable opacification at the right lung base. There has been improvement in the mild infiltrate at the left lung base. No new infiltrates. IMPRESSION: 1. Stable moderate collapse of the right lung base. 2. Improvement in the faint infiltrate at the left lung base. Electronically signed by Keegan Elizabeth 08/12/2019 6:45 AM
[2019-08-12 06:51] LABS: AGAP 9; ALB/GLOB RATIO 0.9; ALBUMIN 3.1 g/dL (3.5-5.0); ALKALINE PHOSPHATASE 60 U/L (32-104); BUN 30 mg/dL (8-22); CHLORIDE 90 mmol/L (98-107); COSMO 285; CREATININE 0.7 mg/dL (0.5-0.9); ESTIMATED GFR > 60; GLUCOSE 229 mg/dL (70-104); GOT 10 U/L (10-30); GPT 16 U/L (10-36); MAGNESIUM 2.5 mg/dL (1.5-2.7); POTASSIUM 5.3 mmol/L (3.5-5.1); SODIUM 136 mmol/L (136-145); TCO2 37 mmol/L (25-35); TOTAL BILIRUBIN 0.15 mg/dL (0.20-1.00); TOTAL PROTEIN 6.6 g/dL (6.3-8.3)
[2019-08-12 06:54] LABS: HEMATOCRIT 40.7 % (37.0-47.0); HEMOGLOBIN 12.4 g/dL (12.0-16.0); LYMPH% 5.3 % (20.5-51.1); MCH 28.1 PG (27-31); MCHC 30.5 g/dL (33-37); MCV 92.3 FL (81-99); MONO# 0.53 X1000 (0.11-0.59); MONO% 9.4 % (1.7-9.3); MPV 9.2 FL (7.4-10.4); NEUT# 4.78 X1000 (1.4-6.5); NEUT% 85.3 % (42.2-75.2); PLT 233 X1000 (130-400); RBC 4.41 XMIL (4.2-5.4); RDW 15.5 % (11.5-14.5); WBC 5.61 X1000 (4.8-10.8)
[2019-08-12] MEDS: SYMBICORT 160/4.5 MICROGM INHALER INH SCH ×2 (07:38→19:11)
[2019-08-12] MEDS: ELIQUIS PO SCH ×2 (08:27→21:00)
[2019-08-12] MEDS: MAXIPIME 1 GM in NS 50 ML IV SCH ×2 (08:27→21:00)
[2019-08-12] MEDS: XANAX PO SCH ×2 (08:27→21:00)
[2019-08-12] MEDS: MUCINEX PO SCH ×2 (08:27→20:59)
[2019-08-12] MEDS: CARDIZEM CD PO SCH (08:27)
[2019-08-12] MEDS: SINGULAIR PO SCH (08:27)
[2019-08-12] MEDS: KLOR-CON PO SCH (08:27)
--- NOTE | 2019-08-12 09:55 | PROGRESS NOTE ---
DATE: 08/12/2019 SUBJECTIVE: Ms. Gómez says she is better. She can tell she has turned a corner, had a better night, breathing better, more comfortable. OBJECTIVE: Vital Signs: Temp 97.6 degrees, pulse 100, respirations 28, blood pressure 113/66. HEENT: Pupils are equal and round. Lungs: Clear anterolateral. Diminished breath sounds, both bases, but no prolonged expiratory phase this morning. Urine output is 2200 mL. IMAGING: Chest x-ray from this morning: Stable moderate collapse of the right lung base. Improvement in the faint infiltrate in the left lung base. LABORATORY DATA: White count is 5610, hematocrit is 40, platelet count is 233,000. Chemistries: Creatinine 0.7, BUN 30, sodium 136, potassium 5.3, chloride 90. ASSESSMENT AND PLAN: 1. Chronic hypoxemic and chronic hypercapnic respiratory failure, acute bronchitis, acute cor pulmonale, chronic pleural effusion, which fluctuates in size associated with volume status. She is getting 60 of Lasix intravenously twice a day. She has not had a significant increase in her BUN and creatinine. She would like to try and go home tomorrow. I would like to get a PA and lateral tomorrow. 2. She has chronic atrial fibrillation, and she is on Cardizem CD 240 mg a day. Blood pressure looks good. 3. General anxiety. She has been on Xanax for a long time, 0.5 mg twice daily. Will continue that. She is getting potassium 40 mEq twice daily. She gets tramadol for pain. cc: Gareth Franco MD
--- NOTE | 2019-08-12 11:09 | Diag Imaging Result Doc PS360 ---
CHEST-2 VIEWS - 08/12/2019 11:02 AM INDICATION: copd, pleural effusions, pulmonary venous htn COMPARISON: 6:00 AM FINDINGS: Lung volumes are improved. There is improvement in the volume loss and opacification of the right lung base. Otherwise stable bibasilar infiltrates. Stable small to moderate right basilar pleural effusion. Stable cardiomegaly. IMPRESSION: Improved lung volumes. Decrease in the atelectasis of the right lung base. Otherwise no change from prior. Electronically signed by Keegan Elizabeth 08/12/2019 11:06 AM
--- NOTE | 2019-08-12 13:29 | PROVIDER DOCUMENTATION ---
This chart was entered by Ashley Whitmore Scribe, acting as scribe for Jesus Yuan MD. HPI-Respiratory General - General Chief Complaint: Shortness of Breath Stated Complaint: SOB Time Seen by Provider: 08/05/19 11:05 Source: patient, EMS Allergies/Adverse Reactions: Patient Allergies Allergy/AdvReac Type Severity Reaction Status Date / Time codeine AdvReac Unknown Verified 07/10/19 10:18 Home Medications: Home Medication List Medication Instructions Recorded Confirmed Last Taken Type Albuterol Sulfate [Ventolin] 5 mg IH PRN PRN 06/09/12 07/10/19 07/10/19 History Alprazolam [Xanax] 0.5 mg PO BID 06/09/12 07/10/19 07/09/19 History Budesonide/Formoterol Inhaler 2 puff INH DAILY 06/09/12 07/10/19 07/09/19 History [Symbicort 160/4.5 Microgm Inhaler] Montelukast [Singulair] 10 mg PO DAILY #0 tablet 06/14/12 07/10/19 07/09/19 Rx Albuterol 2.5MG/Ipratrop 0.5MG 3 ml INH RTTID #0 neb 11/12/16 07/10/19 04/20/19 06:30 Rx [Duoneb (A & A)] Potassium Chloride 40 meq PO BID 04/03/18 07/10/19 07/09/19 History Apixaban [Eliquis] 5 mg PO BID 02/23/19 07/10/19 07/09/19 History Acetaminophen [Tylenol] 650 mg PO Q4H PRN PRN tab 02/28/19 07/10/19 Unknown Rx Tramadol [Ultram] 50 mg PO Q6H PRN PRN #30 tab 04/20/19 07/10/19 Unknown Rx Furosemide [Lasix] 40 mg PO BID@0800,1400 04/22/19 07/10/19 07/09/19 History Diltiazem C.d. [Cardizem Cd] 240 mg PO DAILY 30 Days #30 cap 05/03/19 07/10/19 07/09/19 Rx Guaifenesin E.r. [Mucinex] 1 tab PO BID 07/10/19 07/10/1907/09/19 History - History of Present Illness-Resp Nature of Presenting Problem: 84 yowf presents to the ed via ems for worsening sob. pt has copd and struggles with chronic sob but sts this am she needed extra assistants. pt has home health and was seen yesterday and was given a good report this mrning she called pcp dr alfaro and was told to come to ed. pt on exam is sob and on 5LPM via nc with o2 sat 88% Quality of Pain: reports: fullness Severity in ED: reports: moderate Onset/Duration: reports: gradual (chronic) Timing: reports: still present, constant, getting worse Cough Quality/Degree: reports: mild, dry cough Episode Frequency: chronic episodes Current Respiratory Medication Therapy: Initiated see nurses note Modifying Factors: improves with: sitting upright. worse with: exertion, lying down Associated Symptoms: reports: cough, shortness of breath. denies: dizziness, wheezing Similar Symptoms Previously?: Yes (copd) Recently seen or treated by another doctor?: Yes (pcp and home health) Review of Systems - Adult - REVIEW OF SYSTEMS - ADULT Constitutional: denies: chills, fever Eyes: reports: no symptoms reported Ears, Nose, Mouth & Throat: reports: no symptoms reported Cardiovascular: reports: orthopnea. denies: chest pain, palpitations Respiratory: reports: see HPI, chronic cough, dyspnea on exertion, shortness of breath. denies: wheezing Gastrointestinal: denies: diarrhea, nausea, vomiting Genitourinary: reports: no symptoms reported Musculoskeletal: denies: back pain, neck pain Integumentary: reports: no symptoms reported Neurological: denies: dizziness/vertigo, headache/migraines Psychiatric: reports: no symptoms reported Endocrine: reports: no symptoms reported Hematologic/Lymphatic: reports: no symptoms reported Allergic/Immunologic: reports: no symptoms reported All Other Systems: Reviewed and Negative Past History - Adult - PAST MEDICAL HISTORY-ADULT Review of Records: reports: Old Records Reviewed, Nursing Assessment Review, Medications Reviewed, Social history reviewed & non-contributory. Major Childhood Illnesses: reports: denies history Cardiovascular: reports: A-Fib, HTN Respiratory: reports: COPD Gastrointestinal: reports: denies history Obstetrical/Gynecological: reports: denies history Genitourinary: reports: denies history Musculoskeletal: reports: denies history Neurological: reports: denies history Endocrine/Immune: reports: denies history Other Conditions: reports: denies history - PRIOR SURGERIES/PROCEDURES Surgical/Procedure History: reports: reviewed, not pertinent - IMMUNIZATION STATUS Childhood Immunizations: See Nurse Assessment Flu Vaccine: See Nurse Assessment - FAMILY HISTORY Family History: reviewed, not pertinent Physical Exam-General - PHYSICAL EXAM-ADULT Initial Vital Signs Reviewed: Yes - CONSTITUTIONAL General Appearance: alert, mild distress - EYES Eyes: PERRL/EOMI, pink conjunctivae - HEAD, EARS, NOSE, MOUTH & THROAT HENMT: moist mucous membranes - NECK Neck: full range of motion, normal inspection - RESPIRATORY Respiratory: respiratory distress, decreased breath sounds, increased rate (26), other (on 5 LPM via NC at 88%, pt sts chronic sob and normal O2 is 90% for her) - CARDIOVASCULAR Cardiovascular: normal peripheral pulses, tachycardia (102 irregular) - CHEST (BREASTS) Chest/Breast: deferred - GASTROINTESTINAL (ABDOMEN) Abdominal Exam: normal bowel sounds, non tender, soft - GENITOURINARY Female Genitalia/Pelvic Exam: deferred Rectal Exam: deferred Hemoccult Exam: deferred - LYMPHATIC Lymphatic: no adenopathy - MUSCULOSKELETAL Back Exam: normal inspection, no CVA tenderness, no vertebral tenderness Extremity: normal range of motion, non-tender, normal inspection - SKIN Integumentary: normal color, normal turgor, warm/dry - NEUROLOGIC Neurologic: grossly normal - PSYCHIATRIC Psych/Mental Status: normal mood/affect, normal thought content, normal thought process, oriented x 3 - HEART Score HEART Score: History: Slightly Suspicious HEART Score: Age: > or = 65 Years HEART Score: Risk Factors for Atherosclerotic Disease: 1 or 2 Risk Factors Progress - PLAN OF CARE/RESULTS Progress/Plan/Lab Results: Vital Signs - 8 hr 08/05/19 11:11 08/05/19 11:14 08/05/19 11:31 Temperature 98.1 F Pulse Rate 100 H 81 101 H Respiratory Rate 19 13 16 Blood Pressure 177/77 113/64 118/76 O2 Sat by Pulse Oximetry 90 L 83 L 74 L 08/05/19 12:00 08/05/19 12:38 08/05/19 13:00 Temperature Pulse Rate 76 78 79 Respiratory Rate 19 12 Blood Pressure 111/68 O2 Sat by Pulse Oximetry 77 L 82 L 89 L 08/05/19 13:29 08/05/19 14:00 08/05/19 15:00 Temperature Pulse Rate 98 H 110 H 93 H Respiratory Rate 20 20 27 H Blood Pressure O2 Sat by Pulse Oximetry 88 L 92 L 08/05/19 15:02 Temperature Pulse Rate 88 Respiratory Rate 17 Blood Pressure 124/63 O2 Sat by Pulse Oximetry 93 L Laboratory Results - last 24 hr 08/05/19 08/05/19 12:32 13:04 WBC 5.01 RBC 4.15 L Hgb 11.7 L Hct 39.3 MCV 94.7 MCH 28.2 MCHC 29.8 L RDW Std Deviation 16.0 H Plt Count 213 MPV 8.7 Immature Gran % (Auto) 0.0 Neut % (Auto) 68.0 Lymph % (Auto) 15.2 L [place] % (Auto) 15.4 H Eos % (Auto) 1.2 Baso % (Auto) 0.2 Immature Gran # (Auto) 0.00 Neut # (Auto) 3.41 Lymph # (Auto) 0.76 L [place] # (Auto) 0.77 H Eos # (Auto) 0.06 Baso # (Auto) 0.01 Sodium 137 Potassium 3.7 Chloride 91 L Carbon Dioxide 36 H Anion Gap 10 BUN 13 Creatinine 0.5 Estimated GFR/1.73 m2 > 60 BUN/Creatinine Ratio 26 Glucose 112 H Calculated Osmolality 275 Calcium 8.7 L Magnesium 2.0 Total Bilirubin 0.39 AST 10 ALT 8 L Alkaline Phosphatase 70 Total Protein 6.4 Albumin 3.6 Globulin 2.8 Albumin/Globulin Ratio 1.3 Orders Category Date Time Status Admit - [facility] Routine AdmDCTranf 08/05/19 16:06 Active Activity - Up with Assistance ORDERED Care 08/05/19 16:06 Active Intake and Output-Strict ORDERED Care 08/05/19 16:06 Active Nursing- Assist w/ IS as order ORDERED Care 08/05/19 16:06 Active Nursing- Obtain EKG ONCE Care 08/05/19 14:30 Active Resuscitation Status Routine Care 08/05/19 16:00 Ordered Saline Loc DIRECTED Care 08/05/19 16:06 Active Turn, Cough and Deep Breathe Q4HR.AWAKE Care 08/05/19 16:06 Active Vital Signs Order Q 4-HR ASSESS Care 08/05/19 16:06 Active Z-Document. for Tele Applied ORDERED Care 08/05/19 16:07 Active Regular Diet Diet 08/05/19 16:07 Active CHEST-1 VIEW [RAD] Stat Exams 08/05/19 11:50 Completed CHEST-PORTABLE [RAD] Routine Exams 08/06/19 06:00 Ordered CBC WITH DIFF [HEME] Routine Lab 08/06/19 06:00 Uncollected CBC WITH DIFF [HEME] Stat Lab 08/05/19 12:32 Completed COMPREHENSIVE METABOLIC PANEL [CHEM] Routine Lab 08/06/19 06:00 Uncollected COMPREHENSIVE METABOLIC PANEL [CHEM] Stat Lab 08/05/19 13:04 Completed MAGNESIUM [CHEM] Stat Lab 08/05/19 13:04 Completed SPUTUM CULTURE WITH GRAM STAIN [RM] Routine Lab 08/05/19 16:07 Uncollected Acetaminophen [Tylenol] Med 08/05/19 16:00 Discontinued 650 mg PO Q4-6H PRN PRN Acetaminophen [Tylenol] Med 08/05/19 16:23 Active 650 mg PO Q4H PRN PRN Albuterol 0.5% INH Conc [Albuterol 0.5% INH Conc For Med 08/05/19 16:23 Ordered Hyperkalemia] 5 mg INH PRN PRN Albuterol 2.5MG/Ipratrop 0.5MG [Duoneb (A & A)] Med 08/05/19 11:50 Discontinued 3 ml INH NOW ONE Albuterol 2.5MG/Ipratrop 0.5MG [Duoneb (A & A)] Med 08/05/19 21:00 Ordered 3 ml INH RTTID Albuterol [Albuterol Neb] Med 08/05/19 11:50 Discontinued 5 mg INH NOW ONE Alprazolam [Xanax] Med 08/05/19 21:00 Active 0.5 mg PO BID Apixaban [Eliquis] Med 08/05/19 21:00 Ordered 5 mg PO BID Budesonide [Pulmicort] Med 08/05/19 11:50 Discontinued 0.5 mg INH NOW ONE Budesonide/Formoterol Inhaler [Symbicort 160/4.5 Med 08/06/19 07:30 Active Microgm Inhaler] 2 puff INH RTDAILY CefTRIAXONE [Rocephin] 1 gm Med 08/05/19 16:00 Discontinued 0.9% Sodium Chloride Inj [Ns] 50 ml IV Q24H Diltiazem C.d. [Cardizem Cd] Med 08/06/19 09:00 Ordered 240 mg PO DAILY Furosemide [Lasix] Med 08/06/19 01:00 Discontinued 40 mg IV Q12H Furosemide [Lasix] Med 08/05/19 12:51 Discontinued 80 mg IV NOW ONE Guaifenesin E.r. [Mucinex] Med 08/05/19 21:00 Ordered DOSE mg PO BID Methylprednisolone Sod Succ [Solu-Medrol] Med 08/05/19 11:50 Discontinued 125 mg IV NOW ONE Methylprednisolone Sod Succ [Solu-Medrol] Med 08/05/19 21:00 Discontinued 40 mg IV Q8H Montelukast [Singulair] Med 08/06/19 09:00 Ordered 10 mg PO DAILY Nitroglycerin Med 08/05/19 12:49 Discontinued 1 inch TOP NOW ONE Potassium Chloride Med 08/05/19 21:00 Ordered 40 meq PO BID Tramadol [Ultram] Med 08/05/19 16:23 Active 50 mg PO Q6H PRN PRN Aerosol Treatments Routine Ot 08/05/19 11:50 Completed Aerosol Treatments Routine Ot 08/05/19 16:23 Active Aerosol Treatments Stat Ot 08/05/19 11:50 Completed Aerosol Treatments Stat Ot 08/05/19 16:23 Active Incentive Spirometer Q4HR.AWAKE Ot 08/05/19 17:00 Ordered Incentive Spirometer Q4HR.AWAKE [facility] 08/05/19 21:00 Ordered Incentive Spirometer Q4HR.AWAKE Ot 08/06/19 01:00 Ordered Incentive Spirometer Q4HR.AWAKE Ot 08/06/19 05:00 Ordered Incentive Spirometer Q4HR.AWAKE Ot 08/06/19 09:00 Ordered Incentive Spirometer Q4HR.AWAKE [facility] 08/06/19 13:00 Ordered MDI Treatments Stat Ot 08/05/19 16:23 Active Oxygen Device Routine Ot 08/05/19 16:06 Active Peak Flow BID Ot 08/05/19 21:00 Ordered Peak Flow BID Ot 08/06/19 09:00 Ordered Pulse Oximetry Routine Ot 08/05/19 16:00 Active Telemetry [OM.EQ] Routine Ot 08/05/19 16:00 Active EKG [EKG] Stat Ther 08/05/19 14:30 Ordered Transfer/Admit Order [TRANSFER] Routine Transfer 08/05/19 15:57 Completed Result Diagrams: 08/05/19 12:32 08/05/19 13:04 - EKG 1 Time of EKG reading by physician:: 16:21 EKG Read and Signed by:: Jesus Yuan EKG Interpretation (*Must complete 3 of following elements*): Abnormal Rate: 89 Rhythm: afib with premature ventricular or aberrantly conducted complexes [place]: normal QRS: normal SC Interval: normal Comments: nonspecific ST abnormality - XRAY 1 XRAY: Bilateral XRAY Study: Chest Impression: See EMR Report (CHEST-1 VIEW - 08/05/2019 INDICATION: SOB COMPARISON: 07/12/2019 FINDINGS: Lung volumes are much lower. Otherwise gr ossly stable cardiomegaly and pulmonary vascular congestion. Stable small to moderate right and trace left pleural effusions. There is probably worsening interstitial pulmonary edema. Stable COPD. IMPRESSION: Worsening interstitial pulmonary edema. Electronically signed by Keegan Elizabeth 08/05/2019 12:23 PM 08/05/19 1223 Interpreting Physician: Keegan Elizabeth MD Dictated Date/Time: 08/05/19 1215 cc: Jesus Yuan MD; Gareth Alfaro MD) - CONSULTS/PCP/HOSPITALIST Notification #1 *Consult/PCP/Hospitalist*: dr alfaro pcp Time Discussed: 13:49 (he is in clinic and will come see pt when he is finished to admit) Consult Disposition: Will see in ED, Admit Departure - Departure Date of Disposition Decision: 08/05/19 Time of Disposition Decision: 13:05 DIAGNOSIS: Respiratory insufficiency, Atrial fibrillation, chronic CHF (congestive heart failure) Qualifiers: Heart failure type: unspecified Heart failure chronicity: unspecified Qualified Code(s): I50.9 - Heart failure, unspecified Disposition: ADMITTED INPATIENT 09 Certified Medical Emergency: Emergent Condition: Stable - Critical Care Note This patient required my direct & personal management of CC.: Yes Total Time (mins): 36 Critical Care Statement: This patient required my direct personal management to treat or rule out processes, the absence of which, could potentiallly result in sudden, clinically significant life or limb threatening deterioration. Attestation - Physician/ JEREMIAH Attestation Patient care was provided by Advanced Practice Provider:: No The physician spent face to face time with patient:: Yes Advanced Practice Provider documentation review:: Supervising physician onsite and consulted in the evaluation and care of this patient. The physician did have a face to face encounter with the patient. This chart was documented by the indicated scribe, (Ashley Whitmore Scribe) and accurately reflects the services I performed and decisions made by me, Carlyle christie,Jesus Montes MD, as attested by the provider's signature.
--- NOTE | 2019-08-12 19:48 | PULMONOLOGY PROGRESS NOTE ---
DATE: 08/12/2019 SUBJECTIVE: The patient is awake, alert, and conversant. She reports her breathing has significantly improved. She reports her sputum production continues to decline. She has been ambulating short distances without significant oxygen desaturation. OBJECTIVE: Vital Signs: The patient has been afebrile for the last 24 hours. Blood pressure 122/67, heart rate 74, respiratory rate 16, oxygen saturation 94% on 5 L per nasal cannula. HEENT: Pupils are equal and reactive. Oropharynx appears clear. Neck: Supple. Chest: Diminished breath sounds bilaterally with occasional rhonchi. Breath sounds are diminished at the right base. Cardiac: Distant heart sounds. Normal S1, normal S2. Abdomen: Soft. Extremities: Without edema. LABORATORIES: Two-view chest x-ray performed at 9:38 this morning reveals decrease right-sided pleural effusion/infiltrate. This compares similarly to chest x-ray in June. White blood count 5.6, hemoglobin 12.4, platelet count 223,000. Sodium 136, potassium 5.3, chloride 90, bicarbonate 37, BUN 30, creatinine 0.7. IMPRESSION: An 84-year-old with: 1. Severe chronic obstructive pulmonary disease. 2. 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 3. Acute cor pulmonale. 4. Acute bronchitis. 5. Chronic pleural effusion, which had increased prior to this admission, but has now returned to baseline. DISCUSSION: An 84-year-old with problems outlined above. She has significantly improved and is now approaching her baseline. She reports she is anxious to go home. RECOMMENDATIONS: 1. Continue current treatment regimen. 2. Continue bronchial hygiene. 3. Anticipate discharge home tomorrow if she continues to do well. 4. Recommend 10 to 14 day course of Levaquin at the time of discharge. cc: MD Gareth Junior MD
[2019-08-13] MEDS: SOLU-MEDROL IV SCH (00:12)
[2019-08-13] MEDS: DUONEB (A & A) INH SCH ×2 (03:02→07:34)
[2019-08-13] MEDS: LASIX IV SCH (06:25)
[2019-08-13 06:51] LABS: AGAP 8; BUN 28 mg/dL (8-22); CALCIUM 9.2 mg/dL (8.8-10.2); CHLORIDE 91 mmol/L (98-107); COSMO 297; CREATININE 0.6 mg/dL (0.5-0.9); ESTIMATED GFR > 60; GLUCOSE 286 mg/dL (70-104); MAGNESIUM 2.4 mg/dL (1.5-2.7); POTASSIUM 4.5 mmol/L (3.5-5.1); SODIUM 141 mmol/L (136-145); TCO2 42 mmol/L (25-35)
[2019-08-13] MEDS: SYMBICORT 160/4.5 MICROGM INHALER INH SCH (07:34)
[2019-08-13] MEDS ORDERED: LEVAQUIN PO ONE (08:06)
--- NOTE | 2019-08-13 08:06 | DISCHARGE SUMMARY ---
ADMISSION DATE: 08/05/2019 DISCHARGE DATE: 08/13/2019 HOSPITAL COURSE: This is an 84-year-old patient of mine, who was last here July 10, and this time comes in with shortness of breath and appears like increased hypoxemic respiratory failure and hypercapnic respiratory failure. She has end-stage COPD, pulmonary hypertension and has chronic pulmonary effusions with pulmonary venous hypertension, underlying chronic atrial fibrillation and presented to the hospital. Dr. Hernandez was following. I felt like she had a little bit of bronchitis. We did put her on some antibiotic. We did try and diurese off the pulmonary venous hypertension, and had her up to Lasix 60 mg IV q. 12 hours, and she seemed to tolerate that well. Her chest x-ray flat and upright improved lung volumes, decrease in atelectasis in the right lung base, otherwise about the same. She was back on 5 L of nasal cannula, which she takes at home, and felt she could go home. I will continue her on Levaquin for 7 days. HOME MEDICINES: She takes Tylenol as needed. She has DuoNebs at home, Ventolin inhaler if needed, Xanax 0.5 mg p.o. b.i.d., Eliquis 5 mg b.i.d., Symbicort 160/4.5 inhaler 2 puffs b.i.d., diltiazem CD 240 mg daily, Lasix 40 mg p.o. b.i.d., guaifenesin 1 tablet p.o. b.i.d., Singulair 10 mg daily, potassium chloride 40 mEq b.i.d., and I will give her Levaquin 500 mg daily for another 7 days. FOLLOWUP: Follow back in my office in a couple weeks. cc: Gareth Franco MD
[2019-08-13 08:11] VITALS: BP 115/78
[2019-08-13] MEDS: MUCINEX PO SCH (08:47)
[2019-08-13] MEDS: CARDIZEM CD PO SCH (08:47)
[2019-08-13] MEDS: XANAX PO SCH (08:47)
[2019-08-13] MEDS: ELIQUIS PO SCH (08:47)
[2019-08-13] MEDS: SINGULAIR PO SCH (08:47)
== END 2019-08-13 09:41 | disposition home health service (06) | DRG 202 ==
LOC: SUPCPDRO → ED 11:00 → EDIPHOLD 16:21 → 2N 17:41
PROVIDERS: ADMIT Emergency Medicine; ATTEND Emergency Medicine

== ENCOUNTER 2019-08-15 11:05 | Inpatient (IN) ==
[2019-08-15] MEDS ORDERED: XOPENEX NEB INH ONE (11:37)
[2019-08-15] MEDS ORDERED: SOLU-MEDROL IV ONE (11:37)
[2019-08-15] MEDS ORDERED: PULMICORT INH ONE (11:38)
[2019-08-15 11:51] LABS: BASO# 0.03 X1000 (0.0-0.2); BASO% 0.3 % (0.0-0.8); EOS# 0.03 X1000 (0.0-0.7); EOS% 0.3 % (0.0-10.0); HEMATOCRIT 45.2 % (37.0-47.0); HEMOGLOBIN 13.7 g/dL (12.0-16.0); IMM GRAN# 0.08 X1000 (0.0-0.04); IMM GRAN% 0.7 % (0.0-0.5); LYMPH# 1.32 X1000 (1.2-3.4); LYMPH% 12.3 % (20.5-51.1); MCH 27.7 PG (27-31); MCHC 30.3 g/dL (33-37); MCV 91.3 FL (81-99); MONO# 1.28 X1000 (0.11-0.59); MPV 8.9 FL (7.4-10.4); NEUT# 7.97 X1000 (1.4-6.5); NEUT% 74.4 % (42.2-75.2); PLT 258 X1000 (130-400); RBC 4.95 XMIL (4.2-5.4); RDW 15.6 % (11.5-14.5); WBC 10.71 X1000 (4.8-10.8)
[2019-08-15] MEDS: NS NEB INH SCH ×2 (12:02→12:03)
--- NOTE | 2019-08-15 12:02 | Diag Imaging Result Doc PS360 ---
CHEST-2 VIEWS - 08/15/2019 INDICATION: SOB COMPARISON: 08/12/2019 FINDINGS: Stable severe COPD. Stable cardiomegaly. Stable hazy interstitial infiltrates in the lung bases, nonspecific but likely pulmonary edema. Stable small right pleural effusion. IMPRESSION: No change from prior. Electronically signed by Keegan Elizabeth 08/15/2019 12:00 PM
[2019-08-15 12:03] LABS: INR 1.24; PROTIME 15.8 Seconds (11.0-16.0); PTT 25.8 Seconds (22.3-41.8)
[2019-08-15 12:20] LABS: ALLEN TEST NO; BE 19.5 mmoll (-3.0-3.0); BLOOD TYPE ARTERIAL; METHB 1.1 % (0.0-1.5); O2(CT) 18.2 mL/dL (15.0-23.0); O2HB 92.4 % (95.0-99.0); PO2(98.6) 65 mmHg (60-100); SAMPLE BLOOD; SAO2 95.4 % (95.0-100.0); pH(98.6) 7.49 (7.35-7.45)
[2019-08-15 12:22] LABS: MODALITY CANNULA; PCO2(98.6) 61 mmHg (35-45)
[2019-08-15 12:24] LABS: ESTIMATED GFR > 60
[2019-08-15 12:42] LABS: AGAP 11; ALB/GLOB RATIO 1.2; ALBUMIN 3.8 g/dL (3.5-5.0); ALKALINE PHOSPHATASE 68 U/L (32-104); BUN 29 mg/dL (8-22); CHLORIDE 86 mmol/L (98-107); CK PROFILE 23 U/L (24-173); COSMO 278; CREATININE 0.7 mg/dL (0.5-0.9); GLUCOSE 128 mg/dL (70-104); GOT 21 U/L (10-30); GPT 34 U/L (10-36); POTASSIUM 5.2 mmol/L (3.5-5.1); SODIUM 135 mmol/L (136-145); TCO2 38 mmol/L (25-35); TOTAL BILIRUBIN 0.43 mg/dL (0.20-1.00); TOTAL PROTEIN 6.9 g/dL (6.3-8.3)
[2019-08-15 12:43] LABS: URINE SOURCE CLEAN CATCH
[2019-08-15 12:56] LABS: BILIRUBIN URINE NEGATIVE (NEGATIVE); BLOOD URINE NEGATIVE (NEGATIVE); COLOR YELLOW; GLUCOSE URINE NEGATIVE (NEGATIVE); KETONE URINE NEGATIVE (NEGATIVE); LEUKOCYTES URINE LARGE (NEGATIVE); NITRITE URINE NEGATIVE (NEGATIVE); PROTEIN URINE TRACE mg/dL (NEGATIVE); SP GRAVITY URINE 1.014; TURBIDITY URINE CLEAR (CLEAR); UROBILINOGEN URINE NORMAL (NORMAL)
[2019-08-15 13:08] LABS: UR EPITHELIAL CELLS <10 /HPF (<10); URINE BACTERIA NEGATIVE /HPF; URINE RBC <10 /HPF (<10); URINE WBC 20-40 /HPF (<10)
[2019-08-15 13:27] LABS: URINE CASTS NONE SEEN; URINE CRYSTALS NONE SEEN; URINE SMALL ROUND CELLS TRANS PRESENT; URINE YEAST NONE SEEN
--- NOTE | 2019-08-15 13:49 | PROVIDER DOCUMENTATION ---
This chart was entered by Ivelisse Martin Scribe, acting as scribe for Chelsea Heard MD. HPI-Respiratory General - General Chief Complaint: Shortness of Breath Stated Complaint: SOB Time Seen by Provider: 08/15/19 11:17 Source: patient Allergies/Adverse Reactions: Patient Allergies Allergy/AdvReac Type Severity Reaction Status Date / Time codeine AdvReac Unknown Verified 07/10/19 10:18 Home Medications: Home Medication List Medication Instructions Recorded Confirmed Last Taken Type Albuterol Sulfate [Ventolin] 5 mg IH PRN PRN 06/09/12 08/05/19 07/10/19 History Alprazolam [Xanax] 0.5 mg PO BID 06/09/12 08/05/19 07/09/19 History Budesonide/Formoterol Inhaler 2 puff INH BID 06/09/12 08/05/19 07/09/19 History [Symbicort 160/4.5 Microgm Inhaler] Montelukast [Singulair] 10 mg PO DAILY #0 tablet 06/14/12 08/05/19 07/09/19 Rx Albuterol 2.5MG/Ipratrop 0.5MG 3 ml INH RTTID #0 neb 11/12/16 08/05/19 04/20/19 06:30 Rx [Duoneb (A & A)] Potassium Chloride 40 meq PO BID 04/03/18 08/05/19 07/09/19 History Apixaban [Eliquis] 5 mg PO BID 02/23/19 08/05/19 07/09/19 History Acetaminophen [Tylenol] 650 mg PO Q4H PRN PRN tab 02/28/19 08/05/19 Unknown Rx Furosemide [Lasix] 40 mg PO BID@0800,1400 04/22/19 08/05/19 07/09/19 History Diltiazem C.d. [Cardizem Cd] 240 mg PO DAILY 30 Days #30 cap 05/03/19 08/05/19 07/09/19 Rx Guaifenesin E.r. [Mucinex] 1 tab PO BID 07/10/19 08/05/19 07/09/19 History Levofloxacin [Levaquin] 500 mg PO DAILY 7 Days #7 tab 08/13/19 Unknown Rx Tramadol [Ultram] 50 mg PO Q6H PRN PRN tab 08/13/19 Unknown Rx - History of Present Illness-Resp Nature of Presenting Problem: 84 y/o female with history of COPD presents to the ED via EMS with complaint of SOB and weakness. The patient states she was discharged from the hospital on Friday after diagnosis of bronchitis and was sent home on her normal dosage of Lasix 40 mg. bid but this is causing her to be up to the restroom very often and she is unable to catch her breath due to this. The patient states she is on 5L O2 at home 10/03 and also takes nebulizer treatments tid with O2 sats dropping into the 60s despite this treatment at home. She states she is "as weak as a kitten" and she can't ambulate well. She lives alone. Onset/Duration: reports: unsure Timing: reports: still present Context: reports: other (COPD) Episode Frequency: chronic episodes Current Respiratory Medication Therapy: Initiated see nurses note Modifying Factors: worse with: exertion Associated Symptoms: reports: shortness of breath. denies: fever/chills Similar Symptoms Previously?: Yes Recently seen or treated by another doctor?: Yes (discharged here Friday ) Review of Systems - Adult - REVIEW OF SYSTEMS - ADULT Constitutional: denies: chills, fever, night sweats Eyes: reports: no symptoms reported Ears, Nose, Mouth & Throat: reports: no symptoms reported Cardiovascular: denies: chest pain, palpitations, syncope Respiratory: reports: shortness of breath. denies: hemoptysis, wheezing Gastrointestinal: denies: diarrhea, nausea, vomiting Genitourinary: reports: no symptoms reported Musculoskeletal: reports: no symptoms reported Integumentary: reports: no symptoms reported Neurological: reports: other (weakness). denies: dizziness/vertigo, headache/migraines, syncope Psychiatric: reports: no symptoms reported Endocrine: reports: no symptoms reported Hematologic/Lymphatic: reports: no symptoms reported Allergic/Immunologic: reports: no symptoms reported All Other Systems: Reviewed and Negative Past History - Adult - PAST MEDICAL HISTORY-ADULT Review of Records: reports: Old Records Reviewed, Nursing Assessment Review, Medications Reviewed Major Childhood Illnesses: reports: denies history Cardiovascular: reports: A-Fib, HTN Respiratory: reports: COPD Gastrointestinal: reports: denies history Obstetrical/Gynecological: reports: denies history Genitourinary: reports: denies history Musculoskeletal: reports: denies history Neurological: reports: denies history Endocrine/Immune: reports: denies history Other Conditions: reports: denies history - PRIOR SURGERIES/PROCEDURES Surgical/Procedure History: reports: reviewed, not pertinent - IMMUNIZATION STATUS Childhood Immunizations: See Nurse Assessment Flu Vaccine: See Nurse Assessment - FAMILY HISTORY Family History: reviewed, not pertinent - SOCIAL HISTORY Smoking: other (former smoker) Physical Exam-General - PHYSICAL EXAM-ADULT Initial Vital Signs Reviewed: Yes - CONSTITUTIONAL General Appearance: alert, mild distress, anxious - EYES Eyes: PERRL/EOMI - HEAD, EARS, NOSE, MOUTH & THROAT HENMT: normocephalic/atraumatic - NECK Neck: supple, normal inspection - RESPIRATORY Respiratory: chest non-tender, no respiratory distress, no accessory muscle use, decreased breath sounds (moderate to severe), increased rate - CARDIOVASCULAR Cardiovascular: normal peripheral pulses, no murmur, tachycardia - GASTROINTESTINAL (ABDOMEN) Abdominal Exam: normal bowel sounds, non tender, soft - MUSCULOSKELETAL Back Exam: normal inspection Extremity: no pedal edema, other (chronic venostasis bilateral lower extremities , ecchymosis bilateral upper extremities) - SKIN Integumentary: warm/dry, other (chronic venostasis bilateral lower extremities, ecchymosis and blood pooling bilateral upper extremities). negative: diaphoresis - NEUROLOGIC Neurologic: grossly normal - PSYCHIATRIC Psych/Mental Status: oriented x 3, anxious Progress - PLAN OF CARE/RESULTS Progress/Plan/Lab Results: Vital Signs - 8 hr 08/15/19 11:08 08/15/19 12:03 08/15/19 13:16 Temperature 97.9 F Pulse Rate 122 H 120 H 105 H Respiratory Rate 24 24 20 Blood Pressure 136/92 126/83 O2 Sat by Pulse Oximetry 92 L 89 L 90 L 08/15/19 14:36 Temperature Pulse Rate 81 Respiratory Rate 25 H Blood Pressure 147/88 O2 Sat by Pulse Oximetry 93 L Laboratory Results - last 24 hr 08/15/19 08/15/19 08/15/19 11:29 11:29 11:29 WBC 10.71 RBC 4.95 Hgb 13.7 Hct 45.2 MCV 91.3 MCH 27.7 MCHC 30.3 L RDW Std Deviation 15.6 H Plt Count 258 MPV 8.9 Immature Gran % (Auto) 0.7 H Neut % (Auto) 74.4 Lymph % (Auto) 12.3 L Sutter % (Auto) 12.0 H Eos % (Auto) 0.3 Baso % (Auto) 0.3 Immature Gran # (Auto) 0.08 H Neut # (Auto) 7.97 H Lymph # (Auto) 1.32 Sutter # (Auto) 1.28 H Eos # (Auto) 0.03 Baso # (Auto) 0.03 PT INR PTT (Actin FS) Specimen Type Sample Site pH pCO2 pO2 HCO3 Base Excess Oxyhemoglobin ABG O2 Sat (Calculated) ABG O2 Saturation ABG Carboxyhemoglobin ABG Methemoglobin Gareth Test A-a O2 Difference Total Hemoglobin Lactate Liter Flow Blood Gas Modality FiO2 % Sodium 135 L Potassium 5.2 H Chloride 86 L Carbon Dioxide 38 H Anion Gap 11 BUN 29 H Creatinine 0.7 Estimated GFR/1.73 m2 > 60 BUN/Creatinine Ratio 41 Glucose 128 H Calculated Osmolality 278 Calcium 9.0 Total Bilirubin 0.43 AST 21 ALT 34 Alkaline Phosphatase 68 Creatine Kinase 23 L Troponin T Lah-M-Hlrtxevbzoq Pept Total Protein 6.9 Albumin 3.8 Globulin 3.1 Albumin/Globulin Ratio 1.2 Plasma Lactate 1.8 Urine Source Urine Color Urine Turbidity Urine pH Ur Specific [place] Urine Protein Ur Glucose (Stick) Ur Ketones (Stick) Urine Blood Urine Nitrite Urine Bilirubin Urobilinogen Dipstick Urine Leukocytes Urine WBC (Auto) Urine RBC (Auto) U Epithel Cells (Auto) Urine Bacteria (Auto) Urine Crystals Small Round Cells Urine Casts Urine Yeast-like Cells 08/15/19 08/15/19 08/15/19 11:29 11:29 11:29 WBC RBC Hgb Hct MCV MCH MCHC RDW Std Deviation Plt Count MPV Immature Gran % (Auto) Neut % (Auto) Lymph % (Auto) Sutter % (Auto) Eos % (Auto) Baso % (Auto) Immature Gran # (Auto) Neut # (Auto) Lymph # (Auto) Sutter # (Auto) Eos # (Auto) Baso # (Auto) PT 15.8 INR 1.24 PTT (Actin FS) 25.8 Specimen Type Sample Site pH pCO2 pO2 HCO3 Base Excess Oxyhemoglobin ABG O2 Sat (Calculated) ABG O2 Saturation ABG Carboxyhemoglobin ABG Methemoglobin Gareth Test A-a O2 Difference Total Hemoglobin Lactate Liter Flow Blood Gas Modality FiO2 % Sodium Potassium Chloride Carbon Dioxide Anion Gap BUN Creatinine Estimated GFR/1.73 m2 BUN/Creatinine Ratio Glucose Calculated Osmolality Calcium Total Bilirubin AST ALT Alkaline Phosphatase Creatine Kinase Troponin T < 0.010 Fhe-P-Msyxlzmjxno Pept 1050 H Total Protein Albumin Globulin Albumin/Globulin Ratio Plasma Lactate Urine Source Urine Color Urine Turbidity Urine pH Ur Specific [place] Urine Protein Ur Glucose (Stick) Ur Ketones (Stick) Urine Blood Urine Nitrite Urine Bilirubin Urobilinogen Dipstick Urine Leukocytes Urine WBC (Auto) Urine RBC (Auto) U Epithel Cells (Auto) Urine Bacteria (Auto) Urine Crystals Small Round Cells Urine Casts Urine Yeast-like Cells 08/15/19 08/15/19 08/15/19 12:15 12:33 14:51 WBC RBC Hgb Hct MCV MCH MCHC RDW Std Deviation Plt Count MPV Immature Gran % (Auto) Neut % (Auto) Lymph % (Auto) Sutter % (Auto) Eos % (Auto) Baso % (Auto) Immature Gran # (Auto) Neut # (Auto) Lymph # (Auto) Sutter # (Auto) Eos # (Auto) Baso # (Auto) PT INR PTT (Actin FS) Specimen Type ARTERIAL Sample Site R BRACHIAL pH 7.49 H pCO2 61 H* pO2 65 HCO3 40.0 H Base Excess 19.5 H Oxyhemoglobin 92.4 L ABG O2 Sat (Calculated) 18.2 ABG O2 Saturation 95.4 ABG Carboxyhemoglobin 1.90 ABG Methemoglobin 1.1 Gareth Test NO A-a O2 Difference 144.0 Total Hemoglobin 14.0 Lactate 1.40 Liter Flow 5.0 Blood Gas Modality CANNULA FiO2 % 40.0 Sodium Potassium Chloride Carbon Dioxide Anion Gap BUN Creatinine Estimated GFR/1.73 m2 BUN/Creatinine Ratio Glucose Calculated Osmolality Calcium Total Bilirubin AST ALT Alkaline Phosphatase Creatine Kinase Troponin T Bhy-F-Fbqpkppwpqk Pept Total Protein Albumin Globulin Albumin/Globulin Ratio Plasma Lactate 1.2 Urine Source CLEAN CATCH Urine Color YELLOW Urine Turbidity CLEAR Urine pH 8.0 Ur Specific [place] 1.014 Urine Protein TRACE A Ur Glucose (Stick) NEGATIVE Ur Ketones (Stick) NEGATIVE Urine Blood NEGATIVE Urine Nitrite NEGATIVE Urine Bilirubin NEGATIVE Urobilinogen Dipstick NORMAL Urine Leukocytes LARGE A Urine WBC (Auto) 20-40 A Urine RBC (Auto) <10 U Epithel Cells (Auto) <10 Urine Bacteria (Auto) NEGATIVE Urine Crystals NONE SEEN Small Round Cells TRANS PRESENT Urine Casts NONE SEEN Urine Yeast-like Cells NONE SEEN Orders Category Date Time Status Admit - [facility] Routine AdmDCTranf 08/15/19 14:09 Active Activity - Bed Rest with BRP ORDERED Care 08/15/19 14:09 Active Cardiac Monitoring DIRECTED Care 08/15/19 11:17 Completed Cardiac Monitoring DIRECTED Care 08/15/19 11:19 Completed IV Insertion ORDERED Care 08/15/19 11:17 Active Notify MD of + Sepsis Screen NOW Care 08/15/19 11:17 Active Notify Physician As Ordered Care 08/15/19 11:17 Active Oxygen Therapy- ED Nursing DIRECTED Care 08/15/19 11:19 Completed Saline Loc NOW Care 08/15/19 11:19 Active Update & Confirm Home Medicati ROUTINE Care 08/15/19 15:21 Active Vital Signs Order ROUTINE Care 08/15/19 14:09 Active Z-Document. for Tele Applied ORDERED Care 08/15/19 14:11 Completed Heart Healthy Diet Diet 08/15/19 14:11 Active CHEST-2 VIEWS [RAD] Stat Exams 08/15/19 11:19 Completed ABG [RESP] Routine Lab 08/15/19 12:15 Completed BLOOD CULTURE [BLDCUL] Stat Lab 08/15/19 11:21 Results CBC WITH DIFF [HEME] Stat Lab 08/15/19 11:29 Completed CK PROFILE [SP CHEM] Stat Lab 08/15/19 11:29 Completed COMPREHENSIVE METABOLIC PANEL [CHEM] Stat Lab 08/15/19 11:29 Completed LACTATE, PLASMA [CHEM] Lab 08/15/19 14:51 Completed LACTATE, PLASMA [CHEM] Lab 08/15/19 17:30 Ordered LACTATE, PLASMA [CHEM] Q3H Lab 08/15/19 11:29 Completed PRO B-NATRIURETIC PEPTIDE Stat Lab 08/15/19 11:29 Completed PROTIME WITH INR [COAG] Stat Lab 08/15/19 11:29 Completed PTT [COAG] Stat Lab 08/15/19 11:29 Completed TROPONIN T Stat Lab 08/15/19 11:29 Completed URINALYSIS W/POSS RFLX CULT [URINALYSIS] Stat Lab 08/15/19 12:33 Completed URINE CULTURE [RM] Routine Lab 08/15/19 12:33 Received URINE MANUAL MICROSCOPIC [URINALYSIS] Stat Lab 08/15/19 12:33 Completed Acetaminophen [Tylenol] Med 08/15/19 14:09 Active 650 mg PO Q6H PRN PRN Budesonide [Pulmicort] Med 08/15/19 11:38 Discontinued 0.5 mg INH NOW ONE CephALEXIN [Keflex] Med 08/15/19 21:00 Active 500 mg PO Q12HR Levalbuterol Neb [Xopenex Neb] Med 08/15/19 11:37 Discontinued 1.25 mg INH NOW ONE Methylprednisolone Sod Succ [Solu-Medrol] Med 08/15/19 11:37 Discontinued 125 mg IV NOW ONE Methylprednisolone Sod Succ [Solu-Medrol] Med 08/15/19 21:00 Active 40 mg IV Q12H Ondansetron [Zofran] Med 08/15/19 14:09 Active 4 mg IV Q4H PRN PRN Sodium Chloride 0.9% Neb [Ns Neb] Med 08/15/19 11:45 Active 5 ml INH DIRECTED Aerosol Treatments Routine Oth 08/15/19 11:37 Completed Aerosol Treatments Routine Oth 08/15/19 11:38 Completed Aerosol Treatments Stat Oth 08/15/19 11:37 Completed Aerosol Treatments Stat Oth 08/15/19 11:38 Completed CP/SOB/Palp >45 yrs of Age Stat Oth 08/15/19 11:18 Ordered Oxygen Device Routine Oth 08/15/19 14:10 Completed Oxygen Device Stat Oth 08/15/19 11:17 Completed Telemetry [OM.EQ] Routine Oth 08/15/19 14:09 Active EKG [EKG] Stat Ther 08/15/19 11:19 Ordered Transfer/Admit Order [TRANSFER] Routine Transfer 08/15/19 14:12 Completed Patient very anxious and ABG showing hyperventilation with CO2 better than it has been in the past. Her BNP is slightly elevated but also better than it has been in the past. She is on her home O2. She is at her baseline. Dr Dunn, pathology secretary/transcriptionist for patient's PCP came to ED to see her. He is familiar with her and has treated her in the past. States she is mostly at her baseline and that he is ok with her going home. She is already on Levaquin for her UTI. Spoke to patient about going home and she became very anxious about this and continued to state she was "as weak as a kitten" and couldnt ambulate without assistance. She does live alone. Called Dr Dunn back and he agreed to admit her. Further orders to be placed by him and his team. Result Diagrams: 08/15/19 11:29 08/15/19 11:29 - EKG 1 Time of EKG reading by physician:: 11:25 EKG Read and Signed by:: Chelsea Heard EKG Interpretation (*Must complete 3 of following elements*): Abnormal Rate: 128 Rhythm: NSR ST Wave: non-specific ST changes Comments: +Artifact - XRAY 1 XRAY Study: Chest (CHEST-2 VIEWS - 08/15/2019 INDICATION: SOB COMPARISON: 08/12/2019 FINDINGS: Stable severe COPD. Stable cardiomegaly. Stable hazy interstitial infiltrates in the lung bases, nonspecific but likely pulmonary edema. Stable small right pleural effusion. IMPRESSION: No change from prior. Electronically signed by Keegan Elizabeth 08/15/2019 12:00 PM) Comparison with other Films: no changes Departure - Departure Date of Disposition Decision: 08/15/19 Time of Disposition Decision: 13:46 DIAGNOSIS: COPD (chronic obstructive pulmonary disease), Congestive heart failure, UTI (urinary tract infection), Generalized weakness Disposition: HOME 01 Certified Medical Emergency: Emergent Condition: Stable - Critical Care Note This patient required my direct & personal management of CC.: Yes Total Time (mins): 35 Critical Care Statement: This patient required my direct personal management to treat or rule out processes, the absence of which, could potentiallly result in sudden, clinically significant life or limb threatening deterioration. Attestation - Physician/ JEREMIAH Attestation Patient care was provided by Advanced Practice Provider:: No The physician spent face to face time with patient:: Yes Advanced Practice Provider documentation review:: Supervising physician onsite and consulted in the evaluation and care of this patient. The physician did have a face to face encounter with the patient. This chart was documented by the indicated scribe, (Ivelisse Martin Scribe) and accurately reflects the services I performed and decisions made by me, Chelsea Heard MD, as attested by the provider's signature.
[2019-08-15] MEDS ORDERED: TYLENOL PO PRN ×2 (14:09→19:50)
[2019-08-15] MEDS ORDERED: ZOFRAN IV PRN (14:09)
--- NOTE | 2019-08-15 15:11 | HISTORY AND PHYSICAL ---
CHIEF COMPLAINT: Shortness of breath. HISTORY OF PRESENT ILLNESS: This 84-year-old white female has a rather extensive medical history and was discharged home on the after suffering from shortness of breath and a worsening of her chronic hypoxemic respiratory failure. The patient called me this morning approximately 10 a.m. and when I spoke with her, she was afraid that her Lasix was working "too well." She felt weak and wanted to know what to do about her medications even though she had been discharged home on the same medication regimen that she had been admitted on. She also wanted to know how to "fix her electrolyte abnormalities." I told her that there would be no way to evaluate this and that if she wanted to hold 1 of her Lasix doses today and then touch base with Dr. Franco that would be the most advisable thing. Instead, an hour later she showed up in the emergency room unannounced with shortness of breath. She was evaluated there by the emergency room physician and found to have a possible urinary tract infection. She was hyperventilating and remainder of her labs looked on par with previous evaluations. Although I talked with the patient as did the emergency room physician, she was insistent upon readmission to the hospital. PAST MEDICAL HISTORY: 1. Severe end-stage COPD with chronic respiratory failure and hypoxemia as well as hypercapnia. She is on home O2 at 5 L. 2. Secondary polycythemia. 3. History of tobacco use. 4. Chronic atrial fibrillation, rate controlled. 5. Generalized anxiety disorder. 6. Hyperlipidemia. 7. Chronic venous insufficiency with chronic venous dermatosis. SOCIAL HISTORY: from COPD several years ago. The patient is a former smoker. She lives alone. FAMILY HISTORY: There is a history of ischemic heart disease and kidney failure. REVIEW OF SYSTEMS: The patient denies any fever or chills. She complained that she was "going to the bathroom all the time." She even stated that during the middle of night she had to get up several times. She was not able to quantify the amount of urine that she was putting out. When she was in the hospital she had IV Lasix at a higher dose than usual and when she went home she was back on 40 mg twice daily and stated that it was "working her too hard." At the time of my initial conversation on the telephone with her she did not have any ongoing or worsening shortness of breath compared to baseline and in fact she was talking incessantly and constantly interrupting to tell me more about her symptoms. She did not have shortness of breath at that time. She stated that almost as soon as she hung up she started to have breathing difficulty which cascaded into severe weakness. She denied any dysuria. She did not have any nausea, vomiting. She denied any chest pain or palpitations. She did not have any focal pain. No other evidence of infection. PHYSICAL EXAMINATION: Initial Vital Signs show temperature of 97.9 degrees, pulse rate of 122 (variable ), respiratory rate of 24, blood pressure 136/92, 92% saturated on 5 L nasal cannula. GENERAL: She is a well-developed elderly white female who is talking rapidly but also breathing rapidly. NECK: Reveals no JVD. LUNGS: Show generally poor air movement but she does have expiratory wheeze which is slightly worse on the left. There are no rales or crackles. CARDIOVASCULAR: Irregular tachycardia. ABDOMEN: Benign. Bowel sounds are present. EXTREMITIES: Show chronic venous changes. There is no edema. NEUROPSYCH: The patient is nervous and agitated. LABORATORY: White cell count 10.7, hemoglobin 13.7, hematocrit 45.2. ABG shows a pH of 7.49, pCO2 of 61 (baseline 70-80), PO2 of 65 and oxygen saturation of 95.4%. Sodium 135, BUN 29, creatinine 0.7, glucose 128, CK was 23, troponin was undetectable. ProBNP was 1050. Urinalysis showed large leukocyte esterase and 20-40 white cells per high-power field. There was no bacteria present. ASSESSMENT AND PLAN: 1. The patient presents with worsening shortness of breath. The course of my conversation with her earlier today leads me to believe that she did not get a definitive answer to what she perceived is a problem with her Lasix that she became very agitated and began hyperventilating this precipitating worsening of her respiratory status. I think that she is still markedly anxious. Hopefully admission to the hospital at least give her some solace and we will get her back on her home medications and monitor her progress. 2. The patient may have urinary tract infection. I am going to put her on some low-level antibiotics and await culture results. 3. Dr. Hernandez has followed the patient in the past. I will leave that consultation up to Dr. Franco when he returns tomorrow. 4. We are aware of her chronic atrial fibrillation. She is on Eliquis and other rate control measures. cc: Brent Dunn MD
--- NOTE | 2019-08-15 16:55 | EKG Report ---
Test Performed on : 08/15/2019 11:21:01 AM Test Reason : SOB Blood Pressure : / mmHG Vent. Rate : 128 BPM Atrial Rate : 018 BPM P-R Int : 000 ms QRS Dur : 086 ms QT Int : 254 ms P-R-T Axes : 000 066 043 degrees QTc Int : 370 ms Poor data quality, interpretation may be adversely affected Undetermined rhythm T wave abnormality, consider anterior ischemia Abnormal ECG When compared with ECG of 15-AUG-2019 11:19, (Unconfirmed) Current undetermined rhythm precludes rhythm comparison, needs review Criteria for Septal infarct are no longer present ST no longer elevated in Inferior leads Unconfirmed Result
[2019-08-15] MEDS ORDERED: ULTRAM PO PRN (19:50)
[2019-08-15] MEDS: DUONEB (A & A) INH SCH (20:00)
[2019-08-15] MEDS: ELIQUIS PO SCH (21:26)
[2019-08-15] MEDS: KEFLEX PO SCH (21:26)
[2019-08-15] MEDS: KLOR-CON PO SCH (21:26)
[2019-08-15] MEDS: MUCINEX PO SCH (21:26)
[2019-08-15] MEDS: SOLU-MEDROL IV SCH (21:27)
[2019-08-15] MEDS: XANAX PO SCH (21:27)
[2019-08-15] MEDS: SYMBICORT 160/4.5 MICROGM INHALER INH SCH (22:25)
[2019-08-16] MEDS: SYMBICORT 160/4.5 MICROGM INHALER INH SCH ×2 (07:25→21:14)
[2019-08-16] MEDS: DUONEB (A & A) INH SCH ×4 (07:25→21:14)
[2019-08-16] MEDS ORDERED: SYMBICORT 160/4.5 MICROGM INHALER INH SCH (07:30)
[2019-08-16] MEDS ORDERED: LASIX PO SCH (08:00)
[2019-08-16] MEDS: MUCINEX PO SCH ×2 (08:27→21:00)
[2019-08-16] MEDS: SOLU-MEDROL IV SCH ×2 (08:27→21:01)
[2019-08-16] MEDS: XANAX PO SCH ×2 (08:27→21:00)
[2019-08-16] MEDS: KEFLEX PO SCH (08:27)
[2019-08-16] MEDS: ELIQUIS PO SCH ×2 (08:27→21:00)
[2019-08-16] MEDS ORDERED: CARDIZEM CD PO SCH (09:00)
[2019-08-16] MEDS ORDERED: INVANZ 1 GM/NS 1 GM/50 ML IVPB IV SCH (09:00)
[2019-08-16] MEDS ORDERED: SINGULAIR PO SCH (09:00)
[2019-08-16] MEDS ORDERED: MUCINEX PO SCH (09:00)
--- NOTE | 2019-08-16 09:14 | PROGRESS NOTE ---
DATE: 08/16/2019 SUBJECTIVE: Ms Gómez was readmitted back on 08/15/2019 complaining of shortness of breath and weakness mainly. Lab was unremarkable. It looks like a possible urinary tract infection. She may have a little bit of an intravascular volume depletion. We did diurese her pretty well on her last admission, and I think became agitated and anxious. PHYSICAL EXAMINATION: Today, temperature 98.3 degrees, pulse 109, respirations 25, blood pressure 118/65.HEENT: Pupils are equal and round. Lungs: Clear except decreased breath sounds at both bases. Prolonged expiratory phase. Cardiovascular: Regular rhythm and rate without murmur or S3. Abdomen: Soft. Skin: Warm and dry. LABORATORY DATA: White count 10,710, hematocrit 45, platelet count 258,000. Sodium 135, potassium 5.2, chloride was 86, BUN 29, creatinine 0.7. Troponin is less than 0.01. ProBNP is 1050, albumin 3.8. Urinalysis unremarkable except for 20 to 40 white blood cells. It was actually negative for bacteria. Blood gas: pH 7.49, pCO2 61, PO2 65, O2 saturation is 95%. Her chest x-ray shows stable severe COPD, stable cardiomegaly, stable hazy interstitial infiltrates in the lung bases, nonspecific, but does look like it is consistent with pulmonary edema, small right pleural effusion. ASSESSMENT AND PLAN: End-stage chronic obstructive pulmonary disease, cor pulmonale, hypercapnic hypoxic respiratory failure. She is on 5 L at home O2. Trying to diurese her without affecting her renal function, and I think she is a little bit on the dry side. I am going to continue the Lasix 40 mg p.o. twice a day. We will follow her electrolytes. Get some physical therapy. We are treating her empirically for a possible urinary tract infection. She did have frequent urination. We will wait on cultures to return. She has a history of underlying atrial fib and it appears that she is in sinus rhythm. REVIEW OF HER ORDERS: She is on her Xanax 0.5 mg b.i.d., Eliquis 5 mg b.i.d., budesonide formoterol 2 puffs twice a day, Cardizem CD 240 mg a day, Lasix 40 mg p.o. b.i.d., guaifenesin ER 600 mg b.i.d., methylprednisone 40 mg IV q.12, Singulair 10 mg daily, potassium chloride ER 40 mEq p.o. b.i.d., Ultram 50 mg p.o. q.6 hours p.r.n., Pulmicort 0.5 mg which was what she took at home. She had 1 dose of that. She is on Keflex 500 mg p.o. q.12, albuterol ipratropium 3 mL inhalation t.i.d. cc: Gareth Franco MD
[2019-08-16] MEDS: KLOR-CON PO SCH ×2 (10:01→21:00)
[2019-08-16] MEDS ORDERED: SOLU-MEDROL IV ONE (14:04)
[2019-08-16] MEDS ORDERED: ULTRAM PO PRN (14:04)
[2019-08-16] MEDS ORDERED: PULMICORT INH ONE (14:04)
[2019-08-16] MEDS ORDERED: XOPENEX NEB INH ONE (14:04)
[2019-08-16] MEDS ORDERED: TYLENOL PO PRN (14:04)
[2019-08-16] MEDS ORDERED: ZOFRAN IV PRN (14:04)
[2019-08-16] MEDS ORDERED: NS NEB INH SCH (14:15)
[2019-08-16] MEDS ORDERED: LASIX PO ONE (14:31)
[2019-08-17 06:06] LABS: AGAP 6; BUN 26 mg/dL (8-22); CALCIUM 8.8 mg/dL (8.8-10.2); CHLORIDE 89 mmol/L (98-107); COSMO 286; CREATININE 0.6 mg/dL (0.5-0.9); ESTIMATED GFR > 60; GLUCOSE 260 mg/dL (70-104); MAGNESIUM 2.6 mg/dL (1.5-2.7); POTASSIUM 5.3 mmol/L (3.5-5.1); SODIUM 136 mmol/L (136-145); TCO2 41 mmol/L (25-35)
--- NOTE | 2019-08-17 07:28 | Diag Imaging Result Doc PS360 ---
EXAM: CHEST-PORTABLE INDICATION: copd TECHNIQUE: One view COMPARISON: 08/15/2019 FINDINGS: A small right pleural effusion with adjacent atelectasis and/or infiltrate is unchanged. There has been improvement of the atelectasis and infiltrate at the left lung base. No new consolidation is identified. Cardiac silhouette is stable. IMPRESSION: Improvement at the left lung base. Stable chest, otherwise. Electronically signed by Jass Rashid 08/17/2019 7:25 AM
[2019-08-17] MEDS: SYMBICORT 160/4.5 MICROGM INHALER INH SCH ×2 (08:02→19:49)
[2019-08-17] MEDS: DUONEB (A & A) INH SCH ×3 (08:02→20:16)
[2019-08-17] MEDS: SOLU-MEDROL IV SCH ×2 (08:16→21:21)
[2019-08-17] MEDS: SINGULAIR PO SCH (08:17)
[2019-08-17] MEDS: MUCINEX PO SCH ×2 (08:17→21:21)
[2019-08-17] MEDS: KLOR-CON PO SCH ×2 (08:18→21:20)
[2019-08-17] MEDS: ELIQUIS PO SCH ×2 (08:19→21:21)
[2019-08-17] MEDS: XANAX PO SCH ×2 (08:19→21:20)
[2019-08-17] MEDS: CARDIZEM CD PO SCH (08:19)
[2019-08-17] MEDS: LASIX PO SCH ×2 (08:19→13:45)
[2019-08-17] MEDS: INVANZ 1 GM/NS 1 GM/50 ML IVPB IV SCH (09:36)
[2019-08-17] MEDS: DUONEB (A & A) INH PRN (11:23)
--- NOTE | 2019-08-17 16:04 | PROGRESS NOTE ---
DATE: 08/17/2019 SUBJECTIVE: Ms. Gómez said she had a rough morning. O2 saturations dropped. They put her on a face mask which she does not like. She does feel better. She feels a little stronger. She came in just complaining of weakness. OBJECTIVE: Vital signs: Temp is 97.4 degrees, pulse 80, respirations 816, blood pressure 117/51. Blood pressure ranges from 93 to 119 over 38 to 68. HEENT: Pupils are equal and round. Lungs: Clear in all lung reyes. Cardiovascular: Regular rhythm and rate without murmur or S3. Abdomen: Soft. Skin: Warm and dry. Urine output is 1700 mL. IMAGING: Her chest x-ray done this morning, improvement in the left lung bases, stable chest otherwise. ASSESSMENT AND PLAN: End-stage chronic obstructive pulmonary disease with cor pulmonale, hypercapnia, hypoxemic respiratory failure. She is on 5 L O2 at home. Requiring some supplementary O2 above 5 L. We are still diuresing her with p.o. Lasix 40 mg twice a day. Her chest x-ray does show a little improvement. Her electrolytes look good and are stable. Renal function looks good. So continue present measures. She is getting albuterol ipratropium treatments q.2 hours p.r.n., Xanax 0.5 mg p.o. b.i.d., Eliquis 5 mg b.i.d., budesonide formoterol 2 puffs b.i.d., diltiazem CD 240 mg a day, Lasix 40 mg p.o. b.i.d., guaifenesin ER 1200 mg b.i.d., ertapenem I am giving her 1 g IV q.24 hours for possible bronchitic organisms and since she has long-term COPD covering for gram-negative and Pseudomonas, methylprednisone 40 mg IV q.12, Singulair 10 mg a day, Ultram 50 mg q.6 hours, Pulmicort 0.5 mg inhalation is what she takes at home, but I have her on budesonide at this time. I think she is clinically a little better. She is discouraged. She appears to be in sinus rhythm. Her telemetry strips indicate sinus rhythm as well. cc: Gareth Franco MD
[2019-08-18] MEDS: SYMBICORT 160/4.5 MICROGM INHALER INH SCH ×2 (08:36→20:58)
[2019-08-18] MEDS: DUONEB (A & A) INH SCH ×3 (08:36→20:58)
[2019-08-18] MEDS: CARDIZEM CD PO SCH (08:52)
[2019-08-18] MEDS: ELIQUIS PO SCH ×2 (08:52→20:32)
[2019-08-18] MEDS: LASIX PO SCH ×2 (08:52→13:13)
[2019-08-18] MEDS: MUCINEX PO SCH ×2 (08:52→20:32)
[2019-08-18] MEDS: SINGULAIR PO SCH (08:52)
[2019-08-18] MEDS: SOLU-MEDROL IV SCH ×2 (08:53→20:32)
[2019-08-18] MEDS: XANAX PO SCH ×2 (08:53→20:32)
[2019-08-18] MEDS: INVANZ 1 GM/NS 1 GM/50 ML IVPB IV SCH (11:05)
--- NOTE | 2019-08-18 13:43 | PROGRESS NOTE ---
DATE: 08/18/2019 SUBJECTIVE: Ms. Gómez said she is about the same. She had some trouble breathing this morning, had to go on face mask for a while, but I think she looks a little calmer, looks a little less anxious, and she still gets short of breath when she goes to the bathroom. OBJECTIVE: Vital Signs: She remains afebrile, temperature 97.3 degrees, pulse 85, respirations 17, blood pressure 118/60. HEENT: Pupils are equal and round. Lungs: Clear in all lung reyes. Cardiovascular: Regular rhythm and rate without murmur or S3. Abdomen: Soft. Skin: Warm and dry. Urine output is 1800 mL. ASSESSMENT AND PLAN: End-stage chronic obstructive pulmonary disease with cor pulmonale, chronic hypercapnic and chronic hypoxemic respiratory failure. She is on 5 liters of oxygen at home. I see no sign of pneumonia. We are treating for possible bronchitis, and covering for Pseudomonas and gram-negative. Continue to try and diurese as she has pleural effusions and pulmonary venous hypertension on her x-ray. I think clinically, she is a little bit better. I do not see any change in orders. I am going to hold her potassium as lab yesterday showed potassium was 5.3. Will check basic metabolic profile again in the morning with the magnesium, and I will check a chest x-ray in the morning. See what Dr. Hernandez has to say. cc: Gareth Franco MD
[2019-08-19 06:46] LABS: ESTIMATED GFR > 60
[2019-08-19 06:57] LABS: AGAP 8; BUN 26 mg/dL (8-22); CHLORIDE 91 mmol/L (98-107); COSMO 297; CREATININE 0.5 mg/dL (0.5-0.9); GLUCOSE 295 mg/dL (70-104); MAGNESIUM 2.4 mg/dL (1.5-2.7); SODIUM 141 mmol/L (136-145); TCO2 42 mmol/L (25-35)
--- NOTE | 2019-08-19 07:10 | Diag Imaging Result Doc PS360 ---
EXAM: CHEST-PORTABLE 08/19/2019 HISTORY: copd, pulmonary venous htn TECHNIQUE: AP portable at 0535 COMMENT: There is increased interstitial opacity in the lung base on the left. There is volume loss on the right with shift of the mediastinum to the right. There is blunting of the right costophrenic angle as there was at the time the previous study of 08/17/2019. There is a prominent skin fold on the right. IMPRESSION: 1. Interstitial pulmonary edema and cardiomegaly. 2. Atelectasis and/or pneumonia in the right middle and lower lobes. 3. Pleural thickening versus effusion on the right. Electronically signed by Aquilino Flores 08/19/2019 7:07 AM
[2019-08-19] MEDS: MUCINEX PO SCH ×2 (08:29→21:42)
[2019-08-19] MEDS: XANAX PO SCH ×2 (08:29→21:42)
[2019-08-19] MEDS: ELIQUIS PO SCH ×2 (08:29→21:42)
[2019-08-19] MEDS: CARDIZEM CD PO SCH (08:29)
[2019-08-19] MEDS: LASIX PO SCH ×2 (08:29→14:21)
[2019-08-19] MEDS: SINGULAIR PO SCH (08:29)
[2019-08-19] MEDS: SOLU-MEDROL IV SCH ×2 (08:30→21:42)
[2019-08-19] MEDS: SYMBICORT 160/4.5 MICROGM INHALER INH SCH ×2 (08:50→20:19)
[2019-08-19] MEDS: DUONEB (A & A) INH PRN ×3 (08:51→20:19)
[2019-08-19] MEDS: INVANZ 1 GM/NS 1 GM/50 ML IVPB IV SCH (09:08)
--- NOTE | 2019-08-19 16:41 | PROGRESS NOTE ---
DATE: 08/19/2019 SUBJECTIVE: Ms Rico sapp is very discouraged. I think her breathing may be actually a little better, but she is very depressed and despondent about her situation. OBJECTIVE: Temperature 97.6 degrees, pulse 79, respirations 14, blood pressure 137/65. Pupils are equal and round. Lungs are clear in all lung reyes. Cardiovascular exam regular rhythm and rate without murmur or S3. She is on nasal cannula at the present time.Input and Output: Urine output is 2800 mL. LAB: Today are chemistries: Sodium 141, potassium 4.0, chloride 90, BUN 26, creatinine 0.5, osmolality 297. Her proBNP when we checked on 08/15/2019 was 1050. Troponin less than 0.01. Lactate level is 1.5. Chest x-ray: Interstitial pulmonary edema, cardiomegaly, atelectasis or pneumonia right middle and lower lobes. Pleural thickening versus effusion on the right. ASSESSMENT AND PLAN: 1. End-stage chronic obstructive pulmonary disease with cor pulmonale chronic hypercapnic, chronic hypoxemic respiratory failure. She is on 5 L of oxygen at home and came in mainly with weakness. Her lab really was unremarkable. Chest x-ray did not look much worse. I am treating her for bronchitis and possible pneumonia with gram-negative and Pseudomonas organisms in mind because of her chronic obstructive pulmonary disease . 2. She does have pleural effusion, pulmonary venous hypertension. Continue to diurese her with just p.o. Lasix. She is very weak. We will initiate some physical therapy. Also will start some Lexapro and see if it will help with her depression. REVIEW OF HER ORDERS: At this point I really do not see any change. She is on Singulair 10 mg a day. She is getting duo nebs q.2 hours p.r.n. She is on Xanax 0.5 mg b.i.d. Eliquis 5 mg b.i.d., budesonide formoterol 2 puffs inhaler b.i.d., diltiazem CD 240 mg daily, Lasix 40 mg p.o. b.i.d., guaifenesin ER 1200 mg p.o. b.i.d., ertapenem 1 g IV q.24 hours, tramadol 50 mg q.6 hours. cc: Gareth Franco MD
[2019-08-19] MEDS: LEXAPRO PO SCH (17:44)
[2019-08-20] MEDS: SYMBICORT 160/4.5 MICROGM INHALER INH SCH ×2 (08:15→19:34)
[2019-08-20] MEDS: XANAX PO SCH ×2 (08:26→20:00)
[2019-08-20] MEDS: CARDIZEM CD PO SCH (08:26)
[2019-08-20] MEDS: SINGULAIR PO SCH (08:26)
[2019-08-20] MEDS: LEXAPRO PO SCH (08:26)
[2019-08-20] MEDS: MUCINEX PO SCH ×2 (08:26→20:00)
[2019-08-20] MEDS: LASIX PO SCH ×2 (08:26→13:41)
[2019-08-20] MEDS: ELIQUIS PO SCH ×2 (08:26→20:00)
[2019-08-20] MEDS: SOLU-MEDROL IV SCH ×2 (08:26→20:00)
[2019-08-20] MEDS: INVANZ 1 GM/NS 1 GM/50 ML IVPB IV SCH (11:27)
[2019-08-20] MEDS: DUONEB (A & A) INH PRN ×2 (15:37→19:34)
--- NOTE | 2019-08-20 18:14 | PROGRESS NOTE ---
DATE: 08/20/2019 SUBJECTIVE: Ms. Zhang feels about the same as yesterday. She is still pretty weak but overall her strength is better. Still requiring some face mask oxygen and still does not feel real good in general. OBJECTIVE: Vital Signs: She remains afebrile, temperature 97.6 degrees, pulse 94, respirations 18, blood pressure 133/70. Pupils are equal and round. Lungs: Clear in all lung reyes. Cardiovascular: Regular rhythm and rate without murmur or S3. Breath sounds diminished in both bases. Urine output from yesterday 5100 mL, good urine output. ASSESSMENT AND PLAN: 1. End-stage chronic obstructive pulmonary disease with cor pulmonale, chronic hypercapnic chronic hypoxemic respiratory failure. She is on 5 L oxygen at home, requiring some additional oxygen. She is on steroid inhaler and long-acting beta agonist. She does have some pleural effusions and pulmonary venous hypertension, which we are trying to diurese and she is on 40 mg of Lasix p.o. twice a day. 2. History of atrial fibrillation. She is predominantly in sinus rhythm. Rate is controlled. She is on blood thinner. 3. I am giving her ertapenem to cover respiratory bacteria including Pseudomonas and gram- negative. She is on methylprednisone 40 mg q.12h and she is on Singulair 10 mg a day as well as guaifenesin ER 1200 mg twice a day. We will repeat another chest x-ray tomorrow. Her labs look good. Repeat some more electrolytes in the morning and magnesium. We will repeat proBNP. cc: Gareth Franco MD
[2019-08-21 07:08] LABS: AGAP 7; BUN 29 mg/dL (8-22); CALCIUM 8.9 mg/dL (8.8-10.2); CHLORIDE 80 mmol/L (98-107); COSMO 290; CREATININE 0.5 mg/dL (0.5-0.9); ESTIMATED GFR > 60; GLUCOSE 290 mg/dL (70-104); MAGNESIUM 2.5 mg/dL (1.5-2.7); POTASSIUM 3.7 mmol/L (3.5-5.1); SODIUM 137 mmol/L (136-145); TCO2 50 mmol/L (25-35)
[2019-08-21] MEDS: DUONEB (A & A) INH PRN ×3 (08:24→19:42)
[2019-08-21] MEDS: SYMBICORT 160/4.5 MICROGM INHALER INH SCH ×2 (08:24→19:42)
[2019-08-21] MEDS: LEXAPRO PO SCH (08:35)
[2019-08-21] MEDS: SINGULAIR PO SCH (08:35)
[2019-08-21] MEDS: ELIQUIS PO SCH ×2 (08:35→21:38)
[2019-08-21] MEDS: MUCINEX PO SCH ×2 (08:35→21:38)
[2019-08-21] MEDS: CARDIZEM CD PO SCH (08:35)
[2019-08-21] MEDS: SOLU-MEDROL IV SCH ×2 (08:35→21:38)
[2019-08-21] MEDS: LASIX PO SCH (08:35)
[2019-08-21] MEDS: XANAX PO SCH ×2 (08:35→21:38)
[2019-08-21] MEDS: INVANZ 1 GM/NS 1 GM/50 ML IVPB IV SCH (10:04)
--- NOTE | 2019-08-21 14:09 | PROGRESS NOTE ---
DATE: 08/21/2019 Ms. Gómez still feels very weak. Still feels short of breath, overwhelming. She just feels weak. OBJECTIVE: Vital Signs: Temperature 97.8 degrees, pulse 90, respirations 18, blood pressure 131/75. HEENT: Pupils are equal and round. Lungs: Are clear in all lung reyes. Decreased breath sounds both bases. Prolonged expiratory phase. Expiration with pursed lips. Cardiovascular: Regular rhythm and rate without murmur or S3. Abdomen: Is soft. Skin: Is warm and dry. No pedal edema at all. LABORATORY DATA: Reviewed from yesterday. Sodium 135, potassium 3.7, chloride 80, BUN is 29, creatinine 0.5. ASSESSMENT AND PLAN: 1. End-stage COPD, cor pulmonale, chronic hypoxemia, chronic hypercarbia. I think we may need to back down on Lasix. Her chloride is 80. She is very weak. She has no pitting edema. No distended neck veins, so I am going to decrease the Lasix down to just once q.a.m. 2. History of atrial fib, chronic, but she is in sinus rhythm at this time and rate is being controlled. 3. Been given ertapenem for gram-negative Pseudomonas. We will see if we need to continue that. She is on methylprednisone 40 mg IV q.12. So given her budesonide formoterol 2 puffs b.i.d., Eliquis 5 mg b.i.d., Xanax 0.5 mg b.i.d. I had started her on Lexapro 10 mg q.a.m. I will decrease the Lasix down to 40 mg just once a day and electrolytes look good. cc: Gareth Franco MD
[2019-08-22 06:53] LABS: BUN 25 mg/dL (8-22); CHLORIDE 82 mmol/L (98-107); COSMO 293; CREATININE 0.4 mg/dL (0.5-0.9); ESTIMATED GFR > 60; GLUCOSE 273 mg/dL (70-104); MAGNESIUM 2.5 mg/dL (1.5-2.7); POTASSIUM 3.3 mmol/L (3.5-5.1); SODIUM 140 mmol/L (136-145); TCO2 > 50 mmol/L (25-35)
[2019-08-22] MEDS: XANAX PO SCH ×2 (08:37→21:34)
[2019-08-22] MEDS: INVANZ 1 GM/NS 1 GM/50 ML IVPB IV SCH ×2 (08:37→09:19)
[2019-08-22] MEDS: MUCINEX PO SCH ×2 (08:38→21:35)
[2019-08-22] MEDS: CARDIZEM CD PO SCH (08:38)
[2019-08-22] MEDS: ELIQUIS PO SCH ×2 (08:38→21:34)
[2019-08-22] MEDS: SOLU-MEDROL IV SCH ×2 (08:38→21:43)
[2019-08-22] MEDS: LEXAPRO PO SCH (08:38)
[2019-08-22] MEDS: SINGULAIR PO SCH (08:38)
[2019-08-22] MEDS: DUONEB (A & A) INH PRN ×4 (08:59→19:53)
[2019-08-22] MEDS: SYMBICORT 160/4.5 MICROGM INHALER INH SCH ×2 (08:59→19:53)
[2019-08-22] MEDS ORDERED: LASIX PO SCH (09:00)
--- NOTE | 2019-08-22 11:23 | Diag Imaging Result Doc PS360 ---
EXAM: CHEST-1 VIEW 08/22/2019 HISTORY: desaturation TECHNIQUE: Erect AP portable at 1116 COMMENT: Compared to the previous study of 09/08/2019 there is increasing opacification of the right middle and lower lobes. There is more pleural fluid on the right and some increase in volume loss which would indicate some degree of atelectasis in the right base. In addition there is increasing interstitial opacity in the left base suggesting pulmonary edema. IMPRESSION: Worsening atelectasis in the right lower and middle lobes and increasing pleural effusion on the right. Pulmonary edema. Electronically signed by Aquilino Flores 08/22/2019 11:21 AM
[2019-08-22 15:31] LABS: URINE SOURCE CATH
--- NOTE | 2019-08-22 15:31 | PROGRESS NOTE ---
DATE: 08/22/2019 SUBJECTIVE: She feels worse. She is requiring more O2. Her chest x-ray from this morning, worsening atelectasis in the right lower lobe and middle lobes, increasing pleural effusion on the right. I am going to need to go up on her Lasix. On exam today she is on 100% rebreather. She is awake and alert. She is very weak. We went ahead and put a Merino catheter in. She had about 800 mL in her bladder, was unable to void. OBJECTIVE: Vital signs: Temperature 98 degrees, pulse 80, respirations 20, blood pressure 120/57. HEENT: Pupils are equal and round. Neck: Her neck veins do appear distended today. Lungs: Decreased breath sounds both bases. Prolonged expiratory phase with pursed lips. Abdomen: Soft, nondistended. Extremities: No pedal edema. Her urine output yesterday was 1500. Today it has been, I think, 2400. ASSESSMENT AND PLAN: 1. End-stage chronic obstructive pulmonary disease, cor pulmonale, chronic hypoxemic, chronic hypercapnia. We will go up on the Lasix and give her 60 mg IV q.12. Continue her bronchodilators. She is on a steroid inhaler and long-acting beta agonist. She is on Singulair 10 mg a day and getting budesonide formoterol, as well as her DuoNeb. Continue methylprednisone at 40 mg IV q.12. I have her on ertapenem just to cover for gram-negative and Pseudomonas bronchitic organisms. 2. History of atrial fibrillation. She has remained predominantly in sinus rhythm. Rate is controlled. She is on Eliquis 5 mg b.i.d. Note that we will check a CBC again tomorrow. Electrolytes today, sodium 140, potassium 3.3, chloride 82. Her magnesium is 2.5, creatinine 0.4. We will supplement her potassium. cc: Gareth Franco MD
[2019-08-22 15:59] LABS: BILIRUBIN URINE NEGATIVE (NEGATIVE); BLOOD URINE NEGATIVE (NEGATIVE); COLOR YELLOW; GLUCOSE URINE 100 mg/dL (NEGATIVE); KETONE URINE NEGATIVE (NEGATIVE); LEUKOCYTES URINE NEGATIVE (NEGATIVE); NITRITE URINE NEGATIVE (NEGATIVE); PH URINE 6.5; PROTEIN URINE NEGATIVE (NEGATIVE); SP GRAVITY URINE 1.012; TURBIDITY URINE CLEAR (CLEAR); UROBILINOGEN URINE NORMAL (NORMAL)
[2019-08-22] MEDS: LASIX IV SCH (16:11)
[2019-08-22 16:27] LABS: UR EPITHELIAL CELLS <10 /HPF (<10); URINE BACTERIA NEGATIVE /HPF; URINE RBC <10 /HPF (<10); URINE WBC <10 /HPF (<10)
[2019-08-22] MEDS: KLOR-CON PO SCH (21:43)
[2019-08-22] MEDS ORDERED: LASIX IV ONE (22:52)
[2019-08-22] MEDS: MORPHINE IV PRN (22:59)
--- NOTE | 2019-08-23 01:26 | EKG Report ---
Test Performed on : 08/22/2019 10:28:20 PM Test Reason : Chest pain Blood Pressure : / mmHG Vent. Rate : 099 BPM Atrial Rate : 104 BPM P-R Int : 000 ms QRS Dur : 088 ms QT Int : 296 ms P-R-T Axes : 000 052 021 degrees QTc Int : [address] & T wave abnormality, consider anterior ischemia Abnormal ECG When compared with ECG of 15-AUG-2019 11:21, (Unconfirmed) Previous ECG has undetermined rhythm, needs review Confirmed by Parish ULRICH, Tanmay Vázquez ([id number]) on 08/23/2019 9:29:15 AM
[2019-08-23] MEDS: LASIX IV SCH ×2 (04:00→15:57)
--- NOTE | 2019-08-23 07:32 | Diag Imaging Result Doc PS360 ---
EXAM: CHEST-PORTABLE HISTORY: copd , pulmonary edema TECHNIQUE: Single view COMPARISON: 08/22/2019 FINDINGS: There are small bilateral pleural effusions with basilar atelectasis and/or infiltrates. These are slightly less prominent. The heart is mildly enlarged. IMPRESSION: Mild interval improvement Electronically signed by Guillermo Perez 08/23/2019 7:29 AM
[2019-08-23] MEDS: DUONEB (A & A) INH PRN ×4 (07:37→19:53)
[2019-08-23] MEDS: SYMBICORT 160/4.5 MICROGM INHALER INH SCH ×2 (07:37→19:53)
[2019-08-23] MEDS: MUCINEX PO SCH ×2 (08:29→20:35)
[2019-08-23] MEDS: KLOR-CON PO SCH ×2 (08:30→20:35)
[2019-08-23] MEDS: XANAX PO SCH ×2 (08:30→20:35)
[2019-08-23] MEDS: SOLU-MEDROL IV SCH ×2 (08:30→20:35)
[2019-08-23] MEDS: ELIQUIS PO SCH ×2 (08:30→20:35)
[2019-08-23] MEDS: LEXAPRO PO SCH (08:30)
[2019-08-23] MEDS: SINGULAIR PO SCH (08:30)
[2019-08-23] MEDS: CARDIZEM CD PO SCH (08:30)
[2019-08-23] MEDS: INVANZ 1 GM/NS 1 GM/50 ML IVPB IV SCH (09:26)
--- NOTE | 2019-08-23 18:09 | PROGRESS NOTE ---
DATE: 08/23/2019 SUBJECTIVE: Ms. Gómez is an 84-year-old. She has had a worse day. They had to put her on BiPAP, which she is miserable on BiPAP. Dr. Hernandez saw her, took her off the BiPAP at her request. OBJECTIVE: Vital Signs: Remains afebrile, temperature 98 degrees, pulse 101, respirations 20, blood pressure 123/77. HEENT: Pupils are equal and round. Lungs: Clear in all lung reyes. Decreased breath sounds both bases. No wheezing. Cardiovascular: Regular rhythm and rate without murmur or S3. Abdomen: Soft. Skin: Warm and dry. IMAGING: Her x-ray, mild interval improvement, small bilateral pleural effusion, bibasilar atelectasis, no sign of infiltrates. ASSESSMENT AND PLAN: 1. End-stage chronic obstructive pulmonary disease, cor pulmonale, chronic hypoxemia, chronic hypercapnia. I went up on her Lasix, IV 60 mg IV q.12. Continue her bronchodilators, her steroid inhaler, long-acting beta agonist combination of short-acting and antimuscurinic inhalers. I am not sure how much improvement we will obtain, but Dr. Hernandez is following her, Pulmonology. 2. History of chronic atrial fibrillation. She has remained in sinus rhythm. 3. Nutrition is good. 4. General anxiety and depression. So, continue current regimen. cc: Gareth Franco MD MTDD
[2019-08-24] MEDS: LASIX IV SCH ×2 (02:51→14:54)
--- NOTE | 2019-08-24 06:59 | PULMONOLOGY CONSULTATION ---
DATE: 08/23/2019 REQUESTING PHYSICIAN: Dr. Gareth Franco. REASON FOR CONSULTATION: Respiratory failure. HISTORY OF PRESENT ILLNESS: Ms. Gómez is an 84-year-old white female well known to this practitioner. Patient has end-stage COPD with hypoxemic and hypercapnic respiratory failure who had 7 admissions to the hospital in 2019. The admissions have become more severe and more frequent. The patient was discharged from the hospital 10/14/2018 only to return 2 days later with severe respiratory distress. Chest x-ray was only marginally different from discharge. She has had difficulty with cough and sputum production, and was treated for bronchitis at last admission. She has difficulty clearing her secretions. She was placed on a BiPAP last evening, but historically she considers this "torture". Upon my arrival today, she requested that it be removed. This was discontinued, and she was placed on a non-rebreather. Her oxygen saturations do decline into the mid to low 80s when on a non-rebreather, but she is significantly more comfortable. PAST MEDICAL HISTORY: 1. Severe COPD with hypoxemic and hypercapnic respiratory failure. The patient was previously qualified for a trilogy device, which she took home, but refused to wear and was subsequently removed from her house. 2. Polycythemia. 3. Chronic atrial fibrillation. 4. Chronic right-sided pleural effusion which increases with fluid overload. 5. Chronic atrial fibrillation. 6. Anxiety disorder. 7. Chronic venous insufficiency. 8. Dyslipidemia. 9. History of giant hematoma involving the left lower extremity. 10. Recurrent episodes of acute on chronic cor pulmonale. SOCIAL HISTORY: Extensive tobacco history. Previously to the [facility]. Occasional alcohol use. REVIEW OF SYSTEMS: Notable for cough with difficulty clearing secretions, frequent urination, dyspnea at rest, air hunger, fatigue and hypersomnolence. PHYSICAL EXAMINATION: General: Reveals a frail chronically ill-appearing white female with mild peripheral cyanosis. Vital Signs: Blood pressure 123/77, heart rate 96, respiratory rate 17, and oxygen saturation 83%. HEENT: Pupils are equal and reactive. Oropharynx appears clear. Neck: Supple. Chest: Reveals rhonchi bilaterally with decreased breath sounds right base. She has prolonged expiratory phase. Cardiac: Irregular irregular. Abdomen: Soft. Extremities: Reveal trace to 1+ peripheral edema with mild peripheral cyanosis. LABORATORIES: Chest x-ray yesterday reveals mild increased markings versus mild infiltrate at the left base with pleural effusion at the right base. Arterial blood gas 08/15/2019, pH 7.49, pCO2 of 61, and PO2 of 65. IMPRESSION: An 84-year-old with end-stage COPD who presents with: 1. Acute hypoxemic respiratory failure. 2. Acute on chronic cor pulmonale. 3. Chronic hypercapnic respiratory failure. 4. Pleural effusion. 5. Recurrent admissions to the hospital with shortening periods of wellness. DISCUSSION: An 84-year-old with end-stage COPD as per above. She has become progressively weak over the last 2 to 3 months. She was only out of the hospital for 48 hours prior to this readmission. She has no respiratory reserve. Her performance status continues to decline although she might physiologically benefit from BiPAP. Psychologically, this represents a torture for Ms. Gómez. After discussion, we have agreed to discontinue the BiPAP device. She has previously requested a DNR status, and she is a DNR during this hospitalization. RECOMMENDATIONS: 1. Agree with broad spectrum antibiotics as you have prescribed. 2. Agree with diuretics as you have prescribed. 3. Continue anticoagulation. 4. Continue steroid dosing and nebulizer treatments. 5. Agree with comfort measures which have been instituted. I would avoid BiPAP due to the patient's anxiety and loading of this device. She is aware that she may or may not survive this hospitalization. We will treat her, and I hope that she will improve, but will in-situ comfort measures to include morphine for air hunger. 6. The patient is a candidate for hospice if she wishes to be admitted to hospice. cc: MD Gareth Junior MD
[2019-08-24] MEDS: DUONEB (A & A) INH PRN ×2 (07:52→19:33)
[2019-08-24] MEDS: SYMBICORT 160/4.5 MICROGM INHALER INH SCH ×2 (08:02→19:32)
[2019-08-24] MEDS: MUCINEX PO SCH ×2 (08:47→21:31)
[2019-08-24] MEDS: XANAX PO SCH ×2 (08:47→21:31)
[2019-08-24] MEDS: LEXAPRO PO SCH (08:47)
[2019-08-24] MEDS: KLOR-CON PO SCH ×2 (08:47→21:31)
[2019-08-24] MEDS: SOLU-MEDROL IV SCH ×2 (08:47→21:31)
[2019-08-24] MEDS: ELIQUIS PO SCH ×2 (08:47→21:31)
[2019-08-24] MEDS: CARDIZEM CD PO SCH (08:47)
[2019-08-24] MEDS: SINGULAIR PO SCH (08:47)
[2019-08-24] MEDS: INVANZ 1 GM/NS 1 GM/50 ML IVPB IV SCH (09:20)
[2019-08-24] MEDS: MORPHINE IV PRN (15:30)
[2019-08-24] MEDS ORDERED: TRANSDERM-SCOP TD SCH (16:00)
--- NOTE | 2019-08-24 16:42 | PROGRESS NOTE ---
DATE: 08/24/2019 SUBJECTIVE: Ms. Gómez had a harder time today, harder time breathing. We did give her some morphine. She just cannot tolerate the BiPAP. She feels very weak. Blood pressure is stable. Remains afebrile. OBJECTIVE: Vital Signs: Temperature 97.5 degrees, pulse 92, respirations 16, blood pressure 137/83. HEENT: Pupils are equal and round. Lungs: Decreased breath sounds in both bases. Prolonged expiratory phase, using extra thoracic, extra diaphragmatic muscles to breathe. ASSESSMENT AND PLAN: End-stage chronic obstructive pulmonary disease, progressively weak over the last 2 or 3 months. She had been out of the hospital only 48 hours since the last admission. She has no respiratory reserve. Her performance status continues to decline. She does not tolerate the BiPAP. She might benefit physiologically from BiPAP, but she just does not tolerate it. She is a Do Not Resuscitate status. We continue to diurese her. She does have pulmonary venous hypertension and pleural effusions, which are chronic, with cor pulmonale. We have her on bronchodilators, and we have her on antimuscarinic and short-acting beta-agonist and long-acting beta-agonists and steroid. She is also on systemic steroids, methylprednisone 40 mg IV every 12 hours. We added a scopolamine patch to help with secretions, and she seems not to have made much progress. Continue current orders. LABORATORY DATA: From today, sodium 140, potassium 3.3, chloride 82, BUN 25, creatinine 0.4. She is getting some potassium I believe, she gets 40 mEq of potassium p.o. b.i.d. cc: Gareth Franco MD
[2019-08-25] MEDS: LASIX IV SCH ×2 (03:16→16:04)
--- NOTE | 2019-08-25 07:41 | PULMONOLOGY PROGRESS NOTE ---
DATE: 08/24/2019 SUBJECTIVE: The patient was sleeping on my arrival, but she is arousable. She reports she is very weak. Her oxygen saturations are running in the mid to low 80s. She has mild to moderate cyanosis of the lips and hands. She appears comfortable. OBJECTIVE: HEENT: Pupils are equal and reactive. Oropharynx appears clear. Neck: Supple. Lungs: Chest reveals rhonchi bilaterally. She is too weak to cough and clear her secretions. Breath sounds are decreased at the right base. Cardiac: S1-S2. Abdomen: Soft. Extremities: Reveal trace edema. IMPRESSION: An 84-year-old with end-stage COPD with recurrent admissions to the hospital. She does not tolerate BiPAP, and considers it a form of torture. Her time is limited. She is on a non-rebreather and remains hypoxemic, but she appears comfortable. It is quite probable that she will during this hospitalization. PLAN: 1. Continue broad-spectrum antibiotics. 2. Continue palliative care measures. I explained that our goal was comfort, and she said in response "so we are going to use palliative measures" and I responded yes. 3. Continue steroid dosing and nebulizer treatments. 4. Agree with current resuscitation status which we will allow patient to have a natural when she dies. cc: MD Gareth Junior MD
[2019-08-25] MEDS: DUONEB (A & A) INH PRN ×2 (08:00→19:59)
[2019-08-25] MEDS: SYMBICORT 160/4.5 MICROGM INHALER INH SCH ×2 (08:00→19:59)
[2019-08-25] MEDS: XANAX PO SCH ×2 (09:29→20:43)
[2019-08-25] MEDS: KLOR-CON PO SCH ×2 (09:29→20:42)
[2019-08-25] MEDS: INVANZ 1 GM/NS 1 GM/50 ML IVPB IV SCH (09:30)
[2019-08-25] MEDS: CARDIZEM CD PO SCH (09:30)
[2019-08-25] MEDS: ELIQUIS PO SCH ×2 (09:30→20:42)
[2019-08-25] MEDS: LEXAPRO PO SCH (09:30)
[2019-08-25] MEDS: SINGULAIR PO SCH (09:30)
[2019-08-25] MEDS: MUCINEX PO SCH ×2 (09:30→20:42)
[2019-08-25] MEDS: SOLU-MEDROL IV SCH ×2 (09:57→20:42)
--- NOTE | 2019-08-25 13:49 | PROGRESS NOTE ---
DATE: 08/25/2019 SUBJECTIVE: Ms Gómez is about the same. I think she is breathing a little better. She is fine at rest, but gets short of breath with any movement. She is still pretty weak, but overall she seems less anxious. She is on non-rebreather supplementing O2. OBJECTIVE: Vital Signs: Temperature 97.3 degrees, pulse 77, respirations 18, blood pressure 122/75. Eyes: Pupils are equal and round. Lungs: Clear in all lung reyes. Cardiovascular exam: Regular rhythm and rate without murmur or S3. : Urine output was 800 mL. ASSESSMENT AND PLAN: End-stage chronic obstructive pulmonary disease. Recurrent admissions in the hospital. She does not tolerate BiPAP; considers it a form of torture. She is on non- rebreather and remains hypoxemic, but comfortable. Still trying to diurese. She is on steroid inhaler, antimuscarinic inhaler, short-acting/long-acting beta agonist inhaler, and we have her on broad-spectrum antibiotic. Continue trying to diurese and she has pulmonary hypertension and pleural effusions in hopes that it will give her a little more reserve in her lungs. Her lab is unremarkable. I think we will check some electrolytes and complete blood count again in the morning. cc: Gareth Franco MD
--- NOTE | 2019-08-25 22:47 | PULMONOLOGY PROGRESS NOTE ---
DATE: 08/25/2019 SUBJECTIVE: The patient was sleeping on when I evaluated her at noon. She did not wake up while I was doing her exam. She appeared to be comfortable. Oxygen saturation trending at 88%. OBJECTIVE: HEENT: Pupils are equal and reactive. Oropharynx appears dry. Neck: Supple. Chest: Reveals decreased breath sounds right base. Cardiac: Distant heart sounds. Normal S1. Normal S2. Abdomen: Soft. Extremities: Reveal mild peripheral cyanosis. IMPRESSION: An 84-year-old with end-stage chronic obstructive pulmonary disease with: 1. Acute on chronic hypoxemic respiratory failure. 2. Acute on chronic cor pulmonale. 3. Acute on chronic hypercapnic respiratory failure. DISCUSSION: An 84-year-old with problems outlined above. She does not tolerate the BiPAP device. She appears to be comfortable with the non-rebreather and supplemental morphine. She has had excellent diuresis over the last 24 hours and it is possible that she may improve, but she remains critically ill. PLAN: 1. Continue nonrebreather and morphine for comfort. 2. Continue current steroid, antibiotic and diuretic regimen. 3. We will obtain follow-up labs tomorrow morning. cc: MD Gareth Junior MD
[2019-08-26] MEDS: LASIX IV SCH ×2 (03:30→16:52)
[2019-08-26 06:19] LABS: BASO# 0.01 X1000 (0.0-0.2); BASO% 0.1 % (0.0-0.8); HEMATOCRIT 46.6 % (37.0-47.0); HEMOGLOBIN 14.2 g/dL (12.0-16.0); IMM GRAN# 0.04 X1000 (0.0-0.04); IMM GRAN% 0.3 % (0.0-0.5); LYMPH# 0.44 X1000 (1.2-3.4); LYMPH% 3.1 % (20.5-51.1); MCH 27.6 PG (27-31); MCHC 30.5 g/dL (33-37); MCV 90.7 FL (81-99); MONO# 0.35 X1000 (0.11-0.59); MONO% 2.5 % (1.7-9.3); MPV 9.9 FL (7.4-10.4); NEUT# 13.32 X1000 (1.4-6.5); PLT 155 X1000 (130-400); RBC 5.14 XMIL (4.2-5.4); RDW 15.2 % (11.5-14.5); WBC 14.16 X1000 (4.8-10.8)
[2019-08-26] MEDS: SYMBICORT 160/4.5 MICROGM INHALER INH SCH ×2 (08:26→19:48)
[2019-08-26] MEDS: DUONEB (A & A) INH PRN ×4 (08:27→19:48)
[2019-08-26 09:49] LABS: ALB/GLOB RATIO 1.2; ALBUMIN 3.3 g/dL (3.5-5.0); ALKALINE PHOSPHATASE 66 U/L (32-104); BUN 52 mg/dL (8-22); CALCIUM 9.1 mg/dL (8.8-10.2); CHLORIDE 80 mmol/L (98-107); COSMO 311; CREATININE 0.5 mg/dL (0.5-0.9); ESTIMATED GFR > 60; GLUCOSE 454 mg/dL (70-104); GOT 11 U/L (10-30); GPT 22 U/L (10-36); MAGNESIUM 2.6 mg/dL (1.5-2.7); POTASSIUM 4.7 mmol/L (3.5-5.1); SODIUM 139 mmol/L (136-145); TCO2 > 50 mmol/L (25-35); TOTAL BILIRUBIN 0.71 mg/dL (0.20-1.00); TOTAL PROTEIN 6.1 g/dL (6.3-8.3)
[2019-08-26] MEDS: SOLU-MEDROL IV SCH ×3 (09:55→21:38)
[2019-08-26] MEDS: KLOR-CON PO SCH ×2 (09:55→20:23)
[2019-08-26] MEDS: XANAX PO SCH ×2 (09:55→20:23)
[2019-08-26] MEDS: ELIQUIS PO SCH ×2 (09:55→20:23)
[2019-08-26] MEDS: MUCINEX PO SCH ×2 (09:55→20:23)
[2019-08-26] MEDS: INVANZ 1 GM/NS 1 GM/50 ML IVPB IV SCH (09:56)
[2019-08-26] MEDS: CARDIZEM CD PO SCH (09:56)
[2019-08-26] MEDS: LEXAPRO PO SCH (09:56)
[2019-08-26] MEDS: SINGULAIR PO SCH (09:56)
[2019-08-26] MEDS: MORPHINE IV PRN ×2 (09:57→20:42)
[2019-08-26 12:58] LABS: LYMPHS 2 % (21-51); MONO 4 % (1-9); SEGS 94 % (42-75)
--- NOTE | 2019-08-26 13:37 | PROGRESS NOTE ---
DATE: 08/26/2019 SUBJECTIVE: Ms Gómez is very weak and lethargic. She clearly does not look any better than. Son was at the bedside. OBJECTIVE: Vital signs: Temperature 97.8 degrees, pulse 92, respiration 18, blood pressure 140/85. HEENT: Pupils are equal and round. Lungs: Are clear in all lung reyes. Decreased breath sounds both bases. She has 100% non-rebreather. Abdomen: Is soft. Still using accessory muscles to breathe. Extremities: No pedal edema. ASSESSMENT AND PLAN: 1. Acute on chronic hypoxemic respiratory failure. 2. Acute on chronic cor pulmonale. 3. Acute on chronic hypercapnic respiratory failure. She does not tolerate the BiPAP device and appears to be comfortable on the non-rebreather and continue her present bronchodilators and steroid inhaler. She has had excellent diuresis and it possible she still may improve. Continue current steroid antibiotic and diuretic regimen. REVIEW OF HER LAB TODAY: really no significant change. Note the blood sugars have started running pretty high, that is because of the steroid and I think we could cut the steroid down so we will cut down the methylprednisone to 20 mg IV q.12. cc: Gareth Franco MD
--- NOTE | 2019-08-27 02:41 | PULMONOLOGY PROGRESS NOTE ---
DATE: 08/26/2019 SUBJECTIVE: The patient is arousable. She will briefly speak to this practitioner before she drifts off back to sleep. She appears comfortable. She did indicate that the show [employer] was on channel 3. OBJECTIVE: Vital Signs: The patient has been afebrile for the last 24 hours, BP 148/97, heart rate 107, respiratory rate 22, oxygen saturation 90% on non-rebreather. HEENT: Pupils are equal. Oropharynx is clear but dry. Neck: Supple. Chest: Reveals diminished breath sounds bilaterally. Cardiac: Increased rate, regular rhythm. Abdomen: Soft. Extremities: Reveal cyanosis and bruising. LABORATORIES: Sodium 139, potassium 4.7, chloride 80, bicarbonate greater than 50, BUN 52, creatinine 0.5, glucose 454. White blood count 14.2, hemoglobin 14.2, platelet count 155,000. IMPRESSION: An 84-year-old with end-stage chronic obstructive pulmonary disease with: 1. Acute on chronic hypoxemic respiratory failure. 2. Acute on chronic hypercapnic respiratory failure. 3. Acute on chronic cor pulmonale. DISCUSSION: An 84-year-old with problems outlined above. She is developing progressive somnolence and clinically appears quite fatigued. She has had good diuresis, but her BUN is now starting to climb. PLAN: 1. Continue nonrebreather and morphine for comfort. 2. Decrease diuretic dosing given progressive prerenal status. 3. Prognosis is poor. End of life discussions have been held and if she passes she will be allowed to have a natural . cc: MD Gareth Junior MD
[2019-08-27] MEDS: MORPHINE IV PRN ×7 (06:40→13:12)
[2019-08-27] MEDS ORDERED: LASIX IV SCH (07:00)
[2019-08-27] MEDS ORDERED: MYCELEX TROCHE PO PRN (07:33)
[2019-08-27] MEDS ORDERED: MYCOSTATIN SUSP PO PRN (07:34)
[2019-08-27] MEDS ORDERED: SODIUM CHLORIDE 0.9% MISC PRN (07:35)
[2019-08-27] MEDS ORDERED: LOMOTIL PO PRN (07:36)
[2019-08-27] MEDS ORDERED: PHENERGAN PO PRN (07:37)
[2019-08-27] MEDS ORDERED: LORAZEPAM ORAL CONCENTRATE PO PRN (07:38)
[2019-08-27] MEDS ORDERED: ATIVAN IV PRN (07:38)
[2019-08-27] MEDS ORDERED: HALDOL PO PRN ×2 (07:39→07:42)
[2019-08-27] MEDS ORDERED: RISPERDAL PO PRN (07:40)
[2019-08-27] MEDS ORDERED: COMPAZINE PO PRN (07:41)
[2019-08-27] MEDS ORDERED: REGLAN PO PRN ×2 (07:42→07:48)
[2019-08-27] MEDS ORDERED: TRANSDERM-SCOP TD PRN ×2 (07:43→07:52)
[2019-08-27] MEDS ORDERED: TYLENOL PR PRN (07:44)
[2019-08-27] MEDS ORDERED: TYLENOL PO PRN (07:44)
[2019-08-27] MEDS ORDERED: MOTRIN PO PRN (07:45)
[2019-08-27] MEDS ORDERED: HYDROCODONE/APAP 7.5-325/15 ML PO PRN (07:46)
[2019-08-27] MEDS ORDERED: NORCO-5 PO PRN (07:46)
[2019-08-27] MEDS ORDERED: MORPHINE IV PRN (07:47)
[2019-08-27] MEDS ORDERED: PEPCID PO PRN (07:48)
[2019-08-27] MEDS ORDERED: LEVSIN-SL SL PRN ×2 (07:50→07:53)
[2019-08-27] MEDS ORDERED: MYLICON PO PRN (07:50)
[2019-08-27] MEDS ORDERED: BENADRYL PO PRN (07:51)
[2019-08-27] MEDS ORDERED: LASIX PO PRN (07:51)
[2019-08-27] MEDS ORDERED: ATROPINE 1 % OPHTH SOLN SL PRN (07:53)
[2019-08-27] MEDS ORDERED: TESSALON PO PRN (07:55)
[2019-08-27] MEDS ORDERED: ROBITUSSIN-DM PO PRN (07:55)
[2019-08-27] MEDS ORDERED: MILK OF MAGNESIA PO PRN (07:56)
[2019-08-27] MEDS ORDERED: SORBITOL PO PRN (07:57)
[2019-08-27] MEDS ORDERED: DESYREL PO PRN (07:58)
[2019-08-27] MEDS ORDERED: DULCOLAX PR PRN (07:58)
[2019-08-27] MEDS ORDERED: RESTORIL PO PRN (07:58)
[2019-08-27] MEDS: SYMBICORT 160/4.5 MICROGM INHALER INH SCH (08:36)
[2019-08-27] MEDS: ATIVAN IV PRN ×2 (10:57→13:12)
--- NOTE | 2019-08-27 11:01 | PROGRESS NOTE ---
DATE: 08/27/2019 SUBJECTIVE: Ms. Gómez is sleeping. She really has not responded. She still responds to pain. Appears comfortable. She is on 100% non-rebreather and saturations are below 90 and often in the mid 80s. She remains afebrile. OBJECTIVE: Vital Signs: Temperature is 98.6 degrees, pulse 118, respirations between 20 and 25. Blood pressure systolic has been above 120. Lungs: Clear anterolateral. Decreased breath sounds both bases. Cardiovascular: Regular rhythm and rate. On monitor, she is in sinus rhythm. Abdomen: Soft. Skin: Warm and dry. Extremities: No pedal edema in lower extremities. ASSESSMENT AND PLAN: Acute on chronic hypoxemic respiratory failure. She has cor pulmonale and we are going to continue her present care but switch to comfort measures. She shows steady decline. I think prognosis is poor. She is very weak and I am not sure she will survive the weekend. cc: Gareth Franco MD
[2019-08-27 11:47] VITALS: BP 100/63
--- NOTE | 2019-08-27 16:13 | DISCHARGE SUMMARY ---
ADMISSION DATE: 08/15/2019 DISCHARGE DATE: 08/27/2019 Ms. Gómez presented on 08/15/2019. She has been a long-term patient of mine, is an 84-year-old white female, rather extensive medical history, discharged home the 13 of August and got worsening shortness of breath. She has chronic hypoxemia, chronic hypercapnia with underlying COPD, elevated pulmonary hypertension and has had numerous admissions in the last couple months and this year has seen just a steady decline in her functional capacity. She was admitted. We put her on systemic steroids, inhaled steroids with short-acting and long-acting beta agonist and she really did not have much of a degree of bronchospasm, was using accessory muscles. Her main complaint was just general weakness and she did not tolerate the BiPAP. Dr. Hernandez, chief chemist was following has known her for a long time as well and we had her on 100% rebreather but showed continued deterioration. We did try diurese her. She did have some pulmonary hypertension and pleural effusions and were trying to improve her lung capacity but she showed general trend of increased AA gradient and increased weakness and on 08/27/2019 she . Family at bedside and the body to be released. cc: Gareth Franco MD
[2019-08-28] MEDS ORDERED: PRILOSEC PO SCH (07:00)
== END 2019-08-27 16:00 | disposition expired | DRG 190 ==
LOC: SUPCPDRO → ED 11:05 → 3N 15:09 → 2N 08-16 12:09
PROVIDERS: ADMIT Emergency Medicine; ATTEND Emergency Medicine